=== PATIENT | male | born 1970 | race Caucasian/White ===

== ENCOUNTER 2017-07-26 11:57 | Emergency (ER) | payer SELFPAY ==
[2017-07-26 12:20] VITALS: BP 143/108; BMI 23.6
[2017-07-26] MEDS ORDERED: DUONEB 0.5 MG/3 MG NEB ONE (13:18)
[2017-07-26] MEDS ORDERED: DECADRON JET NEB (RESP USE) NEB ONE (13:19)
[2017-07-26] MEDS ORDERED: DUONEB 0.5 MG/3 MG ONE (13:19)
--- NOTE | 2017-07-26 13:20 | DR.SOBA ---
HPI - Time Seen Time seen: 13:15 - Primary Care Physician Primary Care Physician: GÓMEZ ARENAS - Complaints Chief Complaint Doctors Comments: Patient states that he has a history of asthma and yesterday he started to cough. He has continued to cough w/o fever. He uses an inhaler but does not have one. He had asthma as child. He denies cigarette use. Chief Complaint:: PT C/O SOB THAT STARTED ON 07/25/17 PT HAS A HX OF CHILDHOOD ASTHMA PT HAS BEEN COUGHING UP YELLOW THICK SPUTUM .. PT HAS BEEN OUT OF HIS INHAILER..... Self Treatment fo Chief Complaint: PTS RESP ARE LABORDED NO DISTRESS, AND LUNGS ARE CLEAR BILATERALLY .. - Source History Provided: Patient - Mode of Arrival Mode of Arrival: Ambulatory - Timing Onset of Chief Complaint: 07/25/17 PMH - PMH Past Medical History: Yes Past Medical History: Asthma, Hypertension Past Medical History Comment: PT IS NON-COMPLIANT WITH HIS MEDS ,, Past Surgical History: No - Family History History of Family Medical Conditions: Yes Family Medical History: Hypertension - Social History Does patient currently use any type of tobacco product: No Have you used tobacco products in the last 12 months: No Type of Tobacco Use: None Does any household member use tobacco: No Alcohol Use: Rarely Do you use any recreational Drugs:: No Lives With: Friend Lives Where: Home - infectious screening In the last 2 months have you had wt loss of >10#?: NO Have you had fever, night sweats or hemotysis?: No Have you traveled outside the country in the last 6 months?: No Isolation: Standard ROS - Review of Systems Constitutional: No Symptoms Reported Eyes: No Symptoms Reported ENTM: No Symptoms Reported Respiratoy: Dry Cough, Wheezing Cardiovascular: No Symptoms Reported Gastrointestinal/Abdominal: No Symptoms Reported Genitourinary: No Symptoms Reported Neurological: No Symptoms Reported Musculoskeletal: No Symptoms Reported Integumentary: No Symptoms Reported Hematologic/Lymphatic: No Symptoms Reported Endocrine: No Symptoms Reported Psychiatric: No Symptoms Reported PE - Vital Signs Vitals: Temperature 97.8 F Pulse Rate 110 Respiratory Rate 25 Blood Pressure 143/108 O2 Sat by Pulse Oximetry 97 - General Limitations: No Limitations General Appearance: Alert, In No Apparent Distress - Head Head Exam: Normal Inspection, Atraumatic - Eyes Eye exam: Normal Appearance, PERRL, EOMI - ENT ENT Exam: Normal Exam - Neck Neck Exam: Normal Inspection - Chest Chest Inspection: Normal Inspection - Respiratory Respiratory Exam: Normal Lung Sounds Bilat Respiratory Exam: Bilateral Clear to Auscultation - Cardiovascular Cardiovascular Exam: Regular Rate, Normal Rhythm - Abdominal Exam Abdominal Exam: Normal Inspection, Normal Bowel Sounds Abdominal Tenderness: negative: RUQ, RLQ, LUQ, LLQ, Epigastrium, Suprapubic, Diffuse, Mild, Moderate, Severe, Other - Extremities Extremities Exam: Normal Inspection, Full ROM - Back Back Exam: Normal Inspection, Full ROM - Neurologic Neurological Exam: Alert, Oriented X3, CN II-XII Intact - Psychiatric Psychiatric Exam: Normal Affect, Normal Mood - Skin Skin Exam: Warm, Dry Course - Treatment Treatment: Duo Nebs x2, chest x ray,solu medrol - Reevaluation 1st: Improved - Diagnosis Discharge Problem: Asthmatic bronchitis Qualifiers: Asthma severity: mild Asthma persistence: intermittent Asthma complication type : uncomplicated Qualified Code(s): J45.20 - Mild intermittent asthma, uncomplicated - Discharge Plan Condition: Stable - Follow ups/Referrals Follow ups/Referrals: Crispin Woody [Primary Care Provider] - 3 days - Instructions
[2017-07-26] MEDS ORDERED: DECADRON INJ ONE (13:21)
[2017-07-26] MEDS ORDERED: SOLU-Medrol 125 MG VIAL ONE (13:43)
[2017-07-26] MEDS ORDERED: SOLU-Medrol 125 MG VIAL IVP ONE (13:52)
== END 2017-07-26 15:03 | disposition home or self-care (01) ==
LOC: ER 12:46
DX: J45.20 Mild intermittent asthma, uncomplicated (principal)
CPT/HCPCS: 71010; 96365; 96374; 99282; 99283; A4222; J1100; J2930; J7620

== ENCOUNTER 2017-08-30 09:11 | Observation (INO) | payer SELFPAY ==
[2017-08-30] MEDS ORDERED: DUONEB 0.5 MG/3 MG ONE (09:13)
[2017-08-30] MEDS ORDERED: DUONEB 0.5 MG/3 MG NEB ONE ×2 (09:18→11:07)
[2017-08-30 09:24] VITALS: BMI 23.6
--- NOTE | 2017-08-30 10:51 | DR.GENAD ---
HPI - PCP Primary Care Physician: GÓMEZ - Complaint/Symptoms Chief Complaint:: PT C/O TROUBLE BREATHING. PT STATES HE GOT TO WORK THIS AM AND STARTED A COUGHING SPELL. PT STATES AFTER THAT HE HAS NOT BE ABLE TO CATCH HIS BREATH. PT STATES HE TOOK A DOSE OF HIS RESCUE INHAILER. NOTED BILAT WHEEZING THROUGHOUT - Source History Provided: Patient - Mode of Arrival Mode of Arrival: Ambulatory - Timing Onset of Chief Complaint: 08/30/17 PMH - PMH Past Medical History: Yes Past Medical History: Asthma, Hypertension Past Surgical History: No - Family History History of Family Medical Conditions: Yes Family Medical History: Hypertension - Social History Does any household member use tobacco: No Alcohol Use: None Do you use any recreational Drugs:: No Lives With: Family Lives Where: Home - infectious screening In the last 2 months have you had wt loss of >10#?: NO Have you had fever, night sweats or hemotysis?: No Have you traveled outside the country in the last 6 months?: No Isolation: Standard PE - Vital Signs Vitals: Temperature 97.7 F Pulse Rate [Right Radial] 111 Pulse Rate 120 Respiratory Rate 20 Blood Pressure [Left Arm] 134/85 Blood Pressure 141/88 O2 Sat by Pulse Oximetry 97 - Diagnosis Discharge Problem: Acute bronchospasm - Discharge Plan Disposition: 01 HOME, SELF-CARE Condition: Stable - Follow ups/Referrals Follow ups/Referrals: Crispin Woody [Primary Care Provider] - 3 days - Instructions
--- NOTE | 2017-08-30 11:03 | RAD ---
Examination: Chest, PA and lateral views History: Wheezing, asthma and hypertension Comparison reference: 07/26/2017. Findings: Continued normal heart size with clear lungs and pleural spaces. Impression: No change; no acute disease. Reported By:
[2017-08-30] MEDS ORDERED: SOLU-Medrol 40 MG VIAL IVP ONE (11:07)
[2017-08-30] MEDS ORDERED: AUGMENTIN 500 MG/125 MG TAB PO ONE ×2 (11:08→11:18)
[2017-08-30] MEDS ORDERED: SOLU-Medrol 125 MG VIAL IM ONE (11:14)
[2017-08-30] MEDS ORDERED: SOLU-Medrol 125 MG VIAL ONE (11:18)
[2017-08-30] MEDS ORDERED: S2 RACEMIC EPINEPHRINE ONE (12:06)
[2017-08-30] MEDS ORDERED: BRETHINE INJ 1 MG VIAL SC ONE ×2 (12:16→12:31)
[2017-08-30] MEDS ORDERED: S2 RACEMIC EPINEPHRINE NEB ONE (12:30)
[2017-08-30] MEDS: MAGNESIUM SULFATE 1 GM/100 mL PREMIX 2 GM/200 ML BAG IV SCH ×2 (12:35→13:45)
[2017-08-30 13:00] LABS: BASOPHILS # (AUTO) 0.1 X10^3/uL (0.0-0.1); BASOPHILS % (AUTO) 0.5 % (0.2-1.0); EOSINOPHILS # (AUTO) 0.1 x10^3/uL (0.0-0.2); EOSINOPHILS % (AUTO) 0.4 % (0.9-2.9); HEMATOCRIT 42.7 % (42.0-54.0); HEMOGLOBIN 14.7 g/dL (13.5-18.0); LYMPHOCYTES # (AUTO) 1.4 X10^3/uL (1.3-2.9); LYMPHOCYTES % (AUTO) 9.4 % (21.0-51.0); MEAN CORPUSCULAR HEMOGLOBIN 29.6 pg (27.0-34.0); MEAN CORPUSCULAR HGB CONC 34.5 g/dL (33.0-35.0); MEAN CORPUSCULAR VOLUME 85.7 fL (80.0-100.0); MEAN PLATELET VOLUME 7.8 fL (7.4-11.0); MONOCYTES # (AUTO) 0.7 x10^3/uL (0.3-0.8); MONOCYTES % (AUTO) 4.4 % (0.0-13.0); NEUTROPHILS # (AUTO) 12.6 x10^3/uL (2.2-4.8); NEUTROPHILS % (AUTO) 85.3 % (42.0-75.0); PLATELET COUNT 303 X10^3/uL (150.0-450.0); RED BLOOD COUNT 4.98 X10^6/uL (4.7-6.0); RED CELL DISTRIBUTION WIDTH 13.3 % (11.6-16.5); WHITE BLOOD COUNT 14.8 X10^3/uL (3.6-10.0)
[2017-08-30] MEDS ORDERED: ROBITUSSIN AC PO ONE (13:03)
[2017-08-30] MEDS ORDERED: ROBITUSSIN AC ONE (13:04)
[2017-08-30 13:12] LABS: ALANINE AMINOTRANSFERASE 28 Units/L (12-78); ALBUMIN 3.6 g/dL (3.4-5.0); ALKALINE PHOSPHATASE 73 Units/L (46-116); ASPARTATE AMINO TRANSFERASE 20 Units/L (15-37); BLOOD UREA NITROGEN 16 mg/dL (7-18); CALCIUM 8.7 mg/dL (8.5-10.1); CARBON DIOXIDE 23.2 mmol/L (21-32); CHLORIDE 106 mmol/L (98-107); COR NA(FOR HYPERGLY) 143 mmol/L (136-145); CREATININE 1.36 mg/dL (0.70-1.30); SODIUM 140 mmol/L (136-145); TOTAL PROTEIN 6.7 g/dL (6.4-8.2); eGFR BLACK RACES > 60 (>60); eGFR NON BLACK RACES > 60 (>60)
[2017-08-30] MEDS ORDERED: ROBITUSSIN DM PO PRN (15:22)
[2017-08-30] MEDS: PROVENTIL NEB TX 0.083% 2.5MG/ 3ML NEB SCH ×3 (16:10→20:21)
[2017-08-30] MEDS: SOLU-Medrol 40 MG VIAL IVP SCH (22:01)
[2017-08-31] MEDS: PROVENTIL NEB TX 0.083% 2.5MG/ 3ML NEB SCH ×3 (01:13→09:42)
[2017-08-31] MEDS: SOLU-Medrol 40 MG VIAL IVP SCH (05:40)
[2017-08-31 06:13] LABS: ALANINE AMINOTRANSFERASE 28 Units/L (12-78); ALBUMIN 3.3 g/dL (3.4-5.0); ALKALINE PHOSPHATASE 62 Units/L (46-116); ASPARTATE AMINO TRANSFERASE 19 Units/L (15-37); BLOOD UREA NITROGEN 15 mg/dL (7-18); CALCIUM 8.8 mg/dL (8.5-10.1); CARBON DIOXIDE 23.3 mmol/L (21-32); CHLORIDE 108 mmol/L (98-107); COR CA(FOR HYPOALB) 9.4 mg/dL (8.5-10.1); COR NA(FOR HYPERGLY) 144 mmol/L (136-145); CREATININE 1.16 mg/dL (0.70-1.30); SODIUM 142 mmol/L (136-145); TOTAL PROTEIN 6.2 g/dL (6.4-8.2); eGFR BLACK RACES > 60 (>60); eGFR NON BLACK RACES > 60 (>60)
[2017-08-31 07:06] LABS: BASOPHILS % (AUTO) 0.2 % (0.2-1.0); HEMATOCRIT 40.3 % (42.0-54.0); HEMOGLOBIN 13.8 g/dL (13.5-18.0); LYMPHOCYTES # (AUTO) 0.9 X10^3/uL (1.3-2.9); LYMPHOCYTES % (AUTO) 5.1 % (21.0-51.0); MEAN CORPUSCULAR HEMOGLOBIN 29.3 pg (27.0-34.0); MEAN CORPUSCULAR HGB CONC 34.2 g/dL (33.0-35.0); MEAN CORPUSCULAR VOLUME 85.7 fL (80.0-100.0); MEAN PLATELET VOLUME 8.4 fL (7.4-11.0); MONOCYTES # (AUTO) 0.6 x10^3/uL (0.3-0.8); MONOCYTES % (AUTO) 3.1 % (0.0-13.0); NEUTROPHILS % (AUTO) 91.6 % (42.0-75.0); PLATELET COUNT 263 X10^3/uL (150.0-450.0); RED CELL DISTRIBUTION WIDTH 13.4 % (11.6-16.5); WHITE BLOOD COUNT 18.5 X10^3/uL (3.6-10.0)
[2017-08-31 07:21] LABS: BAND NEUTROPHILS % 5 % (0-10)
[2017-08-31 07:22] LABS: PLATELET MORPHOLOGY COMMENT NORMAL (NORMAL)
[2017-08-31 08:01] VITALS: BP 110/69
[2017-08-31] MEDS ORDERED: LEVAQUIN PREMIX IV 500 MG 500 MG/100 ML BAG IV SCH (09:00)
--- NOTE | 2017-08-31 22:06 | DR.CARTERS ---
Short Stay Summary - Short Stay Summary for: Short Stay Summary for Date of:: 08/31/17 - Admission Date Date of Admission: 08/30/17 - Discharge Date Discharge Date: 08/31/17 - Admission Diagnoses (1) Asthmatic bronchitis Status: Acute - Hospital Course Hospital Course: DAY 1 OF STAY: IS A 47 YEAR OLD WHITE MALE WHO PRESENTED TO THE EMERGENCY ROOM WITH COMPLAINTS OF SHORTNESS OF BREATH AND DIFFICULTY BREATHING. PATIENT REPORTED THAT HE BEGAN WITH A PERSISTENT COUGH THAT CAME ON SUDDENLY YESTERDAY MORNING. PATIENT REPORTED DIFFICULTY BREATHING THAT DID NOT SUBSIDE AFTER THE COUGHING SPELL. HE REPORTED USING HIS RESCUE INHALER WITH NO IMPROVEMENT NOTED. PATIENT REPORTS A MEDICAL HISTORY OF ASTHMA AND HTN. ON EXAMINATION, LUNGS WERE NOTED WITH EXPIRATORY AND INSPIRATORY WHEEZING BILATERALLY TO AUSCULTATION. ON ARRIVAL TO THE ER, VITALS WERE 97.7-126-24-94% RA, 141/88. ABNORMAL LAB VALUES INCLUDE THE FOLLOWING: WBC 14.8, CREATININE 1.36 , GLUCOSE 245. CHEST XRAY REPORTED NO ACUTE DISEASE. HE WAS GIVEN A DUONEB X 2, SOLU-MEDROL 80MG IM, AUGMENTIN, BRETHENE, AND EPINEPHRINE IN THE ER WITH ONLY MILD IMPROVEMENT IN SYMPTOMS NOTED. PATIENT WAS ADMITTED FOR FURTHER EVALUATION AND TREATMENT OF AN ACUTE ASTHMATIC BRONCHITIS. HE WAS STARTED ON PROVENTIL NEB [place] Q4H, ROBITUSSIN 10ML QID PRN FOR PERSISTENT COUGH, LEVAQUIN 500MG IV DAILY, AND SOLU-MEDROL 80MG IV Q8H. WE PLANNED TO FOLLOW UP WITH AM LABS AND CONTINUE TO MONITOR PATIENT. DAY 2 OF STAY: PATIENT IS ALERT AND ORIENTED, LYING IN BED ON MORNING ROUNDS. HE REPORTS FEELING WELL TODAY. HE DENIES SHORTNESS OF BREATH OR ANY COMPLAINTS THIS MORNING. PATIENTS SIGNIFICANT OTHER IS AT BEDSIDE. ON EXAMINATION, LUNGS ARE CLEAR TO AUSCULTATION. ABDOMEN IS FLAT, SOFT, AND NON TENDER WITH NORMAL BOWEL SOUNDS NOTED IN ALL QUADRANTS. HIS VITAL SIGNS THIS MORNING ARE 97.6-112- 20-94%-110/69. ABNORMAL LAB VALUES INCLUDE THE FOLLOWING WBC 18.5, HCT 40.3, CHLORIDE 108, GLUCOSE 191, TOTAL PROTEIN 6.2, ALBUMIN 3.3. WE PLANNED FOR DISCHARGE. INSTRUCTIONS FOR MEDICATIONS AND FOLLOW UP WERE DISCUSSED WITH PATIENT AND SIGNIFICANT OTHER. BOTH VERBALIZED UNDERSTANDING. PATIENT WAS DISCHARGED HOME IN STABLE CONDITION WITH NEW PRESCRIPTIONS FOR CIPRO 500MG PO BID, MEDROL DOSEPACK, JET NEBS TID, AND SYMBICORT 1PUFF BID. HE HAS INSTRUCTIONS TO FOLLOW UP IN OUR OFFICE ON 09/07/2017. - Discharge Medications Discharge Medications: Albuterol Neb 2.5MG/ 3Ml [ALBUTEROL NEB 2.5MG/ 3ML *] 1 ea NEB TID #120 neb 07/09 [Rx] Budesonide-Formoterol [SYMBICORT INH 160/4.5 mcg] 1 puff IN Q12H #1 inh [Rx] Ciprofloxacin HCl [CIPRO 500 MG TAB *] 500 mg PO Q12H #20 tab 08/31/17 [Rx] Methylprednisolone Dosepak 4Mg [MEDROL DOSEPAK (4 mg tab x 21)] 1 reena PO ONCE # 1 reena 08/31/17 [Rx] - Discharge Plan Disposition: HOME, SELF-CARE Condition: Stable Prescriptions: Albuterol Neb 2.5MG/ 3Ml [ALBUTEROL NEB 2.5MG/ 3ML *] 1 ea NEB TID #120 neb Budesonide-Formoterol [SYMBICORT INH 160/4.5 mcg] 1 puff IN Q12H #1 inh Ciprofloxacin HCl [CIPRO 500 MG TAB *] 500 mg PO Q12H #20 tab Methylprednisolone Dosepak 4Mg [MEDROL DOSEPAK (4 mg tab x 21)] 1 reena PO ONCE # 1 reena - Follow up/Referrals Follow up/Referrals: Crispin Woody [Primary Care Provider] - 09/07/17 10:30 am - Instructions Instructions: Dehydration, Adult, [id number], Bronchospasm, Adult, Easy-to- Read, Asthma, Adult, [id number], Asthma Attack Prevention Additional Instructions: ACTIVITY TOLERATED. DIET TOLERATED. Forms: Patient Portal
== END 2017-08-31 10:50 | disposition home or self-care (01) | DRG 203 ==
LOC: ER 09:19 → MED/SURG 14:51
PROVIDERS: ADMIT Internal Medicine; ATTEND Internal Medicine
DX: J45.901 Unspecified asthma with (acute) exacerbation (principal); J20.8 Acute bronchitis due to other specified organisms; R06.02 Shortness of breath; D72.828 Other elevated white blood cell count; R73.09 Other abnormal glucose
CPT/HCPCS: 36415; 71020; 80053; 85025; 94640; 94760; 96365; 96372; 96374; 96375; 99284; A4216; A4222; G0378; J1956; J2920; J2930; J3105; J7613; J7620

== ENCOUNTER 2018-02-27 16:41 | Inpatient (IN) | payer SELFPAY ==
[~2018-02-27 16:41] MED LIST: DUONEB 0.5 MG/3 MG ONE
[2018-02-27 16:52] VITALS: BMI 25.1
[2018-02-27] MEDS ORDERED: DECADRON JET NEB (RESP USE) NEB ONE ×2 (16:52→16:53)
[2018-02-27] MEDS ORDERED: DUONEB 0.5 MG/3 MG ONE ×2 (16:53→16:54)
[2018-02-27] MEDS ORDERED: DUONEB 0.5 MG/3 MG NEB ONE ×4 (16:53→19:43)
--- NOTE | 2018-02-27 17:03 | DR.URIAD ---
HPI - Time Seen Time seen: 16:55 - PCP Primary Care Physician: wale - HPI Comment HPI Comment: GETTING WORSE. HOME MEDS WERE NOT HELPING. - Complaint Chief Complaint Doctors Comments: INCRESING SOB, WHEEZING AND CHEST PAIN TIMES 3 DAYS. 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 today his short of breath - Reviewed Nurses Notes Reviewed: Yes - Source History Provided: Patient - Mode of Arrival Mode of Arrival: Ambulatory - Timing Onset of Chief Complaint: 02/27/18 - Context History of Respiratory: Asthma - Quality Quality of Cough: Productive, Yellow Rhinorrhea: Green Shortness of Breath: Moderate - Associated Signs and Symptoms Other Signs and Symptoms: Accessory Muscle Use, Cough, Shortness of Breath, Wheeze PMH - PMH Past Medical History: Yes Past Medical History: Asthma, Hypertension Past Surgical History: No - Family History History of Family Medical Conditions: Yes Family Medical History: Hypertension - Social History Does patient currently use any type of tobacco product: No Have you used tobacco products in the last 12 months: No Type of Tobacco Use: None Does any household member use tobacco: No Alcohol Use: None Do you use any recreational Drugs:: No Lives With: Family Lives Where: Home - infectious screening In the last 2 months have you had wt loss of >10#?: NO Have you had fever, night sweats or hemotysis?: No Have you traveled outside the country in the last 6 months?: No Isolation: Standard ROS - Review of Systems Constitutional: Weakness, Fatigue. negative: Chills, Fever Eyes: No Symptoms Reported. negative: Eye Pain, Discharge ENTM: Nose Discharge, Nose Congestion, Throat Pain. negative: Ear Pain Respiratoy: Productive Cough, Short of Breath, Wheezing. negative: Hemoptysis Gastrointestinal/Abdominal: No Symptoms Reported Genitourinary: No Symptoms Reported Neurological: Headache, Weakness, Dizziness Musculoskeletal: No Symptoms Reported Integumentary: No Symptoms Reported Hematologic/Lymphatic: No Symptoms Reported Endocrine: No Symptoms Reported All Other Systems: Reviewed and Negative PE - Vital Signs Vitals: Temperature 98.8 F Pulse Rate [Right Brachial] 121 Pulse Rate 116 Respiratory Rate 18 Blood Pressure [Left Arm] 110/69 Blood Pressure 120/85 O2 Sat by Pulse Oximetry 95 - General Limitations: No Limitations General Appearance: In Distress - Head Head Exam: Normal Inspection - Eyes Eye exam: Normal Appearance - ENT ENT Exam: Normal External Ear Exam External Ear Exam: Normal External Inspection TM/Canal Exam: Bilateral Normal Nose Exam: Normal Nose Exam Mouth Exam: Normal Inspection Throat Exam: Normal Inspection - Neck Neck Exam: Trachea Midline - Chest Chest Inspection: Symmetric Chest Wall Rise - Respiratory Respiratory Exam: Respiratory Distress Respiratory Exam: Bilateral Wheezing, Bilateral Rhonchi, Upper Wheezing, Upper Rhonchi, Lower Wheezing, Lower Rhonchi - Cardiovascular Cardiovascular Exam: Regular Rate, Normal Rhythm, Normal Heart Sounds - Abdominal Exam Abdominal Exam: Normal Bowel Sounds, Soft. negative: Tenderness - Extremeties Extremities Exam: Normal Inspection - Back Back Exam: Normal Inspection - Neurologic Neurological Exam: Alert, Oriented X3. negative: Motor Sensory Deficit - Psychiatric Psychiatric Exam: Anxious - Skin Skin Exam: Normal Color MDM - Differential Diagnosis Differential Diagnosis: Otitis media, Streptococcal pharyngitis, Viral pharyngitis, Pneumonia, Sinsusitis, URI Course - Treatment Treatment: SEE ORDERS. IV STERIDS AND IV SOLUMEDROL IN ED. - Reevaluation 1st: Improved - Consultation Consultation Comments: DISCUSS PATIENT WITH DR. MAGAÑA. HE WILL ADMIT PATIENT. - Education/Counseling Education/Counseling: Patient, Education Educated On: Diagnosis, Needs for Follow Up ROR - Labs Reviewed Laboratory Results Reviewed?: Yes Result Diagrams: 02/27/18 17:18 02/27/18 17:18 Laboratory: WBC 17.5 X10^3/uL (3.6-10.0) H 02/27/18 17:18 RBC 6.00 X10^6/uL (4.7-6.0) 02/27/18 17:18 Hgb 17.1 g/dL (13.5-18.0) 02/27/18 17:18 Hct 49.8 % (42.0-54.0) 02/27/18 17:18 MCV 83.0 fL (80.0-100.0) 02/27/18 17:18 MCH 28.5 pg (27.0-34.0) 02/27/18 17:18 MCHC 34.3 g/dL (33.0-35.0) 02/27/18 17:18 RDW 15.0 % (11.6-16.5) 02/27/18 17:18 Plt Count 336 X10^3/uL (150.0-450.0) 02/27/18 17:18 MPV 7.9 fL (7.4-11.0) 02/27/18 17:18 Neut % (Auto) 62.4 % (42.0-75.0) 02/27/18 17:18 Lymph % (Auto) 17.7 % (21.0-51.0) L 02/27/18 17:18 [place] % (Auto) 6.5 % (0.0-13.0) 02/27/18 17:18 Eos % (Auto) 12.8 % (0.9-2.9) H 02/27/18 17:18 Baso % (Auto) 0.6 % (0.2-1.0) 02/27/18 17:18 Neut # (Auto) 10.9 x10^3/uL (2.2-4.8) H 02/27/18 17:18 Lymph # (Auto) 3.1 X10^3/uL (1.3-2.9) H 02/27/18 17:18 [place] # (Auto) 1.1 x10^3/uL (0.3-0.8) H 02/27/18 17:18 Eos # (Auto) 2.2 x10^3/uL (0.0-0.2) H 02/27/18 17:18 Baso # (Auto) 0.1 X10^3/uL (0.0-0.1) 02/27/18 17:18 Absolute Nucleated RBC 0.1 /100WBC 02/27/18 17:18 Sample Site Rb 02/27/18 20:10 ABG pH 7.430 (7.35-7.45) 02/27/18 20:10 ABG pCO2 37.0 mmHg (35.0-45.0) 02/27/18 20:10 ABG pO2 60.0 mmHg (80.0-100.0) L 02/27/18 20:10 ABG HCO3 24.6 mmol/L (22-26) 02/27/18 20:10 ABG O2 Saturation 91.0 % (90-100) 02/27/18 20:10 ABG Base Excess 0.5 mmol/L (-2.0-2.0) 02/27/18 20:10 Mian Test N/a 02/27/18 20:10 A-a Gradient 43.0 mmHg 02/27/18 20:10 FiO2 21.000 02/27/18 20:10 Blood Gas Comments Kim well ae 02/27/18 20:10 Sodium 140 mmol/L (136-145) 02/27/18 17:18 Corrected Sodium 142 mmol/L (136-145) 02/27/18 17:18 Potassium 4.2 mmol/L (3.5-5.1) 02/27/18 17:18 Chloride 103 mmol/L (98-107) 02/27/18 17:18 Carbon Dioxide 28.8 mmol/L (21-32) 02/27/18 17:18 BUN 20 mg/dL (7-18) H 02/27/18 17:18 Creatinine 1.49 mg/dL (0.70-1.30) H 02/27/18 17:18 Est GFR (MDRD) Af Amer > 60 (>60) 02/27/18 17:18 Est GFR (MDRD) Non-Af 54 (>60) L 02/27/18 17:18 Glucose 203 mg/dL (65-99) H 02/27/18 17:18 Calcium 9.1 mg/dL (8.5-10.1) 02/27/18 17:18 Corrected Calcium TNP 02/27/18 17:18 Total Bilirubin 0.50 mg/dL (0.2-1.0) 02/27/18 17:18 AST 13 Units/L (15-37) L 02/27/18 17:18 ALT 31 Units/L (12-78) 02/27/18 17:18 Alkaline Phosphatase 100 Units/L (46-116) 02/27/18 17:18 Total Protein 7.8 g/dL (6.4-8.2) 02/27/18 17:18 Albumin 3.9 g/dL (3.4-5.0) 02/27/18 17:18 Globulin 3.9 g/dL (2.5-4.5) 02/27/18 17:18 Albumin/Globulin Ratio 1.0 Ratio (1.1-2.1) L 02/27/18 17:18 - XRAY XRAY Interpreted by: Radiologist XRAY Findings: REPORT DISCUSS WITH PATIENT. - Diagnosis Discharge Problem: Bronchitis Asthma exacerbation Qualifiers: Asthma severity: moderate Asthma persistence: persistent Qualified Code(s): J45.41 - Moderate persistent asthma with (acute) exacerbation - Discharge Plan Disposition: ADMITTED INPATIENT Condition: Stable - Follow ups/Referrals - Instructions
[2018-02-27] MEDS ORDERED: SOLU-Medrol 125 MG VIAL ONE (17:10)
[2018-02-27] MEDS ORDERED: SOLU-Medrol 125 MG VIAL IVP ONE (17:11)
[2018-02-27 17:29] LABS: BASOPHILS # (AUTO) 0.1 X10^3/uL (0.0-0.1); BASOPHILS % (AUTO) 0.6 % (0.2-1.0); EOSINOPHILS # (AUTO) 2.2 x10^3/uL (0.0-0.2); EOSINOPHILS % (AUTO) 12.8 % (0.9-2.9); HEMATOCRIT 49.8 % (42.0-54.0); HEMOGLOBIN 17.1 g/dL (13.5-18.0); LYMPHOCYTES # (AUTO) 3.1 X10^3/uL (1.3-2.9); LYMPHOCYTES % (AUTO) 17.7 % (21.0-51.0); MEAN CORPUSCULAR HEMOGLOBIN 28.5 pg (27.0-34.0); MEAN CORPUSCULAR HGB CONC 34.3 g/dL (33.0-35.0); MEAN PLATELET VOLUME 7.9 fL (7.4-11.0); MONOCYTES # (AUTO) 1.1 x10^3/uL (0.3-0.8); MONOCYTES % (AUTO) 6.5 % (0.0-13.0); NEUTROPHILS # (AUTO) 10.9 x10^3/uL (2.2-4.8); NEUTROPHILS % (AUTO) 62.4 % (42.0-75.0); PLATELET COUNT 336 X10^3/uL (150.0-450.0); WHITE BLOOD COUNT 17.5 X10^3/uL (3.6-10.0)
[2018-02-27 17:39] LABS: ALANINE AMINOTRANSFERASE 31 Units/L (12-78); ALBUMIN 3.9 g/dL (3.4-5.0); ALKALINE PHOSPHATASE 100 Units/L (46-116); ASPARTATE AMINO TRANSFERASE 13 Units/L (15-37); BLOOD UREA NITROGEN 20 mg/dL (7-18); CALCIUM 9.1 mg/dL (8.5-10.1); CARBON DIOXIDE 28.8 mmol/L (21-32); CHLORIDE 103 mmol/L (98-107); COR NA(FOR HYPERGLY) 142 mmol/L (136-145); CREATININE 1.49 mg/dL (0.70-1.30); SODIUM 140 mmol/L (136-145); TOTAL PROTEIN 7.8 g/dL (6.4-8.2); eGFR BLACK RACES > 60 (>60); eGFR NON BLACK RACES 54 (>60)
--- NOTE | 2018-02-27 17:55 | RAD ---
STUDY: CHEST, ONE VIEW History: Wheezing. Shortness of breath for 3 days. Comparison: August 30, 2017. Findings: The trachea is midline. There are changes of COPD in both lungs. The lungs are clear of consolidation , significant infiltrate, effusion, or pneumothorax. The cardiac silhouette, mediastinum and osseous structures are unremarkable. IMPRESSION: 1. No acute cardiopulmonary abnormality. 2. COPD. Reported By:
[2018-02-27] MEDS ORDERED: ROCEPHIN 1 GM IV PREMIX 1 GM/50 ML IV.SOLN. IV ONE ×2 (18:43→18:59)
[2018-02-27 20:15] LABS: ABG BASE EXCESS 0.5 mmol/L (-2.0-2.0); ABG HCO3 24.6 mmol/L (22-26)
[2018-02-27] MEDS: DUONEB 0.5 MG/3 MG NEB SCH (21:06)
[2018-02-27] MEDS: FORTAZ or TAZICEF INJ 1 GM in NS 50 ML IV + SPIKE MINIBAG* 50 ML IV SCH (22:03)
[2018-02-27] MEDS ORDERED: FORTAZ or TAZICEF INJ ONE (22:25)
[2018-02-27] MEDS ORDERED: NS 100 ML IV + SPIKE MINIBAG* 100 ML IV ONE (22:25)
[2018-02-27] MEDS: NS 1000 ML 1,000 ML IV SCH (22:25)
[2018-02-28] MEDS: DUONEB 0.5 MG/3 MG NEB SCH ×6 (01:25→20:27)
[2018-02-28] MEDS ORDERED: FORTAZ or TAZICEF INJ ONE (05:13)
[2018-02-28] MEDS ORDERED: NS 100 ML IV + SPIKE MINIBAG* 100 ML IV ONE (05:13)
[2018-02-28] MEDS: NS 1000 ML 1,000 ML IV SCH ×2 (05:45→13:27)
[2018-02-28] MEDS: FORTAZ or TAZICEF INJ 1 GM in NS 50 ML IV + SPIKE MINIBAG* 50 ML IV SCH (05:45)
[2018-02-28 06:18] LABS: BILIRUBIN,URINE NEGATIVE (NEGATIVE); BLOOD/HEMOGLOBIN,URINE NEGATIVE (NEGATIVE); GLUCOSE, URINE 4+ (NEGATIVE); KETONES,URINE NEGATIVE (NEGATIVE); LEUKOCYTE ESTERASE ,URINE NEGATIVE (NEGATIVE); NITRITES,URINE NEGATIVE (NEGATIVE); PROTEIN,URINE NEGATIVE (NEGATIVE); UROBILINOGEN,URINE NORMAL (NORMAL)
[2018-02-28 06:37] LABS: BASOPHILS % (AUTO) 0.3 % (0.2-1.0); EOSINOPHILS % (AUTO) 0.1 % (0.9-2.9); HEMATOCRIT 43.8 % (42.0-54.0); HEMOGLOBIN 15.2 g/dL (13.5-18.0); LYMPHOCYTES # (AUTO) 1.2 X10^3/uL (1.3-2.9); LYMPHOCYTES % (AUTO) 9.6 % (21.0-51.0); MEAN CORPUSCULAR HEMOGLOBIN 28.7 pg (27.0-34.0); MEAN CORPUSCULAR HGB CONC 34.8 g/dL (33.0-35.0); MEAN CORPUSCULAR VOLUME 82.5 fL (80.0-100.0); MEAN PLATELET VOLUME 8.2 fL (7.4-11.0); MONOCYTES # (AUTO) 0.3 x10^3/uL (0.3-0.8); MONOCYTES % (AUTO) 2.6 % (0.0-13.0); NEUTROPHILS % (AUTO) 87.4 % (42.0-75.0); PLATELET COUNT 302 X10^3/uL (150.0-450.0); RED BLOOD COUNT 5.31 X10^6/uL (4.7-6.0); RED CELL DISTRIBUTION WIDTH 14.7 % (11.6-16.5); WHITE BLOOD COUNT 12.6 X10^3/uL (3.6-10.0)
[2018-02-28 06:39] LABS: BLOOD UREA NITROGEN 14 mg/dL (7-18); CALCIUM 8.2 mg/dL (8.5-10.1); CARBON DIOXIDE 23.9 mmol/L (21-32); CHLORIDE 105 mmol/L (98-107); COR NA(FOR HYPERGLY) 142 mmol/L (136-145); CREATININE 1.23 mg/dL (0.70-1.30); SODIUM 139 mmol/L (136-145); eGFR BLACK RACES > 60 (>60); eGFR NON BLACK RACES > 60 (>60)
[2018-02-28 06:39] LABS: APPEARANCE,URINE CLEAR (CLEAR); COLOR,URINE YELLOW (YELLOW)
--- NOTE | 2018-02-28 08:33 | DR.H&P ---
H&P - History & Physical for Day of: H&P Date: 02/27/18 - Chief Complaint Chief Complaint: SHORT OF BREATH - Allergies Allergies/Adverse Reactions: Allergies Allergy/AdvReac Type Severity Reaction Status Date / Time No Known Drug Allergies Allergy Verified 02/27/18 16:42 - History of Present Illness History of Present Illness: IS A 47 YEAR OLD PATIENT OF OURS WHO PRESENTED TO THE EMERGENCY ROOM WITH COMPLAINTS OF SHORTNESS OF BREATH THAT HAS PROGRESSIVLEY GOTTEN WORSE OVER THE PAST THREE DAYS. ASSOCIATED SYMPTOMS INCLUDE WHEEZING, WEAKNESS, NASAL CONGESTION, HEADACHE, AND CHEST PAIN. HE REPORTS COMPLIANCE WITH HOME MEDICATIONS FOR ASTHMA, HOWEVER, SYMPTOMS CONTINUE TO WORSEN. ON EXAMINATION, PATIENT WAS NOTED TO BE USING ASCCESSORY MUSCLES AND IS NOTED WITH A NON-PRODUCTIVE COUGH. INSPIRATORY AND EXPIRATORY WHEEZING NOTED TO AUSCULTATION. ON ARRIVAL TO THE ER, VITALS WERE 98.8-118-18-89% RA-120/85. LABS WERE OBTAINED. ABNORMAL LAB VALUES INCLUDE THE FOLLOWING: WBC 17.5, BUN 20 , CREATININE 1.49, GLUCOSE 203, AST 13. A CHEST XRAY WAS OBTAINED AND REVEALED NO ACUTE CARDIOPULMONARY ABNORMALITY. COPD. PATIENT WAS GIVEN DUONEBS X 3, DECADRON JET NEBS 4MG X 1, SOLU-MEDROL 125MG IV X 1, ROCEPHIN 1GM IV X 1, AND FORTAX 1GM IV X 1 IN THER ER. HE WAS ADMITTED TO THE HOSPITAL FOR FURTHER EVALUATION AND TREATMENT OF AN EXACERBATION OF ASTHMA. HE WAS STARTED ON NORMAL SALINE @125ML/HR, DONEBS Q4H, FORTAZ 1GM IV Q8H, AND SOLU-MEDROL 80MG IV Q8H. OTHERWISE, WE PLAN TO FOLLOW UP WITH AM LABS AND CONTINUE TO MONITOR PATIENT. - Past Medical History Past Medical History: Asthma, Hypertension - Family History Family Medical History: Hypertension - Social History Does patient currently use any type of tobacco product: No Have you used tobacco products in the last 12 months: No Type of Tobacco Use: None Does any household member use tobacco: No Alcohol Use: None Drug Use: None - Medications Home Medications: Albuterol Sulfate [Ventolin Hfa] 1 puff INH QID PRN 02/27/18 [History Confirmed 02/27/18] Cetirizine HCl [Zyrtec] 10 mg PO DAILY 02/27/18 [History Confirmed 02/27/18] - Review of Systems Constitutional: Weakness, Malaise Eyes: No Symptoms Reported ENT: Nose Discharge, Nose Congestion Respiratory: Cough, Shortness of Breath, Wheezing Cardiovascular: Chest Pain Gastrointestinal: No Symptoms Reported Genitourinary: No Symptoms Reported Musculoskeletal: No Symptoms Reported Skin: No Symptoms Reported Neurological: Weakness, Other (HEADACHE) - Physical Exam Vital Signs: Temperature 97.9 F Pulse Rate [Right Brachial] 105 Pulse Rate 101 Respiratory Rate 16 Blood Pressure [Left Arm] 133/83 Blood Pressure 120/85 O2 Sat by Pulse Oximetry 94 Oriented: Normal Eyes: Normal Ear: Normal Nose: Discharge Throat: Normal Respiratory: Rhonchi Throughout, Wheezes Throughout Cardiovascular: Tachycardia. negative: S3, S4, Murmur : Normal Auscultation: Bowel Sounds: Normal Palpation: Normal Tenderness: Normal Skin: Normal Musculoskeletal: Normal Psychiatric: Normal Mood Description: Calm Affect: Normal Speech Pattern: Clear - Assessment/Plan (1) Asthma exacerbation Qualifiers: Asthma severity: moderate Asthma persistence: persistent Qualified Code(s ): J45.41 - Moderate persistent asthma with (acute) exacerbation Status: Acute Plan: ADMIT, NORMAL SALINE AT 125ML/HR, FORTAZ 1GM IV Q8H, DUONEBS Q4H, SOLU- MEDROL 80MG IV Q8H, CONTINUE TO MONITOR
[2018-02-28] MEDS: SOLU-Medrol 40 MG VIAL IVP SCH ×2 (09:48→16:50)
[2018-02-28] MEDS: FORTAZ or TAZICEF INJ 1 GM in NS 100 ML IV + SPIKE MINIBAG* 100 ML IV SCH ×2 (13:29→21:17)
[2018-02-28] MEDS: ROBITUSSIN DM PO PRN (21:16)
--- NOTE | 2018-02-28 22:17 | PCM.PROG ---
Progress Note - Progress Note for Day of Date: 02/28/18 - Subjective Subjective: WAS ADMITTED FOR AN EXACERBATION FO ASTHMA. TODAY, HE IS ALERT AND ORIENTED, LYING IN BED ON MORNING ROUNDS. TODAY, HE CONTINUES WITH SHORTNESS OF BREATH. ON AUSCULTATION OF LUNG MARTINEZ, HE CONTINUES WITH INSPIRATORY AND EXPIRATORY WHEEZING. HIS VITALS THIS MORNING ARE 97.9-105-16-94% -133/83. ABNORMAL LAB VALUES INCLUDE THE FOLLOWING: WBC 12.6, GLUCOSE 209, CALCIUM 8.2. HE IS CURRENTLY RECEIVING FORTAZ 1GM IV TID, SOLU-MEDROL, DUONEBS, AND SUPPLEMENTAL OXYGEN. WE WILL CONTINUE WITH CURRENT PLAN OF CARE TODAY. WE PLAN TO FOLLOW UP WITH AM LABS AND CONTINUE TO MONITOR PATIENT. - Past Medical Family Social History Past Med/Fam/Surg Hx: No changes since H&P Allergies: Allergies No Known Drug Allergies Allergy (Verified 02/27/18 16:42) - Review of Systems ROS: No change since H&P - Vital Signs and I&O's Vital Signs: Temperature 97.4 F Pulse Rate [Left Brachial] 124 Pulse Rate [Right Brachial] 105 Pulse Rate 126 Respiratory Rate 22 Blood Pressure [Left Arm] 124/77 Blood Pressure 120/85 O2 Sat by Pulse Oximetry 90 Intake and Output: Intake & Output 02/26/18 02/27/18 02/28/18 03/01/18 11:59 11:59 11:59 11:59 Intake Total 1590 1575 Balance 1590 1575 - Physical Exam Oriented: Normal Eyes: Normal Ear: Normal Nose: Discharge Throat: Normal Respiratory: Generalized, Wheezes Cardiovascular: Tachycardia. negative: S3, S4, Murmur : Normal Auscultation: Bowel Sounds: Normal Palpation: Normal Tenderness: Normal Skin: Normal Musculoskeletal: Normal Psychiatric: Normal Mood Description: Calm Affect: Normal Speech Pattern: Clear, Appropriate - Laboratory and Diagnostics Result Diagrams: 02/28/18 05:56 02/28/18 05:56 Labs: Laboratory WBC 12.6 X10^3/uL (3.6-10.0) H 02/28/18 05:56 RBC 5.31 X10^6/uL (4.7-6.0) 02/28/18 05:56 Hgb 15.2 g/dL (13.5-18.0) 02/28/18 05:56 Hct 43.8 % (42.0-54.0) 02/28/18 05:56 MCV 82.5 fL (80.0-100.0) 02/28/18 05:56 MCH 28.7 pg (27.0-34.0) 02/28/18 05:56 MCHC 34.8 g/dL (33.0-35.0) 02/28/18 05:56 RDW 14.7 % (11.6-16.5) 02/28/18 05:56 Plt Count 302 X10^3/uL (150.0-450.0) 02/28/18 05:56 MPV 8.2 fL (7.4-11.0) 02/28/18 05:56 Neut % (Auto) 87.4 % (42.0-75.0) H 02/28/18 05:56 Lymph % (Auto) 9.6 % (21.0-51.0) L 02/28/18 05:56 [place] % (Auto) 2.6 % (0.0-13.0) 02/28/18 05:56 Eos % (Auto) 0.1 % (0.9-2.9) L 02/28/18 05:56 Baso % (Auto) 0.3 % (0.2-1.0) 02/28/18 05:56 Neut # (Auto) 11.0 x10^3/uL (2.2-4.8) H 02/28/18 05:56 Lymph # (Auto) 1.2 X10^3/uL (1.3-2.9) L 02/28/18 05:56 [place] # (Auto) 0.3 x10^3/uL (0.3-0.8) 02/28/18 05:56 Eos # (Auto) 0.0 x10^3/uL (0.0-0.2) 02/28/18 05:56 Baso # (Auto) 0.0 X10^3/uL (0.0-0.1) 02/28/18 05:56 Absolute Nucleated RBC 0.0 /100WBC 02/28/18 05:56 Sample Site Rb 02/27/18 20:10 ABG pH 7.430 (7.35-7.45) 02/27/18 20:10 ABG pCO2 37.0 mmHg (35.0-45.0) 02/27/18 20:10 ABG pO2 60.0 mmHg (80.0-100.0) L 02/27/18 20:10 ABG HCO3 24.6 mmol/L (22-26) 02/27/18 20:10 ABG O2 Saturation 91.0 % (90-100) 02/27/18 20:10 ABG Base Excess 0.5 mmol/L (-2.0-2.0) 02/27/18 20:10 Mian Test N/a 02/27/18 20:10 A-a Gradient 43.0 mmHg 02/27/18 20:10 FiO2 21.000 02/27/18 20:10 Blood Gas Comments Kim well ae 02/27/18 20:10 Sodium 139 mmol/L (136-145) 02/28/18 05:56 Corrected Sodium 142 mmol/L (136-145) 02/28/18 05:56 Potassium 4.1 mmol/L (3.5-5.1) 02/28/18 05:56 Chloride 105 mmol/L (98-107) 02/28/18 05:56 Carbon Dioxide 23.9 mmol/L (21-32) 02/28/18 05:56 BUN 14 mg/dL (7-18) 02/28/18 05:56 Creatinine 1.23 mg/dL (0.70-1.30) 02/28/18 05:56 Est GFR (MDRD) Af Amer > 60 (>60) 02/28/18 05:56 Est GFR (MDRD) Non-Af > 60 (>60) 02/28/18 05:56 Glucose 209 mg/dL (65-99) H 02/28/18 05:56 Calcium 8.2 mg/dL (8.5-10.1) L 02/28/18 05:56 Corrected Calcium TNP 02/27/18 17:18 Total Bilirubin 0.50 mg/dL (0.2-1.0) 02/27/18 17:18 AST 13 Units/L (15-37) L 02/27/18 17:18 ALT 31 Units/L (12-78) 02/27/18 17:18 Alkaline Phosphatase 100 Units/L (46-116) 02/27/18 17:18 Total Protein 7.8 g/dL (6.4-8.2) 02/27/18 17:18 Albumin 3.9 g/dL (3.4-5.0) 02/27/18 17:18 Globulin 3.9 g/dL (2.5-4.5) 02/27/18 17:18 Albumin/Globulin Ratio 1.0 Ratio (1.1-2.1) L 02/27/18 17:18 Specimen Type Clean catch urine 02/28/18 05:43 Urine Color Yellow (YELLOW) 02/28/18 05:43 Urine Appearance Clear (CLEAR) 02/28/18 05:43 Urine pH 5.0 (5.0 - 8.0) 02/28/18 05:43 Ur Specific [place] 1.015 (1.000-1.030) 02/28/18 05:43 Urine Protein Negative (NEGATIVE) 02/28/18 05:43 Urine Glucose (UA) 4+ (NEGATIVE) 02/28/18 05:43 Urine Ketones Negative (NEGATIVE) 02/28/18 05:43 Urine Occult Blood Negative (NEGATIVE) 02/28/18 05:43 Urine Nitrite Negative (NEGATIVE) 02/28/18 05:43 Urine Bilirubin Negative (NEGATIVE) 02/28/18 05:43 Urine Urobilinogen Normal (NORMAL) 02/28/18 05:43 Ur Leukocyte Esterase Negative (NEGATIVE) 02/28/18 05:43 Urine Opiates Screen Negative (NEG=<300) 02/28/18 16:50 Urine Methadone Screen Negative (NEG=<300) 02/28/18 16:50 Ur Barbiturates Screen Negative (NEG=<200) 02/28/18 16:50 Ur Phencyclidine Scrn Negative (NEG=<25) 02/28/18 16:50 Ur Amphetamines Screen Positive (NEG=<1000) 02/28/18 16:50 U Benzodiazepines Scrn Negative (NEG=<200) 02/28/18 16:50 Urine Cocaine Screen Negative (NEG=<300) 02/28/18 16:50 U Marijuana (THC) Screen Negative (NEG=<50) 02/28/18 16:50 - Plan (1) Asthma exacerbation Status: Acute Qualifiers: Asthma severity: moderate Asthma persistence: persistent Qualified Code(s ): J45.41 - Moderate persistent asthma with (acute) exacerbation Plan: ADMIT, NORMAL SALINE AT 125ML/HR, FORTAZ 1GM IV Q8H, DUONEBS Q4H, SOLU- MEDROL 80MG IV Q8H, CONTINUE TO MONITOR
[2018-03-01] MEDS: DUONEB 0.5 MG/3 MG NEB SCH ×3 (01:01→04:08)
[2018-03-01] MEDS: NS 1000 ML 1,000 ML IV SCH ×3 (02:52→14:02)
[2018-03-01] MEDS: SOLU-Medrol 40 MG VIAL IVP SCH ×3 (02:55→17:03)
[2018-03-01] MEDS: ROBITUSSIN DM PO PRN ×3 (03:45→21:48)
[2018-03-01] MEDS: FORTAZ or TAZICEF INJ 1 GM in NS 100 ML IV + SPIKE MINIBAG* 100 ML IV SCH ×3 (05:08→21:48)
[2018-03-01 05:58] LABS: BASOPHILS % (AUTO) 0.1 % (0.2-1.0); HEMATOCRIT 41.5 % (42.0-54.0); HEMOGLOBIN 14.3 g/dL (13.5-18.0); LYMPHOCYTES # (AUTO) 0.9 X10^3/uL (1.3-2.9); LYMPHOCYTES % (AUTO) 4.5 % (21.0-51.0); MEAN CORPUSCULAR HEMOGLOBIN 28.4 pg (27.0-34.0); MEAN CORPUSCULAR HGB CONC 34.4 g/dL (33.0-35.0); MEAN CORPUSCULAR VOLUME 82.6 fL (80.0-100.0); MONOCYTES # (AUTO) 0.6 x10^3/uL (0.3-0.8); MONOCYTES % (AUTO) 2.9 % (0.0-13.0); NEUTROPHILS # (AUTO) 17.9 x10^3/uL (2.2-4.8); NEUTROPHILS % (AUTO) 92.5 % (42.0-75.0); PLATELET COUNT 264 X10^3/uL (150.0-450.0); RED BLOOD COUNT 5.03 X10^6/uL (4.7-6.0); RED CELL DISTRIBUTION WIDTH 15.1 % (11.6-16.5); WHITE BLOOD COUNT 19.4 X10^3/uL (3.6-10.0)
[2018-03-01 06:11] LABS: ALANINE AMINOTRANSFERASE 30 Units/L (12-78); ALBUMIN 3.3 g/dL (3.4-5.0); ALKALINE PHOSPHATASE 74 Units/L (46-116); ASPARTATE AMINO TRANSFERASE 12 Units/L (15-37); BLOOD UREA NITROGEN 14 mg/dL (7-18); CALCIUM 7.8 mg/dL (8.5-10.1); CARBON DIOXIDE 26.3 mmol/L (21-32); CHLORIDE 106 mmol/L (98-107); COR CA(FOR HYPOALB) 8.4 mg/dL (8.5-10.1); COR NA(FOR HYPERGLY) 143 mmol/L (136-145); SODIUM 141 mmol/L (136-145); TOTAL PROTEIN 6.5 g/dL (6.4-8.2); eGFR BLACK RACES > 60 (>60); eGFR NON BLACK RACES > 60 (>60)
[2018-03-01 06:50] LABS: BAND NEUTROPHILS % 4 % (0-10); PLATELET MORPHOLOGY COMMENT NORMAL (NORMAL)
--- NOTE | 2018-03-01 07:12 | RAD ---
HISTORY: Wheezing, shortness of breath Study: Chest AP portable Comparison: 02/27/2018 Findings: The heart is within normal limits in size. The chuy are normal. The lungs are hyperinflated but free of acute alveolar infiltrates. No pleural effusions are identified. The bony thorax is unremarkable. IMPRESSION: Lungs hyperinflated but clear, consistent with COPD in the appropriate clinical setting Reported By:
[2018-03-01] MEDS ORDERED: XOPENEX 1.25 MG/3 ML NEBULE NEB ONE (09:32)
[2018-03-01] MEDS ORDERED: VALIUM PO PRN (09:35)
[2018-03-01] MEDS ORDERED: ALBUTEROL SULFATE INH PRN (09:37)
[2018-03-01] MEDS: XOPENEX 1.25 MG/3 ML NEBULE NEB SCH ×4 (09:40→21:30)
[2018-03-01] MEDS ORDERED: PATIENT'S HOME MEDICATION (Budesonide-Formoterol 1 PUFF) IN SCH (09:45)
[2018-03-01] MEDS: TOPROL XL PO SCH (11:05)
[2018-03-01] MEDS: ZyrTEC TAB 10 MG PO SCH (11:05)
[2018-03-01] MEDS: Atrovent NEB TX 0.02% NEB SCH ×3 (13:40→21:30)
[2018-03-01] MEDS: PULMICORT NEB TX 0.5 MG NEB SCH (21:30)
[2018-03-01] MEDS ORDERED: MAALOX or MYLANTA PO PRN (21:53)
[2018-03-02] MEDS: NS 1000 ML 1,000 ML IV SCH ×5 (01:47→21:31)
[2018-03-02] MEDS: SOLU-Medrol 40 MG VIAL IVP SCH ×2 (01:48→08:16)
[2018-03-02] MEDS: ROBITUSSIN DM PO PRN ×2 (04:00→11:20)
[2018-03-02] MEDS: FORTAZ or TAZICEF INJ 1 GM in NS 100 ML IV + SPIKE MINIBAG* 100 ML IV SCH ×3 (05:27→21:29)
--- NOTE | 2018-03-02 05:54 | RAD ---
Chest AP portable Indication: Wheezing and dyspnea for 3 days Findings: There is no pneumothorax or effusion. There is no consolidation. Heart size is normal. Impression: COPD change with hyperinflation. No acute chest process otherwise Reported By:
[2018-03-02 06:33] LABS: BASOPHILS % (AUTO) 0 % (0.2-1.0); HEMATOCRIT 39.9 % (42.0-54.0); HEMOGLOBIN 13.6 g/dL (13.5-18.0); LYMPHOCYTES # (AUTO) 0.9 X10^3/uL (1.3-2.9); LYMPHOCYTES % (AUTO) 4.8 % (21.0-51.0); MEAN CORPUSCULAR HEMOGLOBIN 28.1 pg (27.0-34.0); MEAN CORPUSCULAR VOLUME 82.8 fL (80.0-100.0); MEAN PLATELET VOLUME 8.2 fL (7.4-11.0); MONOCYTES # (AUTO) 0.5 x10^3/uL (0.3-0.8); MONOCYTES % (AUTO) 2.7 % (0.0-13.0); NEUTROPHILS # (AUTO) 18.1 x10^3/uL (2.2-4.8); NEUTROPHILS % (AUTO) 92.5 % (42.0-75.0); PLATELET COUNT 240 X10^3/uL (150.0-450.0); RED BLOOD COUNT 4.82 X10^6/uL (4.7-6.0); RED CELL DISTRIBUTION WIDTH 14.9 % (11.6-16.5); WHITE BLOOD COUNT 19.5 X10^3/uL (3.6-10.0)
[2018-03-02 06:52] LABS: ALANINE AMINOTRANSFERASE 37 Units/L (12-78); ALBUMIN 3.1 g/dL (3.4-5.0); ALKALINE PHOSPHATASE 71 Units/L (46-116); ASPARTATE AMINO TRANSFERASE 17 Units/L (15-37); BLOOD UREA NITROGEN 14 mg/dL (7-18); CALCIUM 8.2 mg/dL (8.5-10.1); CHLORIDE 105 mmol/L (98-107); COR CA(FOR HYPOALB) 8.9 mg/dL (8.5-10.1); COR NA(FOR HYPERGLY) 143 mmol/L (136-145); CREATININE 1.12 mg/dL (0.70-1.30); SODIUM 140 mmol/L (136-145); TOTAL PROTEIN 6.2 g/dL (6.4-8.2); eGFR BLACK RACES > 60 (>60); eGFR NON BLACK RACES > 60 (>60)
[2018-03-02 07:11] LABS: BAND NEUTROPHILS % 1 % (0-10); PLATELET MORPHOLOGY COMMENT NORMAL (NORMAL)
[2018-03-02] MEDS: TOPROL XL PO SCH (08:16)
[2018-03-02] MEDS: ZyrTEC TAB 10 MG PO SCH (08:16)
[2018-03-02] MEDS: XOPENEX 1.25 MG/3 ML NEBULE NEB SCH ×4 (08:28→21:20)
[2018-03-02] MEDS: Atrovent NEB TX 0.02% NEB SCH ×4 (08:28→21:20)
[2018-03-02] MEDS: PULMICORT NEB TX 0.5 MG NEB SCH ×2 (08:28→21:20)
--- NOTE | 2018-03-02 19:43 | PCM.PROG ---
Progress Note - Progress Note for Day of Date: 03/02/18 - Subjective Subjective: WAS ADMITTED FOR AN EXACERBATION OF ASTHMA AND COPD. TODAY, HE IS ALERT AND ORIENTED, LYING IN BED ON MORNING ROUNDS. TODAY, HE CONTINUES WITH SHORTNESS OF BREATH. HE REPORTS THAT HIS SHORTNESS OF BREATH HAS INCREASED SINCE YESTERDAY. ON AUSCULTATION OF LUNG MARTINEZ, HE CONTINUES WITH INSPIRATORY AND EXPIRATORY WHEEZING. HIS VITALS THIS MORNING ARE 97.6-130-25-96% -134/84. ABNORMAL LAB VALUES INCLUDE THE FOLLOWING: WBC 19.5, GLUCOSE 209, CALCIUM 8.2, TOTAL PROTEIN 6.2, ALBUMIN 3.1. HE IS CURRENTLY RECEIVING FORTAZ 1GM IV TID, SOLU-MEDROL, DUONEBS, AND SUPPLEMENTAL OXYGEN. PATIENT HAS BEEN NOTED WITH INCREASED HEART RATE AND AGITATION SINCE YESTERDAY. I SUSPECT THAT HE MAY BE GOING THROUGH WITHDRAWS, PATIENT HAS A HISTORY SIGNIFICANT FOR SUBSTANCE ABUSE. TODAY, WE WILL START METOPROLOL 25MG PO DAILY, VALIUM 5MG TID PRN, AND CHANGE RESPIRATORY TREATMENTS TO XOPENEX. OTHERWISE, WE WILL CONTINUE WITH CURRENT PLAN OF CARE TODAY. WE PLAN TO FOLLOW UP WITH AM LABS AND CONTINUE TO MONITOR PATIENT. - Past Medical Family Social History Past Med/Fam/Surg Hx: No changes since H&P Allergies: Allergies No Known Drug Allergies Allergy (Verified 02/27/18 16:42) - Review of Systems ROS: No change since H&P - Vital Signs and I&O's Vital Signs: Temperature 97.5 F Pulse Rate [Left Brachial] 108 Pulse Rate [Right Brachial] 105 Pulse Rate 114 Respiratory Rate 20 Blood Pressure [Left Arm] 139/92 Blood Pressure 120/85 O2 Sat by Pulse Oximetry 92 Intake and Output: Intake & Output 02/28/18 03/01/18 03/02/18 03/03/18 11:59 11:59 11:59 11:59 Intake Total 1590 4405 4360 1170 Balance 1590 4405 4360 1170 - Physical Exam Oriented: Normal Eyes: Normal Ear: Normal Nose: Discharge Throat: Normal Respiratory: Generalized, Wheezes Cardiovascular: Tachycardia. negative: S3, S4, Murmur : Normal Auscultation: Bowel Sounds: Normal Palpation: Normal Tenderness: Normal Skin: Normal Musculoskeletal: Normal Psychiatric: Normal Mood Description: Calm Affect: Normal Speech Pattern: Clear - Laboratory and Diagnostics Result Diagrams: 03/02/18 05:40 03/02/18 05:40 Labs: Laboratory WBC 19.5 X10^3/uL (3.6-10.0) H 03/02/18 05:40 RBC 4.82 X10^6/uL (4.7-6.0) 03/02/18 05:40 Hgb 13.6 g/dL (13.5-18.0) 03/02/18 05:40 Hct 39.9 % (42.0-54.0) L 03/02/18 05:40 MCV 82.8 fL (80.0-100.0) 03/02/18 05:40 MCH 28.1 pg (27.0-34.0) 03/02/18 05:40 MCHC 34.0 g/dL (33.0-35.0) 03/02/18 05:40 RDW 14.9 % (11.6-16.5) 03/02/18 05:40 Plt Count 240 X10^3/uL (150.0-450.0) 03/02/18 05:40 Plt Count Comment Adequate (ADEQUATE) 03/02/18 05:40 MPV 8.2 fL (7.4-11.0) 03/02/18 05:40 Neut % (Auto) 92.5 % (42.0-75.0) H 03/02/18 05:40 Lymph % (Auto) 4.8 % (21.0-51.0) L 03/02/18 05:40 [place] % (Auto) 2.7 % (0.0-13.0) 03/02/18 05:40 Eos % (Auto) 0.0 % (0.9-2.9) L 03/02/18 05:40 Baso % (Auto) 0 % (0.2-1.0) L 03/02/18 05:40 Neut # (Auto) 18.1 x10^3/uL (2.2-4.8) H 03/02/18 05:40 Lymph # (Auto) 0.9 X10^3/uL (1.3-2.9) L 03/02/18 05:40 [place] # (Auto) 0.5 x10^3/uL (0.3-0.8) 05/11/18 05:40 Eos # (Auto) 0.0 x10^3/uL (0.0-0.2) 03/02/18 05:40 Baso # (Auto) 0.0 X10^3/uL (0.0-0.1) 03/02/18 05:40 Absolute Nucleated RBC 0.0 /100WBC 03/02/18 05:40 Total Counted 100 03/02/18 05:40 Neutrophils % (Manual) 90 % (39-76) H 03/02/18 05:40 Band Neutrophils % 1 % (0-10) 03/02/18 05:40 Lymphocytes % (Manual) 7 % (13-43) L 03/02/18 05:40 Monocytes % (Manual) 2 % (4-9) L 03/02/18 05:40 Plt Morphology Comment Normal (NORMAL) 03/02/18 05:40 RBC Morphology Normal (NORMAL) 03/02/18 05:40 Sample Site Rb 02/27/18 20:10 ABG pH 7.430 (7.35-7.45) 02/27/18 20:10 ABG pCO2 37.0 mmHg (35.0-45.0) 02/27/18 20:10 ABG pO2 60.0 mmHg (80.0-100.0) L 02/27/18 20:10 ABG HCO3 24.6 mmol/L (22-26) 02/27/18 20:10 ABG O2 Saturation 91.0 % (90-100) 02/27/18 20:10 ABG Base Excess 0.5 mmol/L (-2.0-2.0) 02/27/18 20:10 Mian Test N/a 02/27/18 20:10 A-a Gradient 43.0 mmHg 02/27/18 20:10 FiO2 21.000 02/27/18 20:10 Blood Gas Comments Kim well ae 02/27/18 20:10 Sodium 140 mmol/L (136-145) 03/02/18 05:40 Corrected Sodium 143 mmol/L (136-145) 03/02/18 05:40 Potassium 3.8 mmol/L (3.5-5.1) 03/02/18 05:40 Chloride 105 mmol/L (98-107) 03/02/18 05:40 Carbon Dioxide 27.0 mmol/L (21-32) 03/02/18 05:40 BUN 14 mg/dL (7-18) 03/02/18 05:40 Creatinine 1.12 mg/dL (0.70-1.30) 03/02/18 05:40 Est GFR (MDRD) Af Amer > 60 (>60) 03/02/18 05:40 Est GFR (MDRD) Non-Af > 60 (>60) 03/02/18 05:40 Glucose 209 mg/dL (65-99) H 03/02/18 05:40 Calcium 8.2 mg/dL (8.5-10.1) L 03/02/18 05:40 Corrected Calcium 8.9 mg/dL (8.5-10.1) 03/02/18 05:40 Total Bilirubin 0.30 mg/dL (0.2-1.0) 03/02/18 05:40 AST 17 Units/L (15-37) 03/02/18 05:40 ALT 37 Units/L (12-78) 03/02/18 05:40 Alkaline Phosphatase 71 Units/L (46-116) 03/02/18 05:40 Total Protein 6.2 g/dL (6.4-8.2) L 03/02/18 05:40 Albumin 3.1 g/dL (3.4-5.0) L 03/02/18 05:40 Globulin 3.1 g/dL (2.5-4.5) 03/02/18 05:40 Albumin/Globulin Ratio 1.0 Ratio (1.1-2.1) L 03/02/18 05:40 Specimen Type Clean catch urine 02/28/18 05:43 Urine Color Yellow (YELLOW) 02/28/18 05:43 Urine Appearance Clear (CLEAR) 02/28/18 05:43 Urine pH 5.0 (5.0 - 8.0) 02/28/18 05:43 Ur Specific [place] 1.015 (1.000-1.030) 02/28/18 05:43 Urine Protein Negative (NEGATIVE) 02/28/18 05:43 Urine Glucose (UA) 4+ (NEGATIVE) 02/28/18 05:43 Urine Ketones Negative (NEGATIVE) 02/28/18 05:43 Urine Occult Blood Negative (NEGATIVE) 02/28/18 05:43 Urine Nitrite Negative (NEGATIVE) 02/28/18 05:43 Urine Bilirubin Negative (NEGATIVE) 02/28/18 05:43 Urine Urobilinogen Normal (NORMAL) 02/28/18 05:43 Ur Leukocyte Esterase Negative (NEGATIVE) 02/28/18 05:43 Urine Opiates Screen Negative (NEG=<300) 02/28/18 16:50 Urine Methadone Screen Negative (NEG=<300) 02/28/18 16:50 Ur Barbiturates Screen Negative (NEG=<200) 02/28/18 16:50 Ur Phencyclidine Scrn Negative (NEG=<25) 02/28/18 16:50 Ur Amphetamines Screen Positive (NEG=<1000) 02/28/18 16:50 U Benzodiazepines Scrn Negative (NEG=<200) 02/28/18 16:50 Urine Cocaine Screen Negative (NEG=<300) 02/28/18 16:50 U Marijuana (THC) Screen Negative (NEG=<50) 02/28/18 16:50 - Plan (1) Asthma exacerbation Status: Acute Qualifiers: Asthma severity: moderate Asthma persistence: persistent Qualified Code(s ): J45.41 - Moderate persistent asthma with (acute) exacerbation Plan: NORMAL SALINE AT 125ML/HR, FORTAZ 1GM IV Q8H, XOPENEX NEB [place], SOLU-MEDROL 80MG IV Q8H, CONTINUE TO MONITOR (2) Agitation Status: Acute Plan: VALIUM 5MG PO TID, CONTINUE TO MONITOR (3) Tachycardia Status: Acute Plan: METOPROLOL 25MG PO DAILY, CONTINUE TO MONITOR
--- NOTE | 2018-03-02 21:36 | PCM.PROG ---
Progress Note - Progress Note for Day of Date: 03/02/18 - Subjective Subjective: WAS ADMITTED FOR AN EXACERBATION OF ASTHMA AND COPD. TODAY, HE IS ALERT AND ORIENTED, LYING IN BED ON MORNING ROUNDS. TODAY, HE CONTINUES WITH SHORTNESS OF BREATH. HE REPORTS THAT IT IS SLIGHTLY BETTER SINCE YESTERDAY. ON AUSCULTATION OF LUNG MARTINEZ, HE CONTINUES WITH INSPIRATORY AND EXPIRATORY WHEEZING. HIS VITALS THIS MORNING ARE 97.9-106-22-97%-132/84. ABNORMAL LAB VALUES INCLUDE THE FOLLOWING: WBC 19.5, GLUCOSE 209, CALCIUM 8.2, TOTAL PROTEIN 6.2, ALBUMIN 3.1. HE IS CURRENTLY RECEIVING FORTAZ 1GM IV TID, SOLU-MEDROL, DUONEBS, AND SUPPLEMENTAL OXYGEN. HE IS CURRENTLY RECEIVING IV ANTIBIOTICS AND RESPIRATORY TREATMENTS. WE WILL CONTINUE WITH CURRENT PLAN OF CARE TODAY. WE PLAN TO FOLLOW UP WITH AM LABS AND CONTINUE TO MONITOR PATIENT. - Past Medical Family Social History Past Med/Fam/Surg Hx: No changes since H&P Allergies: Allergies No Known Drug Allergies Allergy (Verified 02/27/18 16:42) - Review of Systems ROS: No change since H&P - Vital Signs and I&O's Vital Signs: Temperature 97.6 F Pulse Rate [Left Brachial] 107 Pulse Rate [Right Brachial] 105 Pulse Rate 114 Respiratory Rate 20 Blood Pressure [Left Arm] 142/83 Blood Pressure 120/85 O2 Sat by Pulse Oximetry 98 Intake and Output: Intake & Output 02/28/18 03/01/18 03/02/18 03/03/18 11:59 11:59 11:59 11:59 Intake Total 1590 4405 4360 1170 Balance 1590 4405 4360 1170 - Physical Exam Oriented: Normal Eyes: Normal Ear: Normal Nose: Discharge Throat: Normal Respiratory: Generalized, Wheezes Cardiovascular: Tachycardia. negative: S3, S4, Murmur : Normal Auscultation: Bowel Sounds: Normal Palpation: Normal Tenderness: Normal Skin: Normal Musculoskeletal: Normal Psychiatric: Normal Mood Description: Calm Affect: Normal Speech Pattern: Clear - Laboratory and Diagnostics Result Diagrams: 03/02/18 05:40 03/02/18 05:40 Labs: Laboratory WBC 19.5 X10^3/uL (3.6-10.0) H 03/02/18 05:40 RBC 4.82 X10^6/uL (4.7-6.0) 03/02/18 05:40 Hgb 13.6 g/dL (13.5-18.0) 03/02/18 05:40 Hct 39.9 % (42.0-54.0) L 03/02/18 05:40 MCV 82.8 fL (80.0-100.0) 03/02/18 05:40 MCH 28.1 pg (27.0-34.0) 03/02/18 05:40 MCHC 34.0 g/dL (33.0-35.0) 03/02/18 05:40 RDW 14.9 % (11.6-16.5) 03/02/18 05:40 Plt Count 240 X10^3/uL (150.0-450.0) 03/02/18 05:40 Plt Count Comment Adequate (ADEQUATE) 03/02/18 05:40 MPV 8.2 fL (7.4-11.0) 03/02/18 05:40 Neut % (Auto) 92.5 % (42.0-75.0) H 03/02/18 05:40 Lymph % (Auto) 4.8 % (21.0-51.0) L 03/02/18 05:40 [place] % (Auto) 2.7 % (0.0-13.0) 03/02/18 05:40 Eos % (Auto) 0.0 % (0.9-2.9) L 03/02/18 05:40 Baso % (Auto) 0 % (0.2-1.0) L 03/02/18 05:40 Neut # (Auto) 18.1 x10^3/uL (2.2-4.8) H 03/02/18 05:40 Lymph # (Auto) 0.9 X10^3/uL (1.3-2.9) L 03/02/18 05:40 [place] # (Auto) 0.5 x10^3/uL (0.3-0.8) 03/02/18 05:40 Eos # (Auto) 0.0 x10^3/uL (0.0-0.2) 03/02/18 05:40 Baso # (Auto) 0.0 X10^3/uL (0.0-0.1) 03/02/18 05:40 Absolute Nucleated RBC 0.0 /100WBC 03/02/18 05:40 Total Counted 100 03/02/18 05:40 Neutrophils % (Manual) 90 % (39-76) H 03/02/18 05:40 Band Neutrophils % 1 % (0-10) 03/02/18 05:40 Lymphocytes % (Manual) 7 % (13-43) L 03/02/18 05:40 Monocytes % (Manual) 2 % (4-9) L 03/02/18 05:40 Plt Morphology Comment Normal (NORMAL) 03/02/18 05:40 RBC Morphology Normal (NORMAL) 03/02/18 05:40 Sample Site Rb 02/27/18 20:10 ABG pH 7.430 (7.35-7.45) 02/27/18 20:10 ABG pCO2 37.0 mmHg (35.0-45.0) 02/27/18 20:10 ABG pO2 60.0 mmHg (80.0-100.0) L 02/27/18 20:10 ABG HCO3 24.6 mmol/L (22-26) 02/27/18 20:10 ABG O2 Saturation 91.0 % (90-100) 02/27/18 20:10 ABG Base Excess 0.5 mmol/L (-2.0-2.0) 02/27/18 20:10 Mian Test N/a 02/27/18 20:10 A-a Gradient 43.0 mmHg 02/27/18 20:10 FiO2 21.000 02/27/18 20:10 Blood Gas Comments Kim well ae 02/27/18 20:10 Sodium 140 mmol/L (136-145) 03/02/18 05:40 Corrected Sodium 143 mmol/L (136-145) 03/02/18 05:40 Potassium 3.8 mmol/L (3.5-5.1) 03/02/18 05:40 Chloride 105 mmol/L (98-107) 03/02/18 05:40 Carbon Dioxide 27.0 mmol/L (21-32) 03/02/18 05:40 BUN 14 mg/dL (7-18) 03/02/18 05:40 Creatinine 1.12 mg/dL (0.70-1.30) 03/02/18 05:40 Est GFR (MDRD) Af Amer > 60 (>60) 03/02/18 05:40 Est GFR (MDRD) Non-Af > 60 (>60) 03/02/18 05:40 Glucose 209 mg/dL (65-99) H 03/02/18 05:40 Calcium 8.2 mg/dL (8.5-10.1) L 03/02/18 05:40 Corrected Calcium 8.9 mg/dL (8.5-10.1) 03/02/18 05:40 Total Bilirubin 0.30 mg/dL (0.2-1.0) 03/02/18 05:40 AST 17 Units/L (15-37) 03/02/18 05:40 ALT 37 Units/L (12-78) 03/02/18 05:40 Alkaline Phosphatase 71 Units/L (46-116) 03/02/18 05:40 Total Protein 6.2 g/dL (6.4-8.2) L 03/02/18 05:40 Albumin 3.1 g/dL (3.4-5.0) L 03/02/18 05:40 Globulin 3.1 g/dL (2.5-4.5) 03/02/18 05:40 Albumin/Globulin Ratio 1.0 Ratio (1.1-2.1) L 03/02/18 05:40 Specimen Type Clean catch urine 02/28/18 05:43 Urine Color Yellow (YELLOW) 02/28/18 05:43 Urine Appearance Clear (CLEAR) 02/28/18 05:43 Urine pH 5.0 (5.0 - 8.0) 02/28/18 05:43 Ur Specific [place] 1.015 (1.000-1.030) 02/28/18 05:43 Urine Protein Negative (NEGATIVE) 02/28/18 05:43 Urine Glucose (UA) 4+ (NEGATIVE) 02/28/18 05:43 Urine Ketones Negative (NEGATIVE) 02/28/18 05:43 Urine Occult Blood Negative (NEGATIVE) 02/28/18 05:43 Urine Nitrite Negative (NEGATIVE) 02/28/18 05:43 Urine Bilirubin Negative (NEGATIVE) 02/28/18 05:43 Urine Urobilinogen Normal (NORMAL) 02/28/18 05:43 Ur Leukocyte Esterase Negative (NEGATIVE) 02/28/18 05:43 Urine Opiates Screen Negative (NEG=<300) 02/28/18 16:50 Urine Methadone Screen Negative (NEG=<300) 02/28/18 16:50 Ur Barbiturates Screen Negative (NEG=<200) 02/28/18 16:50 Ur Phencyclidine Scrn Negative (NEG=<25) 02/28/18 16:50 Ur Amphetamines Screen Positive (NEG=<1000) 02/28/18 16:50 U Benzodiazepines Scrn Negative (NEG=<200) 02/28/18 16:50 Urine Cocaine Screen Negative (NEG=<300) 02/28/18 16:50 U Marijuana (THC) Screen Negative (NEG=<50) 02/28/18 16:50 - Plan (1) Asthma exacerbation Status: Acute Qualifiers: Asthma severity: moderate Asthma persistence: persistent Qualified Code(s ): J45.41 - Moderate persistent asthma with (acute) exacerbation Plan: NORMAL SALINE AT 125ML/HR, FORTAZ 1GM IV Q8H, XOPENEX NEB [place], SOLU-MEDROL 80MG IV Q8H, CONTINUE TO MONITOR (2) Agitation Status: Acute Plan: VALIUM 5MG PO TID, CONTINUE TO MONITOR (3) Tachycardia Status: Acute Plan: METOPROLOL 25MG PO DAILY, CONTINUE TO MONITOR
[2018-03-03] MEDS: SOLU-Medrol 40 MG VIAL IVP SCH (00:41)
[2018-03-03] MEDS: FORTAZ or TAZICEF INJ 1 GM in NS 100 ML IV + SPIKE MINIBAG* 100 ML IV SCH (05:36)
[2018-03-03] MEDS: NS 1000 ML 1,000 ML IV SCH (05:36)
--- NOTE | 2018-03-03 06:01 | RAD ---
Examination: Portable AP chest History: SOB Comparison 03/02/2018 Findings: Continued normal heart size with clear lungs and pleural spaces. Impression: No change; no acute findings. Reported By:
[2018-03-03 06:23] LABS: BASOPHILS % (AUTO) 0.1 % (0.2-1.0); EOSINOPHILS % (AUTO) 0.1 % (0.9-2.9); HEMATOCRIT 39.5 % (42.0-54.0); HEMOGLOBIN 13.5 g/dL (13.5-18.0); LYMPHOCYTES # (AUTO) 0.9 X10^3/uL (1.3-2.9); LYMPHOCYTES % (AUTO) 6.9 % (21.0-51.0); MEAN CORPUSCULAR HEMOGLOBIN 28.3 pg (27.0-34.0); MEAN CORPUSCULAR HGB CONC 34.1 g/dL (33.0-35.0); MEAN PLATELET VOLUME 8.1 fL (7.4-11.0); MONOCYTES # (AUTO) 0.4 x10^3/uL (0.3-0.8); MONOCYTES % (AUTO) 2.8 % (0.0-13.0); NEUTROPHILS % (AUTO) 90.1 % (42.0-75.0); PLATELET COUNT 214 X10^3/uL (150.0-450.0); RED BLOOD COUNT 4.76 X10^6/uL (4.7-6.0); RED CELL DISTRIBUTION WIDTH 15.2 % (11.6-16.5); WHITE BLOOD COUNT 13.3 X10^3/uL (3.6-10.0)
[2018-03-03 06:28] LABS: ALANINE AMINOTRANSFERASE 34 Units/L (12-78); ALKALINE PHOSPHATASE 65 Units/L (46-116); ASPARTATE AMINO TRANSFERASE 12 Units/L (15-37); BLOOD UREA NITROGEN 12 mg/dL (7-18); CALCIUM 8.1 mg/dL (8.5-10.1); CARBON DIOXIDE 27.9 mmol/L (21-32); CHLORIDE 106 mmol/L (98-107); COR CA(FOR HYPOALB) 8.9 mg/dL (8.5-10.1); COR NA(FOR HYPERGLY) 143 mmol/L (136-145); CREATININE 0.99 mg/dL (0.70-1.30); SODIUM 141 mmol/L (136-145); TOTAL PROTEIN 5.9 g/dL (6.4-8.2); eGFR BLACK RACES > 60 (>60); eGFR NON BLACK RACES > 60 (>60)
[2018-03-03 06:47] LABS: PLATELET MORPHOLOGY COMMENT NORMAL (NORMAL)
[2018-03-03] MEDS: XOPENEX 1.25 MG/3 ML NEBULE NEB SCH (08:30)
[2018-03-03] MEDS: Atrovent NEB TX 0.02% NEB SCH (08:30)
[2018-03-03] MEDS: PULMICORT NEB TX 0.5 MG NEB SCH (08:30)
[2018-03-03] MEDS: TOPROL XL PO SCH (08:44)
[2018-03-03] MEDS: ZyrTEC TAB 10 MG PO SCH (08:44)
[2018-03-03 10:52] VITALS: BP 133/91
== END 2018-03-03 12:10 | disposition home or self-care (01) | DRG 191 ==
LOC: ER 17:00 → MED/SURG 20:49
PROVIDERS: ADMIT Internal Medicine; ATTEND Internal Medicine
DX: J44.1 Chronic obstructive pulmonary disease with (acute) exacerbation (principal); J20.8 Acute bronchitis due to other specified organisms; J45.41 Moderate persistent asthma with (acute) exacerbation; R07.89 Other chest pain; R51 Headache; R00.0 Tachycardia, unspecified; R06.02 Shortness of breath
CPT/HCPCS: 36415; 36600; 71045; 80048; 80053; 80307; 81003; 82803; 85025; 94640; 94760; 96365; 96374; 96375; 99238; 99283; 99284; A4222; G0434; J0696; J0713; J2920; J2930; J7620; J7626; J7644

== ENCOUNTER 2018-09-05 02:13 | Observation (INO) ==
[2018-09-05] MEDS ORDERED: DUONEB 0.5 MG/3 MG ONE (02:20)
[2018-09-05] MEDS ORDERED: DUONEB 0.5 MG/3 MG NEB ONE (02:29)
[2018-09-05] MEDS ORDERED: SOLU-Medrol 125 MG VIAL IVP ONE (02:32)
[2018-09-05] MEDS ORDERED: SOLU-Medrol 125 MG VIAL ONE ×2 (02:40→03:28)
[2018-09-05] MEDS ORDERED: MAGNESIUM SULFATE 50% INJ ONE ×2 (02:41→02:52)
[2018-09-05] MEDS ORDERED: NS 100 ML IV 100 ML IV ONE ×2 (02:41→02:52)
[2018-09-05] MEDS ORDERED: NS 500 ML IV 500 ML IV ONE (02:45)
--- NOTE | 2018-09-05 02:47 | DR.GENAD ---
HPI Time Seen Time Seen by Provider: 09/05/18 02:26 PCP Primary Care Physician: GÓMEZ Complaint/Symptoms Chief Complaint Doctors Comments: He has been SOB for days subsequent to being out of asthma medication for a day or two prior. Chief Complaint:: EMS TO PATIENT SITTING ON BEDSIDE. ASTHMA COMPLAINT. BEEN OUT OF SYMBICORT FOR ABOUT 3 DAYS AND HAS INCREASED RESPIRATORY DISTRESS FOR ABOUT THAT LONG. PATIENT HAS BEEN TAKING HIS RESCUE INHAILER AND NEB TX Q 3 HOURS WITH LITTLE RECOVERY. 85% O2 ON EMS ARRIVAL. RECOVERED WITH NONREBREATHER AND THEN TO [place]. Self Treatment fo Chief Complaint: NEB TXS/INHAILER Nurses notes reviewed Nurses Notes Review: Yes Source History Provided: Patient and EMS Mode of Arrival Mode of Arrival: EMS Timing Onset of Chief Complaint: 09/01/18 Came on: Gradually PMH PMH Past Medical History: Yes Past Medical History: Asthma and Hypertension Past Surgical History: No Family History History of Family Medical Conditions: Yes Family Medical History: Coronary Artery Disease and Hypertension Social History Does patient currently use any type of tobacco product: No Have you used tobacco products in the last 12 months: No Type of Tobacco Use: None Does any household member use tobacco: No Alcohol Use: Occasionally Do you use any recreational Drugs:: No Lives With: Alone Lives Where: Home infectious screening In the last 2 months have you had wt loss of >10#?: NO Have you had fever, night sweats or hemotysis?: No Have you traveled outside the country in the last 6 months?: No Isolation: Standard ROS Review of Systems Constitutional: No Symptoms Reported Eyes: No Symptoms Reported ENTM: No Symptoms Reported Respiratoy: Short of Breath and Wheezing Cardiovascular: No Symptoms Reported Gastrointestinal/Abdominal: No Symptoms Reported Genitourinary: No Symptoms Reported Neurological: No Symptoms Reported Musculoskeletal: No Symptoms Reported Integumentary: No Symptoms Reported Hematologic/Lymphatic: No Symptoms Reported Endocrine: No Symptoms Reported Psychiatric: No Symptoms Reported All Other Systems: Reviewed and Negative PE Vital Signs Vitals: Temperature 97.9 F Pulse Rate [Apical] 100 Pulse Rate 121 Respiratory Rate 23 Blood Pressure [Right Arm] 133/93 Blood Pressure [Left Arm] 136/96 Blood Pressure 139/109 O2 Sat by Pulse Oximetry 94 General Limitations: No Limitations General Appearance: Alert and In Distress (respiratory) Head Head Exam: Normal Inspection and Atraumatic Eyes Eye exam: Normal Appearance, PERRL and EOMI ENT ENT Exam: Normal Exam and Mucous Membranes Moist External Ear Exam: Normal External Inspection Mouth Exam: Normal Inspection Throat Exam: Normal Inspection Neck Neck Exam: Normal Inspection, Full ROM and Trachea Midline Chest Chest Inspection: Normal Inspection and Symmetric Chest Wall Rise Respiratory Respiratory Exam: Accessory Muscle Use, Prolonged Expiratory Phase and Respiratory Distress Respiratory Exam: Bilateral: Wheezing and Bilateral: Decreased Breath Sounds Cardiovascular Cardiovascular Exam: Tachycardia, Normal Heart Sounds, +S1 and +S2 Abdominal Exam Abdominal Exam: Normal Inspection, Normal Bowel Sounds and Soft Extremities Extremities Exam: Normal Inspection and Full ROM Back Back Exam: Normal Inspection Neurologic Neurological Exam: Alert and Oriented X3 Psychiatric Psychiatric Exam: Normal Affect and Normal Mood Skin Skin Exam: Warm, Intact and Diaphoresis COURSE Reevaluation 1st: Improved 2nd: Improved Education/Counseling Education/Counseling: Patient, Family and Counseling Educated On: Treatment, Diagnosis, Prognosis and Needs for Follow Up ROR Labs Reviewed Laboratory Results Reviewed?: Yes Result Diagrams: 09/05/18 02:43 09/05/18 02:43 Laboratory: WBC 11.7 X10^3/uL (3.6-10.0) H 09/05/18 02:43 RBC 5.65 X10^6/uL (4.7-6.0) 09/05/18 02:43 Hgb 16.5 g/dL (13.5-18.0) 09/05/18 02:43 Hct 48.3 % (42.0-54.0) 09/05/18 02:43 MCV 85.5 fL (80.0-100.0) 09/05/18 02:43 MCH 29.2 pg (27.0-34.0) 09/05/18 02:43 MCHC 34.1 g/dL (33.0-35.0) 09/05/18 02:43 RDW 13.2 % (11.6-16.5) 09/05/18 02:43 Plt Count 290 X10^3/uL (150.0-450.0) 09/05/18 02:43 MPV 8.1 fL (7.4-11.0) 09/05/18 02:43 Neut % (Auto) 51.3 % (42.0-75.0) 09/05/18 02:43 Lymph % (Auto) 22.2 % (21.0-51.0) 09/05/18 02:43 [place] % (Auto) 7.8 % (0.0-13.0) 09/05/18 02:43 Eos % (Auto) 17.8 % (0.9-2.9) H 09/05/18 02:43 Baso % (Auto) 0.9 % (0.2-1.0) 09/05/18 02:43 Neut # (Auto) 6.0 x10^3/uL (2.2-4.8) H 09/05/18 02:43 Lymph # (Auto) 2.6 X10^3/uL (1.3-2.9) 09/05/18 02:43 [place] # (Auto) 0.9 x10^3/uL (0.3-0.8) H 09/05/18 02:43 Eos # (Auto) 2.1 x10^3/uL (0.0-0.2) H 09/05/18 02:43 Baso # (Auto) 0.1 X10^3/uL (0.0-0.1) 09/05/18 02:43 Absolute Nucleated RBC 0.0 /100WBC 09/05/18 02:43 Sodium 142 mmol/L (136-145) 09/05/18 02:43 Corrected Sodium 143 mmol/L (136-145) 09/05/18 02:43 Potassium 3.8 mmol/L (3.5-5.1) 09/05/18 02:43 Chloride 105 mmol/L (98-107) 09/05/18 02:43 Carbon Dioxide 28.4 mmol/L (21-32) 09/05/18 02:43 BUN 13 mg/dL (7-18) 09/05/18 02:43 Creatinine 1.20 mg/dL (0.70-1.30) 09/05/18 02:43 Est GFR (MDRD) Af Amer > 60 (>60) 09/05/18 02:43 Est GFR (MDRD) Non-Af > 60 (>60) 09/05/18 02:43 Glucose 138 mg/dL (65-99) H 09/05/18 02:43 Calcium 8.3 mg/dL (8.5-10.1) L 09/05/18 02:43 Corrected Calcium 8.9 mg/dL (8.5-10.1) 09/05/18 02:43 Total Bilirubin 0.30 mg/dL (0.2-1.0) 09/05/18 02:43 AST 14 Units/L (15-37) L 09/05/18 02:43 ALT 31 Units/L (12-78) 09/05/18 02:43 Alkaline Phosphatase 87 Units/L (46-116) 09/05/18 02:43 Total Protein 6.9 g/dL (6.4-8.2) 09/05/18 02:43 Albumin 3.3 g/dL (3.4-5.0) L 09/05/18 02:43 Globulin 3.6 g/dL (2.5-4.5) 09/05/18 02:43 Albumin/Globulin Ratio 0.9 Ratio (1.1-2.1) L 09/05/18 02:43 XRAY XRAY Interpreted by: Self XRAY Findings: Hyperinflated lung ortiz, no pneumothorax. Increased bronchial markings b/ Diagnosis Discharge Problem: Benign essential HTN Asthma with status asthmaticus Qualifiers: Asthma severity: severe Asthma persistence: persistent Qualified Code(s): J45.52 - Severe persistent asthma with status asthmaticus Respiratory failure, acute Qualifiers: Respiratory failure complication: hypoxia Qualified Code(s): J96.01 - Acute respiratory failure with hypoxia
[2018-09-05] MEDS ORDERED: BRETHINE INJ 1 MG VIAL SC ONE ×2 (02:49→02:51)
[2018-09-05] MEDS: MAGNESIUM SULFATE 1 GRAM/100 mL PREMIX 2 G/200 ML BAG IV SCH ×2 (02:51→04:20)
[2018-09-05 03:01] LABS: BASOPHILS # (AUTO) 0.1 X10^3/uL (0.0-0.1); BASOPHILS % (AUTO) 0.9 % (0.2-1.0); EOSINOPHILS # (AUTO) 2.1 x10^3/uL (0.0-0.2); EOSINOPHILS % (AUTO) 17.8 % (0.9-2.9); HEMATOCRIT 48.3 % (42.0-54.0); HEMOGLOBIN 16.5 g/dL (13.5-18.0); LYMPHOCYTES # (AUTO) 2.6 X10^3/uL (1.3-2.9); LYMPHOCYTES % (AUTO) 22.2 % (21.0-51.0); MEAN CORPUSCULAR HEMOGLOBIN 29.2 pg (27.0-34.0); MEAN CORPUSCULAR HGB CONC 34.1 g/dL (33.0-35.0); MEAN CORPUSCULAR VOLUME 85.5 fL (80.0-100.0); MEAN PLATELET VOLUME 8.1 fL (7.4-11.0); MONOCYTES # (AUTO) 0.9 x10^3/uL (0.3-0.8); MONOCYTES % (AUTO) 7.8 % (0.0-13.0); NEUTROPHILS % (AUTO) 51.3 % (42.0-75.0); PLATELET COUNT 290 X10^3/uL (150.0-450.0); RED BLOOD COUNT 5.65 X10^6/uL (4.7-6.0); RED CELL DISTRIBUTION WIDTH 13.2 % (11.6-16.5); WHITE BLOOD COUNT 11.7 X10^3/uL (3.6-10.0)
[2018-09-05 03:09] LABS: ALANINE AMINOTRANSFERASE 31 Units/L (12-78); ALBUMIN 3.3 g/dL (3.4-5.0); ALKALINE PHOSPHATASE 87 Units/L (46-116); ASPARTATE AMINO TRANSFERASE 14 Units/L (15-37); BLOOD UREA NITROGEN 13 mg/dL (7-18); CALCIUM 8.3 mg/dL (8.5-10.1); CARBON DIOXIDE 28.4 mmol/L (21-32); CHLORIDE 105 mmol/L (98-107); COR CA(FOR HYPOALB) 8.9 mg/dL (8.5-10.1); COR NA(FOR HYPERGLY) 143 mmol/L (136-145); SODIUM 142 mmol/L (136-145); TOTAL PROTEIN 6.9 g/dL (6.4-8.2); eGFR NON BLACK RACES > 60 (>60)
[2018-09-05] MEDS ORDERED: NUBAIN INJ 10 ONE (03:28)
[2018-09-05] MEDS ORDERED: FLAGYL IV PREMIX 500 MG BAG 500 MG/100 ML BAG IV ONE (03:28)
--- NOTE | 2018-09-05 04:06 | RAD ---
Chest, one view Indication: Dyspnea Comparison: 05/25/2018 Findings: The heart is normal in size. Lungs are hyperinflated with flattening of the hemidiaphragms, suggestive for COPD. No focal infiltrate, significant effusion or pneumothorax is identified. There is no acute osseous abnormality. Impression: COPD without acute chest process. Reported By:
--- NOTE | 2018-09-05 04:13 | DR.GENAD ---
HPI Time Seen Time Seen by Provider: 09/05/18 02:26 PCP Primary Care Physician: GÓMEZ Complaint/Symptoms Chief Complaint:: EMS TO PATIENT SITTING ON BEDSIDE. ASTHMA COMPLAINT. BEEN OUT OF SYMBICORT FOR ABOUT 3 DAYS AND HAS INCREASED RESPIRATORY DISTRESS FOR ABOUT THAT LONG. PATIENT HAS BEEN TAKING HIS RESCUE INHAILER AND NEB TX Q 3 HOURS WITH LITTLE RECOVERY. 85% O2 ON EMS ARRIVAL. RECOVERED WITH NONREBREATHER AND THEN TO [place]. Self Treatment fo Chief Complaint: NEB TXS/INHAILER Nurses notes reviewed Nurses Notes Review: Yes Source History Provided: Patient and EMS Mode of Arrival Mode of Arrival: EMS Timing Onset of Chief Complaint: 09/01/18 Came on: Gradually PMH PMH Past Medical History: Yes Past Medical History: Asthma and Hypertension Past Surgical History: No Family History History of Family Medical Conditions: Yes Family Medical History: Coronary Artery Disease and Hypertension Social History Does patient currently use any type of tobacco product: No Have you used tobacco products in the last 12 months: No Type of Tobacco Use: None Does any household member use tobacco: No Alcohol Use: Occasionally Do you use any recreational Drugs:: No Lives With: Alone Lives Where: Home infectious screening In the last 2 months have you had wt loss of >10#?: NO Have you had fever, night sweats or hemotysis?: No Have you traveled outside the country in the last 6 months?: No Isolation: Standard PE Vital Signs Vitals: Temperature 97.9 F Pulse Rate [Apical] 91 Pulse Rate 121 Respiratory Rate 21 Blood Pressure [Right Arm] 137/89 Blood Pressure [Left Arm] 136/96 Blood Pressure 139/109 O2 Sat by Pulse Oximetry 96 ROR Labs Reviewed Result Diagrams: 09/05/18 02:43 09/05/18 02:43 Laboratory: WBC 11.7 X10^3/uL (3.6-10.0) H 09/05/18 02:43 RBC 5.65 X10^6/uL (4.7-6.0) 09/05/18 02:43 Hgb 16.5 g/dL (13.5-18.0) 09/05/18 02:43 Hct 48.3 % (42.0-54.0) 09/05/18 02:43 MCV 85.5 fL (80.0-100.0) 09/05/18 02:43 MCH 29.2 pg (27.0-34.0) 09/05/18 02:43 MCHC 34.1 g/dL (33.0-35.0) 09/05/18 02:43 RDW 13.2 % (11.6-16.5) 09/05/18 02:43 Plt Count 290 X10^3/uL (150.0-450.0) 09/05/18 02:43 MPV 8.1 fL (7.4-11.0) 09/05/18 02:43 Neut % (Auto) 51.3 % (42.0-75.0) 09/05/18 02:43 Lymph % (Auto) 22.2 % (21.0-51.0) 09/05/18 02:43 [place] % (Auto) 7.8 % (0.0-13.0) 09/05/18 02:43 Eos % (Auto) 17.8 % (0.9-2.9) H 09/05/18 02:43 Baso % (Auto) 0.9 % (0.2-1.0) 09/05/18 02:43 Neut # (Auto) 6.0 x10^3/uL (2.2-4.8) H 09/05/18 02:43 Lymph # (Auto) 2.6 X10^3/uL (1.3-2.9) 09/05/18 02:43 [place] # (Auto) 0.9 x10^3/uL (0.3-0.8) H 09/05/18 02:43 Eos # (Auto) 2.1 x10^3/uL (0.0-0.2) H 09/05/18 02:43 Baso # (Auto) 0.1 X10^3/uL (0.0-0.1) 09/05/18 02:43 Absolute Nucleated RBC 0.0 /100WBC 09/05/18 02:43 Sodium 142 mmol/L (136-145) 09/05/18 02:43 Corrected Sodium 143 mmol/L (136-145) 09/05/18 02:43 Potassium 3.8 mmol/L (3.5-5.1) 09/05/18 02:43 Chloride 105 mmol/L (98-107) 09/05/18 02:43 Carbon Dioxide 28.4 mmol/L (21-32) 09/05/18 02:43 BUN 13 mg/dL (7-18) 09/05/18 02:43 Creatinine 1.20 mg/dL (0.70-1.30) 09/05/18 02:43 Est GFR (MDRD) Af Amer > 60 (>60) 09/05/18 02:43 Est GFR (MDRD) Non-Af > 60 (>60) 09/05/18 02:43 Glucose 138 mg/dL (65-99) H 09/05/18 02:43 Calcium 8.3 mg/dL (8.5-10.1) L 09/05/18 02:43 Corrected Calcium 8.9 mg/dL (8.5-10.1) 09/05/18 02:43 Total Bilirubin 0.30 mg/dL (0.2-1.0) 09/05/18 02:43 AST 14 Units/L (15-37) L 09/05/18 02:43 ALT 31 Units/L (12-78) 09/05/18 02:43 Alkaline Phosphatase 87 Units/L (46-116) 09/05/18 02:43 Total Protein 6.9 g/dL (6.4-8.2) 09/05/18 02:43 Albumin 3.3 g/dL (3.4-5.0) L 09/05/18 02:43 Globulin 3.6 g/dL (2.5-4.5) 09/05/18 02:43 Albumin/Globulin Ratio 0.9 Ratio (1.1-2.1) L 09/05/18 02:43 Diagnosis Discharge Problem: Benign essential HTN Asthma with status asthmaticus Qualifiers: Asthma severity: severe Asthma persistence: persistent Qualified Code(s): J45.52 - Severe persistent asthma with status asthmaticus Respiratory failure, acute Qualifiers: Respiratory failure complication: hypoxia Qualified Code(s): J96.01 - Acute respiratory failure with hypoxia
[2018-09-05] MEDS ORDERED: PROVENTIL NEB TX 0.083% 2.5MG/ 3ML NEB SCH (05:41)
[2018-09-05] MEDS ORDERED: PATIENT'S HOME MEDICATION (Budesonide-Formoterol 2 PUFF) IN SCH (05:41)
[2018-09-05] MEDS: SOLU-Medrol 40 MG VIAL IVP SCH ×3 (05:50→21:44)
[2018-09-05] MEDS: D5 1/2 NS 1000 ML 1,000 ML IV SCH ×2 (05:53→16:59)
[2018-09-05 06:01] VITALS: BMI 21.3
[2018-09-05 06:15] LABS: BASOPHILS % (AUTO) 0.3 % (0.2-1.0); EOSINOPHILS # (AUTO) 0.2 x10^3/uL (0.0-0.2); EOSINOPHILS % (AUTO) 1.6 % (0.9-2.9); HEMATOCRIT 46.1 % (42.0-54.0); HEMOGLOBIN 16.1 g/dL (13.5-18.0); LYMPHOCYTES # (AUTO) 0.5 X10^3/uL (1.3-2.9); MEAN CORPUSCULAR HEMOGLOBIN 29.7 pg (27.0-34.0); MEAN CORPUSCULAR HGB CONC 34.9 g/dL (33.0-35.0); MEAN CORPUSCULAR VOLUME 85.1 fL (80.0-100.0); MEAN PLATELET VOLUME 7.9 fL (7.4-11.0); MONOCYTES # (AUTO) 0.2 x10^3/uL (0.3-0.8); MONOCYTES % (AUTO) 1.2 % (0.0-13.0); NEUTROPHILS # (AUTO) 12.1 x10^3/uL (2.2-4.8); NEUTROPHILS % (AUTO) 92.9 % (42.0-75.0); PLATELET COUNT 256 X10^3/uL (150.0-450.0); RED BLOOD COUNT 5.41 X10^6/uL (4.7-6.0); RED CELL DISTRIBUTION WIDTH 13.2 % (11.6-16.5)
[2018-09-05 06:42] LABS: ALANINE AMINOTRANSFERASE 30 Units/L (12-78); ALBUMIN 3.4 g/dL (3.4-5.0); ALKALINE PHOSPHATASE 88 Units/L (46-116); ASPARTATE AMINO TRANSFERASE 14 Units/L (15-37); BLOOD UREA NITROGEN 12 mg/dL (7-18); CALCIUM 8.1 mg/dL (8.5-10.1); CHLORIDE 104 mmol/L (98-107); COR NA(FOR HYPERGLY) 143 mmol/L (136-145); CREATININE 1.16 mg/dL (0.70-1.30); SODIUM 142 mmol/L (136-145); eGFR NON BLACK RACES > 60 (>60)
[2018-09-05 07:26] LABS: PLATELET MORPHOLOGY COMMENT NORMAL (NORMAL)
[2018-09-05] MEDS: PROVENTIL NEB TX 0.083% 2.5MG/ 3ML NEB SCH ×4 (08:52→20:33)
[2018-09-05] MEDS ORDERED: FLUVIRIN IM ONE (09:00)
[2018-09-05] MEDS ORDERED: PREVNAR 13 IM ONE (09:00)
[2018-09-05] MEDS ORDERED: PULMICORT NEB TX 0.5 MG NEB SCH (09:00)
[2018-09-05] MEDS: MUCINEX DM PO SCH ×2 (09:25→20:03)
[2018-09-05] MEDS: LEVAQUIN PREMIX IV 500 MG 500 MG/100 ML BAG IV SCH (09:25)
--- NOTE | 2018-09-05 09:37 | DR.H&P ---
H&P - History & Physical for Day of: H&P Date: 09/05/18 - Chief Complaint Chief Complaint: SHORTNESS OF BREATH - History of Present Illness History of Present Illness: IS A 48 YEAR OLD PATIENT OF OURS WHO PRESENTED TO THE EMERGENCY ROOM WITH COMPLAINTS OF SHORTNESS OF BREATH THAT HAS PROGRESSIVLEY GOTTEN WORSE OVER THE PAST THREE DAYS. HE REPORTS RUNNING OUT OF HIS SYMBICORT THREE DAYS AGO. HE REPORTS COMPLIANCE WITH HOME MEDICATIONS FOR ASTHMA WHICH INCLUDE HIS RESCUE INHALER AND NEB TREATMENTS EVERY THREE HOURS, HOWEVER, SYMPTOMS CONTINUE TO WORSEN. ON EMS ARRIVAL TO THE RESIDENCE, O2 SATURATION WAS NOTED TO BE 85%. ON EXAMINATION, PATIENT WAS NOTED TO BE USING ASCCESSORY MUSCLES AND IS NOTED WITH A NON-PRODUCTIVE COUGH. INSPIRATORY AND EXPIRATORY WHEEZING NOTED TO AUSCULTATION. ON ARRIVAL TO THE ER, VITALS WERE 97.9-121-34-95%-139/109. LABS WERE OBTAINED. ABNORMAL LAB VALUES INCLUDE THE FOLLOWING: WBC 11.7, GLUCOSE 138, CALCIUM 8.3, AST 14, ALBUMIN 3.3. A CHEST XRAY WAS OBTAINED AND REVEALED COPD without acute chest process. PATIENT WAS GIVEN DUONEBS X 2, SOLU-MEDROL 125MG IV X 1, BRETHINE IN THE ER WITH ONLY SLIGHT IMPROVMEMENT. HE WAS ADMITTED TO THE HOSPITAL FOR FURTHER EVALUATION AND TREATMENT OF AN EXACERBATION OF ASTHMA, ACUTE RESPIRATORY FAILURE, AND HYPERTENSION. HE WAS STARTED ON D51/2 NORMAL SALINE @100ML/HR, RESPIRATORY TREATMENTS, LEVAQUIN 500MG IV DAILY, AND SOLU-MEDROL 80MG IV Q8H. OTHERWISE, WE PLAN TO FOLLOW UP WITH AM LABS AND CHEST XRAY AND CONTINUE TO MONITOR PATIENT. - Past Medical History Past Medical History: Hypertension, Asthma - Family History Family Medical History: MD, Coronary Artery Disease, Hypertension - Social History Does patient currently use any type of tobacco product: Yes Have you used tobacco products in the last 12 months: Yes Type of Tobacco Use: Smokeless Does any household member use tobacco: No Alcohol Use: Occasionally - Medications Home Medications: No Known Drug Allergies Allergy (Verified 09/05/18 04:36) CONTINUE taking the following medications albuterol sulfate 1 ea NEB TID PRN 09/05/18 [History] - Review of Systems Constitutional: No Symptoms Reported Eyes: No Symptoms Reported ENT: No Symptoms Reported Respiratory: Cough, Shortness of Breath, Wheezing. denies: Sputum Cardiovascular: No Symptoms Reported Gastrointestinal: No Symptoms Reported Genitourinary: No Symptoms Reported Musculoskeletal: No Symptoms Reported Skin: No Symptoms Reported Neurological: No Symptoms Reported - Physical Exam Vital Signs: Temperature 97.4 F Pulse Rate [Apical] 95 Pulse Rate 129 Respiratory Rate 20 Blood Pressure [Right Arm] 138/83 Blood Pressure [Left Arm] 136/96 Blood Pressure 139/109 O2 Sat by Pulse Oximetry 89 Oriented: Normal Eyes: Normal Ear: Normal Nose: Normal Throat: Normal Respiratory: Wheezes Throughout Cardiovascular: Normal. negative: S3, S4, Murmur : Normal Auscultation: Bowel Sounds: Normal Palpation: Normal Tenderness: Normal Skin: Normal Musculoskeletal: Normal Psychiatric: Normal Mood Description: Calm Affect: Normal - Assessment/Plan (1) Asthma with status asthmaticus Qualifiers: Asthma severity: severe Asthma persistence: persistent Qualified Code(s): J45.52 - Severe persistent asthma with status asthmaticus Status: Acute Plan: ADMIT, RESPIRATORY TREATMENTS, SUPPLEMENTAL OXYGEN, CONTINUE TO MONITOR (2) Bronchitis Status: Acute Plan: IV ANTIBIOTICS, RESPIRATORY TREATMENTS, SUPPLEMENTAL OXYGEN, CONTINUE TO MONITOR - Allergies Allergies/Adverse Reactions: Allergies Allergy/AdvReac Type Severity Reaction Status Date / Time No Known Drug Allergies Allergy Verified 09/05/18 04:36
[2018-09-05] MEDS: TUSSIONEX PENNKINETIC SUSP PO PRN (20:26)
[2018-09-05] MEDS: PULMICORT NEB TX 0.5 MG NEB SCH (20:33)
[2018-09-05] MEDS ORDERED: SINGULAIR TAB 10 MG PO SCH (21:00)
[2018-09-05] MEDS ORDERED: ROBITUSSIN DM PO PRN (21:42)
[2018-09-06] MEDS: PROVENTIL NEB TX 0.083% 2.5MG/ 3ML NEB SCH ×3 (01:02→08:20)
[2018-09-06] MEDS: D5 1/2 NS 1000 ML 1,000 ML IV SCH (02:41)
[2018-09-06 05:30] LABS: BASOPHILS % (AUTO) 0.1 % (0.2-1.0); HEMATOCRIT 44.7 % (42.0-54.0); HEMOGLOBIN 15.2 g/dL (13.5-18.0); LYMPHOCYTES % (AUTO) 5.5 % (21.0-51.0); MEAN CORPUSCULAR HEMOGLOBIN 29.1 pg (27.0-34.0); MEAN CORPUSCULAR HGB CONC 33.9 g/dL (33.0-35.0); MEAN CORPUSCULAR VOLUME 85.7 fL (80.0-100.0); MEAN PLATELET VOLUME 8.4 fL (7.4-11.0); MONOCYTES # (AUTO) 0.3 x10^3/uL (0.3-0.8); MONOCYTES % (AUTO) 1.9 % (0.0-13.0); NEUTROPHILS # (AUTO) 16.1 x10^3/uL (2.2-4.8); NEUTROPHILS % (AUTO) 92.5 % (42.0-75.0); PLATELET COUNT 292 X10^3/uL (150.0-450.0); RED BLOOD COUNT 5.22 X10^6/uL (4.7-6.0); RED CELL DISTRIBUTION WIDTH 13.5 % (11.6-16.5); WHITE BLOOD COUNT 17.4 X10^3/uL (3.6-10.0)
[2018-09-06] MEDS: SOLU-Medrol 40 MG VIAL IVP SCH (05:34)
[2018-09-06 05:37] LABS: ALANINE AMINOTRANSFERASE 27 Units/L (12-78); ALBUMIN 3.2 g/dL (3.4-5.0); ALKALINE PHOSPHATASE 78 Units/L (46-116); ASPARTATE AMINO TRANSFERASE 12 Units/L (15-37); BLOOD UREA NITROGEN 13 mg/dL (7-18); CALCIUM 8.4 mg/dL (8.5-10.1); CARBON DIOXIDE 23.8 mmol/L (21-32); CHLORIDE 106 mmol/L (98-107); COR NA(FOR HYPERGLY) 141 mmol/L (136-145); CREATININE 1.03 mg/dL (0.70-1.30); SODIUM 139 mmol/L (136-145); TOTAL PROTEIN 6.5 g/dL (6.4-8.2); eGFR NON BLACK RACES > 60 (>60)
[2018-09-06 06:03] LABS: BAND NEUTROPHILS % 2 % (0-10); PLATELET MORPHOLOGY COMMENT NORMAL (NORMAL)
--- NOTE | 2018-09-06 06:50 | RAD ---
Chest, one view Indication: Dyspnea Comparison: 09/05/2018 Findings: The heart is normal in size. Chronic emphysematous changes again noted. No focal infiltrate, significant effusion or pneumothorax is identified. There is no acute osseous abnormality. Impression: COPD without acute cardiopulmonary abnormality. Reported By:
[2018-09-06] MEDS: PULMICORT NEB TX 0.5 MG NEB SCH (08:20)
[2018-09-06 08:30] VITALS: BP 131/81
[2018-09-06] MEDS: TUSSIONEX PENNKINETIC SUSP PO PRN (08:56)
[2018-09-06] MEDS: MUCINEX DM PO SCH (08:56)
[2018-09-06] MEDS: LEVAQUIN PREMIX IV 500 MG 500 MG/100 ML BAG IV SCH (08:56)
--- NOTE | 2018-10-08 03:51 | DR.CARTERD ---
- Discharge Summary for: Discharge Summary for Date of:: 09/06/18 - Admission Date Date of Admission: 09/05/18 - Admission Diagnoses Admission Diagnosis: (1) Asthma with status asthmaticus (2) Bronchitis - Discharge Date Discharge Date: 09/06/18 - Discharge Diagnoses Discharge Diagnosis: (1) Asthma with status asthmaticus (2) Bronchitis - Hospital Course Hospital Course: DAY ONE, IS A 48 YEAR OLD PATIENT OF OURS WHO PRESENTED TO THE EMERGENCY ROOM WITH COMPLAINTS OF SHORTNESS OF BREATH THAT HAS PROGRESSIVLEY GOTTEN WORSE OVER THE PAST THREE DAYS. HE REPORTED RUNNING OUT OF HIS SYMBICORT THREE DAYS AGO. HE REPORTED COMPLIANCE WITH HOME MEDICATIONS FOR ASTHMA WHICH INCLUDED HIS RESCUE INHALER AND NEB TREATMENTS EVERY THREE HOURS, HOWEVER, SYMPTOMS CONTINUE TO WORSEN. ON EMS ARRIVAL TO THE RESIDENCE, O2 SATURATION WAS NOTED TO BE 85%. ON EXAMINATION, PATIENT WAS NOTED TO BE USING ASCCESSORY MUSCLES AND WAS NOTED WITH A NON-PRODUCTIVE COUGH. INSPIRATORY AND EXPIRATORY WHEEZING NOTED TO AUSCULTATION. ON ARRIVAL TO THE ER, VITALS WERE 97.9-121-34-95%-139/109. LABS WERE OBTAINED. ABNORMAL LAB VALUES INCLUDED THE FOLLOWING: WBC 11.7, GLUCOSE 138, CALCIUM 8.3, AST 14, ALBUMIN 3.3. A CHEST XRAY WAS OBTAINED AND REVEALED COPD without acute chest process. PATIENT WAS GIVEN DU ONEBS X 2, SOLU-MEDROL 125MG IV X 1, BRETHINE IN THE ER WITH ONLY SLIGHT IMPROVMEMENT. HE WAS ADMITTED TO THE HOSPITAL FOR FURTHER EVALUATION AND TREATMENT OF AN EXACERBATION OF ASTHMA, ACUTE RESPIRATORY FAILURE, AND HYPERTENSION. HE WAS STARTED ON D51/2 NORMAL SALINE @100ML/HR, RESPIRATORY TREATMENTS, LEVAQUIN 500MG IV DAILY, AND SOLU-MEDROL 80MG IV Q8H. WE FOLLOWED UP WITH AM LABS AND CHEST XRAY AND CONTINUED TO MONITOR PATIENT. DAY TWO, PATIENT REPORTS FEELING MUCH BETTER TODAY. WBC LAB VALUE IS INCREASED WHICH WE BELIEVE IS DUE TO THE PATIENT RECEIVING SOLUMEDROL. VITALS WERE STABLE. LAB VALUES WERE WITHIN NORMAL RANGE FOR PATIENT. PATIENT NO LONGER USING ACCESSORY MUSCLES TO BREATHE. NO ACUTE DISTRESS NOTED. WE PLANNED FOR DISCHARGE. INSTRUCTIONS FOR MEDICATIONS AND FOLLOW UP WERE DISCUSSED WITH PATIENT AND FAMILY, BOTH VOICED UNDERSTANDING. PATIENT DISCHARGED HOME IN STABLE CONDITION WITH FAMILY. - Discharge Medications Discharge Medications: Home Medication List albuterol sulfate 1 ea NEB TID PRN #50 units 09/06/18 [Rx] ciprofloxacin HCl 750 mg PO BID #20 tab 09/06/18 [Rx] methylprednisolone [Medrol ([place])] See Rx Instructions .ROUTE .COMPLEX #1 ea 09/06/18 [Rx] Prescriptions: albuterol sulfate Crispin Woody ciprofloxacin HCl Crispin Woody methylprednisolone [Medrol (Lonny)] Crispin Woody - Discharge Disposition Discharge Disposition: PATIENT TO FOLLOW UP IN OUR OFFICE IN ONE WEEK.
== END 2018-09-06 10:55 | disposition home or self-care (01) ==
LOC: MED/SURG 02:14 → ER 02:14 → MED/SURG 05:22
PROVIDERS: ADMIT Internal Medicine; ATTEND Internal Medicine
DX: J20.8 Acute bronchitis due to other specified organisms; J45.52 Severe persistent asthma with status asthmaticus; E11.65 Type 2 diabetes mellitus with hyperglycemia; D72.828 Other elevated white blood cell count; I10 Essential (primary) hypertension; J44.9 Chronic obstructive pulmonary disease, unspecified; J96.01 Acute respiratory failure with hypoxia; I25.10 Atherosclerotic heart disease of native coronary artery without angina pectoris
CPT/HCPCS: 36415; 71010; 71045; 80053; 85025; 93041; 94640; 94760; 96365; 96367; 96374; 96375; 99283; 99284; A4222; S0030; G0378; J1956; J2300; J2920; J2930; J3105; J3475; J7040; J7050; J7613; J7620; J7626; S5010

== ENCOUNTER 2019-02-10 12:50 | Inpatient (IN) ==
[2019-02-10] MEDS ORDERED: SOLU-Medrol 125 MG VIAL IVP ONE (13:06)
[2019-02-10] MEDS ORDERED: DUONEB 0.5 MG/3 MG NEB ONE (13:06)
[2019-02-10] MEDS ORDERED: SOLU-Medrol 125 MG VIAL ONE (13:07)
--- NOTE | 2019-02-10 14:25 | RAD ---
HISTORY: Difficulty breathing. Symptoms started last night. Prior history of asthma and hypertension. Study: Single-view chest, portably Comparison: 09/06/2018. Findings: Trachea is midline. Heart size is normal. There is hyperinflation of the lungs with increased interstitial markings compatible with COPD. No infiltrate, CHF, pleural fluid or pneumothorax is seen. Osseous structures are intact. IMPRESSION: COPD without acute abnormality. Reported By:
[2019-02-10 14:29] LABS: BASOPHILS % (AUTO) 0.4 % (0.2-1.0); EOSINOPHILS # (AUTO) 1.3 x10^3/uL (0.0-0.2); EOSINOPHILS % (AUTO) 11.1 % (0.9-2.9); HEMATOCRIT 45.9 % (42.0-54.0); HEMOGLOBIN 15.6 g/dL (13.5-18.0); LYMPHOCYTES # (AUTO) 1.1 X10^3/uL (1.3-2.9); LYMPHOCYTES % (AUTO) 9.4 % (21.0-51.0); MEAN CORPUSCULAR HEMOGLOBIN 29.2 pg (27.0-34.0); MEAN CORPUSCULAR VOLUME 85.7 fL (80.0-100.0); MEAN PLATELET VOLUME 7.4 fL (7.4-11.0); MONOCYTES # (AUTO) 0.5 x10^3/uL (0.3-0.8); MONOCYTES % (AUTO) 4.3 % (0.0-13.0); NEUTROPHILS # (AUTO) 8.7 x10^3/uL (2.2-4.8); NEUTROPHILS % (AUTO) 74.8 % (42.0-75.0); PLATELET COUNT 299 X10^3/uL (150.0-450.0); RED BLOOD COUNT 5.35 X10^6/uL (4.7-6.0); RED CELL DISTRIBUTION WIDTH 13.5 % (11.6-16.5); WHITE BLOOD COUNT 11.6 X10^3/uL (3.6-10.0)
--- NOTE | 2019-02-10 14:30 | DR.SOBA ---
HPI Time Seen Time Seen by Provider: 02/10/19 14:13 Primary Care Physician Primary Care Physician: GÓMEZ Complaints Chief Complaint Doctors Comments: Patient presents with complaint of shortness of breath since last night and not getting better. He states that he has a history of asthma on Duonebs. No home oxygen. Denies fever, vomiting. Chief Complaint:: PT C/O SEVERE DIFFICULTY BREATHING. PT STATES IT STARTED LAST NIGHT AND IS JUST GETTING WORSE. 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 PT STATES HE HAS CHANGED HIS WORK LOCATION AND IS AROUND INSULATION THIS PAST WEEK SINCE HE HAS CHANGED LOCATIONS HE HAS STARTED COUGHING REALLY BAD AND HAVING TROUBLE BREATHING Source History Provided: Patient Mode of Arrival Mode of Arrival: Wheelchair Timing Onset of Chief Complaint: 02/09/19 PMH PMH Past Medical History: Yes Past Medical History: Asthma and Hypertension Past Surgical History: No Family History History of Family Medical Conditions: Yes Family Medical History: [place], Coronary Artery Disease and Hypertension Social History Type of Tobacco Use: None Does any household member use tobacco: No Alcohol Use: None Do you use any recreational Drugs:: No Lives With: Alone Lives Where: Home infectious screening In the last 2 months have you had wt loss of >10#?: NO Have you had fever, night sweats or hemotysis?: No Have you traveled outside the country in the last 6 months?: No Isolation: Standard ROS Review of Systems Constitutional: negative Diaphoresis Eyes: No Symptoms Reported ENTM: No Symptoms Reported Respiratoy: Moist Cough and Short of Breath Cardiovascular: No Symptoms Reported Gastrointestinal/Abdominal: No Symptoms Reported Genitourinary: No Symptoms Reported Neurological: No Symptoms Reported Musculoskeletal: No Symptoms Reported Integumentary: No Symptoms Reported Hematologic/Lymphatic: No Symptoms Reported Endocrine: No Symptoms Reported Psychiatric: No Symptoms Reported All Other Systems: Reviewed and Negative PE Vital Signs Vitals: Temperature 97.7 F Pulse Rate [Apical] 108 Pulse Rate 97 Respiratory Rate 21 Blood Pressure [Right Arm] 152/104 Blood Pressure [Left Arm] 164/109 Blood Pressure 148/92 O2 Sat by Pulse Oximetry 97 General Limitations: No Limitations General Appearance: Alert and In No Apparent Distress Head Head Exam: Normal Inspection, Atraumatic and Normocephalic Eyes Eye exam: Normal Appearance, PERRL and EOMI ENT ENT Exam: Normal Exam, Normal Oropharynx, Normal External Ear Exam, Mucous Membranes Moist and TM's Normal Bilaterally Neck Neck Exam: Normal Inspection, Full ROM and Trachea Midline Chest Chest Inspection: Normal Inspection and Symmetric Chest Wall Rise Respiratory Respiratory Exam: Normal Lung Sounds Bilat Respiratory Exam: Bilateral: Decreased Breath Sounds (expiratory wheeze posterior) Cardiovascular Cardiovascular Exam: Regular Rate, Normal Rhythm and Tachycardia Abdominal Exam Abdominal Exam: Normal Inspection, Normal Bowel Sounds and Soft Extremities Extremities Exam: Normal Inspection, Full ROM and Normal Capillary Refill Back Back Exam: Normal Inspection and Full ROM Neurologic Neurological Exam: Alert, Oriented X3, CN II-XII Intact, Normal Gait and Reflexes Normal Psychiatric Psychiatric Exam: Normal Affect, Normal Mood and Flat Affect Skin Skin Exam: Warm, Dry and Intact MDM Differential Diagnosis Differential Diagnosis: Asthma, COPD, Pneumonia, Pneumothorax and Respiratory Failure COURSE Treatment Treatment: DuoNebs, Reevaluation 1st: Improved (still has exratory wheeze, pulse RA decreases to <90%) 2nd: Improved (Improves with nebs, can not tolerate [id number]) Consultation Called: 15:29 Call Returned: 16:00 Consultation Comments: Patient discussed with who agreed to admits for further evaluation s/p treatment with decreased saturations to low 80s. ROR Labs Reviewed Laboratory Results Reviewed?: Yes Result Diagrams: 02/11/19 03:59 02/11/19 03:59 Laboratory: WBC 10.6 X10^3/uL (3.6-10.0) H 02/11/19 03:59 RBC 5.12 X10^6/uL (4.7-6.0) 02/11/19 03:59 Hgb 15.2 g/dL (13.5-18.0) 02/11/19 03:59 Hct 44.8 % (42.0-54.0) 02/11/19 03:59 MCV 87.5 fL (80.0-100.0) 02/11/19 03:59 MCH 29.7 pg (27.0-34.0) 02/11/19 03:59 MCHC 34.0 g/dL (33.0-35.0) 02/11/19 03:59 RDW 13.4 % (11.6-16.5) 02/11/19 03:59 Plt Count 313 X10^3/uL (150.0-450.0) 02/11/19 03:59 MPV 8.3 fL (7.4-11.0) 02/11/19 03:59 Neut % (Auto) 81.3 % (42.0-75.0) H 02/11/19 03:59 Lymph % (Auto) 12.4 % (21.0-51.0) L 02/11/19 03:59 [place] % (Auto) 6.0 % (0.0-13.0) 02/11/19 03:59 Eos % (Auto) 0.2 % (0.9-2.9) L 02/11/19 03:59 Baso % (Auto) 0.1 % (0.2-1.0) L 02/11/19 03:59 Neut # (Auto) 8.6 x10^3/uL (2.2-4.8) H 02/11/19 03:59 Lymph # (Auto) 1.3 X10^3/uL (1.3-2.9) 02/11/19 03:59 [place] # (Auto) 0.6 x10^3/uL (0.3-0.8) 02/11/19 03:59 Eos # (Auto) 0.0 x10^3/uL (0.0-0.2) 02/11/19 03:59 Baso # (Auto) 0.0 X10^3/uL (0.0-0.1) 02/11/19 03:59 Absolute Nucleated RBC 0.0 /100WBC 02/11/19 03:59 D-Dimer < 100 ng/mL (0-400) 02/10/19 14:22 Sample Site Rrad 02/11/19 05:43 ABG pH 7.330 (7.35-7.45) L 02/11/19 05:43 ABG pCO2 49.0 mmHg (35.0-45.0) H 02/11/19 05:43 ABG pO2 62.0 mmHg (80.0-100.0) L 02/11/19 05:43 ABG HCO3 25.8 mmol/L (22-26) 02/11/19 05:43 ABG O2 Saturation 90.0 % (90-100) 02/11/19 05:43 ABG Base Excess -0.6 mmol/L (-2.0-2.0) 02/11/19 05:43 Mian Test Pos 02/11/19 05:43 A-a Gradient 76.0 mmHg 02/11/19 05:43 FiO2 28.0 02/11/19 05:43 Blood Gas Comments [facility] 02/11/19 05:43 Sodium 140 mmol/L (136-145) 02/11/19 03:59 Corrected Sodium 141 mmol/L (136-145) 02/11/19 03:59 Potassium 4.5 mmol/L (3.5-5.1) 02/11/19 03:59 Chloride 105 mmol/L (98-107) 02/11/19 03:59 Carbon Dioxide 28.1 mmol/L (21-32) 02/11/19 03:59 BUN 14 mg/dL (7-18) 02/11/19 03:59 Creatinine 1.14 mg/dL (0.70-1.30) 02/11/19 03:59 Est GFR (MDRD) Af Amer > 60 (>60) 02/11/19 03:59 Est GFR (MDRD) Non-Af > 60 (>60) 02/11/19 03:59 Glucose 129 mg/dL (65-99) H 02/11/19 03:59 Calcium 8.8 mg/dL (8.5-10.1) 02/11/19 03:59 Corrected Calcium 9.5 mg/dL (8.5-10.1) 02/11/19 03:59 Magnesium 1.9 mg/dL (1.7-2.9) 02/10/19 14:22 Total Bilirubin 0.30 mg/dL (0.2-1.0) 02/11/19 03:59 AST 14 Units/L (15-37) L 02/11/19 03:59 ALT 30 Units/L (12-78) 02/11/19 03:59 Alkaline Phosphatase 82 Units/L (46-116) 02/11/19 03:59 Creatine Kinase 134 Units/L (39-308) 02/10/19 14:22 CK-MB (CK-2) 3.9 ng/mL (0-4.0) 02/10/19 14:22 CK/CKMB % Calc 2.9 % (<4) 02/10/19 14:22 Troponin I < 0.02 ng/mL (0-1.5) 02/10/19 14:22 Total Protein 6.3 g/dL (6.4-8.2) L 02/11/19 03:59 Albumin 3.1 g/dL (3.4-5.0) L 02/11/19 03:59 Globulin 3.2 g/dL (2.5-4.5) 02/11/19 03:59 Albumin/Globulin Ratio 1.0 Ratio (1.1-2.1) L 02/11/19 03:59 Other Results Comments: Chest: COPD without acute abnormality XRAY XRAY Interpreted by: Radiologist Diagnosis Discharge Problem: Asthma exacerbation ADDITIONAL NOTES Additional Notes Additional Notes: Discussed with Dr. Woody who agreed to admit for further evaluation and treatment
[2019-02-10 14:46] LABS: ALANINE AMINOTRANSFERASE 31 Units/L (12-78); ALBUMIN 3.5 g/dL (3.4-5.0); ALKALINE PHOSPHATASE 93 Units/L (46-116); ASPARTATE AMINO TRANSFERASE 15 Units/L (15-37); BLOOD UREA NITROGEN 11 mg/dL (7-18); CALCIUM 9.1 mg/dL (8.5-10.1); CARBON DIOXIDE 25.6 mmol/L (21-32); CHLORIDE 103 mmol/L (98-107); COR NA(FOR HYPERGLY) 139 mmol/L (136-145); CREATININE 1.06 mg/dL (0.70-1.30); SODIUM 138 mmol/L (136-145); TOTAL PROTEIN 6.7 g/dL (6.4-8.2); eGFR NON BLACK RACES > 60 (>60)
[2019-02-10] MEDS: NS 1000 ML 1,000 ML IV SCH ×2 (14:49→23:19)
[2019-02-10 14:59] LABS: ABG BASE EXCESS 2.3 mmol/L (-2.0-2.0); ABG HCO3 27.3 mmol/L (22-26)
[2019-02-10 15:00] LABS: ABG ALLEN TEST POS
[2019-02-10] MEDS ORDERED: MAGNESIUM SULFATE 1 GRAM/100 mL PREMIX 1 G/100 ML BAG IV ONE (15:58)
[2019-02-10] MEDS: LEVAQUIN PREMIX IV 500 MG 500 MG/100 ML BAG IV SCH (16:57)
[2019-02-10] MEDS ORDERED: LEVAQUIN TAB 500 MG PO SCH (17:00)
[2019-02-10] MEDS ORDERED: DUONEB 0.5 MG/3 MG NEB SCH (17:00)
[2019-02-10] MEDS ORDERED: NS 1000 ML 1,000 ML IV SCH (17:00)
[2019-02-10] MEDS: DUONEB 0.5 MG/3 MG NEB SCH ×2 (17:03→21:23)
[2019-02-10 17:11] LABS: CKMB % 2.9 % (<4); CREATINE KINASE 134 Units/L (39-308); CREATINE KINASE MB 3.9 ng/mL (0-4.0); TROPONIN I < 0.02 ng/mL (0-1.5)
[2019-02-10 17:14] VITALS: BMI 22.1
[2019-02-10] MEDS: PULMICORT NEB TX 0.5 MG NEB SCH (21:23)
[2019-02-10] MEDS ORDERED: TYLENOL 325 MG TAB PO PRN (21:34)
[2019-02-10] MEDS ORDERED: TYLENOL 325 MG TAB PO ONE (21:41)
[2019-02-10] MEDS ORDERED: MORPHINE SULFATE INJ 2 MG INJ ONE (21:47)
[2019-02-10] MEDS: MORPHINE SULFATE INJ 2 MG INJ IVP PRN (21:50)
[2019-02-10] MEDS: FORTAZ or TAZICEF VIAL INJ IVP SCH (21:51)
[2019-02-11] MEDS: DUONEB 0.5 MG/3 MG NEB SCH ×6 (00:20→20:51)
[2019-02-11 05:25] LABS: BASOPHILS % (AUTO) 0.1 % (0.2-1.0); EOSINOPHILS % (AUTO) 0.2 % (0.9-2.9); HEMATOCRIT 44.8 % (42.0-54.0); HEMOGLOBIN 15.2 g/dL (13.5-18.0); LYMPHOCYTES # (AUTO) 1.3 X10^3/uL (1.3-2.9); LYMPHOCYTES % (AUTO) 12.4 % (21.0-51.0); MEAN CORPUSCULAR HEMOGLOBIN 29.7 pg (27.0-34.0); MEAN CORPUSCULAR VOLUME 87.5 fL (80.0-100.0); MEAN PLATELET VOLUME 8.3 fL (7.4-11.0); MONOCYTES # (AUTO) 0.6 x10^3/uL (0.3-0.8); NEUTROPHILS # (AUTO) 8.6 x10^3/uL (2.2-4.8); NEUTROPHILS % (AUTO) 81.3 % (42.0-75.0); PLATELET COUNT 313 X10^3/uL (150.0-450.0); RED BLOOD COUNT 5.12 X10^6/uL (4.7-6.0); RED CELL DISTRIBUTION WIDTH 13.4 % (11.6-16.5); WHITE BLOOD COUNT 10.6 X10^3/uL (3.6-10.0)
[2019-02-11] MEDS: MORPHINE SULFATE INJ 2 MG INJ IVP PRN ×3 (05:33→17:53)
--- NOTE | 2019-02-11 05:39 | RAD ---
Chest, two views Indication: Shortness of breath Comparison: 02/10/2019 Findings: Heart is normal in size. The lungs are hyperinflated with flattening of the hemidiaphragms, compatible with COPD. No acute infiltrate or effusion is identified. No pneumothorax. Impression: COPD without acute cardiopulmonary abnormality. Reported By:
[2019-02-11 05:40] LABS: ALANINE AMINOTRANSFERASE 30 Units/L (12-78); ALBUMIN 3.1 g/dL (3.4-5.0); ALKALINE PHOSPHATASE 82 Units/L (46-116); ASPARTATE AMINO TRANSFERASE 14 Units/L (15-37); BLOOD UREA NITROGEN 14 mg/dL (7-18); CALCIUM 8.8 mg/dL (8.5-10.1); CARBON DIOXIDE 28.1 mmol/L (21-32); CHLORIDE 105 mmol/L (98-107); COR CA(FOR HYPOALB) 9.5 mg/dL (8.5-10.1); COR NA(FOR HYPERGLY) 141 mmol/L (136-145); CREATININE 1.14 mg/dL (0.70-1.30); SODIUM 140 mmol/L (136-145); TOTAL PROTEIN 6.3 g/dL (6.4-8.2); eGFR NON BLACK RACES > 60 (>60)
[2019-02-11] MEDS: FORTAZ or TAZICEF VIAL INJ IVP SCH ×3 (05:40→21:48)
[2019-02-11 05:54] LABS: ABG ALLEN TEST POS; ABG BASE EXCESS -0.6 mmol/L (-2.0-2.0); ABG HCO3 25.8 mmol/L (22-26)
[2019-02-11] MEDS: NS 1000 ML 1,000 ML IV SCH ×2 (06:54→16:39)
[2019-02-11] MEDS: PULMICORT NEB TX 0.5 MG NEB SCH ×2 (08:55→20:51)
[2019-02-11] MEDS: SOLU-Medrol 40 MG VIAL IVP SCH ×2 (09:37→16:39)
[2019-02-11] MEDS: LEVAQUIN PREMIX IV 500 MG 500 MG/100 ML BAG IV SCH (09:37)
[2019-02-11] MEDS: NORVASC TAB 5 MG PO SCH (10:27)
[2019-02-11] MEDS: MUCINEX DM PO SCH ×2 (10:27→20:52)
[2019-02-11] MEDS: TUSSIONEX PENNKINETIC SUSP PO SCH ×2 (10:27→20:52)
[2019-02-11] MEDS: LOVENOX INJ 30 MG SYR SC SCH (11:50)
--- NOTE | 2019-02-11 16:01 | DR.H&P ---
H&P - History & Physical for Day of: H&P Date: 02/10/19 - Chief Complaint Chief Complaint: SOB, COUGH - History of Present Illness History of Present Illness: IS A 48 YEAR OLD PATIENT OF OURS WHO PRESENTED TO THE EMERGENCY ROOM WITH COMPLAINTS OF SHORTNESS OF BREATH AND COUGH. HE REPORTS A HISTORY OF ASTHMA AND COPD AT HOME. HE IS NOT COMPLIANT WITH MEDICATIONS ON A NORMAL BASIS, HOWEVER, HE DID REPORT TAKING A BREATHING TREAT MENT AT HOME PRIOR TO ARRIVAL WITHOUT IMPROVEMENT IN SYMTOMS. HE REPORTS TEARING OUT A LOT OF INSULATION WITHIN THE PAST WEEK. HE STATES THAT SYMPTOMS STARTED AROUND THE SAME TIME. ON ARRIVAL, VITALS WERE 98.3-111-26-95%RA-159/99. LABS WERE OBTAINED. ABNORMAL LAB VALUES INCLUDE THE FOLLOWING: WBC 11.6, GLUCOSE 138. ABG WAS OBTAINED AND REVEALED: PH 7.410, PC02 43.0, P02 74.0, HC03 27.3, 02 SATURATION 95.0, BASE EXCESS 2.3. A CHEST XRAY WAS OBTAINED AND REVEALED: COPD WITHOUT ACUTE ABNORMALITY. HE WAS GIVEN SOLU-MEDROL 125MG PO X 1 AND A DUONEB IN THE ER. HE WAS ADMITTED TO THE STEP DOWN UNIT FOR FURTHER EVALUATION AND TREATMENT OF COPD AND ASTHMA EXACERBATION. HE WAS STARTED ON DUONEBS Q4H, PULMICORT TX BID, LEVAQUIN 500MG IV DAILY, FORTAZ 1G IV Q8H, NORMAL SALINE AT 125ML/HR, AND SOLU-MEDROL 80MG IV Q8H. WE PLAN TO FOLLOW-UP WITH AM LABS AND CONTINUE TO MONITOR. - Past Medical History Past Medical History: Asthma, COPD, Hypertension - Family History Family Medical History: [place], Coronary Artery Disease, Hypertension - Social History Does patient currently use any type of tobacco product: Yes (SMOKELESS) Have you used tobacco products in the last 12 months: Yes (SMOKELESS) Type of Tobacco Use: None How many years tobacco product used: 20 Does any household member use tobacco: No Alcohol Use: None Drug Use: Marijuana - Medications Home Medications: No Known Drug Allergies Allergy (Verified 09/05/18 04:36) CONTINUE taking the following medications NK 02/10/19 [History] - Review of Systems Constitutional: No Symptoms Reported Eyes: No Symptoms Reported ENT: No Symptoms Reported Respiratory: See HPI, Cough, Shortness of Breath, SOB with Excertion Cardiovascular: No Symptoms Reported Gastrointestinal: No Symptoms Reported Genitourinary: No Symptoms Reported Musculoskeletal: No Symptoms Reported Skin: No Symptoms Reported Neurological: No Symptoms Reported - Physical Exam Vital Signs: Temperature 99.5 F Pulse Rate [Apical] 108 Pulse Rate 116 Respiratory Rate 16 Blood Pressure [Right Arm] 152/104 Blood Pressure [Left Arm] 164/109 Blood Pressure 148/95 O2 Sat by Pulse Oximetry 89 Oriented: Normal Eyes: Normal Ear: Normal Nose: Normal Throat: Normal Respiratory: Wheezes Throughout Cardiovascular: Tachycardia. negative: S3, S4, Murmur : Normal Auscultation: Bowel Sounds: Normal Palpation: Normal Tenderness: Normal Skin: Normal Musculoskeletal: Normal Psychiatric: Normal Mood Description: Calm Affect: Normal Speech Pattern: Clear - Assessment/Plan (1) COPD exacerbation Status: Acute Plan: ADMIT, IV ANTIBIOTICS, RESPIRATORY TX, SUPPLEMENTAL OXYGEN, IV STEROIDS, CONTINUE TO MONITOR (2) Asthma exacerbation Qualifiers: Asthma severity: moderate Asthma persistence: persistent Qualified Code(s): J45.41 - Moderate persistent asthma with (acute) exacerbation Status: Acute - Allergies Allergies/Adverse Reactions: Allergies Allergy/AdvReac Type Severity Reaction Status Date / Time No Known Drug Allergies Allergy Verified 09/05/18 04:36
[2019-02-11 16:02] LABS: BILIRUBIN,URINE NEGATIVE (NEGATIVE); BLOOD/HEMOGLOBIN,URINE NEGATIVE (NEGATIVE); GLUCOSE, URINE 3+ (NEGATIVE); KETONES,URINE NEGATIVE (NEGATIVE); LEUKOCYTE ESTERASE ,URINE NEGATIVE (NEGATIVE); NITRITES,URINE NEGATIVE (NEGATIVE); PROTEIN,URINE NEGATIVE (NEGATIVE); UROBILINOGEN,URINE NORMAL (NORMAL)
[2019-02-11 16:04] LABS: APPEARANCE,URINE CLEAR (CLEAR); COLOR,URINE YELLOW (YELLOW)
[2019-02-11] MEDS: NS 1000 ML 1,000 ML with THIAMINE HCL INJ 100 MG, MAGNESIUM SULFATE 50% INJ 1 G, MVI IN... IV SCH ×5 (16:39)
--- NOTE | 2019-02-11 20:19 | PCM.PROG ---
Progress Note - Progress Note for Day of Date of Exam: 02/11/19 - Subjective Subjective: WAS ADMITTED FOR COPD/ASTHMA EXACERBATION. TODAY, HE IS ALERT AND ORIENTED, LYING IN BED ON MORNING ROUNDS. HE CONTINUES WITH COMPLAINTS OF SHORTNESS OF BREATH AND A NON-PRODUCTIVE COUGH. ON EXAMINATION, HEART IS REGULAR IN RATE AND RHYTHM. BILATERAL LUNGS ARE NOTED WITH SCATTERED WHEEZING THROUGHOUT. ABDOMEN IS ROUND, SOFT, AND NON-TENDER WITH NORMAL BOWEL SOUNDS NOTED IN ALL QUADRANTS. HIS VITALS THIS MORNING ARE 98.4-95-15-99%-148/85. LABS WERE OBTAINED. ABNORMAL LAB VALUES INCLUDE THE FOLLOWING: WBC 10.6, GLUCOSE 129, AST 14, TOTAL PROTEIN 6.3, ALBUMIN 3.1. TODAYS ABG REVEALED: PH 7.330, PC02 49.0, P02 62.0, HC03 25.8, BASE EXCESS -0.6. SPUTUM CULTURE PENDING. A CHEST XRAY WAS OBTAINED TODAY AND REVEALED: COPD WITHOUT ACUTE CARDIOPULMONARY ABNORMALITY. HE IS CURRENTLY RECEIVING IV STEROIDS, RESPIRATORY TREATMENTS, AND SUPPLEMENTAL OXYGEN. TODAY, WE WILL ADD MUCINEX BID, AMLODIPINE 5MG PO DAILY FOR INCREASED BLOOD PRESSURE, AND TUSSIONEX 5ML PO BID. OTHERWISE, WE WILL FOLLOW-UP WITH AM LABS AND CHEST XRAY AND CONTINUE TO MONITOR. - Past Medical Family Social History Past Med/Fam/Surg Hx: No changes since H&P Allergies: Allergies No Known Drug Allergies Allergy (Verified 09/05/18 04:36) - Review of Systems ROS: No change since H&P - Vital Signs and I&O's Vital Signs: Temperature 98.4 F Pulse Rate [Apical] 108 Pulse Rate 125 Respiratory Rate 18 Blood Pressure [Right Arm] 152/104 Blood Pressure [Left Arm] 164/109 Blood Pressure 175/92 O2 Sat by Pulse Oximetry 90 Intake and Output: Intake & Output 02/09/19 02/10/19 02/11/19 02/12/19 11:59 11:59 11:59 11:59 Intake Total 2152 / 2152 1800 / 1800 Output Total 500 / 500 600 / 600 Balance 1652 / 1652 1200 / 1200 - Physical Exam Oriented: Normal Eyes: Normal Ear: Normal Nose: Normal Throat: Normal Respiratory: Generalized, Wheezes Cardiovascular: Tachycardia. negative: S3, S4, Murmur : Normal Auscultation: Bowel Sounds: Normal Palpation: Normal Tenderness: Normal Skin: Normal Musculoskeletal: Normal Psychiatric: Normal Mood Description: Calm Affect: Normal Speech Pattern: Clear, Appropriate - Laboratory and Diagnostics Result Diagrams: 02/11/19 03:59 02/11/19 03:59 Labs: 02/11/19 17:00 Sputum - Expectorated Sputum - Final Laboratory WBC 10.6 X10^3/uL (3.6-10.0) H 02/11/19 03:59 RBC 5.12 X10^6/uL (4.7-6.0) 02/11/19 03:59 Hgb 15.2 g/dL (13.5-18.0) 02/11/19 03:59 Hct 44.8 % (42.0-54.0) 02/11/19 03:59 MCV 87.5 fL (80.0-100.0) 02/11/19 03:59 MCH 29.7 pg (27.0-34.0) 02/11/19 03:59 MCHC 34.0 g/dL (33.0-35.0) 02/11/19 03:59 RDW 13.4 % (11.6-16.5) 02/11/19 03:59 Plt Count 313 X10^3/uL (150.0-450.0) 02/11/19 03:59 MPV 8.3 fL (7.4-11.0) 02/11/19 03:59 Neut % (Auto) 81.3 % (42.0-75.0) H 02/11/19 03:59 Lymph % (Auto) 12.4 % (21.0-51.0) L 02/11/19 03:59 [place] % (Auto) 6.0 % (0.0-13.0) 02/11/19 03:59 Eos % (Auto) 0.2 % (0.9-2.9) L 02/11/19 03:59 Baso % (Auto) 0.1 % (0.2-1.0) L 02/11/19 03:59 Neut # (Auto) 8.6 x10^3/uL (2.2-4.8) H 02/11/19 03:59 Lymph # (Auto) 1.3 X10^3/uL (1.3-2.9) 02/11/19 03:59 [place] # (Auto) 0.6 x10^3/uL (0.3-0.8) 02/11/19 03:59 Eos # (Auto) 0.0 x10^3/uL (0.0-0.2) 02/11/19 03:59 Baso # (Auto) 0.0 X10^3/uL (0.0-0.1) 02/11/19 03:59 Absolute Nucleated RBC 0.0 /100WBC 02/11/19 03:59 D-Dimer < 100 ng/mL (0-400) 02/10/19 14:22 Sample Site Rrad 02/11/19 05:43 ABG pH 7.330 (7.35-7.45) L 02/11/19 05:43 ABG pCO2 49.0 mmHg (35.0-45.0) H 02/11/19 05:43 ABG pO2 62.0 mmHg (80.0-100.0) L 02/11/19 05:43 ABG HCO3 25.8 mmol/L (22-26) 02/11/19 05:43 ABG O2 Saturation 90.0 % (90-100) 02/11/19 05:43 ABG Base Excess -0.6 mmol/L (-2.0-2.0) 02/11/19 05:43 Mian Test Pos 02/11/19 05:43 A-a Gradient 76.0 mmHg 02/11/19 05:43 FiO2 28.0 02/11/19 05:43 Blood Gas Comments [facility] 02/11/19 05:43 Sodium 140 mmol/L (136-145) 02/11/19 03:59 Corrected Sodium 141 mmol/L (136-145) 02/11/19 03:59 Potassium 4.5 mmol/L (3.5-5.1) 02/11/19 03:59 Chloride 105 mmol/L (98-107) 02/11/19 03:59 Carbon Dioxide 28.1 mmol/L (21-32) 02/11/19 03:59 BUN 14 mg/dL (7-18) 02/11/19 03:59 Creatinine 1.14 mg/dL (0.70-1.30) 02/11/19 03:59 Est GFR (MDRD) Af Amer > 60 (>60) 02/11/19 03:59 Est GFR (MDRD) Non-Af > 60 (>60) 02/11/19 03:59 Glucose 129 mg/dL (65-99) H 02/11/19 03:59 Calcium 8.8 mg/dL (8.5-10.1) 02/11/19 03:59 Corrected Calcium 9.5 mg/dL (8.5-10.1) 02/11/19 03:59 Magnesium 1.9 mg/dL (1.7-2.9) 02/10/19 14:22 Total Bilirubin 0.30 mg/dL (0.2-1.0) 02/11/19 03:59 AST 14 Units/L (15-37) L 02/11/19 03:59 ALT 30 Units/L (12-78) 02/11/19 03:59 Alkaline Phosphatase 82 Units/L (46-116) 02/11/19 03:59 Creatine Kinase 134 Units/L (39-308) 02/10/19 14:22 CK-MB (CK-2) 3.9 ng/mL (0-4.0) 02/10/19 14:22 CK/CKMB % Calc 2.9 % (<4) 02/10/19 14:22 Troponin I < 0.02 ng/mL (0-1.5) 02/10/19 14:22 Total Protein 6.3 g/dL (6.4-8.2) L 02/11/19 03:59 Albumin 3.1 g/dL (3.4-5.0) L 02/11/19 03:59 Globulin 3.2 g/dL (2.5-4.5) 02/11/19 03:59 Albumin/Globulin Ratio 1.0 Ratio (1.1-2.1) L 02/11/19 03:59 Specimen Type Random urine 02/11/19 15:56 Urine Color Yellow (YELLOW) 02/11/19 15:56 Urine Appearance Clear (CLEAR) 02/11/19 15:56 Urine pH 5.0 (5.0 - 8.0) 02/11/19 15:56 Ur Specific [place] 1.020 (1.000-1.030) 02/11/19 15:56 Urine Protein Negative (NEGATIVE) 02/11/19 15:56 Urine Glucose (UA) 3+ (NEGATIVE) 02/11/19 15:56 Urine Ketones Negative (NEGATIVE) 02/11/19 15:56 Urine Occult Blood Negative (NEGATIVE) 02/11/19 15:56 Urine Nitrite Negative (NEGATIVE) 02/11/19 15:56 Urine Bilirubin Negative (NEGATIVE) 02/11/19 15:56 Urine Urobilinogen Normal (NORMAL) 02/11/19 15:56 Ur Leukocyte Esterase Negative (NEGATIVE) 02/11/19 15:56 Urine Opiates Screen Positive (NEG=<300) 02/11/19 15:56 Urine Methadone Screen Negative (NEG=<300) 02/11/19 15:56 Ur Barbiturates Screen Negative (NEG=<200) 02/11/19 15:56 Ur Phencyclidine Scrn Negative (NEG=<25) 02/11/19 15:56 Ur Amphetamines Screen Positive (NEG=<1000) 02/11/19 15:56 U Benzodiazepines Scrn Negative (NEG=<200) 02/11/19 15:56 Urine Cocaine Screen Negative (NEG=<300) 02/11/19 15:56 U Marijuana (THC) Screen Negative (NEG=<50) 02/11/19 15:56 - Plan (1) COPD exacerbation Status: Acute Plan: IV ANTIBIOTICS, RESPIRATORY TX, SUPPLEMENTAL OXYGEN, IV STEROIDS, MUCINEX, TUSSIONEX, CONTINUE TO MONITOR (2) Asthma exacerbation Status: Acute Qualifiers: Asthma severity: moderate Asthma persistence: persistent Qualified Code(s): J45.41 - Moderate persistent asthma with (acute) exacerbation (3) Hypertension Status: Acute Qualifiers: Hypertension type: essential hypertension Qualified Code(s): I10 - Essential (primary) hypertension Plan: AMLODIPINE 5MG PO DAILY, CONTINUE TO MONITOR
[2019-02-12] MEDS: SOLU-Medrol 40 MG VIAL IVP SCH ×3 (00:40→16:38)
[2019-02-12] MEDS: DUONEB 0.5 MG/3 MG NEB SCH ×6 (00:42→20:10)
[2019-02-12] MEDS: VALIUM PO PRN (00:42)
[2019-02-12] MEDS: NS 1000 ML 1,000 ML IV SCH ×3 (04:11→16:39)
[2019-02-12 05:28] LABS: BASOPHILS % (AUTO) 0.1 % (0.2-1.0); HEMATOCRIT 43.1 % (42.0-54.0); HEMOGLOBIN 14.5 g/dL (13.5-18.0); LYMPHOCYTES # (AUTO) 0.7 X10^3/uL (1.3-2.9); LYMPHOCYTES % (AUTO) 4.7 % (21.0-51.0); MEAN CORPUSCULAR HEMOGLOBIN 29.5 pg (27.0-34.0); MEAN CORPUSCULAR HGB CONC 33.5 g/dL (33.0-35.0); MEAN CORPUSCULAR VOLUME 87.8 fL (80.0-100.0); MEAN PLATELET VOLUME 8.3 fL (7.4-11.0); MONOCYTES # (AUTO) 0.3 x10^3/uL (0.3-0.8); MONOCYTES % (AUTO) 1.9 % (0.0-13.0); NEUTROPHILS # (AUTO) 14.5 x10^3/uL (2.2-4.8); NEUTROPHILS % (AUTO) 93.3 % (42.0-75.0); PLATELET COUNT 314 X10^3/uL (150.0-450.0); RED BLOOD COUNT 4.91 X10^6/uL (4.7-6.0); RED CELL DISTRIBUTION WIDTH 13.9 % (11.6-16.5); WHITE BLOOD COUNT 15.6 X10^3/uL (3.6-10.0)
[2019-02-12 05:40] LABS: ALANINE AMINOTRANSFERASE 36 Units/L (12-78); ALBUMIN 3.2 g/dL (3.4-5.0); ALKALINE PHOSPHATASE 79 Units/L (46-116); ASPARTATE AMINO TRANSFERASE 14 Units/L (15-37); BLOOD UREA NITROGEN 14 mg/dL (7-18); CALCIUM 8.8 mg/dL (8.5-10.1); CARBON DIOXIDE 28.8 mmol/L (21-32); CHLORIDE 104 mmol/L (98-107); COR CA(FOR HYPOALB) 9.4 mg/dL (8.5-10.1); COR NA(FOR HYPERGLY) 143 mmol/L (136-145); CREATININE 1.07 mg/dL (0.70-1.30); SODIUM 142 mmol/L (136-145); TOTAL PROTEIN 6.2 g/dL (6.4-8.2); eGFR NON BLACK RACES > 60 (>60)
[2019-02-12] MEDS: FORTAZ or TAZICEF VIAL INJ IVP SCH ×3 (06:05→21:30)
[2019-02-12 06:33] LABS: BAND NEUTROPHILS % 1 % (0-10); PLATELET MORPHOLOGY COMMENT NORMAL (NORMAL)
[2019-02-12] MEDS: TUSSIONEX PENNKINETIC SUSP PO SCH ×2 (07:59→21:30)
[2019-02-12] MEDS: NORVASC TAB 5 MG PO SCH (08:00)
[2019-02-12] MEDS: LEVAQUIN PREMIX IV 500 MG 500 MG/100 ML BAG IV SCH (08:00)
[2019-02-12] MEDS: MUCINEX DM PO SCH (08:00)
[2019-02-12] MEDS: LOVENOX INJ 30 MG SYR SC SCH (08:00)
[2019-02-12] MEDS: PULMICORT NEB TX 0.5 MG NEB SCH ×2 (08:17→20:10)
[2019-02-12] MEDS ORDERED: TESSALON PERLES PO PRN (10:00)
[2019-02-12] MEDS: TESSALON PERLES PO SCH ×3 (10:10→21:29)
[2019-02-12] MEDS: ROBITUSSIN DM PO PRN (13:20)
[2019-02-12] MEDS: NS 1000 ML 1,000 ML with THIAMINE HCL INJ 100 MG, MAGNESIUM SULFATE 50% INJ 1 G, MVI IN... IV SCH ×5 (16:43)
[2019-02-12] MEDS: MUCINEX EXPECTORANT PO SCH (21:30)
[2019-02-13] MEDS: DUONEB 0.5 MG/3 MG NEB SCH ×6 (01:42→20:10)
[2019-02-13] MEDS: SOLU-Medrol 40 MG VIAL IVP SCH ×3 (02:32→17:19)
[2019-02-13] MEDS: NS 1000 ML 1,000 ML IV SCH ×3 (04:50→15:16)
[2019-02-13 05:24] LABS: BASOPHILS % (AUTO) 0.1 % (0.2-1.0); HEMATOCRIT 41.9 % (42.0-54.0); LYMPHOCYTES # (AUTO) 0.7 X10^3/uL (1.3-2.9); LYMPHOCYTES % (AUTO) 3.6 % (21.0-51.0); MEAN CORPUSCULAR HEMOGLOBIN 29.2 pg (27.0-34.0); MEAN CORPUSCULAR HGB CONC 33.4 g/dL (33.0-35.0); MEAN CORPUSCULAR VOLUME 87.5 fL (80.0-100.0); MEAN PLATELET VOLUME 8.2 fL (7.4-11.0); MONOCYTES # (AUTO) 0.7 x10^3/uL (0.3-0.8); MONOCYTES % (AUTO) 3.8 % (0.0-13.0); NEUTROPHILS # (AUTO) 16.7 x10^3/uL (2.2-4.8); NEUTROPHILS % (AUTO) 92.5 % (42.0-75.0); PLATELET COUNT 278 X10^3/uL (150.0-450.0); RED BLOOD COUNT 4.79 X10^6/uL (4.7-6.0); RED CELL DISTRIBUTION WIDTH 13.9 % (11.6-16.5); WHITE BLOOD COUNT 18.1 X10^3/uL (3.6-10.0)
[2019-02-13 05:32] LABS: ALANINE AMINOTRANSFERASE 31 Units/L (12-78); ALBUMIN 2.9 g/dL (3.4-5.0); ALKALINE PHOSPHATASE 73 Units/L (46-116); ASPARTATE AMINO TRANSFERASE 10 Units/L (15-37); BLOOD UREA NITROGEN 14 mg/dL (7-18); CALCIUM 8.4 mg/dL (8.5-10.1); CARBON DIOXIDE 29.5 mmol/L (21-32); CHLORIDE 104 mmol/L (98-107); COR CA(FOR HYPOALB) 9.3 mg/dL (8.5-10.1); COR NA(FOR HYPERGLY) 144 mmol/L (136-145); SODIUM 142 mmol/L (136-145); TOTAL PROTEIN 5.7 g/dL (6.4-8.2); eGFR NON BLACK RACES > 60 (>60)
[2019-02-13] MEDS: FORTAZ or TAZICEF VIAL INJ IVP SCH ×3 (05:52→21:34)
[2019-02-13] MEDS: TESSALON PERLES PO SCH ×3 (05:53→21:35)
[2019-02-13 06:28] LABS: PLATELET MORPHOLOGY COMMENT NORMAL (NORMAL)
--- NOTE | 2019-02-13 06:41 | RAD ---
HISTORY: Shortness of breath Study: Chest AP portable Comparison: 02/11/2019 Findings: The heart is within normal limits in size. The chuy are normal. The lungs are hyperinflated but free of acute alveolar infiltrates. No pleural effusions are identified. The bony thorax is unremarkable. IMPRESSION: Lungs hyperinflated but clear, consistent with COPD Reported By:
[2019-02-13] MEDS: PULMICORT NEB TX 0.5 MG NEB SCH ×2 (08:13→20:10)
--- NOTE | 2019-02-13 08:14 | PCM.PROG ---
Progress Note - Progress Note for Day of Date of Exam: 02/12/19 - Subjective Subjective: WAS ADMITTED FOR COPD/ASTHMA EXACERBATION AND HYPOXEMIA. HIS OXYGEN SATURATIONS WERE NOTED TO FALL INTO THE LOW 80s ON ARRIVAL TO THE ER. TODAY, HE IS ALERT AND ORIENTED, LYING IN BED ON MORNING ROUNDS. HE CONTINUES WITH COMPLAINTS OF SHORTNESS OF BREATH AND A NON-PRODUCTIVE COUGH. ON EXAMINATION, HEART IS REGULAR IN RATE AND RHYTHM. BILATERAL LUNGS ARE NOTED WITH SCATTERED WHEEZING THROUGHOUT. ABDOMEN IS ROUND, SOFT, AND NON-TENDER WITH NORMAL BOWEL SOUNDS NOTED IN ALL QUADRANTS. HIS VITALS THIS MORNING ARE 97.6-109-22-89%-136/80. LABS WERE OBTAINED. ABNORMAL LAB VALUES INCLUDE THE FOLLOWING: WBC 15.6, GLUCOSE 152, AST 14, TOTAL PROTEIN 6.2, ALBUMIN 3.2. SPUTUM CULTURE PENDING. HE IS CURRENTLY RECEIVINGIV ANTIBIOTICS, IV STEROIDS, RESPIRATORY TREATMENTS, AND SUPPLEMENTAL OXYGEN. TODAY, WE WILL ADD TESSALON PERLES TID FOR COUGH. OTHERWISE, WE WILL FOLLOW-UP WITH AM LABS AND CHEST XRAY AND CONTINUE TO MONITOR. - Past Medical Family Social History Past Med/Fam/Surg Hx: No changes since H&P Allergies: Allergies No Known Drug Allergies Allergy (Verified 09/05/18 04:36) - Review of Systems ROS: No change since H&P - Vital Signs and I&O's Vital Signs: Temperature 98.8 F Pulse Rate [Apical] 108 Pulse Rate 112 Respiratory Rate 31 Blood Pressure [Right Arm] 152/104 Blood Pressure [Left Arm] 164/109 Blood Pressure 173/107 O2 Sat by Pulse Oximetry 94 Intake and Output: Intake & Output 02/10/19 02/11/19 02/12/19 02/13/19 11:59 11:59 11:59 11:59 Intake Total 2152 / 2152 4217 / 4217 4139 / 4139 Output Total 500 / 500 3925 / 3925 3650 / 3650 Balance 1652 / 1652 292 / 292 489 / 489 - Physical Exam Oriented: Normal Eyes: Normal Ear: Normal Nose: Normal Throat: Normal Respiratory: Generalized, Wheezes Cardiovascular: Tachycardia. negative: S3, S4, Murmur : Normal Auscultation: Bowel Sounds: Normal Palpation: Normal Tenderness: Normal Skin: Normal Musculoskeletal: Normal Psychiatric: Normal Mood Description: Calm Affect: Normal Speech Pattern: Clear, Appropriate - Laboratory and Diagnostics Result Diagrams: 02/13/19 04:14 02/13/19 04:14 Labs: 02/11/19 17:00 Sputum - Expectorated Sputum Sputum Culture - Preliminary 02/11/19 17:00 Sputum - Expectorated Sputum - Final Laboratory WBC 18.1 X10^3/uL (3.6-10.0) H 02/13/19 04:14 RBC 4.79 X10^6/uL (4.7-6.0) 02/13/19 04:14 Hgb 14.0 g/dL (13.5-18.0) 02/13/19 04:14 Hct 41.9 % (42.0-54.0) L 02/13/19 04:14 MCV 87.5 fL (80.0-100.0) 02/13/19 04:14 MCH 29.2 pg (27.0-34.0) 02/13/19 04:14 MCHC 33.4 g/dL (33.0-35.0) 02/13/19 04:14 RDW 13.9 % (11.6-16.5) 02/13/19 04:14 Plt Count 278 X10^3/uL (150.0-450.0) 02/13/19 04:14 Plt Count Comment Adequate (ADEQUATE) 02/13/19 04:14 MPV 8.2 fL (7.4-11.0) 02/13/19 04:14 Neut % (Auto) 92.5 % (42.0-75.0) H 02/13/19 04:14 Lymph % (Auto) 3.6 % (21.0-51.0) L 02/13/19 04:14 [place] % (Auto) 3.8 % (0.0-13.0) 02/13/19 04:14 Eos % (Auto) 0.0 % (0.9-2.9) L 02/13/19 04:14 Baso % (Auto) 0.1 % (0.2-1.0) L 02/13/19 04:14 Neut # (Auto) 16.7 x10^3/uL (2.2-4.8) H 02/13/19 04:14 Lymph # (Auto) 0.7 X10^3/uL (1.3-2.9) L 02/13/19 04:14 [place] # (Auto) 0.7 x10^3/uL (0.3-0.8) 02/13/19 04:14 Eos # (Auto) 0.0 x10^3/uL (0.0-0.2) 02/13/19 04:14 Baso # (Auto) 0.0 X10^3/uL (0.0-0.1) 02/13/19 04:14 Absolute Nucleated RBC 0.0 /100WBC 02/13/19 04:14 Total Counted 100 02/13/19 04:14 Neutrophils % (Manual) 93 % (39-76) H 02/13/19 04:14 Band Neutrophils % 1 % (0-10) 02/12/19 04:01 Lymphocytes % (Manual) 1 % (13-43) L 02/13/19 04:14 Monocytes % (Manual) 6 % (4-9) 02/13/19 04:14 Plt Morphology Comment Normal (NORMAL) 02/13/19 04:14 RBC Morphology Normal (NORMAL) 02/13/19 04:14 D-Dimer < 100 ng/mL (0-400) 02/10/19 14:22 Sample Site Rrad 02/11/19 05:43 ABG pH 7.330 (7.35-7.45) L 02/11/19 05:43 ABG pCO2 49.0 mmHg (35.0-45.0) H 02/11/19 05:43 ABG pO2 62.0 mmHg (80.0-100.0) L 02/11/19 05:43 ABG HCO3 25.8 mmol/L (22-26) 02/11/19 05:43 ABG O2 Saturation 90.0 % (90-100) 02/11/19 05:43 ABG Base Excess -0.6 mmol/L (-2.0-2.0) 02/11/19 05:43 Mian Test Pos 02/11/19 05:43 A-a Gradient 76.0 mmHg 02/11/19 05:43 FiO2 28.0 02/11/19 05:43 Blood Gas Comments Kim well elj 02/11/19 05:43 Sodium 142 mmol/L (136-145) 02/13/19 04:14 Corrected Sodium 144 mmol/L (136-145) 02/13/19 04:14 Potassium 4.0 mmol/L (3.5-5.1) 02/13/19 04:14 Chloride 104 mmol/L (98-107) 02/13/19 04:14 Carbon Dioxide 29.5 mmol/L (21-32) 02/13/19 04:14 BUN 14 mg/dL (7-18) 02/13/19 04:14 Creatinine 0.90 mg/dL (0.70-1.30) 02/13/19 04:14 Est GFR (MDRD) Af Amer > 60 (>60) 02/13/19 04:14 Est GFR (MDRD) Non-Af > 60 (>60) 02/13/19 04:14 Glucose 175 mg/dL (65-99) H 02/13/19 04:14 Calcium 8.4 mg/dL (8.5-10.1) L 02/13/19 04:14 Corrected Calcium 9.3 mg/dL (8.5-10.1) 02/13/19 04:14 Magnesium 1.9 mg/dL (1.7-2.9) 02/10/19 14:22 Total Bilirubin 0.20 mg/dL (0.2-1.0) 02/13/19 04:14 AST 10 Units/L (15-37) L 02/13/19 04:14 ALT 31 Units/L (12-78) 02/13/19 04:14 Alkaline Phosphatase 73 Units/L (46-116) 02/13/19 04:14 Creatine Kinase 134 Units/L (39-308) 02/10/19 14:22 CK-MB (CK-2) 3.9 ng/mL (0-4.0) 02/10/19 14:22 CK/CKMB % Calc 2.9 % (<4) 02/10/19 14:22 Troponin I < 0.02 ng/mL (0-1.5) 02/10/19 14:22 Total Protein 5.7 g/dL (6.4-8.2) L 02/13/19 04:14 Albumin 2.9 g/dL (3.4-5.0) L 02/13/19 04:14 Globulin 2.8 g/dL (2.5-4.5) 02/13/19 04:14 Albumin/Globulin Ratio 1.0 Ratio (1.1-2.1) L 02/13/19 04:14 Specimen Type Random urine 02/11/19 15:56 Urine Color Yellow (YELLOW) 02/11/19 15:56 Urine Appearance Clear (CLEAR) 02/11/19 15:56 Urine pH 5.0 (5.0 - 8.0) 02/11/19 15:56 Ur Specific [place] 1.020 (1.000-1.030) 02/11/19 15:56 Urine Protein Negative (NEGATIVE) 02/11/19 15:56 Urine Glucose (UA) 3+ (NEGATIVE) 02/11/19 15:56 Urine Ketones Negative (NEGATIVE) 02/11/19 15:56 Urine Occult Blood Negative (NEGATIVE) 02/11/19 15:56 Urine Nitrite Negative (NEGATIVE) 02/11/19 15:56 Urine Bilirubin Negative (NEGATIVE) 02/11/19 15:56 Urine Urobilinogen Normal (NORMAL) 02/11/19 15:56 Ur Leukocyte Esterase Negative (NEGATIVE) 02/11/19 15:56 Urine Opiates Screen Positive (NEG=<300) 02/11/19 15:56 Urine Methadone Screen Negative (NEG=<300) 02/11/19 15:56 Ur Barbiturates Screen Negative (NEG=<200) 02/11/19 15:56 Ur Phencyclidine Scrn Negative (NEG=<25) 02/11/19 15:56 Ur Amphetamines Screen Positive (NEG=<1000) 02/11/19 15:56 U Benzodiazepines Scrn Negative (NEG=<200) 02/11/19 15:56 Urine Cocaine Screen Negative (NEG=<300) 02/11/19 15:56 U Marijuana (THC) Screen Negative (NEG=<50) 02/11/19 15:56 - Plan (1) COPD exacerbation Status: Acute Plan: IV ANTIBIOTICS, RESPIRATORY TX, SUPPLEMENTAL OXYGEN, IV STEROIDS, MUCINEX, TUSSIONEX, TESSALON PERLES TID, CONTINUE TO MONITOR (2) Asthma exacerbation Status: Acute Qualifiers: Asthma severity: moderate Asthma persistence: persistent Qualified Code(s): J45.41 - Moderate persistent asthma with (acute) exacerbation (3) Hypertension Status: Acute Qualifiers: Hypertension type: essential hypertension Qualified Code(s): I10 - Essential (primary) hypertension Plan: AMLODIPINE 5MG PO DAILY, CONTINUE TO MONITOR
[2019-02-13] MEDS: MUCINEX EXPECTORANT PO SCH ×2 (08:48→20:21)
[2019-02-13] MEDS: NORVASC TAB 5 MG PO SCH ×2 (08:48→20:21)
[2019-02-13] MEDS: LEVAQUIN PREMIX IV 500 MG 500 MG/100 ML BAG IV SCH (08:48)
[2019-02-13] MEDS: TUSSIONEX PENNKINETIC SUSP PO SCH ×2 (08:48→20:22)
[2019-02-13] MEDS: LOVENOX INJ 30 MG SYR SC SCH (08:56)
[2019-02-13] MEDS: MAXZIDE 37.5/25 MG PO SCH (10:47)
[2019-02-13] MEDS: THEO-DUR TAB 200 MG PO SCH ×2 (10:47→20:22)
[2019-02-13] MEDS: NS 1000 ML 1,000 ML with THIAMINE HCL INJ 100 MG, MAGNESIUM SULFATE 50% INJ 1 G, MVI IN... IV SCH ×5 (16:40)
--- NOTE | 2019-02-13 17:35 | PCM.PROG ---
Progress Note - Progress Note for Day of Date of Exam: 02/13/19 - Subjective Subjective: WAS ADMITTED FOR COPD/ASTHMA EXACERBATION AND HYPOXEMIA. HIS OXYGEN SATURATIONS WERE NOTED TO FALL INTO THE LOW 80s ON ARRIVAL TO THE ER. TODAY, HE IS ALERT AND ORIENTED, LYING IN BED ON MORNING ROUNDS. HE CONTINUES WITH COMPLAINTS OF SHORTNESS OF BREATH AND A NON-PRODUCTIVE COUGH, BUT REPORTS SLIGHT IMPROVEMENT SINCE YESTERDAY. ON EXAMINATION, HEART IS REGULAR IN RATE AND RHYTHM. BILATERAL LUNGS ARE NOTED WITH SCATTERED WHEEZING THROUGHOUT. ABDOMEN IS ROUND, SOFT, AND NON-TENDER WITH NORMAL BOWEL SOUNDS NOTED IN ALL QUADRANTS. HIS VITALS THIS MORNING ARE 98.6-283-49-100%-155/103. LABS WERE OBTAINED. ABNORMAL LAB VALUES INCLUDE THE FOLLOWING: WBC 18.1, HCT 41.9, GLUCOSE 175, CALCIUM 8.4, AST 10, TOTAL PROTEIN 5.7, ALBUMIN 2.9. SPUTUM CULTURE PENDING. A CHEST XRAY WAS OBTAINED TODAY AND REVEALED: Lungs hyperinflated but clear, consistent with COPD. HE IS CURRENTLY RECEIVING IV ANTIBIOTICS, IV STEROIDS, RESPIRATORY TREATMENTS, AND SUPPLEMENTAL OXYGEN. TODAY, WE WILL ADD KYLE-DUR 200 MG PO BID, DYAZIDE 1 CAPSULE DAILY, AND INCREASE AMLODIPINE TO 10MG PO HS. OTHERWISE, WE WILL FOLLOW-UP WITH AM LABS AND CHEST XRAY AND CONTINUE TO MONITOR. - Past Medical Family Social History Past Med/Fam/Surg Hx: No changes since H&P Allergies: Allergies No Known Drug Allergies Allergy (Verified 09/05/18 04:36) - Review of Systems ROS: No change since H&P - Vital Signs and I&O's Vital Signs: Temperature 98.4 F Pulse Rate [Apical] 108 Pulse Rate 117 Respiratory Rate 18 Blood Pressure [Right Arm] 152/104 Blood Pressure [Left Arm] 164/109 Blood Pressure 157/91 O2 Sat by Pulse Oximetry 97 Intake and Output: Intake & Output 02/11/19 02/12/19 02/13/19 02/14/19 11:59 11:59 11:59 11:59 Intake Total 2152 / 2152 4217 / 4217 4139 / 4139 2327 / 2327 Output Total 500 / 500 3925 / 3925 3650 / 3650 2650 / 2650 Balance 1652 / 1652 292 / 292 489 / 489 -323 / -323 - Physical Exam Oriented: Normal Eyes: Normal Ear: Normal Nose: Normal Throat: Normal Respiratory: Generalized, Wheezes Cardiovascular: Tachycardia. negative: S3, S4, Murmur : Normal Auscultation: Bowel Sounds: Normal Tenderness: Normal Skin: Normal Musculoskeletal: Normal Psychiatric: Normal Mood Description: Calm Affect: Normal Speech Pattern: Clear, Appropriate - Laboratory and Diagnostics Result Diagrams: 02/13/19 04:14 02/13/19 04:14 Labs: 02/11/19 17:00 Sputum - Expectorated Sputum Sputum Culture - Final 02/11/19 17:00 Sputum - Expectorated Sputum - Final Laboratory WBC 18.1 X10^3/uL (3.6-10.0) H 02/13/19 04:14 RBC 4.79 X10^6/uL (4.7-6.0) 02/13/19 04:14 Hgb 14.0 g/dL (13.5-18.0) 02/13/19 04:14 Hct 41.9 % (42.0-54.0) L 02/13/19 04:14 MCV 87.5 fL (80.0-100.0) 02/13/19 04:14 MCH 29.2 pg (27.0-34.0) 02/13/19 04:14 MCHC 33.4 g/dL (33.0-35.0) 02/13/19 04:14 RDW 13.9 % (11.6-16.5) 02/13/19 04:14 Plt Count 278 X10^3/uL (150.0-450.0) 02/13/19 04:14 Plt Count Comment Adequate (ADEQUATE) 02/13/19 04:14 MPV 8.2 fL (7.4-11.0) 02/13/19 04:14 Neut % (Auto) 92.5 % (42.0-75.0) H 02/13/19 04:14 Lymph % (Auto) 3.6 % (21.0-51.0) L 02/13/19 04:14 [place] % (Auto) 3.8 % (0.0-13.0) 02/13/19 04:14 Eos % (Auto) 0.0 % (0.9-2.9) L 02/13/19 04:14 Baso % (Auto) 0.1 % (0.2-1.0) L 02/13/19 04:14 Neut # (Auto) 16.7 x10^3/uL (2.2-4.8) H 02/13/19 04:14 Lymph # (Auto) 0.7 X10^3/uL (1.3-2.9) L 02/13/19 04:14 [place] # (Auto) 0.7 x10^3/uL (0.3-0.8) 02/13/19 04:14 Eos # (Auto) 0.0 x10^3/uL (0.0-0.2) 02/13/19 04:14 Baso # (Auto) 0.0 X10^3/uL (0.0-0.1) 02/13/19 04:14 Absolute Nucleated RBC 0.0 /100WBC 02/13/19 04:14 Total Counted 100 02/13/19 04:14 Neutrophils % (Manual) 93 % (39-76) H 02/13/19 04:14 Band Neutrophils % 1 % (0-10) 02/12/19 04:01 Lymphocytes % (Manual) 1 % (13-43) L 02/13/19 04:14 Monocytes % (Manual) 6 % (4-9) 02/13/19 04:14 Plt Morphology Comment Normal (NORMAL) 02/13/19 04:14 RBC Morphology Normal (NORMAL) 02/13/19 04:14 D-Dimer < 100 ng/mL (0-400) 02/10/19 14:22 Sample Site Rrad 02/11/19 05:43 ABG pH 7.330 (7.35-7.45) L 02/11/19 05:43 ABG pCO2 49.0 mmHg (35.0-45.0) H 02/11/19 05:43 ABG pO2 62.0 mmHg (80.0-100.0) L 02/11/19 05:43 ABG HCO3 25.8 mmol/L (22-26) 02/11/19 05:43 ABG O2 Saturation 90.0 % (90-100) 02/11/19 05:43 ABG Base Excess -0.6 mmol/L (-2.0-2.0) 02/11/19 05:43 Mian Test Pos 02/11/19 05:43 A-a Gradient 76.0 mmHg 02/11/19 05:43 FiO2 28.0 02/11/19 05:43 Blood Gas Comments Kim well elj 02/11/19 05:43 Sodium 142 mmol/L (136-145) 02/13/19 04:14 Corrected Sodium 144 mmol/L (136-145) 02/13/19 04:14 Potassium 4.0 mmol/L (3.5-5.1) 02/13/19 04:14 Chloride 104 mmol/L (98-107) 02/13/19 04:14 Carbon Dioxide 29.5 mmol/L (21-32) 02/13/19 04:14 BUN 14 mg/dL (7-18) 02/13/19 04:14 Creatinine 0.90 mg/dL (0.70-1.30) 02/13/19 04:14 Est GFR (MDRD) Af Amer > 60 (>60) 02/13/19 04:14 Est GFR (MDRD) Non-Af > 60 (>60) 02/13/19 04:14 Glucose 175 mg/dL (65-99) H 02/13/19 04:14 Calcium 8.4 mg/dL (8.5-10.1) L 02/13/19 04:14 Corrected Calcium 9.3 mg/dL (8.5-10.1) 02/13/19 04:14 Magnesium 1.9 mg/dL (1.7-2.9) 02/10/19 14:22 Total Bilirubin 0.20 mg/dL (0.2-1.0) 02/13/19 04:14 AST 10 Units/L (15-37) L 02/13/19 04:14 ALT 31 Units/L (12-78) 02/13/19 04:14 Alkaline Phosphatase 73 Units/L (46-116) 02/13/19 04:14 Creatine Kinase 134 Units/L (39-308) 02/10/19 14:22 CK-MB (CK-2) 3.9 ng/mL (0-4.0) 02/10/19 14:22 CK/CKMB % Calc 2.9 % (<4) 02/10/19 14:22 Troponin I < 0.02 ng/mL (0-1.5) 02/10/19 14:22 Total Protein 5.7 g/dL (6.4-8.2) L 02/13/19 04:14 Albumin 2.9 g/dL (3.4-5.0) L 02/13/19 04:14 Globulin 2.8 g/dL (2.5-4.5) 02/13/19 04:14 Albumin/Globulin Ratio 1.0 Ratio (1.1-2.1) L 02/13/19 04:14 Specimen Type Random urine 02/11/19 15:56 Urine Color Yellow (YELLOW) 02/11/19 15:56 Urine Appearance Clear (CLEAR) 02/11/19 15:56 Urine pH 5.0 (5.0 - 8.0) 02/11/19 15:56 Ur Specific [place] 1.020 (1.000-1.030) 02/11/19 15:56 Urine Protein Negative (NEGATIVE) 02/11/19 15:56 Urine Glucose (UA) 3+ (NEGATIVE) 02/11/19 15:56 Urine Ketones Negative (NEGATIVE) 02/11/19 15:56 Urine Occult Blood Negative (NEGATIVE) 02/11/19 15:56 Urine Nitrite Negative (NEGATIVE) 02/11/19 15:56 Urine Bilirubin Negative (NEGATIVE) 02/11/19 15:56 Urine Urobilinogen Normal (NORMAL) 02/11/19 15:56 Ur Leukocyte Esterase Negative (NEGATIVE) 02/11/19 15:56 Urine Opiates Screen Positive (NEG=<300) 02/11/19 15:56 Urine Methadone Screen Negative (NEG=<300) 02/11/19 15:56 Ur Barbiturates Screen Negative (NEG=<200) 02/11/19 15:56 Ur Phencyclidine Scrn Negative (NEG=<25) 02/11/19 15:56 Ur Amphetamines Screen Positive (NEG=<1000) 02/11/19 15:56 U Benzodiazepines Scrn Negative (NEG=<200) 02/11/19 15:56 Urine Cocaine Screen Negative (NEG=<300) 02/11/19 15:56 U Marijuana (THC) Screen Negative (NEG=<50) 02/11/19 15:56 - Plan (1) COPD exacerbation Status: Acute Plan: IV ANTIBIOTICS, KYLE-DUR 200MG PO BID, RESPIRATORY TX, SUPPLEMENTAL OXYGEN, IV STEROIDS, MUCINEX, TUSSIONEX, TESSALON PERLES TID, CONTINUE TO MONITOR (2) Asthma exacerbation Status: Acute Qualifiers: Asthma severity: moderate Asthma persistence: persistent Qualified Code(s): J45.41 - Moderate persistent asthma with (acute) exacerbation (3) Hypertension Status: Acute Qualifiers: Hypertension type: essential hypertension Qualified Code(s): I10 - Essential (primary) hypertension Plan: AMLODIPINE 10MG PO DAILY, CONTINUE TO MONITOR
[2019-02-13] MEDS: VALIUM PO PRN (20:22)
[2019-02-13] MEDS: MORPHINE SULFATE INJ 2 MG INJ IVP PRN (23:07)
[2019-02-13] MEDS: ROBITUSSIN DM PO PRN (23:08)
[2019-02-14] MEDS: SOLU-Medrol 40 MG VIAL IVP SCH ×3 (00:51→21:05)
[2019-02-14] MEDS: DUONEB 0.5 MG/3 MG NEB SCH ×6 (01:40→20:37)
[2019-02-14 05:19] LABS: BASOPHILS % (AUTO) 0.1 % (0.2-1.0); HEMATOCRIT 45.7 % (42.0-54.0); HEMOGLOBIN 15.2 g/dL (13.5-18.0); LYMPHOCYTES # (AUTO) 0.6 X10^3/uL (1.3-2.9); LYMPHOCYTES % (AUTO) 3.3 % (21.0-51.0); MEAN CORPUSCULAR HEMOGLOBIN 29.2 pg (27.0-34.0); MEAN CORPUSCULAR HGB CONC 33.2 g/dL (33.0-35.0); MEAN CORPUSCULAR VOLUME 87.9 fL (80.0-100.0); MEAN PLATELET VOLUME 8.4 fL (7.4-11.0); MONOCYTES # (AUTO) 0.7 x10^3/uL (0.3-0.8); NEUTROPHILS # (AUTO) 16.7 x10^3/uL (2.2-4.8); NEUTROPHILS % (AUTO) 92.6 % (42.0-75.0); PLATELET COUNT 296 X10^3/uL (150.0-450.0); RED CELL DISTRIBUTION WIDTH 13.8 % (11.6-16.5); WHITE BLOOD COUNT 18.1 X10^3/uL (3.6-10.0)
[2019-02-14 05:34] LABS: ALANINE AMINOTRANSFERASE 44 Units/L (12-78); ALBUMIN 3.2 g/dL (3.4-5.0); ALKALINE PHOSPHATASE 82 Units/L (46-116); ASPARTATE AMINO TRANSFERASE 19 Units/L (15-37); BLOOD UREA NITROGEN 13 mg/dL (7-18); CALCIUM 8.9 mg/dL (8.5-10.1); CARBON DIOXIDE 30.1 mmol/L (21-32); CHLORIDE 102 mmol/L (98-107); COR CA(FOR HYPOALB) 9.5 mg/dL (8.5-10.1); COR NA(FOR HYPERGLY) 142 mmol/L (136-145); CREATININE 1.03 mg/dL (0.70-1.30); SODIUM 140 mmol/L (136-145); TOTAL PROTEIN 6.2 g/dL (6.4-8.2); eGFR NON BLACK RACES > 60 (>60)
[2019-02-14 05:40] LABS: PLATELET MORPHOLOGY COMMENT NORMAL (NORMAL)
[2019-02-14] MEDS: NS 1000 ML 1,000 ML IV SCH ×3 (05:53→18:22)
[2019-02-14] MEDS: FORTAZ or TAZICEF VIAL INJ IVP SCH ×3 (05:54→21:05)
[2019-02-14] MEDS: TESSALON PERLES PO SCH ×3 (05:54→21:06)
--- NOTE | 2019-02-14 06:05 | RAD ---
HISTORY: Shortness of breath Study: Chest AP portable Comparison: 02/13/2019 Findings: The heart is within normal limits in size. The chuy are normal. The lungs remain hyperinflated but free of acute alveolar infiltrates. No pleural effusions are identified. The bony thorax is unremarkable. IMPRESSION: Lungs remain hyperinflated but clear, consistent with COPD in the appropriate clinical setting Reported By:
[2019-02-14] MEDS: ROBITUSSIN DM PO PRN ×2 (07:32→22:24)
[2019-02-14] MEDS: LOVENOX INJ 30 MG SYR SC SCH (08:23)
[2019-02-14] MEDS: MUCINEX EXPECTORANT PO SCH ×2 (08:23→21:06)
[2019-02-14] MEDS: TUSSIONEX PENNKINETIC SUSP PO SCH ×2 (08:23→21:07)
[2019-02-14] MEDS: MAXZIDE 37.5/25 MG PO SCH (08:23)
[2019-02-14] MEDS: THEO-DUR TAB 200 MG PO SCH ×2 (08:23→21:05)
[2019-02-14] MEDS: LEVAQUIN PREMIX IV 500 MG 500 MG/100 ML BAG IV SCH (08:23)
[2019-02-14] MEDS: PULMICORT NEB TX 0.5 MG NEB SCH ×2 (09:12→20:37)
--- NOTE | 2019-02-14 10:46 | PCM.PROG ---
Progress Note - Progress Note for Day of Date of Exam: 02/14/19 - Subjective Subjective: WAS ADMITTED FOR COPD/ASTHMA EXACERBATION AND HYPOXEMIA. TODAY, HE IS ALERT AND ORIENTED, LYING IN BED ON MORNING ROUNDS. HE CONTINUES WITH COMPLAINTS OF SHORTNESS OF BREATH AND A NON-PRODUCTIVE COUGH. ON EXAMINATION, HE IS NOTED TO BE TACHYCARDIC WITH HR IN THE 120s. BILATERAL LUNGS ARE NOTED WITH SCATTERED WHEEZING THROUGHOUT. ABDOMEN IS ROUND, SOFT, AND NON- TENDER WITH NORMAL BOWEL SOUNDS NOTED IN ALL QUADRANTS. HIS VITALS THIS MORNING ARE 98.0-768-78-100%-155/103. LABS WERE OBTAINED. ABNORMAL LAB VALUES INCLUDE THE FOLLOWING: WBC 18.1, GLUCOSE 173, TOTAL PROTEIN 6.2, ALBUMIN 3.2. A CHEST XRAY WAS OBTAINED TODAY AND REVEALED: LUNGS REMAIN HYPERINFLATED BUT CLEAR, CONSISTENT WITH COPD IN THE APPROPRIATE CLINICAL SETTING. WE WILL CONTINUE WITH HIS IV ANTIBIOTICS, STEROIDS, RESPIRATORY TREATMENTS, AND CURRENT PLAN OF CARE TODAY. OTHERWISE, WE WILL FOLLOW-UP WITH AM LABS AND CHEST XRAY AND CONTINUE TO MONITOR. - Past Medical Family Social History Past Med/Fam/Surg Hx: No changes since H&P Allergies: Allergies No Known Drug Allergies Allergy (Verified 09/05/18 04:36) - Review of Systems ROS: No change since H&P - Vital Signs and I&O's Vital Signs: Temperature 98.9 F Pulse Rate [Apical] 108 Pulse Rate 123 Respiratory Rate 15 Blood Pressure [Right Arm] 152/104 Blood Pressure [Left Arm] 164/109 Blood Pressure 131/77 O2 Sat by Pulse Oximetry 92 Intake and Output: Intake & Output 02/11/19 02/12/19 02/13/19 02/14/19 11:59 11:59 11:59 11:59 Intake Total 2152 / 2152 4217 / 4217 4139 / 4139 5288 / 5288 Output Total 500 / 500 3925 / 3925 3650 / 3650 6250 / 6250 Balance 1652 / 1652 292 / 292 489 / 489 -962 / -962 - Physical Exam Oriented: Normal Eyes: Normal Ear: Normal Nose: Normal Throat: Normal Respiratory: Generalized, Wheezes Cardiovascular: Tachycardia. negative: S3, S4, Murmur : Normal Auscultation: Bowel Sounds: Normal Tenderness: Normal Skin: Normal Musculoskeletal: Normal Psychiatric: Normal Mood Description: Calm Affect: Normal Speech Pattern: Clear, Appropriate - Laboratory and Diagnostics Result Diagrams: 02/14/19 04:01 02/14/19 04:01 Labs: 02/11/19 17:00 Sputum - Expectorated Sputum Sputum Culture - Final 02/11/19 17:00 Sputum - Expectorated Sputum - Final Laboratory WBC 18.1 X10^3/uL (3.6-10.0) H 02/14/19 04:01 RBC 5.20 X10^6/uL (4.7-6.0) 02/14/19 04:01 Hgb 15.2 g/dL (13.5-18.0) 02/14/19 04:01 Hct 45.7 % (42.0-54.0) 02/14/19 04:01 MCV 87.9 fL (80.0-100.0) 02/14/19 04:01 MCH 29.2 pg (27.0-34.0) 02/14/19 04:01 MCHC 33.2 g/dL (33.0-35.0) 02/14/19 04:01 RDW 13.8 % (11.6-16.5) 02/14/19 04:01 Plt Count 296 X10^3/uL (150.0-450.0) 02/14/19 04:01 Plt Count Comment Adequate (ADEQUATE) 02/14/19 04:01 MPV 8.4 fL (7.4-11.0) 02/14/19 04:01 Neut % (Auto) 92.6 % (42.0-75.0) H 02/14/19 04:01 Lymph % (Auto) 3.3 % (21.0-51.0) L 02/14/19 04:01 [place] % (Auto) 4.0 % (0.0-13.0) 02/14/19 04:01 Eos % (Auto) 0.0 % (0.9-2.9) L 02/14/19 04:01 Baso % (Auto) 0.1 % (0.2-1.0) L 02/14/19 04:01 Neut # (Auto) 16.7 x10^3/uL (2.2-4.8) H 02/14/19 04:01 Lymph # (Auto) 0.6 X10^3/uL (1.3-2.9) L 02/14/19 04:01 [place] # (Auto) 0.7 x10^3/uL (0.3-0.8) 02/14/19 04:01 Eos # (Auto) 0.0 x10^3/uL (0.0-0.2) 02/14/19 04:01 Baso # (Auto) 0.0 X10^3/uL (0.0-0.1) 02/14/19 04:01 Absolute Nucleated RBC 0.1 /100WBC 02/14/19 04:01 Total Counted 100 02/14/19 04:01 Neutrophils % (Manual) 92 % (39-76) H 02/14/19 04:01 Band Neutrophils % 1 % (0-10) 02/12/19 04:01 Lymphocytes % (Manual) 2 % (13-43) L 02/14/19 04:01 Monocytes % (Manual) 6 % (4-9) 02/14/19 04:01 Plt Morphology Comment Normal (NORMAL) 02/14/19 04:01 RBC Morphology Normal (NORMAL) 02/14/19 04:01 D-Dimer < 100 ng/mL (0-400) 02/10/19 14:22 Sample Site Rrad 02/11/19 05:43 ABG pH 7.330 (7.35-7.45) L 02/11/19 05:43 ABG pCO2 49.0 mmHg (35.0-45.0) H 02/11/19 05:43 ABG pO2 62.0 mmHg (80.0-100.0) L 02/11/19 05:43 ABG HCO3 25.8 mmol/L (22-26) 02/11/19 05:43 ABG O2 Saturation 90.0 % (90-100) 02/11/19 05:43 ABG Base Excess -0.6 mmol/L (-2.0-2.0) 02/11/19 05:43 Mian Test Pos 02/11/19 05:43 A-a Gradient 76.0 mmHg 02/11/19 05:43 FiO2 28.0 02/11/19 05:43 Blood Gas Comments Kim well el 02/11/19 05:43 Sodium 140 mmol/L (136-145) 04/25/19 04:01 Corrected Sodium 142 mmol/L (136-145) 02/14/19 04:01 Potassium 3.6 mmol/L (3.5-5.1) 02/14/19 04:01 Chloride 102 mmol/L (98-107) 02/14/19 04:01 Carbon Dioxide 30.1 mmol/L (21-32) 02/14/19 04:01 BUN 13 mg/dL (7-18) 02/14/19 04:01 Creatinine 1.03 mg/dL (0.70-1.30) 02/14/19 04:01 Est GFR (MDRD) Af Amer > 60 (>60) 02/14/19 04:01 Est GFR (MDRD) Non-Af > 60 (>60) 02/14/19 04:01 Glucose 173 mg/dL (65-99) H 02/14/19 04:01 Calcium 8.9 mg/dL (8.5-10.1) 02/14/19 04:01 Corrected Calcium 9.5 mg/dL (8.5-10.1) 02/14/19 04:01 Magnesium 2.1 mg/dL (1.7-2.9) 02/14/19 04:01 Total Bilirubin 0.20 mg/dL (0.2-1.0) 02/14/19 04:01 AST 19 Units/L (15-37) 02/14/19 04:01 ALT 44 Units/L (12-78) 02/14/19 04:01 Alkaline Phosphatase 82 Units/L (46-116) 02/14/19 04:01 Creatine Kinase 134 Units/L (39-308) 02/10/19 14:22 CK-MB (CK-2) 3.9 ng/mL (0-4.0) 02/10/19 14:22 CK/CKMB % Calc 2.9 % (<4) 02/10/19 14:22 Troponin I < 0.02 ng/mL (0-1.5) 02/10/19 14:22 Total Protein 6.2 g/dL (6.4-8.2) L 02/14/19 04:01 Albumin 3.2 g/dL (3.4-5.0) L 02/14/19 04:01 Globulin 3.0 g/dL (2.5-4.5) 02/14/19 04:01 Albumin/Globulin Ratio 1.1 Ratio (1.1-2.1) 02/14/19 04:01 Specimen Type Random urine 02/11/19 15:56 Urine Color Yellow (YELLOW) 02/11/19 15:56 Urine Appearance Clear (CLEAR) 02/11/19 15:56 Urine pH 5.0 (5.0 - 8.0) 02/11/19 15:56 Ur Specific [place] 1.020 (1.000-1.030) 02/11/19 15:56 Urine Protein Negative (NEGATIVE) 02/11/19 15:56 Urine Glucose (UA) 3+ (NEGATIVE) 02/11/19 15:56 Urine Ketones Negative (NEGATIVE) 02/11/19 15:56 Urine Occult Blood Negative (NEGATIVE) 02/11/19 15:56 Urine Nitrite Negative (NEGATIVE) 02/11/19 15:56 Urine Bilirubin Negative (NEGATIVE) 02/11/19 15:56 Urine Urobilinogen Normal (NORMAL) 02/11/19 15:56 Ur Leukocyte Esterase Negative (NEGATIVE) 02/11/19 15:56 Urine Opiates Screen Positive (NEG=<300) 02/11/19 15:56 Urine Methadone Screen Negative (NEG=<300) 02/11/19 15:56 Ur Barbiturates Screen Negative (NEG=<200) 02/11/19 15:56 Ur Phencyclidine Scrn Negative (NEG=<25) 02/11/19 15:56 Ur Amphetamines Screen Positive (NEG=<1000) 02/11/19 15:56 U Benzodiazepines Scrn Negative (NEG=<200) 02/11/19 15:56 Urine Cocaine Screen Negative (NEG=<300) 02/11/19 15:56 U Marijuana (THC) Screen Negative (NEG=<50) 02/11/19 15:56 - Plan (1) COPD exacerbation Status: Acute Plan: IV ANTIBIOTICS, KYLE-DUR 200MG PO BID, RESPIRATORY TX, SUPPLEMENTAL OXYGEN, IV STEROIDS, MUCINEX, TUSSIONEX, TESSALON PERLES TID, CONTINUE TO MONITOR (2) Asthma exacerbation Status: Acute Qualifiers: Asthma severity: moderate Asthma persistence: persistent Qualified Code(s): J45.41 - Moderate persistent asthma with (acute) exacerbation (3) Hypertension Status: Acute Qualifiers: Hypertension type: essential hypertension Qualified Code(s): I10 - E ssential (primary) hypertension Plan: AMLODIPINE 10MG PO DAILY, CONTINUE TO MONITOR
[2019-02-14] MEDS: NORVASC TAB 5 MG PO SCH (21:06)
[2019-02-15] MEDS: VALIUM PO PRN (00:25)
[2019-02-15] MEDS: DUONEB 0.5 MG/3 MG NEB SCH ×3 (00:57→08:24)
[2019-02-15] MEDS: NS 1000 ML 1,000 ML IV SCH ×3 (01:12→08:28)
[2019-02-15 05:19] LABS: BASOPHILS % (AUTO) 0 % (0.2-1.0); HEMATOCRIT 44.3 % (42.0-54.0); HEMOGLOBIN 14.8 g/dL (13.5-18.0); LYMPHOCYTES # (AUTO) 1.3 X10^3/uL (1.3-2.9); LYMPHOCYTES % (AUTO) 7.4 % (21.0-51.0); MEAN CORPUSCULAR HEMOGLOBIN 28.9 pg (27.0-34.0); MEAN CORPUSCULAR HGB CONC 33.4 g/dL (33.0-35.0); MEAN CORPUSCULAR VOLUME 86.6 fL (80.0-100.0); MEAN PLATELET VOLUME 7.9 fL (7.4-11.0); MONOCYTES # (AUTO) 1.2 x10^3/uL (0.3-0.8); MONOCYTES % (AUTO) 6.7 % (0.0-13.0); NEUTROPHILS % (AUTO) 85.9 % (42.0-75.0); PLATELET COUNT 320 X10^3/uL (150.0-450.0); RED BLOOD COUNT 5.11 X10^6/uL (4.7-6.0); RED CELL DISTRIBUTION WIDTH 13.8 % (11.6-16.5); WHITE BLOOD COUNT 17.4 X10^3/uL (3.6-10.0)
[2019-02-15] MEDS: SOLU-Medrol 40 MG VIAL IVP SCH (05:19)
[2019-02-15] MEDS: FORTAZ or TAZICEF VIAL INJ IVP SCH (05:19)
[2019-02-15] MEDS: TESSALON PERLES PO SCH (05:19)
[2019-02-15 05:31] LABS: ALANINE AMINOTRANSFERASE 54 Units/L (12-78); ALBUMIN 3.1 g/dL (3.4-5.0); ALKALINE PHOSPHATASE 73 Units/L (46-116); ASPARTATE AMINO TRANSFERASE 22 Units/L (15-37); BLOOD UREA NITROGEN 17 mg/dL (7-18); CALCIUM 8.8 mg/dL (8.5-10.1); CARBON DIOXIDE 29.2 mmol/L (21-32); CHLORIDE 101 mmol/L (98-107); COR CA(FOR HYPOALB) 9.5 mg/dL (8.5-10.1); COR NA(FOR HYPERGLY) 140 mmol/L (136-145); CREATININE 1.04 mg/dL (0.70-1.30); SODIUM 138 mmol/L (136-145); TOTAL PROTEIN 5.9 g/dL (6.4-8.2); eGFR NON BLACK RACES > 60 (>60)
--- NOTE | 2019-02-15 06:00 | RAD ---
HISTORY: Shortness of breath Study: Chest AP portable Comparison: 02/14/2019 Findings: The heart is within normal limits in size. The chuy are normal. The lungs are hyperinflated but free of acute infiltrates. No pleural effusions are identified. The bony thorax is unremarkable. IMPRESSION: Lungs hyperinflated but clear, consistent with COPD Reported By:
[2019-02-15] MEDS: PULMICORT NEB TX 0.5 MG NEB SCH (08:24)
[2019-02-15] MEDS: LEVAQUIN PREMIX IV 500 MG 500 MG/100 ML BAG IV SCH (08:26)
[2019-02-15] MEDS: THEO-DUR TAB 200 MG PO SCH (08:27)
[2019-02-15] MEDS: LOVENOX INJ 30 MG SYR SC SCH (08:27)
[2019-02-15] MEDS: MUCINEX EXPECTORANT PO SCH (08:27)
[2019-02-15] MEDS: MAXZIDE 37.5/25 MG PO SCH (08:27)
[2019-02-15] MEDS: TUSSIONEX PENNKINETIC SUSP PO SCH (08:28)
[2019-02-15 10:02] VITALS: BP 133/79
== END 2019-02-15 11:20 | disposition home or self-care (01) | DRG 202 ==
LOC: ER 12:50 → INTOOBSV 16:18 → OBSVTOIN 16:18 → ICU 16:18
PROVIDERS: ADMIT Internal Medicine; ATTEND Internal Medicine
DX: J45.41 Moderate persistent asthma with (acute) exacerbation; Z79.899 Other long term (current) drug therapy; J44.1 Chronic obstructive pulmonary disease with (acute) exacerbation; R06.02 Shortness of breath; I10 Essential (primary) hypertension
CPT/HCPCS: 36415; 36600; 71010; 71020; 71045; 71046; 80053; 80307; 81003; 82550; 82553; 82803; 83735; 84484; 85025; 85378; 87070; 87205; 93005; 94640; 96365; 96374; 99284; A4216; A4222; G0434; J0713; J1650; J1956; J2270; J2560; J2920; J2930; J3411; J3475; J3490; J7030; J7620; J7626

== ENCOUNTER 2019-06-21 03:58 | Inpatient (IN) ==
[2019-06-21] MEDS ORDERED: DUONEB 0.5 MG/3 MG ONE ×3 (04:05→06:05)
[2019-06-21] MEDS ORDERED: DUONEB 0.5 MG/3 MG NEB ONE ×3 (04:08→06:00)
[2019-06-21] MEDS ORDERED: SOLU-Medrol 125 MG VIAL IVP ONE (04:08)
[2019-06-21] MEDS ORDERED: ROCEPHIN VIAL 1 GRAM IVP ONE (04:08)
--- NOTE | 2019-06-21 04:11 | DR.GENAD ---
HPI - PCP Primary Care Physician: Bong - HPI Comment HPI Comment: He's had worsening cough,congestion,wheezing and sob x one day and got to the point that he simply could not breath tonight so he came on in; he has a hx of asthma and copd but his tx at home were not working. He does not smoke and denies fever/chills/n/v/d/headache/dizziness/st/ear pain/rash. PMH - PMH Past Medical History: Asthma, COPD, Hypertension Past Surgical History: No - Family History Family Medical History: [place], Coronary Artery Disease, Hypertension - Social History Do you use any recreational Drugs:: No ROS - Review of Systems Constitutional: No Symptoms Reported Eyes: No Symptoms Reported ENTM: No Symptoms Reported Respiratoy: See HPI, Dry Cough Cardiovascular: No Symptoms Reported Gastrointestinal/Abdominal: No Symptoms Reported Genitourinary: No Symptoms Reported Neurological: No Symptoms Reported Musculoskeletal: No Symptoms Reported Integumentary: No Symptoms Reported Hematologic/Lymphatic: No Symptoms Reported Endocrine: No Symptoms Reported Psychiatric: No Symptoms Reported PE - General Limitations: No Limitations General Appearance: Alert, In No Apparent Distress - Head Head Exam: Normal Inspection, Atraumatic - Eyes Eye exam: Normal Appearance, PERRL - ENT ENT Exam: Normal Exam, Normal Oropharynx - Neck Neck Exam: Normal Inspection, Full ROM - Chest Chest Inspection: Normal Inspection - Respiratory Respiratory Exam: Accessory Muscle Use, Prolonged Expiratory Phase Respiratory Exam: Bilateral Wheezing, Bilateral Decreased Breath Sounds, Upper Wheezing, Lower Wheezing - Cardiovascular Cardiovascular Exam: Regular Rate, Normal Rhythm - Abdominal Exam Abdominal Exam: Normal Inspection, Normal Bowel Sounds - Extremities Extremities Exam: Normal Inspection - Back Back Exam: Normal Inspection, Full ROM - Neurologic Neurological Exam: Alert, Oriented X3, CN II-XII Intact - Psychiatric Psychiatric Exam: Normal Affect, Normal Mood - Skin Skin Exam: Warm, Dry - Vital Signs Vitals: Pulse Rate [Left Brachial] 106 Pulse Rate 100 Blood Pressure [Right Arm] 152/104 Blood Pressure [Left Arm] 145/107 Blood Pressure 133/79 O2 Sat by Pulse Oximetry 100 Course - Reevaluation 1st: Improved (still tight w/wheezing) 2nd: Unchanged (still tight and wheezing) - Consultation Called: 06:35 Call Returned: 06:50 (Dr Bell accepts pt) ROR - Labs Reviewed Result Diagrams: 06/21/19 04:30 06/21/19 04:30 - XRAY XRAY Interpreted by: Radiologist (no infiltrate) - Labs Reviewed Laboratory: WBC 9.9 X10^3/uL (3.6-10.0) 06/21/19 04:30 RBC 5.79 X10^6/uL (4.7-6.0) 06/21/19 04:30 Hgb 17.0 g/dL (13.5-18.0) 06/21/19 04:30 Hct 49.1 % (42.0-54.0) 06/21/19 04:30 MCV 84.9 fL (80.0-100.0) 06/21/19 04:30 MCH 29.4 pg (27.0-34.0) 06/21/19 04:30 MCHC 34.7 g/dL (33.0-35.0) 06/21/19 04:30 RDW 14.0 % (11.6-16.5) 06/21/19 04:30 Plt Count 284 X10^3/uL (150.0-450.0) 06/21/19 04:30 MPV 7.7 fL (7.4-11.0) 06/21/19 04:30 Neut % (Auto) 49.1 % (42.0-75.0) 06/21/19 04:30 Lymph % (Auto) 31.8 % (21.0-51.0) 06/21/19 04:30 [place] % (Auto) 6.8 % (0.0-13.0) 06/21/19 04:30 Eos % (Auto) 11.7 % (0.9-2.9) H 06/21/19 04:30 Baso % (Auto) 0.6 % (0.2-1.0) 06/21/19 04:30 Neut # (Auto) 4.9 x10^3/uL (2.2-4.8) H 06/21/19 04:30 Lymph # (Auto) 3.2 X10^3/uL (1.3-2.9) H 06/21/19 04:30 [place]ie # (Auto) 0.7 x10^3/uL (0.3-0.8) 06/21/19 04:30 Eos # (Auto) 1.2 x10^3/uL (0.0-0.2) H 06/21/19 04:30 Baso # (Auto) 0.1 X10^3/uL (0.0-0.1) 06/21/19 04:30 Absolute Nucleated RBC 0.0 /100WBC 06/21/19 04:30 Sodium 141 mmol/L (136-145) 06/21/19 04:30 Corrected Sodium 142 mmol/L (136-145) 06/21/19 04:30 Potassium 3.8 mmol/L (3.5-5.1) 06/21/19 04:30 Chloride 105 mmol/L (98-107) 06/21/19 04:30 Carbon Dioxide 27.1 mmol/L (21-32) 06/21/19 04:30 BUN 11 mg/dL (7-18) 06/21/19 04:30 Creatinine 1.24 mg/dL (0.70-1.30) 06/21/19 04:30 Est GFR (MDRD) Af Amer > 60 (>60) 06/21/19 04:30 Est GFR (MDRD) Non-Af > 60 (>60) 06/21/19 04:30 Glucose 152 mg/dL (65-99) H 06/21/19 04:30 Calcium 8.7 mg/dL (8.5-10.1) 06/21/19 04:30 Corrected Calcium TNP 06/21/19 04:30 Total Bilirubin 0.50 mg/dL (0.2-1.0) 06/21/19 04:30 AST 16 Units/L (15-37) 06/21/19 04:30 ALT 17 Units/L (12-78) 06/21/19 04:30 Alkaline Phosphatase 82 Units/L (46-116) 06/21/19 04:30 Total Protein 7.4 g/dL (6.4-8.2) 06/21/19 04:30 Albumin 4.0 g/dL (3.4-5.0) 06/21/19 04:30 Globulin 3.4 g/dL (2.5-4.5) 06/21/19 04:30 Albumin/Globulin Ratio 1.2 Ratio (1.1-2.1) 06/21/19 04:30 Opioid - Opioid Risk Tool Total: 0 Total Score Risk Category: Low Risk - Diagnosis Discharge Problem: COPD exacerbation Hypertension Qualifiers: Hypertension type: essential hypertension Qualified Code(s): I10 - Essential (primary) hypertension - Discharge Plan Disposition: ADMITTED INPATIENT Condition: Stable - Follow ups/Referrals Follow ups/Referrals: Crispin Woody [Primary Care Provider] - 3 days - Instructions
[2019-06-21 04:23] VITALS: BMI 22.1
[2019-06-21] MEDS ORDERED: SOLU-Medrol 125 MG VIAL ONE (04:27)
[2019-06-21] MEDS ORDERED: ATIVAN INJ 2 MG VIAL IVP ONE (04:35)
[2019-06-21] MEDS ORDERED: ATIVAN INJ 2 MG VIAL ONE ×2 (04:35→16:47)
[2019-06-21] MEDS ORDERED: ROCEPHIN VIAL 1 GRAM ONE (04:36)
[2019-06-21 04:39] LABS: BASOPHILS # (AUTO) 0.1 X10^3/uL (0.0-0.1); BASOPHILS % (AUTO) 0.6 % (0.2-1.0); EOSINOPHILS # (AUTO) 1.2 x10^3/uL (0.0-0.2); EOSINOPHILS % (AUTO) 11.7 % (0.9-2.9); HEMATOCRIT 49.1 % (42.0-54.0); LYMPHOCYTES # (AUTO) 3.2 X10^3/uL (1.3-2.9); LYMPHOCYTES % (AUTO) 31.8 % (21.0-51.0); MEAN CORPUSCULAR HEMOGLOBIN 29.4 pg (27.0-34.0); MEAN CORPUSCULAR HGB CONC 34.7 g/dL (33.0-35.0); MEAN CORPUSCULAR VOLUME 84.9 fL (80.0-100.0); MEAN PLATELET VOLUME 7.7 fL (7.4-11.0); MONOCYTES # (AUTO) 0.7 x10^3/uL (0.3-0.8); MONOCYTES % (AUTO) 6.8 % (0.0-13.0); NEUTROPHILS # (AUTO) 4.9 x10^3/uL (2.2-4.8); NEUTROPHILS % (AUTO) 49.1 % (42.0-75.0); PLATELET COUNT 284 X10^3/uL (150.0-450.0); RED BLOOD COUNT 5.79 X10^6/uL (4.7-6.0); WHITE BLOOD COUNT 9.9 X10^3/uL (3.6-10.0)
[2019-06-21 04:51] LABS: ALANINE AMINOTRANSFERASE 17 Units/L (12-78); ALKALINE PHOSPHATASE 82 Units/L (46-116); ASPARTATE AMINO TRANSFERASE 16 Units/L (15-37); BLOOD UREA NITROGEN 11 mg/dL (7-18); CALCIUM 8.7 mg/dL (8.5-10.1); CARBON DIOXIDE 27.1 mmol/L (21-32); CHLORIDE 105 mmol/L (98-107); COR NA(FOR HYPERGLY) 142 mmol/L (136-145); CREATININE 1.24 mg/dL (0.70-1.30); SODIUM 141 mmol/L (136-145); TOTAL PROTEIN 7.4 g/dL (6.4-8.2); eGFR NON BLACK RACES > 60 (>60)
--- NOTE | 2019-06-21 04:59 | RAD ---
Chest radiograph, two views History: Chest pain, shortness of breath Comparison: 02/15/2019 Findings: The lungs are hyperexpanded with chronic interstitial lung changes, compatible with COPD. No focal consolidation, effusion, or pneumothorax. Conclusion: No acute cardiopulmonary abnormality. Reported By:
[2019-06-21] MEDS ORDERED: NS 1000 ML 1,000 ML ONE ×2 (06:12→16:22)
[2019-06-21] MEDS ORDERED: ZOFRAN INJ 4 MG VIAL IVP PRN (06:40)
[2019-06-21] MEDS ORDERED: ATIVAN TAB 0.5 MG PO PRN (06:40)
[2019-06-21 09:05] LABS: ABG BASE EXCESS 3.1 mmol/L (-2.0-2.0); ABG HCO3 28.5 mmol/L (22-26)
[2019-06-21] MEDS ORDERED: PULMICORT NEB TX 0.5 MG ONE (09:09)
[2019-06-21] MEDS: DUONEB 0.5 MG/3 MG NEB SCH ×4 (09:22→21:15)
[2019-06-21] MEDS: PULMICORT NEB TX 0.5 MG NEB SCH ×2 (09:23→21:14)
[2019-06-21] MEDS: ZITHROMAX INJ 500 MG VIAL 500 MG in NS 250 ML IV 250 ML IV SCH ×2 (09:27→10:02)
[2019-06-21] MEDS: NORVASC TAB 5 MG PO SCH (10:03)
[2019-06-21] MEDS: PROVENTIL NEB TX 0.083% 2.5MG/ 3ML NEB PRN (15:01)
--- NOTE | 2019-06-21 15:26 | DR.H&P ---
H&P - History & Physical for Day of: H&P Date: 06/21/19 - Chief Complaint Chief Complaint: SOB, CCC, WHEEZING - History of Present Illness History of Present Illness: 48 WM ER ADMISSION AFTER PRESENTING [facility] He's had worsening cough,congestion,wheezing and sob x one day and got to the point that he simply could not breath tonight so he came on in; he has a hx of asthma and copd but his tx at home were not working. He does not smoke and denies fever/chills/n/v/d/headache/dizziness/st/ear pain/rash. PT ADMITTED FOR TREATMENT OF STATUS ASTHMATICUS - Past Medical History Past Medical History: Asthma, COPD, Hypertension - Family History Family Medical History: [place], Coronary Artery Disease, Hypertension - Social History Does patient currently use any type of tobacco product: No Have you used tobacco products in the last 12 months: No Type of Tobacco Use: None Alcohol Use: None Drug Use: None - Medications Home Medications: No Known Drug Allergies Allergy (Verified 09/05/18 04:36) - Review of Systems Constitutional: Fever, Chills, Sweats, Weakness Eyes: No Symptoms Reported ENT: No Symptoms Reported Respiratory: Cough, Shortness of Breath, SOB with Excertion, Pleuritic Pain, Wheezing Cardiovascular: Palpitations Gastrointestinal: No Symptoms Reported Genitourinary: No Symptoms Reported Musculoskeletal: No Symptoms Reported Skin: No Symptoms Reported Neurological: No Symptoms Reported - Physical Exam Vital Signs: Temperature 97.5 F Pulse Rate [Left Brachial] 116 Pulse Rate 122 Respiratory Rate 20 Blood Pressure [Right Arm] 122/83 Blood Pressure [Left Arm] 145/107 Blood Pressure 133/79 O2 Sat by Pulse Oximetry 93 Oriented: Normal Eyes: Normal Ear: Normal Nose: Normal Throat: Dry Respiratory: Wheezes Throughout, RLL Diminished, LLL Diminished Cardiovascular: Tachycardia : Normal Auscultation: Bowel Sounds: Normal Palpation: Normal Tenderness: Normal Skin: Normal Musculoskeletal: Normal Psychiatric: Normal Mood Description: Calm Speech Pattern: Clear, Appropriate - Assessment/Plan (1) Asthmatic bronchitis Status: Acute Plan: ADMIT, SUPPLEMENTAL O2. RESP THERAPY, DUO NEBS, BUDESONIDE. IV ATBD THERAPY, IV SOLU MEDROL. CXR ON ADMISSION, ADMISSION LABS, SPUTUM CULTURE (2) Asthma exacerbation Status: Acute (3) Hypertension Qualifiers: Hypertension type: essential hypertension Qualified Code(s): I10 - Essential (primary) hypertension Status: Acute - Allergies Allergies/Adverse Reactions: Allergies Allergy/AdvReac Type Severity Reaction Status Date / Time No Known Drug Allergies Allergy Verified 09/05/18 04:36
[2019-06-21] MEDS: NS 1000 ML 1,000 ML IV SCH ×2 (16:32→18:16)
[2019-06-21 16:41] LABS: BILIRUBIN,URINE NEGATIVE (NEGATIVE); BLOOD/HEMOGLOBIN,URINE NEGATIVE (NEGATIVE); GLUCOSE, URINE 3+ (NEGATIVE); KETONES,URINE NEGATIVE (NEGATIVE); LEUKOCYTE ESTERASE ,URINE NEGATIVE (NEGATIVE); NITRITES,URINE NEGATIVE (NEGATIVE); PROTEIN,URINE NEGATIVE (NEGATIVE); UROBILINOGEN,URINE NORMAL (NORMAL)
[2019-06-21] MEDS ORDERED: ATIVAN INJ 2 MG VIAL IVP STA (16:41)
[2019-06-21 16:44] LABS: APPEARANCE,URINE CLEAR (CLEAR); COLOR,URINE YELLOW (YELLOW)
[2019-06-21] MEDS: SOLU-Medrol 125 MG VIAL IVP SCH (21:00)
[2019-06-21] MEDS: BROVANA IN SCH (21:13)
[2019-06-21] MEDS: TYLENOL 500 MG TAB EXTRA STRENGTH PO PRN (21:54)
[2019-06-22] MEDS: DUONEB 0.5 MG/3 MG NEB SCH ×6 (01:27→21:50)
[2019-06-22] MEDS: NS 1000 ML 1,000 ML IV SCH ×5 (03:12→18:45)
[2019-06-22 05:19] LABS: BASOPHILS % (AUTO) 0.1 % (0.2-1.0); HEMATOCRIT 44.5 % (42.0-54.0); HEMOGLOBIN 15.4 g/dL (13.5-18.0); LYMPHOCYTES # (AUTO) 0.8 X10^3/uL (1.3-2.9); LYMPHOCYTES % (AUTO) 5.4 % (21.0-51.0); MEAN CORPUSCULAR HEMOGLOBIN 29.3 pg (27.0-34.0); MEAN CORPUSCULAR HGB CONC 34.6 g/dL (33.0-35.0); MEAN CORPUSCULAR VOLUME 84.8 fL (80.0-100.0); MEAN PLATELET VOLUME 8.2 fL (7.4-11.0); MONOCYTES # (AUTO) 0.2 x10^3/uL (0.3-0.8); MONOCYTES % (AUTO) 1.3 % (0.0-13.0); NEUTROPHILS # (AUTO) 13.6 x10^3/uL (2.2-4.8); NEUTROPHILS % (AUTO) 93.2 % (42.0-75.0); PLATELET COUNT 288 X10^3/uL (150.0-450.0); RED BLOOD COUNT 5.24 X10^6/uL (4.7-6.0); RED CELL DISTRIBUTION WIDTH 14.2 % (11.6-16.5); WHITE BLOOD COUNT 14.5 X10^3/uL (3.6-10.0)
[2019-06-22 05:24] LABS: ALANINE AMINOTRANSFERASE 16 Units/L (12-78); ALBUMIN 3.5 g/dL (3.4-5.0); ALKALINE PHOSPHATASE 69 Units/L (46-116); ASPARTATE AMINO TRANSFERASE 11 Units/L (15-37); BLOOD UREA NITROGEN 16 mg/dL (7-18); CALCIUM 8.7 mg/dL (8.5-10.1); CHLORIDE 105 mmol/L (98-107); COR NA(FOR HYPERGLY) 142 mmol/L (136-145); CREATININE 1.05 mg/dL (0.70-1.30); SODIUM 140 mmol/L (136-145); TOTAL PROTEIN 6.6 g/dL (6.4-8.2); eGFR NON BLACK RACES > 60 (>60)
[2019-06-22 05:41] LABS: PLATELET MORPHOLOGY COMMENT NORMAL (NORMAL)
[2019-06-22] MEDS: SOLU-Medrol 125 MG VIAL IVP SCH ×3 (06:18→22:02)
[2019-06-22] MEDS: PULMICORT NEB TX 0.5 MG NEB SCH ×2 (08:01→21:50)
[2019-06-22] MEDS: BROVANA IN SCH ×2 (08:12→21:59)
[2019-06-22] MEDS: ROCEPHIN VIAL 1 GRAM IVP SCH (08:24)
[2019-06-22] MEDS: NORVASC TAB 5 MG PO SCH (08:24)
[2019-06-22] MEDS: ZITHROMAX INJ 500 MG VIAL 500 MG in NS 250 ML IV 250 ML IV SCH (08:24)
[2019-06-22] MEDS ORDERED: SOLU-Medrol 125 MG VIAL IVP SCH (09:00)
--- NOTE | 2019-06-22 10:40 | RAD ---
Examination: Chest, PA and lateral views History: SOB asthma Comparison 06/21/2019 Findings: Continued normal heart size with symmetric pulmonary hyper expansion and mild diffuse coarsening of the interstitial pulmonary pattern. No acute infiltrate, pneumothorax or pleural fluid is demonstrated. Impression: No change; no acute disease. Findings described consistent with COPD. Reported By:
[2019-06-22] MEDS: PROVENTIL NEB TX 0.083% 2.5MG/ 3ML NEB PRN (13:09)
--- NOTE | 2019-06-22 13:14 | PCM.PROG ---
Progress Note - Progress Note for Day of Date of Exam: 06/22/19 - Subjective Subjective: 48 WM ER ADMISSION ON 06/21 WITH ASTHMATIC BRONCHITIS. PTIS CURRENTLY ON IV ROCEPHIN AND ZITHROMAX AND IV SOLU MEDROL. PT CONTINUES WITH DIFFUSE EXPIRATORY WHEEZING AND CENTRAL RHONCHI. SPUTUM UNCOLLECTED AT THIS TIME. PT ENCOURAGED TO OBTAIN SPECIMEN. PT ENCOURAGED PULMONARY TOILETIND ORAL HYDRATION. - Past Medical Family Social History Past Med/Fam/Surg Hx: No changes since H&P Allergies: Allergies No Known Drug Allergies Allergy (Verified 09/05/18 04:36) - Review of Systems ROS: No change since H&P - Vital Signs and I&O's Vital Signs: Temperature 97.9 F Pulse Rate [Left Brachial] 113 Pulse Rate 116 Respiratory Rate 18 Blood Pressure [Right Arm] 136/80 Blood Pressure [Left Arm] 118/86 Blood Pressure 133/79 O2 Sat by Pulse Oximetry 96 Intake and Output: Intake & Output 06/20/19 06/21/19 06/22/19 06/23/19 11:59 11:59 11:59 11:59 Intake Total 760 / 760 Balance 760 / 760 - Physical Exam Oriented: Normal Eyes: Normal Ear: Normal Nose: Normal Throat: Dry Respiratory: Diminished, Wheezes, Rhonchi Cardiovascular: Tachycardia : Normal Auscultation: Bowel Sounds: Normal Tenderness: Normal Skin: Normal Musculoskeletal: Normal Psychiatric: Normal Mood Description: Calm Speech Pattern: Clear, Appropriate - Laboratory and Diagnostics Result Diagrams: 06/22/19 04:00 06/22/19 04:00 Labs: Laboratory WBC 14.5 X10^3/uL (3.6-10.0) H 06/22/19 04:00 RBC 5.24 X10^6/uL (4.7-6.0) 06/22/19 04:00 Hgb 15.4 g/dL (13.5-18.0) 06/22/19 04:00 Hct 44.5 % (42.0-54.0) 06/22/19 04:00 MCV 84.8 fL (80.0-100.0) 06/22/19 04:00 MCH 29.3 pg (27.0-34.0) 06/22/19 04:00 MCHC 34.6 g/dL (33.0-35.0) 06/22/19 04:00 RDW 14.2 % (11.6-16.5) 06/22/19 04:00 Plt Count 288 X10^3/uL (150.0-450.0) 06/22/19 04:00 Plt Count Comment Adequate (ADEQUATE) 06/22/19 04:00 MPV 8.2 fL (7.4-11.0) 06/22/19 04:00 Neut % (Auto) 93.2 % (42.0-75.0) H 06/22/19 04:00 Lymph % (Auto) 5.4 % (21.0-51.0) L 06/22/19 04:00 [place] % (Auto) 1.3 % (0.0-13.0) 06/22/19 04:00 Eos % (Auto) 0.0 % (0.9-2.9) L 06/22/19 04:00 Baso % (Auto) 0.1 % (0.2-1.0) L 06/22/19 04:00 Neut # (Auto) 13.6 x10^3/uL (2.2-4.8) H 06/22/19 04:00 Lymph # (Auto) 0.8 X10^3/uL (1.3-2.9) L 06/22/19 04:00 [place] # (Auto) 0.2 x10^3/uL (0.3-0.8) L 06/22/19 04:00 Eos # (Auto) 0.0 x10^3/uL (0.0-0.2) 06/22/19 04:00 Baso # (Auto) 0.0 X10^3/uL (0.0-0.1) 06/22/19 04:00 Absolute Nucleated RBC 0.0 /100WBC 06/22/19 04:00 Total Counted 100 06/22/19 04:00 Neutrophils % (Manual) 89 % (39-76) H 06/22/19 04:00 Lymphocytes % (Manual) 9 % (13-43) L 06/22/19 04:00 Monocytes % (Manual) 2 % (4-9) L 06/22/19 04:00 Plt Morphology Comment Normal (NORMAL) 06/22/19 04:00 RBC Morphology Normal (NORMAL) 06/22/19 04:00 Sample Site Left brachial 06/21/19 08:58 ABG pH 7.400 (7.35-7.45) 06/21/19 08:58 ABG pCO2 46.0 mmHg (35.0-45.0) H 06/21/19 08:58 ABG pO2 74.0 mmHg (80.0-100.0) L 06/21/19 08:58 ABG HCO3 28.5 mmol/L (22-26) H 06/21/19 08:58 ABG O2 Saturation 95.0 % (90-100) 06/21/19 08:58 ABG Base Excess 3.1 mmol/L (-2.0-2.0) H 06/21/19 08:58 Mian Test Na 06/21/19 08:58 A-a Gradient 68.0 mmHg 06/21/19 08:58 FiO2 28.0 06/21/19 08:58 Blood Gas Comments Kim well aw 06/21/19 08:58 Sodium 140 mmol/L (136-145) 06/22/19 04:00 Corrected Sodium 142 mmol/L (136-145) 06/22/19 04:00 Potassium 4.5 mmol/L (3.5-5.1) 06/22/19 04:00 Chloride 105 mmol/L (98-107) 06/22/19 04:00 Carbon Dioxide 26.0 mmol/L (21-32) 06/22/19 04:00 BUN 16 mg/dL (7-18) 06/22/19 04:00 Creatinine 1.05 mg/dL (0.70-1.30) 06/22/19 04:00 Est GFR (MDRD) Af Amer > 60 (>60) 06/22/19 04:00 Est GFR (MDRD) Non-Af > 60 (>60) 06/22/19 04:00 Glucose 168 mg/dL (65-99) H 06/22/19 04:00 Calcium 8.7 mg/dL (8.5-10.1) 06/22/19 04:00 Corrected Calcium TNP 06/22/19 04:00 Total Bilirubin 0.40 mg/dL (0.2-1.0) 06/22/19 04:00 AST 11 Units/L (15-37) L 06/22/19 04:00 ALT 16 Units/L (12-78) 06/22/19 04:00 Alkaline Phosphatase 69 Units/L (46-116) 06/22/19 04:00 Total Protein 6.6 g/dL (6.4-8.2) 06/22/19 04:00 Albumin 3.5 g/dL (3.4-5.0) 06/22/19 04:00 Globulin 3.1 g/dL (2.5-4.5) 06/22/19 04:00 Albumin/Globulin Ratio 1.1 Ratio (1.1-2.1) 06/22/19 04:00 Specimen Type Random urine 06/21/19 16:28 Urine Color Yellow (YELLOW) 06/21/19 16:28 Urine Appearance Clear (CLEAR) 06/21/19 16:28 Urine pH 5.0 (5.0 - 8.0) 06/21/19 16:28 Ur Specific [place] 1.015 (1.000-1.030) 06/21/19 16:28 Urine Protein Negative (NEGATIVE) 06/21/19 16:28 Urine Glucose (UA) 3+ (NEGATIVE) 06/21/19 16:28 Urine Ketones Negative (NEGATIVE) 06/21/19 16:28 Urine Occult Blood Negative (NEGATIVE) 06/21/19 16:28 Urine Nitrite Negative (NEGATIVE) 06/21/19 16:28 Urine Bilirubin Negative (NEGATIVE) 06/21/19 16:28 Urine Urobilinogen Normal (NORMAL) 06/21/19 16:28 Ur Leukocyte Esterase Negative (NEGATIVE) 06/21/19 16:28 - Plan (1) Asthmatic bronchitis Status: Acute Plan: , SUPPLEMENTAL O2. RESP THERAPY, DUO NEBS, BUDESONIDE. IV ATBD THERAPY, IV SOLU MEDROL. CXR THIS AM, AM LABS, SPUTUM CULTURE (2) Asthma exacerbation Status: Acute (3) Hypertension Status: Acute Qualifiers: Hypertension type: essential hypertension Qualified Code(s): I10 - Essential (primary) hypertension (4) AWA (generalized anxiety disorder) Status: Acute Plan: ATIVAN PRN
[2019-06-22] MEDS ORDERED: ROBITUSSIN DM ONE (13:24)
[2019-06-22] MEDS: ROBITUSSIN DM PO SCH ×3 (13:27→22:00)
[2019-06-22] MEDS ORDERED: ATIVAN TAB 1 MG ONE (13:30)
[2019-06-22] MEDS: ATIVAN TAB 1 MG PO PRN (13:31)
[2019-06-22] MEDS: MUCOMYST 20% 200 MG/ML NEB SCH ×3 (14:00→21:50)
[2019-06-22] MEDS: MORPHINE SULFATE INJ 2 MG INJ IVP PRN (14:22)
[2019-06-22] MEDS: TYLENOL 500 MG TAB EXTRA STRENGTH PO PRN (17:54)
[2019-06-23] MEDS: DUONEB 0.5 MG/3 MG NEB SCH ×6 (03:17→20:03)
[2019-06-23] MEDS: PROVENTIL NEB TX 0.083% 2.5MG/ 3ML NEB PRN ×2 (03:45→13:08)
[2019-06-23 05:39] LABS: BASOPHILS % (AUTO) 0.1 % (0.2-1.0); HEMATOCRIT 46.2 % (42.0-54.0); HEMOGLOBIN 15.7 g/dL (13.5-18.0); LYMPHOCYTES # (AUTO) 0.8 X10^3/uL (1.3-2.9); LYMPHOCYTES % (AUTO) 3.7 % (21.0-51.0); MEAN CORPUSCULAR HEMOGLOBIN 29.1 pg (27.0-34.0); MEAN CORPUSCULAR VOLUME 85.5 fL (80.0-100.0); MEAN PLATELET VOLUME 8.2 fL (7.4-11.0); MONOCYTES # (AUTO) 0.8 x10^3/uL (0.3-0.8); NEUTROPHILS # (AUTO) 18.7 x10^3/uL (2.2-4.8); NEUTROPHILS % (AUTO) 92.2 % (42.0-75.0); PLATELET COUNT 291 X10^3/uL (150.0-450.0); RED CELL DISTRIBUTION WIDTH 14.3 % (11.6-16.5); WHITE BLOOD COUNT 20.3 X10^3/uL (3.6-10.0)
[2019-06-23 05:43] LABS: ALANINE AMINOTRANSFERASE 22 Units/L (12-78); ALBUMIN 3.7 g/dL (3.4-5.0); ALKALINE PHOSPHATASE 72 Units/L (46-116); ASPARTATE AMINO TRANSFERASE 18 Units/L (15-37); BLOOD UREA NITROGEN 15 mg/dL (7-18); CALCIUM 8.9 mg/dL (8.5-10.1); CARBON DIOXIDE 29.8 mmol/L (21-32); CHLORIDE 104 mmol/L (98-107); COR NA(FOR HYPERGLY) 143 mmol/L (136-145); CREATININE 1.03 mg/dL (0.70-1.30); SODIUM 142 mmol/L (136-145); TOTAL PROTEIN 6.8 g/dL (6.4-8.2); eGFR NON BLACK RACES > 60 (>60)
[2019-06-23] MEDS: NS 1000 ML 1,000 ML IV SCH ×3 (05:54→20:12)
[2019-06-23] MEDS: SOLU-Medrol 125 MG VIAL IVP SCH (05:54)
[2019-06-23 05:56] LABS: BAND NEUTROPHILS % 1 % (0-10); PLATELET MORPHOLOGY COMMENT NORMAL (NORMAL)
[2019-06-23] MEDS: PULMICORT NEB TX 0.5 MG NEB SCH ×2 (08:52→20:02)
[2019-06-23] MEDS: BROVANA IN SCH ×2 (08:52→20:15)
[2019-06-23] MEDS: MUCOMYST 20% 200 MG/ML NEB SCH ×4 (08:53→20:02)
[2019-06-23] MEDS: ROCEPHIN VIAL 1 GRAM IVP SCH (09:12)
[2019-06-23] MEDS: NORVASC TAB 5 MG PO SCH (09:12)
[2019-06-23] MEDS: ZITHROMAX INJ 500 MG VIAL 500 MG in NS 250 ML IV 250 ML IV SCH (09:12)
[2019-06-23] MEDS: ATIVAN TAB 1 MG PO PRN ×2 (09:12→21:00)
[2019-06-23] MEDS: ROBITUSSIN DM PO SCH ×4 (09:12→20:12)
[2019-06-23] MEDS: MORPHINE SULFATE INJ 2 MG INJ IVP PRN ×2 (09:56→17:21)
[2019-06-24] MEDS: DUONEB 0.5 MG/3 MG NEB SCH ×7 (00:22→20:30)
[2019-06-24] MEDS: MORPHINE SULFATE INJ 2 MG INJ IVP PRN ×4 (03:53→20:40)
[2019-06-24 05:22] LABS: BASOPHILS % (AUTO) 0.2 % (0.2-1.0); EOSINOPHILS # (AUTO) 0.1 x10^3/uL (0.0-0.2); EOSINOPHILS % (AUTO) 0.3 % (0.9-2.9); HEMATOCRIT 43.1 % (42.0-54.0); HEMOGLOBIN 14.7 g/dL (13.5-18.0); LYMPHOCYTES # (AUTO) 2.9 X10^3/uL (1.3-2.9); LYMPHOCYTES % (AUTO) 17.5 % (21.0-51.0); MEAN CORPUSCULAR HEMOGLOBIN 29.5 pg (27.0-34.0); MEAN CORPUSCULAR VOLUME 86.5 fL (80.0-100.0); MEAN PLATELET VOLUME 8.3 fL (7.4-11.0); MONOCYTES # (AUTO) 1.2 x10^3/uL (0.3-0.8); MONOCYTES % (AUTO) 7.5 % (0.0-13.0); NEUTROPHILS # (AUTO) 12.2 x10^3/uL (2.2-4.8); NEUTROPHILS % (AUTO) 74.5 % (42.0-75.0); PLATELET COUNT 264 X10^3/uL (150.0-450.0); RED BLOOD COUNT 4.97 X10^6/uL (4.7-6.0); RED CELL DISTRIBUTION WIDTH 14.3 % (11.6-16.5); WHITE BLOOD COUNT 16.4 X10^3/uL (3.6-10.0)
[2019-06-24 05:36] LABS: ALANINE AMINOTRANSFERASE 27 Units/L (12-78); ALBUMIN 3.3 g/dL (3.4-5.0); ALKALINE PHOSPHATASE 65 Units/L (46-116); ASPARTATE AMINO TRANSFERASE 19 Units/L (15-37); BLOOD UREA NITROGEN 18 mg/dL (7-18); CALCIUM 8.3 mg/dL (8.5-10.1); CARBON DIOXIDE 32.4 mmol/L (21-32); CHLORIDE 105 mmol/L (98-107); COR CA(FOR HYPOALB) 8.9 mg/dL (8.5-10.1); COR NA(FOR HYPERGLY) 144 mmol/L (136-145); CREATININE 1.14 mg/dL (0.70-1.30); SODIUM 143 mmol/L (136-145); TOTAL PROTEIN 6.1 g/dL (6.4-8.2); eGFR NON BLACK RACES > 60 (>60)
[2019-06-24] MEDS: BROVANA IN SCH ×2 (08:24→20:30)
[2019-06-24] MEDS: MUCOMYST 20% 200 MG/ML NEB SCH ×4 (08:25→20:30)
[2019-06-24] MEDS: PULMICORT NEB TX 0.5 MG NEB SCH ×2 (08:25→20:30)
[2019-06-24] MEDS: ZITHROMAX INJ 500 MG VIAL 500 MG in NS 250 ML IV 250 ML IV SCH (09:05)
[2019-06-24] MEDS: NORVASC TAB 5 MG PO SCH (09:05)
[2019-06-24] MEDS: ROBITUSSIN DM PO SCH ×4 (09:05→20:40)
[2019-06-24] MEDS: ROCEPHIN VIAL 1 GRAM IVP SCH (09:05)
[2019-06-24] MEDS: ATIVAN TAB 1 MG PO PRN (09:06)
[2019-06-24] MEDS: NS 1000 ML 1,000 ML IV SCH ×2 (11:10→23:09)
[2019-06-24] MEDS: SOLU-Medrol 40 MG VIAL IVP SCH ×2 (14:49→20:40)
[2019-06-24] MEDS: PROVENTIL NEB TX 0.083% 2.5MG/ 3ML NEB PRN (18:45)
[2019-06-24] MEDS: COLACE CAP 100 MG PO SCH (20:40)
[2019-06-24] MEDS: MILK OF MAGNESIA PO SCH (20:40)
[2019-06-25] MEDS: DUONEB 0.5 MG/3 MG NEB SCH ×6 (00:47→20:58)
[2019-06-25 05:24] LABS: BASOPHILS % (AUTO) 0 % (0.2-1.0); HEMATOCRIT 44.8 % (42.0-54.0); HEMOGLOBIN 15.4 g/dL (13.5-18.0); LYMPHOCYTES # (AUTO) 0.8 X10^3/uL (1.3-2.9); LYMPHOCYTES % (AUTO) 7.7 % (21.0-51.0); MEAN CORPUSCULAR HEMOGLOBIN 29.5 pg (27.0-34.0); MEAN CORPUSCULAR HGB CONC 34.4 g/dL (33.0-35.0); MEAN CORPUSCULAR VOLUME 85.7 fL (80.0-100.0); MEAN PLATELET VOLUME 8.4 fL (7.4-11.0); MONOCYTES # (AUTO) 0.4 x10^3/uL (0.3-0.8); MONOCYTES % (AUTO) 3.9 % (0.0-13.0); NEUTROPHILS # (AUTO) 9.3 x10^3/uL (2.2-4.8); NEUTROPHILS % (AUTO) 88.4 % (42.0-75.0); PLATELET COUNT 264 X10^3/uL (150.0-450.0); RED BLOOD COUNT 5.22 X10^6/uL (4.7-6.0); RED CELL DISTRIBUTION WIDTH 14.1 % (11.6-16.5); WHITE BLOOD COUNT 10.5 X10^3/uL (3.6-10.0)
[2019-06-25] MEDS: SOLU-Medrol 40 MG VIAL IVP SCH ×5 (05:34→21:31)
[2019-06-25 05:37] LABS: ALANINE AMINOTRANSFERASE 30 Units/L (12-78); ALBUMIN 3.4 g/dL (3.4-5.0); ALKALINE PHOSPHATASE 73 Units/L (46-116); ASPARTATE AMINO TRANSFERASE 15 Units/L (15-37); BLOOD UREA NITROGEN 15 mg/dL (7-18); CALCIUM 8.4 mg/dL (8.5-10.1); CARBON DIOXIDE 30.6 mmol/L (21-32); CHLORIDE 101 mmol/L (98-107); COR NA(FOR HYPERGLY) 139 mmol/L (136-145); SODIUM 138 mmol/L (136-145); TOTAL PROTEIN 6.5 g/dL (6.4-8.2); eGFR NON BLACK RACES > 60 (>60)
[2019-06-25] MEDS: ATIVAN TAB 1 MG PO PRN ×2 (06:08→22:20)
--- NOTE | 2019-06-25 06:17 | RAD ---
HISTORY: COPD Study: Chest AP portable Comparison: 06/22/2019 Findings: The heart is within normal limits in size. The chuy are normal. The lungs are hyperinflated but free of acute infiltrates. No pleural effusions are identified. The bony thorax is unremarkable. IMPRESSION: Lungs hyperinflated but clear, consistent with COPD in the appropriate clinical setting Reported By:
[2019-06-25] MEDS: BROVANA IN SCH ×2 (08:44→20:57)
[2019-06-25] MEDS: MUCOMYST 20% 200 MG/ML NEB SCH (08:49)
[2019-06-25] MEDS: PULMICORT NEB TX 0.5 MG NEB SCH ×2 (08:49→20:57)
[2019-06-25] MEDS: ROBITUSSIN DM PO SCH ×4 (09:26→21:31)
[2019-06-25] MEDS: NORVASC TAB 5 MG PO SCH (09:26)
[2019-06-25] MEDS: ROCEPHIN VIAL 1 GRAM IVP SCH (09:26)
[2019-06-25] MEDS: ZITHROMAX INJ 500 MG VIAL 500 MG in NS 250 ML IV 250 ML IV SCH (09:26)
[2019-06-25] MEDS: MORPHINE SULFATE INJ 2 MG INJ IVP PRN ×2 (11:01→19:22)
[2019-06-25] MEDS: ZOSYN VIAL 4.5 GRAMS 4.5 G in NS 100 ML IV + SPIKE MINIBAG* 100 ML IV SCH ×3 (11:01→21:30)
[2019-06-25] MEDS: NS 1000 ML 1,000 ML IV SCH (14:09)
[2019-06-25] MEDS: MILK OF MAGNESIA PO SCH (21:31)
[2019-06-25] MEDS: COLACE CAP 100 MG PO SCH (21:31)
[2019-06-25] MEDS: PROVENTIL NEB TX 0.083% 2.5MG/ 3ML NEB PRN (22:20)
[2019-06-26] MEDS: DUONEB 0.5 MG/3 MG NEB SCH ×6 (00:52→20:47)
[2019-06-26] MEDS: MORPHINE SULFATE INJ 2 MG INJ IVP PRN ×2 (02:39→09:09)
[2019-06-26] MEDS: NS 1000 ML 1,000 ML IV SCH ×2 (02:39→17:20)
[2019-06-26] MEDS: ATIVAN TAB 1 MG PO PRN (03:58)
[2019-06-26] MEDS: SOLU-Medrol 40 MG VIAL IVP SCH ×3 (05:08→21:07)
[2019-06-26] MEDS: ZOSYN VIAL 4.5 GRAMS 4.5 G in NS 100 ML IV + SPIKE MINIBAG* 100 ML IV SCH ×3 (05:08→21:07)
[2019-06-26 05:18] LABS: BASOPHILS % (AUTO) 0 % (0.2-1.0); HEMATOCRIT 45.4 % (42.0-54.0); HEMOGLOBIN 15.1 g/dL (13.5-18.0); LYMPHOCYTES # (AUTO) 1.1 X10^3/uL (1.3-2.9); LYMPHOCYTES % (AUTO) 8.1 % (21.0-51.0); MEAN CORPUSCULAR HEMOGLOBIN 28.8 pg (27.0-34.0); MEAN CORPUSCULAR HGB CONC 33.4 g/dL (33.0-35.0); MEAN CORPUSCULAR VOLUME 86.3 fL (80.0-100.0); MEAN PLATELET VOLUME 8.3 fL (7.4-11.0); MONOCYTES % (AUTO) 7.7 % (0.0-13.0); NEUTROPHILS # (AUTO) 11.3 x10^3/uL (2.2-4.8); NEUTROPHILS % (AUTO) 84.2 % (42.0-75.0); PLATELET COUNT 268 X10^3/uL (150.0-450.0); RED BLOOD COUNT 5.26 X10^6/uL (4.7-6.0); RED CELL DISTRIBUTION WIDTH 13.8 % (11.6-16.5); WHITE BLOOD COUNT 13.5 X10^3/uL (3.6-10.0)
[2019-06-26 05:35] LABS: ALANINE AMINOTRANSFERASE 29 Units/L (12-78); ALBUMIN 3.4 g/dL (3.4-5.0); ALKALINE PHOSPHATASE 68 Units/L (46-116); ASPARTATE AMINO TRANSFERASE 15 Units/L (15-37); BLOOD UREA NITROGEN 15 mg/dL (7-18); CALCIUM 8.5 mg/dL (8.5-10.1); CARBON DIOXIDE 31.3 mmol/L (21-32); CHLORIDE 104 mmol/L (98-107); COR NA(FOR HYPERGLY) 143 mmol/L (136-145); CREATININE 0.98 mg/dL (0.70-1.30); SODIUM 142 mmol/L (136-145); TOTAL PROTEIN 6.4 g/dL (6.4-8.2); eGFR NON BLACK RACES > 60 (>60)
--- NOTE | 2019-06-26 05:37 | RAD ---
Chest, one view Indication: Shortness of breath Comparison: 06/25/19 Findings: Heart is normal in size. Lungs are hyperinflated but clear. No pleural effusion. No pneumothorax. Impression: Lungs hyperinflated but clear. Reported By:
[2019-06-26] MEDS ORDERED: ATIVAN TAB 1 MG PO PRN (08:17)
[2019-06-26] MEDS: BROVANA IN SCH ×2 (08:51→20:47)
[2019-06-26] MEDS: PULMICORT NEB TX 0.5 MG NEB SCH ×2 (08:58→20:47)
[2019-06-26] MEDS: NORVASC TAB 5 MG PO SCH (09:09)
[2019-06-26] MEDS: ROBITUSSIN DM PO SCH (09:09)
[2019-06-26] MEDS ORDERED: MUCINEX DM PO SCH (10:00)
--- NOTE | 2019-06-26 10:49 | PCM.PROG ---
Progress Note - Progress Note for Day of Date of Exam: 06/25/19 - Subjective Subjective: WAS ADMITTED FOR COPD EXACERBATION WITH ACUTE BRONCHITIS. TODAY, HE IS ALERT AND ORIENTED, LYING IN BED ON MORNING ROUNDS. HE REPORTS INCREASED SHORTNESS OF BREATH AND COUGH TODAY. ON EXAMINATION, HE IS NOTED WITH DIFFUSE EXPIRATORY WHEEZING AND RHONCHI. HIS VITALS THIS MORNING ARE: 97.5-119-22-90%NC-119/90. LABS WERE OBTIANED. ABNORMAL LAB VALUES INCLUDE THE FOLLOWING: WBC 10.5, GLUCOSE 158, CALCIUM 8.4. A CHEST XRAY WAS OBTAINED AND REVEALED: Lungs hyperinflated but clear, consistent with COPD in the appropriate clinical setting. HE IS CURRENTLY RECEIVING IV ROCEPHIN, ZITHROMAX, AND SOLU-MEDROL 40MG IV Q8H. TODAY, WE WILL DISCONTINUE THE ROCEPHIN AND ZITHROMAX AND START IV ZOSYN.WE WILL INCREASE THE SOLU-MEDROL TO 80MG IV Q8H. OTHERWISE, WE PLAN TO FOLLOW UP WITH AM LABS AND CONTINUE TO MONITOR. - Past Medical Family Social History Past Med/Fam/Surg Hx: No changes since H&P Allergies: Allergies No Known Drug Allergies Allergy (Verified 09/05/18 04:36) - Review of Systems ROS: No change since H&P - Vital Signs and I&O's Vital Signs: Temperature 98.0 F Pulse Rate [Left Brachial] 108 Pulse Rate 118 Respiratory Rate 20 Blood Pressure [Right Arm] 145/81 Blood Pressure [Left Arm] 144/78 Blood Pressure 133/79 O2 Sat by Pulse Oximetry 94 Intake and Output: Intake & Output 06/23/19 06/24/19 06/25/19 06/26/19 11:59 11:59 11:59 11:59 Intake Total 1690 / 1690 2200 / 2200 2825 / 2825 4510 / 4510 Output Total 1600 / 1600 900 / 900 975 / 975 2150 / 2150 Balance 90 / 90 1300 / 1300 1850 / 1850 2360 / 2360 - Physical Exam Oriented: Normal Eyes: Normal Ear: Normal Nose: Normal Throat: Dry Respiratory: Diminished, Wheezes, Rhonchi Cardiovascular: Tachycardia : Normal Auscultation: Bowel Sounds: Normal Palpation: Normal Tenderness: Normal Skin: Normal Musculoskeletal: Normal Psychiatric: Normal Mood Description: Calm Speech Pattern: Clear, Appropriate - Laboratory and Diagnostics Result Diagrams: 06/26/19 04:10 06/26/19 04:10 Labs: 06/23/19 20:48 Sputum - Expectorated Sputum Sputum Culture - Final Stenotrophomonas Maltophilia 06/23/19 20:48 Sputum - Expectorated Sputum - Final Laboratory WBC 13.5 X10^3/uL (3.6-10.0) H 06/26/19 04:10 RBC 5.26 X10^6/uL (4.7-6.0) 06/26/19 04:10 Hgb 15.1 g/dL (13.5-18.0) 06/26/19 04:10 Hct 45.4 % (42.0-54.0) 06/26/19 04:10 MCV 86.3 fL (80.0-100.0) 06/26/19 04:10 MCH 28.8 pg (27.0-34.0) 06/26/19 04:10 MCHC 33.4 g/dL (33.0-35.0) 06/26/19 04:10 RDW 13.8 % (11.6-16.5) 06/26/19 04:10 Plt Count 268 X10^3/uL (150.0-450.0) 06/26/19 04:10 Plt Count Comment Adequate (ADEQUATE) 06/23/19 04:18 MPV 8.3 fL (7.4-11.0) 06/26/19 04:10 Neut % (Auto) 84.2 % (42.0-75.0) H 06/26/19 04:10 Lymph % (Auto) 8.1 % (21.0-51.0) L 06/26/19 04:10 [place] % (Auto) 7.7 % (0.0-13.0) 06/26/19 04:10 Eos % (Auto) 0.0 % (0.9-2.9) L 06/26/19 04:10 Baso % (Auto) 0 % (0.2-1.0) L 06/26/19 04:10 Neut # (Auto) 11.3 x10^3/uL (2.2-4.8) H 06/26/19 04:10 Lymph # (Auto) 1.1 X10^3/uL (1.3-2.9) L 06/26/19 04:10 [place] # (Auto) 1.0 x10^3/uL (0.3-0.8) H 06/26/19 04:10 Eos # (Auto) 0.0 x10^3/uL (0.0-0.2) 06/26/19 04:10 Baso # (Auto) 0.0 X10^3/uL (0.0-0.1) 06/26/19 04:10 Absolute Nucleated RBC 0.0 /100WBC 06/26/19 04:10 Total Counted 100 06/23/19 04:18 Neutrophils % (Manual) 91 % (39-76) H 06/23/19 04:18 Band Neutrophils % 1 % (0-10) 06/23/19 04:18 Lymphocytes % (Manual) 3 % (13-43) L 06/23/19 04:18 Monocytes % (Manual) 5 % (4-9) 06/23/19 04:18 Plt Morphology Comment Normal (NORMAL) 06/23/19 04:18 RBC Morphology Normal (NORMAL) 06/23/19 04:18 Sample Site Left brachial 06/21/19 08:58 ABG pH 7.400 (7.35-7.45) 06/21/19 08:58 ABG pCO2 46.0 mmHg (35.0-45.0) H 06/21/19 08:58 ABG pO2 74.0 mmHg (80.0-100.0) L 06/21/19 08:58 ABG HCO3 28.5 mmol/L (22-26) H 06/21/19 08:58 ABG O2 Saturation 95.0 % (90-100) 06/21/19 08:58 ABG Base Excess 3.1 mmol/L (-2.0-2.0) H 06/21/19 08:58 Mian Test Na 06/21/19 08:58 A-a Gradient 68.0 mmHg 06/21/19 08:58 FiO2 28.0 06/21/19 08:58 Blood Gas Comments Kim well aw 06/21/19 08:58 Sodium 142 mmol/L (136-145) 06/26/19 04:10 Corrected Sodium 143 mmol/L (136-145) 06/26/19 04:10 Potassium 4.4 mmol/L (3.5-5.1) 06/26/19 04:10 Chloride 104 mmol/L (98-107) 06/26/19 04:10 Carbon Dioxide 31.3 mmol/L (21-32) 06/26/19 04:10 BUN 15 mg/dL (7-18) 06/26/19 04:10 Creatinine 0.98 mg/dL (0.70-1.30) 06/26/19 04:10 Est GFR (MDRD) Af Amer > 60 (>60) 06/26/19 04:10 Est GFR (MDRD) Non-Af > 60 (>60) 06/26/19 04:10 Glucose 148 mg/dL (65-99) H 06/26/19 04:10 Hemoglobin A1c 6.1 % 06/22/19 05:02 Calcium 8.5 mg/dL (8.5-10.1) 06/26/19 04:10 Corrected Calcium TNP 06/26/19 04:10 Total Bilirubin 0.30 mg/dL (0.2-1.0) 06/26/19 04:10 AST 15 Units/L (15-37) 06/26/19 04:10 ALT 29 Units/L (12-78) 06/26/19 04:10 Alkaline Phosphatase 68 Units/L (46-116) 06/26/19 04:10 Total Protein 6.4 g/dL (6.4-8.2) 06/26/19 04:10 Albumin 3.4 g/dL (3.4-5.0) 06/26/19 04:10 Globulin 3.0 g/dL (2.5-4.5) 06/26/19 04:10 Albumin/Globulin Ratio 1.1 Ratio (1.1-2.1) 06/26/19 04:10 Specimen Type Random urine 06/21/19 16:28 Urine Color Yellow (YELLOW) 06/21/19 16:28 Urine Appearance Clear (CLEAR) 06/21/19 16:28 Urine pH 5.0 (5.0 - 8.0) 06/21/19 16:28 Ur Specific [place] 1.015 (1.000-1.030) 06/21/19 16:28 Urine Protein Negative (NEGATIVE) 06/21/19 16:28 Urine Glucose (UA) 3+ (NEGATIVE) 06/21/19 16:28 Urine Ketones Negative (NEGATIVE) 06/21/19 16:28 Urine Occult Blood Negative (NEGATIVE) 06/21/19 16:28 Urine Nitrite Negative (NEGATIVE) 06/21/19 16:28 Urine Bilirubin Negative (NEGATIVE) 06/21/19 16:28 Urine Urobilinogen Normal (NORMAL) 06/21/19 16:28 Ur Leukocyte Esterase Negative (NEGATIVE) 06/21/19 16:28 - Plan (1) COPD with acute bronchitis Status: Acute Plan: ZOSYN IV TID, RESPIRATORY TX, SOLU-MEDROL 80MG IV Q8H, CONTINUE TO MONITOR
[2019-06-26] MEDS: MUCOMYST 20% 200 MG/ML NEB SCH ×3 (13:34→20:47)
[2019-06-26] MEDS: MUCINEX DM PO SCH (20:55)
[2019-06-26] MEDS: COLACE CAP 100 MG PO SCH (21:07)
[2019-06-26] MEDS: MILK OF MAGNESIA PO SCH (21:07)
--- NOTE | 2019-06-26 21:24 | PCM.PROG ---
Progress Note - Progress Note for Day of Date of Exam: 06/26/19 - Subjective Subjective: WAS ADMITTED FOR COPD EXACERBATION WITH ACUTE BRONCHITIS. TODAY, HE IS ALERT AND ORIENTED, LYING IN BED ON MORNING ROUNDS. HE CONTINUES WITH SHORTNESS OF BREATH AND COUGH TODAY WITH NO SIGNIFICANT IMPROVEMENT SINCE YESTERDAY. ON EXAMINATION, HE IS NOTED WITH DIFFUSE EXPIRATORY WHEEZING AND RHONCHI. HIS VITALS THIS MORNING ARE: 98.0-108-18-98%-144/78. LABS WERE OBTIANED. ABNORMAL LAB VALUES INCLUDE THE FOLLOWING: WBC 13.5, GLUCOSE 148. A CHEST XRAY WAS OBTAINED AND REVEALED: Lungs hyperinflated but clear. HE IS CURRENTLY RECEIVING IV ZOSYN AND SOLU-MEDROL 80MG IV Q8H. TODAY, WE WILL ADD MUCINEX 2 TABS PO BID AND CONTINUE WITH MUCOMYST IN [facility]. OTHERWISE, WE PLAN TO FOLLOW UP WITH AM LABS AND CONTINUE TO MONITOR. - Past Medical Family Social History Past Med/Fam/Surg Hx: No changes since H&P Allergies: Allergies No Known Drug Allergies Allergy (Verified 09/05/18 04:36) - Review of Systems ROS: No change since H&P - Vital Signs and I&O's Vital Signs: Temperature 98.8 F Pulse Rate [Left Brachial] 121 Pulse Rate 113 Respiratory Rate 18 Blood Pressure [Right Arm] 139/89 Blood Pressure [Left Arm] 144/78 Blood Pressure 133/79 O2 Sat by Pulse Oximetry 98 Intake and Output: Intake & Output 06/24/19 06/25/19 06/26/19 06/27/19 11:59 11:59 11:59 11:59 Intake Total 2200 / 2200 2825 / 2825 4510 / 4510 2020 Output Total 900 / 900 975 / 975 2150 / 2150 1100 / 1100 Balance 1300 / 1300 1850 / 1850 2360 / 2360 921 / 921 - Physical Exam Oriented: Normal Eyes: Normal Ear: Normal Nose: Normal Throat: Dry Respiratory: Diminished, Wheezes, Rhonchi Cardiovascular: Tachycardia : Normal Auscultation: Bowel Sounds: Normal Palpation: Normal Tenderness: Normal Skin: Normal Musculoskeletal: Normal Psychiatric: Normal Mood Description: Calm, Fearful Speech Pattern: Clear, Appropriate - Laboratory and Diagnostics Result Diagrams: 06/26/19 04:10 06/26/19 04:10 Labs: 06/23/19 20:48 Sputum - Expectorated Sputum Sputum Culture - Final Stenotrophomonas Maltophilia 06/23/19 20:48 Sputum - Expectorated Sputum - Final Laboratory WBC 13.5 X10^3/uL (3.6-10.0) H 06/26/19 04:10 RBC 5.26 X10^6/uL (4.7-6.0) 06/26/19 04:10 Hgb 15.1 g/dL (13.5-18.0) 06/26/19 04:10 Hct 45.4 % (42.0-54.0) 06/26/19 04:10 MCV 86.3 fL (80.0-100.0) 06/26/19 04:10 MCH 28.8 pg (27.0-34.0) 06/26/19 04:10 MCHC 33.4 g/dL (33.0-35.0) 06/26/19 04:10 RDW 13.8 % (11.6-16.5) 06/26/19 04:10 Plt Count 268 X10^3/uL (150.0-450.0) 06/26/19 04:10 Plt Count Comment Adequate (ADEQUATE) 06/23/19 04:18 MPV 8.3 fL (7.4-11.0) 06/26/19 04:10 Neut % (Auto) 84.2 % (42.0-75.0) H 06/26/19 04:10 Lymph % (Auto) 8.1 % (21.0-51.0) L 06/26/19 04:10 [place]upe % (Auto) 7.7 % (0.0-13.0) 06/26/19 04:10 Eos % (Auto) 0.0 % (0.9-2.9) L 06/26/19 04:10 Baso % (Auto) 0 % (0.2-1.0) L 06/26/19 04:10 Neut # (Auto) 11.3 x10^3/uL (2.2-4.8) H 06/26/19 04:10 Lymph # (Auto) 1.1 X10^3/uL (1.3-2.9) L 06/26/19 04:10 [place] # (Auto) 1.0 x10^3/uL (0.3-0.8) H 06/26/19 04:10 Eos # (Auto) 0.0 x10^3/uL (0.0-0.2) 06/26/19 04:10 Baso # (Auto) 0.0 X10^3/uL (0.0-0.1) 06/26/19 04:10 Absolute Nucleated RBC 0.0 /100WBC 06/26/19 04:10 Total Counted 100 06/23/19 04:18 Neutrophils % (Manual) 91 % (39-76) H 06/23/19 04:18 Band Neutrophils % 1 % (0-10) 06/23/19 04:18 Lymphocytes % (Manual) 3 % (13-43) L 06/23/19 04:18 Monocytes % (Manual) 5 % (4-9) 06/23/19 04:18 Plt Morphology Comment Normal (NORMAL) 06/23/19 04:18 RBC Morphology Normal (NORMAL) 06/23/19 04:18 Sample Site Left brachial 06/21/19 08:58 ABG pH 7.400 (7.35-7.45) 06/21/19 08:58 ABG pCO2 46.0 mmHg (35.0-45.0) H 06/21/19 08:58 ABG pO2 74.0 mmHg (80.0-100.0) L 06/21/19 08:58 ABG HCO3 28.5 mmol/L (22-26) H 06/21/19 08:58 ABG O2 Saturation 95.0 % (90-100) 06/21/19 08:58 ABG Base Excess 3.1 mmol/L (-2.0-2.0) H 06/21/19 08:58 Mian Test Na 06/21/19 08:58 A-a Gradient 68.0 mmHg 06/21/19 08:58 FiO2 28.0 06/21/19 08:58 Blood Gas Comments Kim well aw 06/21/19 08:58 Sodium 142 mmol/L (136-145) 06/26/19 04:10 Corrected Sodium 143 mmol/L (136-145) 06/26/19 04:10 Potassium 4.4 mmol/L (3.5-5.1) 06/26/19 04:10 Chloride 104 mmol/L (98-107) 06/26/19 04:10 Carbon Dioxide 31.3 mmol/L (21-32) 06/26/19 04:10 BUN 15 mg/dL (7-18) 06/26/19 04:10 Creatinine 0.98 mg/dL (0.70-1.30) 06/26/19 04:10 Est GFR (MDRD) Af Amer > 60 (>60) 06/26/19 04:10 Est GFR (MDRD) Non-Af > 60 (>60) 06/26/19 04:10 Glucose 148 mg/dL (65-99) H 06/26/19 04:10 Hemoglobin A1c 6.1 % 06/22/19 05:02 Calcium 8.5 mg/dL (8.5-10.1) 06/26/19 04:10 Corrected Calcium TNP 06/26/19 04:10 Total Bilirubin 0.30 mg/dL (0.2-1.0) 06/26/19 04:10 AST 15 Units/L (15-37) 06/26/19 04:10 ALT 29 Units/L (12-78) 06/26/19 04:10 Alkaline Phosphatase 68 Units/L (46-116) 06/26/19 04:10 Total Protein 6.4 g/dL (6.4-8.2) 06/26/19 04:10 Albumin 3.4 g/dL (3.4-5.0) 06/26/19 04:10 Globulin 3.0 g/dL (2.5-4.5) 06/26/19 04:10 Albumin/Globulin Ratio 1.1 Ratio (1.1-2.1) 06/26/19 04:10 Specimen Type Random urine 06/21/19 16:28 Urine Color Yellow (YELLOW) 06/21/19 16:28 Urine Appearance Clear (CLEAR) 06/21/19 16:28 Urine pH 5.0 (5.0 - 8.0) 06/21/19 16:28 Ur Specific [place] 1.015 (1.000-1.030) 06/21/19 16:28 Urine Protein Negative (NEGATIVE) 06/21/19 16:28 Urine Glucose (UA) 3+ (NEGATIVE) 06/21/19 16:28 Urine Ketones Negative (NEGATIVE) 06/21/19 16:28 Urine Occult Blood Negative (NEGATIVE) 06/21/19 16:28 Urine Nitrite Negative (NEGATIVE) 06/21/19 16:28 Urine Bilirubin Negative (NEGATIVE) 06/21/19 16:28 Urine Urobilinogen Normal (NORMAL) 06/21/19 16:28 Ur Leukocyte Esterase Negative (NEGATIVE) 06/21/19 16:28 - Plan (1) COPD with acute bronchitis Status: Acute Plan: ZOSYN IV TID, RESPIRATORY TX, SOLU-MEDROL 80MG IV Q8H, MUCINEX, MUCOMYST I N NEB TX, CONTINUE TO MONITOR
[2019-06-27] MEDS: DUONEB 0.5 MG/3 MG NEB SCH ×3 (01:40→09:03)
[2019-06-27] MEDS: NS 1000 ML 1,000 ML IV SCH ×2 (02:03→07:17)
--- NOTE | 2019-06-27 05:07 | RAD ---
Chest, one-view Indication: Shortness of breath Comparison: 06/26/2018 Findings: Heart is normal in size. Lungs are hyperinflated but clear. No significant pleural effusion is identified. No pneumothorax. Impression: Lungs hyperinflated but clear of acute infiltrates. Reported By:
[2019-06-27] MEDS: SOLU-Medrol 40 MG VIAL IVP SCH (05:15)
[2019-06-27] MEDS: ZOSYN VIAL 4.5 GRAMS 4.5 G in NS 100 ML IV + SPIKE MINIBAG* 100 ML IV SCH (05:15)
[2019-06-27 05:31] LABS: ALANINE AMINOTRANSFERASE 29 Units/L (12-78); ALKALINE PHOSPHATASE 60 Units/L (46-116); ASPARTATE AMINO TRANSFERASE 13 Units/L (15-37); BLOOD UREA NITROGEN 16 mg/dL (7-18); CALCIUM 8.4 mg/dL (8.5-10.1); CARBON DIOXIDE 28.8 mmol/L (21-32); CHLORIDE 102 mmol/L (98-107); COR CA(FOR HYPOALB) 9.2 mg/dL (8.5-10.1); COR NA(FOR HYPERGLY) 142 mmol/L (136-145); CREATININE 0.93 mg/dL (0.70-1.30); SODIUM 140 mmol/L (136-145); TOTAL PROTEIN 5.7 g/dL (6.4-8.2); eGFR NON BLACK RACES > 60 (>60)
[2019-06-27 05:34] LABS: BASOPHILS % (AUTO) 0 % (0.2-1.0); HEMATOCRIT 42.1 % (42.0-54.0); HEMOGLOBIN 14.3 g/dL (13.5-18.0); LYMPHOCYTES # (AUTO) 0.8 X10^3/uL (1.3-2.9); LYMPHOCYTES % (AUTO) 6.7 % (21.0-51.0); MEAN CORPUSCULAR VOLUME 85.4 fL (80.0-100.0); MEAN PLATELET VOLUME 8.3 fL (7.4-11.0); MONOCYTES # (AUTO) 0.6 x10^3/uL (0.3-0.8); MONOCYTES % (AUTO) 4.5 % (0.0-13.0); NEUTROPHILS % (AUTO) 88.8 % (42.0-75.0); PLATELET COUNT 244 X10^3/uL (150.0-450.0); RED BLOOD COUNT 4.93 X10^6/uL (4.7-6.0); WHITE BLOOD COUNT 12.4 X10^3/uL (3.6-10.0)
[2019-06-27] MEDS: MUCINEX DM PO SCH (08:12)
[2019-06-27] MEDS: NORVASC TAB 5 MG PO SCH (08:12)
[2019-06-27] MEDS: PULMICORT NEB TX 0.5 MG NEB SCH (09:03)
[2019-06-27] MEDS: MUCOMYST 20% 200 MG/ML NEB SCH (09:03)
[2019-06-27] MEDS: BROVANA IN SCH (09:13)
[2019-06-27 13:13] VITALS: BP 136/91
== END 2019-06-27 13:40 | disposition home or self-care (01) | DRG 202 ==
LOC: MED/SURG 04:03 → ER 04:03 → MED/SURG 08:42
PROVIDERS: ADMIT Internal Medicine; ATTEND Internal Medicine
DX: I10 Essential (primary) hypertension; J44.1 Chronic obstructive pulmonary disease with (acute) exacerbation; R06.02 Shortness of breath; J45.901 Unspecified asthma with (acute) exacerbation; F41.8 Other specified anxiety disorders
CPT/HCPCS: 36415; 36600; 71010; 71020; 71045; 71046; 80053; 81003; 82803; 83036; 85025; 87070; 87077; 87186; 87205; 94640; 94669; 94760; 96365; 96374; 96375; 99217; 99221; 99231; 99284; A4222; G0378; J0456; J0696; J2060; J2270; J2543; J2920; J2930; J7030; J7050; J7613; J7620; J7626

== ENCOUNTER 2019-09-30 04:28 | Inpatient (IN) ==
[2019-09-30] MEDS ORDERED: PROVENTIL NEB TX 0.083% 2.5MG/ 3ML NEB ONE (04:32)
[2019-09-30] MEDS ORDERED: SOLU-Medrol 40 MG VIAL IVP ONE (04:49)
[2019-09-30] MEDS ORDERED: NS 1000 ML 1,000 ML IV ONE (04:49)
[2019-09-30] MEDS ORDERED: ROCEPHIN VIAL 1 GRAM 1 G in NS 100 ML IV + SPIKE MINIBAG* 100 ML IV ONE (04:52)
[2019-09-30] MEDS ORDERED: SOLU-Medrol 40 MG VIAL ONE (04:53)
[2019-09-30] MEDS ORDERED: NS 1000 ML 1,000 ML ONE (04:53)
--- NOTE | 2019-09-30 04:56 | DR.SOBA ---
HPI Time Seen Time Seen by Provider: 09/30/19 04:37 Primary Care Physician Primary Care Physician: GÓMEZ Complaints Chief Complaint Doctors Comments: He was treated for same yesterday and released. He never the rx. filled as he says he has no money. He has had SOB and wheezing x few days and coughing as well. He has no fever or chest pain. He has used his rescue inhaler (Albuterol) more and symptoms got worse again by late evening. Chief Complaint:: PATIENT STATES " I WOKE UP SHORT OF BREATH JUST COULDNT CATCH MY BREATH AND IT FELT LIKE IT WAS CRUSHING MY CHEST. I HAVE USED MY INHALER BUT IT JUST AINT HELPING" Reviewed Nurses Notes Reviewed: Yes Source History Provided: Patient Mode of Arrival Mode of Arrival: Ambulatory Timing Onset of Chief Complaint: 09/30/19 Context Onset:: At Rest PE Risk Factors:: None History of:: Asthma Currently on:: Inhaled Bronchodilators Prehospital Care:: Inhaled B2 Modifying Factors Worsens:: Nothing Improves:: Nothing Associated Signs and Symptoms Associated Signs and Symptoms: Wheeze and Cough PMH PMH Past Medical History: Yes Past Medical History: Asthma, COPD and Hypertension Past Surgical History: No Surgical History: No History Family History History of Family Medical Conditions: Yes Family Medical History: [place], Coronary Artery Disease and Hypertension Social History Alcohol Use: None Do you use any recreational Drugs:: No infectious screening Have you traveled outside the country in the last 6 months?: No Isolation: Standard ROS Review of Systems Constitutional: No Symptoms Reported Eyes: No Symptoms Reported ENTM: No Symptoms Reported Respiratoy: Non-Productive Cough, Short of Breath and Wheezing Cardiovascular: No Symptoms Reported Gastrointestinal/Abdominal: No Symptoms Reported Genitourinary: No Symptoms Reported Neurological: No Symptoms Reported Musculoskeletal: No Symptoms Reported Integumentary: No Symptoms Reported Hematologic/Lymphatic: No Symptoms Reported Endocrine: No Symptoms Reported Psychiatric: No Symptoms Reported PE Vital Signs Vitals: Temperature 98.7 F Pulse Rate 109 Respiratory Rate 22 Blood Pressure [Right Arm] 136/91 Blood Pressure [Left Arm] 144/78 Blood Pressure 131/82 O2 Sat by Pulse Oximetry 95 General Limitations: No Limitations General Appearance: Alert, Anxious and In Distress Head Head Exam: Normal Inspection, Atraumatic and Normocephalic Eyes Eye exam: Normal Appearance and EOMI ENT ENT Exam: Normal Exam, Normal Oropharynx and Mucous Membranes Moist Neck Neck Exam: Normal Inspection, Full ROM and Trachea Midline Chest Chest Inspection: Normal Inspection and Symmetric Chest Wall Rise Respiratory Respiratory Exam: Normal Lung Sounds Bilat and Accessory Muscle Use Respiratory Exam: Bilateral: Wheezing, Bilateral: Rhonchi and Bilateral: Decreased Breath Sounds Cardiovascular Cardiovascular Exam: Normal Rhythm, Tachycardia, +S1 and +S2 Abdominal Exam Abdominal Exam: Normal Inspection, Normal Bowel Sounds and Soft Extremities Extremities Exam: Normal Inspection and Full ROM Back Back Exam: Normal Inspection and Full ROM Neurologic Neurological Exam: Alert and Oriented X3 Psychiatric Psychiatric Exam: Normal Affect and Normal Mood Skin Skin Exam: Dry and Normal Color COURSE Reevaluation 1st: Improved 2nd: Improved (with dosing of Mag. sulfate. ) Consultation Consultation Comments: His home maintenance meds were not optimized due to his being uninsured and inability to afford prescribed medications. Education/Counseling Education/Counseling: Patient, Education and Counseling Educated On: Treatment, Diagnosis, Prognosis and Needs for Follow Up Opioid Opioid Risk Tool Personal Hx of Substance Abuse: Illegal Drugs Age (Marshal box if 16-45): No History of Preadolescent Sexual Abuse: No Total: 0 Total Score Risk Category: Low Risk Copyright: Corona LARRY predicting aberrant behaviors Diagnosis Discharge Problem: Asthma exacerbation Qualifiers: Asthma severity: severe Asthma persistence: unspecified Qualified Code(s): J45.901 - Unspecified asthma with (acute) exacerbation Respiratory failure with hypoxia Qualifiers: Chronicity: acute Qualified Code(s): J96.01 - Acute respiratory failure with hypoxia HTN (hypertension) Qualifiers: Hypertension type: essential hypertension Qualified Code(s): I10 - Essential (primary) hypertension
[2019-09-30] MEDS ORDERED: MAGNESIUM SULFATE 1 GRAM/100 mL PREMIX 1 G/100 ML BAG IV ONE ×2 (05:28→05:41)
[2019-09-30] MEDS ORDERED: MAGNESIUM SULFATE 50% INJ VIAL ONE ×2 (05:36→05:43)
[2019-09-30] MEDS ORDERED: NS 100 ML IV 100 ML IV ONE ×2 (05:36→05:43)
[2019-09-30] MEDS ORDERED: NS 100 ML IV + SPIKE MINIBAG* 100 ML IV ONE (05:43)
[2019-09-30] MEDS ORDERED: ROCEPHIN VIAL 1 GRAM ONE (05:44)
[2019-09-30] MEDS: ROCEPHIN VIAL 1 GRAM 1 G in NS 100 ML IV + SPIKE MINIBAG* 100 ML IV SCH ×2 (06:24→11:30)
[2019-09-30 06:54] LABS: BASOPHILS % (AUTO) 0.2 % (0.2-1.0); EOSINOPHILS % (AUTO) 0.1 % (0.9-2.9); HEMATOCRIT 44.2 % (42.0-54.0); LYMPHOCYTES # (AUTO) 0.6 X10^3/uL (1.3-2.9); LYMPHOCYTES % (AUTO) 4.4 % (21.0-51.0); MEAN CORPUSCULAR HEMOGLOBIN 29.7 pg (27.0-34.0); MEAN CORPUSCULAR HGB CONC 33.9 g/dL (33.0-35.0); MEAN CORPUSCULAR VOLUME 87.7 fL (80.0-100.0); MEAN PLATELET VOLUME 7.7 fL (7.4-11.0); MONOCYTES # (AUTO) 0.5 x10^3/uL (0.3-0.8); MONOCYTES % (AUTO) 3.4 % (0.0-13.0); NEUTROPHILS # (AUTO) 13.4 x10^3/uL (2.2-4.8); NEUTROPHILS % (AUTO) 91.9 % (42.0-75.0); PLATELET COUNT 333 X10^3/uL (150.0-450.0); RED BLOOD COUNT 5.04 X10^6/uL (4.7-6.0); RED CELL DISTRIBUTION WIDTH 13.8 % (11.6-16.5); WHITE BLOOD COUNT 14.6 X10^3/uL (3.6-10.0)
[2019-09-30 06:55] LABS: ALANINE AMINOTRANSFERASE 25 Units/L (12-78); ALBUMIN 3.5 g/dL (3.4-5.0); ALKALINE PHOSPHATASE 81 Units/L (46-116); ASPARTATE AMINO TRANSFERASE 17 Units/L (15-37); BLOOD UREA NITROGEN 18 mg/dL (7-18); CALCIUM 8.5 mg/dL (8.5-10.1); CHLORIDE 105 mmol/L (98-107); COR NA(FOR HYPERGLY) 142 mmol/L (136-145); CREATININE 1.18 mg/dL (0.70-1.30); SODIUM 140 mmol/L (136-145); TOTAL PROTEIN 6.6 g/dL (6.4-8.2); eGFR NON BLACK RACES > 60 (>60)
[2019-09-30] MEDS ORDERED: DUONEB 0.5 MG/3 MG (3 mL) NEB ONE (07:30)
[2019-09-30 07:33] LABS: PLATELET MORPHOLOGY COMMENT NORMAL (NORMAL)
[2019-09-30] MEDS: PULMICORT NEB TX 0.5 MG NEB SCH ×2 (08:35→20:10)
[2019-09-30] MEDS: PROVENTIL NEB TX 0.083% 2.5MG/ 3ML NEB SCH ×4 (08:35→20:10)
[2019-09-30] MEDS: NS 1000 ML 1,000 ML IV SCH ×2 (09:02→16:18)
[2019-09-30] MEDS: PEPCID TAB 20 MG PO SCH ×2 (09:03→20:50)
[2019-09-30 09:19] VITALS: BMI 20.3
[2019-09-30] MEDS ORDERED: AFLURIA II4 or FLUARIX II4 IM ONE (09:19)
[2019-09-30] MEDS ORDERED: PREVNAR 13 IM ONE (09:19)
[2019-09-30] MEDS: ROBITUSSIN DM PO PRN ×2 (10:20→17:27)
[2019-09-30] MEDS ORDERED: XANAX ONE (12:25)
[2019-09-30] MEDS: XANAX PO PRN (12:38)
[2019-09-30] MEDS: SOLU-Medrol 40 MG VIAL IVP SCH ×2 (14:15→21:05)
[2019-09-30] MEDS: SINGULAIR TAB 10 MG PO SCH (20:50)
[2019-10-01] MEDS: PROVENTIL NEB TX 0.083% 2.5MG/ 3ML NEB SCH ×6 (00:53→20:55)
[2019-10-01] MEDS: NS 1000 ML 1,000 ML IV SCH ×3 (01:22→16:40)
[2019-10-01] MEDS: SOLU-Medrol 40 MG VIAL IVP SCH ×3 (05:45→22:46)
[2019-10-01 05:50] LABS: BASOPHILS % (AUTO) 0.1 % (0.2-1.0); HEMOGLOBIN 14.1 g/dL (13.5-18.0); LYMPHOCYTES # (AUTO) 1.1 X10^3/uL (1.3-2.9); LYMPHOCYTES % (AUTO) 5.8 % (21.0-51.0); MEAN CORPUSCULAR HEMOGLOBIN 29.9 pg (27.0-34.0); MEAN CORPUSCULAR HGB CONC 33.5 g/dL (33.0-35.0); MEAN CORPUSCULAR VOLUME 89.2 fL (80.0-100.0); MEAN PLATELET VOLUME 8.1 fL (7.4-11.0); MONOCYTES % (AUTO) 5.2 % (0.0-13.0); NEUTROPHILS # (AUTO) 16.9 x10^3/uL (2.2-4.8); NEUTROPHILS % (AUTO) 88.9 % (42.0-75.0); PLATELET COUNT 279 X10^3/uL (150.0-450.0); RED BLOOD COUNT 4.71 X10^6/uL (4.7-6.0); RED CELL DISTRIBUTION WIDTH 13.6 % (11.6-16.5); WHITE BLOOD COUNT 19.1 X10^3/uL (3.6-10.0)
[2019-10-01 06:03] LABS: ALANINE AMINOTRANSFERASE 26 Units/L (12-78); ALBUMIN 3.2 g/dL (3.4-5.0); ALKALINE PHOSPHATASE 74 Units/L (46-116); ASPARTATE AMINO TRANSFERASE 15 Units/L (15-37); BLOOD UREA NITROGEN 17 mg/dL (7-18); CALCIUM 8.2 mg/dL (8.5-10.1); CARBON DIOXIDE 29.5 mmol/L (21-32); CHLORIDE 106 mmol/L (98-107); COR CA(FOR HYPOALB) 8.8 mg/dL (8.5-10.1); COR NA(FOR HYPERGLY) 143 mmol/L (136-145); CREATININE 0.95 mg/dL (0.70-1.30); SODIUM 142 mmol/L (136-145); eGFR NON BLACK RACES > 60 (>60)
--- NOTE | 2019-10-01 06:39 | RAD ---
HISTORY: Shortness of breathStudy: Chest AP portableComparison: 09/29/2019Findings:The heart is within normal limits in size. The chuy are normal. The lungs remain hyperinflated but free of acute infiltrates. No pleural effusions are identified. The bony thorax is unremarkable.IMPRESSION: Lungs remain hyperinflated but clearReported By:
[2019-10-01] MEDS: PEPCID TAB 20 MG PO SCH ×2 (09:07→21:30)
[2019-10-01] MEDS: ROCEPHIN VIAL 1 GRAM 1 G in NS 100 ML IV + SPIKE MINIBAG* 100 ML IV SCH (09:08)
[2019-10-01] MEDS: PULMICORT NEB TX 0.5 MG NEB SCH ×2 (09:10→20:50)
--- NOTE | 2019-10-01 10:48 | DR.H&P ---
H&P - History & Physical for Day of: H&P Date: 09/30/19 - Chief Complaint Chief Complaint: SOB, COUGH - History of Present Illness History of Present Illness: IS A 48 YEAR OLD PATIENT OF OURS WHO PRESENTED TO THE EMERGENCY ROOM WITH COMPLAINTS OF SHORTNESS OF BREATH AND COUGH. HE REPORTS A HISTORY OF ASTHMA AND COPD AT HOME. HE IS NOT COMPLIANT WITH MEDICATIONS ON A NORMAL BASIS, HOWEVER, HE DID REPORT USING HIS INHALER AT HOME PRIOR TO ARRIVAL WITHOUT IMPROVEMENT IN SYMTOMS. ON EXAMINATION, HE IS NOTED WITH SCA TTERED WHEEZING. ON ARRIVAL, VITALS WERE 98.7-125-22-88%RA-127/92. LABS WERE OBTAINED. ABNORMAL LAB VALUES INCLUDE THE FOLLOWING: WBC 14.6, GLUCOSE 188. ABG WAS OBTAINED AND REVEALED: PH 7.410, PC02 43.0, P02 74.0, HC03 27.3, 02 SATURATION 95.0, BASE EXCESS 2.3. HE WAS GIVEN A NORMAL SALINE BOLUS, SOLU- MEDROL 60MG IV X 1, ROCEPHIN 1G IV X 1, AND A RESPIRATORY TX IN THE ER. HE WAS ADMITTED FOR FURTHER EVALUATION AND TREATMENT OF AN ASTHMA EXACERBATION AND RESPIRATORY FAILURE. HE WAS STARTED ON ALBUTEROL Q4H, PULMICORT TX BID, ROCEPHIN 1G IV DAILY, SOLU-MEDROL 40MG IV Q8H, AND NORMAL SALINE AT 125ML/HR. WE PLAN TO FOLLOW-UP WITH AM LABS AND CHEST XRAY AND CONTINUE TO MONITOR. - Past Medical History Past Medical History: Hypertension, COPD, Asthma - Past Surgical History Surgical History: No History - Family History Family Medical History: [place], Coronary Artery Disease, Hypertension - Social History Does patient currently use any type of tobacco product: Yes Have you used tobacco products in the last 12 months: Yes Type of Tobacco Use: Smokeless Alcohol Use: None Drug Use: None Prescription drug monitoring program results: PDMP was not reviewed - Medications Home Medications: No Known Drug Allergies Allergy (Verified 09/29/19 15:46) CONTINUE taking the following medications prednisone 10 mg PO DAILY 09/30/19 [History] - Review of Systems Constitutional: No Symptoms Reported Eyes: No Symptoms Reported ENT: No Symptoms Reported Respiratory: Cough, Shortness of Breath, SOB with Excertion, Wheezing Cardiovascular: No Symptoms Reported Gastrointestinal: No Symptoms Reported Genitourinary: No Symptoms Reported Musculoskeletal: No Symptoms Reported Skin: No Symptoms Reported Neurological: No Symptoms Reported - Physical Exam Vital Signs: Temperature 98.0 F Pulse Rate [Left Brachial] 94 Pulse Rate 112 Respiratory Rate 16 Blood Pressure [Right Arm] 136/91 Blood Pressure [Left Arm] 145/90 Blood Pressure 175/96 O2 Sat by Pulse Oximetry 95 Oriented: Normal Eyes: Normal Ear: Normal Nose: Normal Throat: Normal Respiratory: Wheezes Throughout Cardiovascular: Tachycardia : Normal Auscultation: Bowel Sounds: Normal Palpation: Normal Tenderness: Normal Skin: Normal Musculoskeletal: Normal Psychiatric: Normal Mood Description: Calm Affect: Normal Speech Pattern: Clear - Assessment/Plan (1) Asthma exacerbation Qualifiers: Asthma severity: severe Asthma persistence: unspecified Qualified Code(s): J45.901 - Unspecified asthma with (acute) exacerbation Status: Acute Plan: ADMIT, RESPIRATORY TX, SUPPLEMENTAL OXYGEN, SOLU-MEDROL, ROCEPHIN, CONTINUE TO MONITOR (2) Respiratory failure with hypoxia Qualifiers: Chronicity: acute on chronic Qualified Code(s): J96.21 - Acute and chronic respiratory failure with hypoxia Status: Acute - Allergies Allergies/Adverse Reactions: Allergies Allergy/AdvReac Type Severity Reaction Status Date / Time No Known Drug Allergies Allergy Verified 09/29/19 15:46
[2019-10-01] MEDS: LOVENOX INJ 40 MG SYR SC SCH (11:13)
[2019-10-01] MEDS: XANAX PO PRN (16:40)
[2019-10-01] MEDS: ROBITUSSIN DM PO PRN (16:40)
[2019-10-01] MEDS: SINGULAIR TAB 10 MG PO SCH (21:30)
[2019-10-02] MEDS: XOPENEX 1.25 MG/3 ML NEBULE NEB SCH ×2 (01:30→05:56)
[2019-10-02] MEDS: PROVENTIL NEB TX 0.083% 2.5MG/ 3ML NEB SCH ×5 (01:35→20:30)
[2019-10-02] MEDS: NS 1000 ML 1,000 ML IV SCH ×3 (04:41→18:28)
[2019-10-02 05:27] LABS: BASOPHILS % (AUTO) 0.1 % (0.2-1.0); HEMATOCRIT 44.1 % (42.0-54.0); HEMOGLOBIN 14.9 g/dL (13.5-18.0); LYMPHOCYTES # (AUTO) 0.9 X10^3/uL (1.3-2.9); LYMPHOCYTES % (AUTO) 6.1 % (21.0-51.0); MEAN CORPUSCULAR HEMOGLOBIN 29.9 pg (27.0-34.0); MEAN CORPUSCULAR HGB CONC 33.8 g/dL (33.0-35.0); MEAN CORPUSCULAR VOLUME 88.6 fL (80.0-100.0); MEAN PLATELET VOLUME 8.2 fL (7.4-11.0); MONOCYTES # (AUTO) 0.7 x10^3/uL (0.3-0.8); MONOCYTES % (AUTO) 4.9 % (0.0-13.0); NEUTROPHILS # (AUTO) 13.7 x10^3/uL (2.2-4.8); NEUTROPHILS % (AUTO) 88.9 % (42.0-75.0); PLATELET COUNT 287 X10^3/uL (150.0-450.0); RED BLOOD COUNT 4.98 X10^6/uL (4.7-6.0); RED CELL DISTRIBUTION WIDTH 13.7 % (11.6-16.5); WHITE BLOOD COUNT 15.4 X10^3/uL (3.6-10.0)
[2019-10-02 05:37] LABS: ALANINE AMINOTRANSFERASE 33 Units/L (12-78); ALBUMIN 3.4 g/dL (3.4-5.0); ALKALINE PHOSPHATASE 81 Units/L (46-116); ASPARTATE AMINO TRANSFERASE 12 Units/L (15-37); BLOOD UREA NITROGEN 16 mg/dL (7-18); CALCIUM 8.4 mg/dL (8.5-10.1); CARBON DIOXIDE 30.5 mmol/L (21-32); CHLORIDE 103 mmol/L (98-107); COR NA(FOR HYPERGLY) 141 mmol/L (136-145); CREATININE 0.95 mg/dL (0.70-1.30); SODIUM 140 mmol/L (136-145); TOTAL PROTEIN 6.4 g/dL (6.4-8.2); eGFR NON BLACK RACES > 60 (>60)
[2019-10-02] MEDS: SOLU-Medrol 40 MG VIAL IVP SCH ×3 (05:39→21:46)
--- NOTE | 2019-10-02 06:09 | RAD ---
HISTORY: Shortness of breathStudy: Chest AP portableComparison: 10/01/2019 Findings:The heart is within normal limits in size. The chuy are normal. The lungs remain hyperinflated but free of acute infiltrates. No pleural effusions are identified. The bony thorax is unremarkable.IMPRESSION: Lungs hyperinflated but clearReported By:
[2019-10-02] MEDS: PULMICORT NEB TX 0.5 MG NEB SCH ×2 (09:00→20:30)
[2019-10-02] MEDS: ROCEPHIN VIAL 1 GRAM 1 G in NS 100 ML IV + SPIKE MINIBAG* 100 ML IV SCH (09:05)
[2019-10-02] MEDS: LOVENOX INJ 40 MG SYR SC SCH (09:06)
[2019-10-02] MEDS: PEPCID TAB 20 MG PO SCH ×2 (09:06→21:46)
[2019-10-02] MEDS: XANAX PO PRN ×2 (09:15→21:47)
[2019-10-02] MEDS: ROBITUSSIN DM PO PRN ×2 (09:19→18:28)
--- NOTE | 2019-10-02 13:23 | PCM.PROG ---
Progress Note - Progress Note for Day of Date of Exam: 10/01/19 - Subjective Subjective: WAS ADMITTED FOR COPD/ASTHMA EXACERBATION. TODAY, HE IS ALERT AND ORIENTED, LYING IN BED ON MORNING ROUNDS. HE CONTINUES WITH COMPLAINTS OF SHORTNESS OF BREATH AND A NON-PRODUCTIVE COUGH. ON EXAMINATION, HEART IS REGULAR IN RATE AND RHYTHM. BILATERAL LUNGS ARE NOTED WITH SCATTERED WHEEZING THROUGHOUT. ABDOMEN IS ROUND, SOFT, AND NON-TENDER WITH NORMAL BOWEL SOUNDS NOTED IN ALL QUADRANTS. HIS VITALS THIS MORNING ARE 97.8-110-20-94%-163/96. LABS WERE OBTAINED. ABNORMAL LAB VALUES INCLUDE THE FOLLOWING: WBC INCREASED TO 19.1, GLUCOSE 149, CALCIUM 8.2, TOTAL PROTEIN 6.0, ALBUMIN 3.2. SPUTUM CULTURE PENDING. A CHEST XRAY WAS OBTAINED TODAY AND REVEALED: LUNGS REMAIN HYPERINFLA LISETTE BUT CLEAR. HE IS CURRENTLY RECEIVING IV ROCEPHIN, IV STEROIDS, RESPIRATORY TREATMENTS, AND SUPPLEMENTAL OXYGEN. TODAY, WE WILL CONTINUE WITH CURRENT PLAN OF CARE. OTHERWISE, WE WILL FOLLOW-UP WITH AM LABS AND CHEST XRAY AND CONTINUE TO MONITOR. - Past Medical Family Social History Past Med/Fam/Surg Hx: No changes since H&P Allergies: Allergies No Known Drug Allergies Allergy (Verified 09/29/19 15:46) - Review of Systems ROS: No change since H&P - Vital Signs and I&O's Vital Signs: Temperature 98.2 F Pulse Rate [Left Brachial] 108 Pulse Rate 114 Respiratory Rate 20 Blood Pressure [Right Arm] 136/91 Blood Pressure [Left Arm] 164/94 Blood Pressure 175/96 O2 Sat by Pulse Oximetry 100 Intake and Output: Intake & Output 09/30/19 10/01/19 10/02/19 10/03/19 11:59 11:59 11:59 11:59 Intake Total 3050 / 3050 2520 / 2520 Output Total 950 / 950 Balance 3050 / 3050 1570 / 1570 - Physical Exam Oriented: Normal Eyes: Normal Ear: Normal Nose: Normal Throat: Normal Respiratory: Generalized, Wheezes Cardiovascular: Tachycardia : Normal Auscultation: Bowel Sounds: Normal Palpation: Normal Tenderness: Normal Skin: Normal Musculoskeletal: Normal Psychiatric: Normal Mood Description: Calm Affect: Normal Speech Pattern: Clear, Appropriate - Laboratory and Diagnostics Result Diagrams: 10/02/19 04:15 10/02/19 04:15 Labs: 10/01/19 09:28 Sputum - Expectorated Sputum Sputum Culture - Preliminary 10/01/19 09:28 Sputum - Expectorated Sputum - Final Laboratory WBC 15.4 X10^3/uL (3.6-10.0) H 10/02/19 04:15 RBC 4.98 X10^6/uL (4.7-6.0) 10/02/19 04:15 Hgb 14.9 g/dL (13.5-18.0) 10/02/19 04:15 Hct 44.1 % (42.0-54.0) 10/02/19 04:15 MCV 88.6 fL (80.0-100.0) 10/02/19 04:15 MCH 29.9 pg (27.0-34.0) 10/02/19 04:15 MCHC 33.8 g/dL (33.0-35.0) 10/02/19 04:15 RDW 13.7 % (11.6-16.5) 10/02/19 04:15 Plt Count 287 X10^3/uL (150.0-450.0) 10/02/19 04:15 Plt Count Comment Adequate (ADEQUATE) 09/30/19 06:33 MPV 8.2 fL (7.4-11.0) 10/02/19 04:15 Neut % (Auto) 88.9 % (42.0-75.0) H 10/02/19 04:15 Lymph % (Auto) 6.1 % (21.0-51.0) L 10/02/19 04:15 [place]berg % (Auto) 4.9 % (0.0-13.0) 10/02/19 04:15 Eos % (Auto) 0.0 % (0.9-2.9) L 10/02/19 04:15 Baso % (Auto) 0.1 % (0.2-1.0) L 10/02/19 04:15 Neut # (Auto) 13.7 x10^3/uL (2.2-4.8) H 10/02/19 04:15 Lymph # (Auto) 0.9 X10^3/uL (1.3-2.9) L 10/02/19 04:15 [place] # (Auto) 0.7 x10^3/uL (0.3-0.8) 10/02/19 04:15 Eos # (Auto) 0.0 x10^3/uL (0.0-0.2) 10/02/19 04:15 Baso # (Auto) 0.0 X10^3/uL (0.0-0.1) 10/02/19 04:15 Absolute Nucleated RBC 0.0 /100WBC 10/02/19 04:15 Total Counted 100 09/30/19 06:33 Neutrophils % (Manual) 97 % (39-76) H 09/30/19 06:33 Lymphocytes % (Manual) % (13-43) 09/30/19 06:33 Monocytes % (Manual) 2 % (4-9) L 09/30/19 06:33 Eosinophils % (Manual) [employer] 09/30/19 06:33 Plt Morphology Comment Normal (NORMAL) 09/30/19 06:33 RBC Morphology Normal (NORMAL) 09/30/19 06:33 Sodium 140 mmol/L (136-145) 10/02/19 04:15 Corrected Sodium 141 mmol/L (136-145) 10/02/19 04:15 Potassium 4.2 mmol/L (3.5-5.1) 10/02/19 04:15 Chloride 103 mmol/L (98-107) 10/02/19 04:15 Carbon Dioxide 30.5 mmol/L (21-32) 10/02/19 04:15 BUN 16 mg/dL (7-18) 10/02/19 04:15 Creatinine 0.95 mg/dL (0.70-1.30) 10/02/19 04:15 Est GFR (MDRD) Af Amer > 60 (>60) 10/02/19 04:15 Est GFR (MDRD) Non-Af > 60 (>60) 10/02/19 04:15 Glucose 155 mg/dL (65-99) H 10/02/19 04:15 Calcium 8.4 mg/dL (8.5-10.1) L 10/02/19 04:15 Corrected Calcium TNP 10/02/19 04:15 Total Bilirubin 0.40 mg/dL (0.2-1.0) 10/02/19 04:15 AST 12 Units/L (15-37) L 10/02/19 04:15 ALT 33 Units/L (12-78) 10/02/19 04:15 Alkaline Phosphatase 81 Units/L (46-116) 10/02/19 04:15 Total Protein 6.4 g/dL (6.4-8.2) 10/02/19 04:15 Albumin 3.4 g/dL (3.4-5.0) 10/02/19 04:15 Globulin 3.0 g/dL (2.5-4.5) 10/02/19 04:15 Albumin/Globulin Ratio 1.1 Ratio (1.1-2.1) 10/02/19 04:15 - Plan (1) Asthma exacerbation Status: Acute Qualifiers: Asthma severity: severe Asthma persistence: unspecified Qualified Code(s): J45.901 - Unspecified asthma with (acute) exacerbation Plan: RESPIRATORY TX, SUPPLEMENTAL OXYGEN, SOLU-MEDROL, ROCEPHIN, CONTINUE TO MONITOR (2) Respiratory failure with hypoxia Status: Acute Qualifiers: Chronicity: acute on chronic Qualified Code(s): J96.21 - Acute and chronic respiratory failure with hypoxia
--- NOTE | 2019-10-02 14:20 | PCM.PROG ---
Progress Note - Progress Note for Day of Date of Exam: 10/02/19 - Subjective Subjective: WAS ADMITTED FOR COPD/ASTHMA EXACERBATION. TODAY, HE IS ALERT AND ORIENTED, LYING IN BED ON MORNING ROUNDS. HE CONTINUES WITH COMPLAINTS OF SHORTNESS OF BREATH AND A NON-PRODUCTIVE COUGH. ON EXAMINATION, HEART IS REGULAR IN RATE AND RHYTHM. BILATERAL LUNGS ARE NOTED WITH SCATTERED WHEEZING THROUGHOUT. ABDOMEN IS ROUND, SOFT, AND NON-TENDER WITH NORMAL BOWEL SOUNDS NOTED IN ALL QUADRANTS. HIS VITALS THIS MORNING ARE 97.9-108-20-95%-RA-176/84. LABS WERE OBTAINED. ABNORMAL LAB VALUES INCLUDE THE FOLLOWING: WBC 15.4, GLUCOSE 155, CALCIUM 8.4, AST 12. SPUTUM CULTURE PENDING. A CHEST XRAY WAS OBTAINED TODAY AND REVEALED: LUNGS REMAIN HYPERINFLATED BUT CLEAR. HE IS CURRENTLY REC EIVING IV ROCEPHIN, IV STEROIDS, RESPIRATORY TREATMENTS, AND SUPPLEMENTAL OXYGEN. TODAY, WE WILL CONTINUE WITH CURRENT PLAN OF CARE. OTHERWISE, WE WILL FOLLOW-UP WITH AM LABS AND CHEST XRAY AND CONTINUE TO MONITOR. - Past Medical Family Social History Past Med/Fam/Surg Hx: No changes since H&P Allergies: Allergies No Known Drug Allergies Allergy (Verified 09/29/19 15:46) - Review of Systems ROS: No change since H&P - Vital Signs and I&O's Vital Signs: Temperature 98.2 F Pulse Rate [Left Brachial] 108 Pulse Rate 103 Respiratory Rate 20 Blood Pressure [Right Arm] 136/91 Blood Pressure [Left Arm] 164/94 Blood Pressure 175/96 O2 Sat by Pulse Oximetry 94 Intake and Output: Intake & Output 09/30/19 10/01/19 10/02/19 10/03/19 11:59 11:59 11:59 11:59 Intake Total 3050 / 3050 2520 / 2520 Output Total 950 / 950 Balance 3050 / 3050 1570 / 1570 - Physical Exam Oriented: Normal Eyes: Normal Ear: Normal Nose: Normal Throat: Normal Respiratory: Generalized, Wheezes Cardiovascular: Tachycardia : Normal Auscultation: Bowel Sounds: Normal Tenderness: Normal Skin: Normal Musculoskeletal: Normal Psychiatric: Normal Mood Description: Calm Affect: Normal Speech Pattern: Clear, Appropriate - Laboratory and Diagnostics Result Diagrams: 10/02/19 04:15 10/02/19 04:15 Labs: 10/01/19 09:28 Sputum - Expectorated Sputum Sputum Culture - Preliminary 10/01/19 09:28 Sputum - Expectorated Sputum - Final Laboratory WBC 15.4 X10^3/uL (3.6-10.0) H 10/02/19 04:15 RBC 4.98 X10^6/uL (4.7-6.0) 10/02/19 04:15 Hgb 14.9 g/dL (13.5-18.0) 10/02/19 04:15 Hct 44.1 % (42.0-54.0) 10/02/19 04:15 MCV 88.6 fL (80.0-100.0) 10/02/19 04:15 MCH 29.9 pg (27.0-34.0) 10/02/19 04:15 MCHC 33.8 g/dL (33.0-35.0) 10/02/19 04:15 RDW 13.7 % (11.6-16.5) 10/02/19 04:15 Plt Count 287 X10^3/uL (150.0-450.0) 10/02/19 04:15 Plt Count Comment Adequate (ADEQUATE) 09/30/19 06:33 MPV 8.2 fL (7.4-11.0) 10/02/19 04:15 Neut % (Auto) 88.9 % (42.0-75.0) H 10/02/19 04:15 Lymph % (Auto) 6.1 % (21.0-51.0) L 10/02/19 04:15 [place] % (Auto) 4.9 % (0.0-13.0) 10/02/19 04:15 Eos % (Auto) 0.0 % (0.9-2.9) L 10/02/19 04:15 Baso % (Auto) 0.1 % (0.2-1.0) L 10/02/19 04:15 Neut # (Auto) 13.7 x10^3/uL (2.2-4.8) H 10/02/19 04:15 Lymph # (Auto) 0.9 X10^3/uL (1.3-2.9) L 10/02/19 04:15 [place] # (Auto) 0.7 x10^3/uL (0.3-0.8) 10/02/19 04:15 Eos # (Auto) 0.0 x10^3/uL (0.0-0.2) 10/02/19 04:15 Baso # (Auto) 0.0 X10^3/uL (0.0-0.1) 10/02/19 04:15 Absolute Nucleated RBC 0.0 /100WBC 10/02/19 04:15 Total Counted 100 09/30/19 06:33 Neutrophils % (Manual) 97 % (39-76) H 09/30/19 06:33 Lymphocytes % (Manual) % (13-43) 09/30/19 06:33 Monocytes % (Manual) 2 % (4-9) L 09/30/19 06:33 Eosinophils % (Manual) Shade Cutter 09/30/19 06:33 Plt Morphology Comment Normal (NORMAL) 09/30/19 06:33 RBC Morphology Normal (NORMAL) 09/30/19 06:33 Sodium 140 mmol/L (136-145) 10/02/19 04:15 Corrected Sodium 141 mmol/L (136-145) 10/02/19 04:15 Potassium 4.2 mmol/L (3.5-5.1) 10/02/19 04:15 Chloride 103 mmol/L (98-107) 10/02/19 04:15 Carbon Dioxide 30.5 mmol/L (21-32) 10/02/19 04:15 BUN 16 mg/dL (7-18) 10/02/19 04:15 Creatinine 0.95 mg/dL (0.70-1.30) 10/02/19 04:15 Est GFR (MDRD) Af Amer > 60 (>60) 10/02/19 04:15 Est GFR (MDRD) Non-Af > 60 (>60) 10/02/19 04:15 Glucose 155 mg/dL (65-99) H 10/02/19 04:15 Calcium 8.4 mg/dL (8.5-10.1) L 10/02/19 04:15 Corrected Calcium TNP 10/02/19 04:15 Total Bilirubin 0.40 mg/dL (0.2-1.0) 10/02/19 04:15 AST 12 Units/L (15-37) L 10/02/19 04:15 ALT 33 Units/L (12-78) 10/02/19 04:15 Alkaline Phosphatase 81 Units/L (46-116) 10/02/19 04:15 Total Protein 6.4 g/dL (6.4-8.2) 10/02/19 04:15 Albumin 3.4 g/dL (3.4-5.0) 10/02/19 04:15 Globulin 3.0 g/dL (2.5-4.5) 10/02/19 04:15 Albumin/Globulin Ratio 1.1 Ratio (1.1-2.1) 10/02/19 04:15 - Plan (1) Asthma exacerbation Status: Acute Qualifiers: Asthma severity: severe Asthma persistence: unspecified Qualified Code(s): J45.901 - Unspecified asthma with (acute) exacerbation Plan: RESPIRATORY TX, SUPPLEMENTAL OXYGEN, SOLU-MEDROL, ROCEPHIN, CONTINUE TO MONITOR (2) Respiratory failure with hypoxia Status: Acute Qualifiers: Chronicity: acute on chronic Qualified Code(s): J96.21 - Acute and chronic respiratory failure with hypoxia
[2019-10-02] MEDS: SINGULAIR TAB 10 MG PO SCH (21:46)
[2019-10-03] MEDS: PROVENTIL NEB TX 0.083% 2.5MG/ 3ML NEB SCH ×8 (00:22→20:50)
[2019-10-03] MEDS: NS 1000 ML 1,000 ML IV SCH ×3 (04:39→16:30)
[2019-10-03] MEDS: SOLU-Medrol 40 MG VIAL IVP SCH ×4 (05:36→20:59)
[2019-10-03 05:44] LABS: BASOPHILS % (AUTO) 0 % (0.2-1.0); HEMATOCRIT 43.2 % (42.0-54.0); HEMOGLOBIN 14.9 g/dL (13.5-18.0); LYMPHOCYTES # (AUTO) 0.8 X10^3/uL (1.3-2.9); LYMPHOCYTES % (AUTO) 6.7 % (21.0-51.0); MEAN CORPUSCULAR HEMOGLOBIN 30.5 pg (27.0-34.0); MEAN CORPUSCULAR HGB CONC 34.4 g/dL (33.0-35.0); MEAN CORPUSCULAR VOLUME 88.9 fL (80.0-100.0); MEAN PLATELET VOLUME 8.2 fL (7.4-11.0); MONOCYTES # (AUTO) 0.8 x10^3/uL (0.3-0.8); MONOCYTES % (AUTO) 6.2 % (0.0-13.0); NEUTROPHILS # (AUTO) 10.7 x10^3/uL (2.2-4.8); NEUTROPHILS % (AUTO) 87.1 % (42.0-75.0); PLATELET COUNT 269 X10^3/uL (150.0-450.0); RED BLOOD COUNT 4.87 X10^6/uL (4.7-6.0); RED CELL DISTRIBUTION WIDTH 13.6 % (11.6-16.5); WHITE BLOOD COUNT 12.3 X10^3/uL (3.6-10.0)
[2019-10-03 05:56] LABS: ALANINE AMINOTRANSFERASE 32 Units/L (12-78); ALBUMIN 3.1 g/dL (3.4-5.0); ALKALINE PHOSPHATASE 75 Units/L (46-116); ASPARTATE AMINO TRANSFERASE 15 Units/L (15-37); BLOOD UREA NITROGEN 15 mg/dL (7-18); CALCIUM 8.3 mg/dL (8.5-10.1); CARBON DIOXIDE 31.4 mmol/L (21-32); CHLORIDE 104 mmol/L (98-107); COR NA(FOR HYPERGLY) 140 mmol/L (136-145); SODIUM 139 mmol/L (136-145); eGFR NON BLACK RACES > 60 (>60)
--- NOTE | 2019-10-03 06:25 | RAD ---
HISTORY: Shortness of breathStudy: Chest AP portableComparison: 10/02/2019Findings:The heart is within normal limits in size. The chuy are normal. The lungs are hyperinflated but free of acute alveolar infiltrates. No pleural effusions are identified. The bony thorax is unremarkable.IMPRESSION: Lungs remain hyperinflated but clearReported By:
[2019-10-03] MEDS: LOVENOX INJ 40 MG SYR SC SCH (08:34)
[2019-10-03] MEDS: PEPCID TAB 20 MG PO SCH ×2 (08:34→20:50)
[2019-10-03] MEDS: ROCEPHIN VIAL 1 GRAM 1 G in NS 100 ML IV + SPIKE MINIBAG* 100 ML IV SCH (08:34)
[2019-10-03] MEDS: XANAX PO PRN ×2 (08:40→20:58)
[2019-10-03] MEDS: ROBITUSSIN DM PO PRN (08:40)
[2019-10-03] MEDS: PULMICORT NEB TX 0.5 MG NEB SCH ×2 (09:10→20:56)
[2019-10-03] MEDS: NORVASC TAB 5 MG PO SCH (10:48)
[2019-10-03] MEDS: LEVAQUIN PREMIX IV 750 MG 750 MG/150 ML BAG IV SCH (10:48)
[2019-10-03] MEDS ORDERED: FORTAZ or TAZICEF VIAL INJ 1 G in NS 100 ML IV + SPIKE MINIBAG* 100 ML IV SCH (11:00)
--- NOTE | 2019-10-03 12:31 | PCM.PROG ---
Progress Note - Progress Note for Day of Date of Exam: 10/03/19 - Subjective Subjective: WAS ADMITTED FOR COPD/ASTHMA EXACERBATION. TODAY, HE IS ALERT AND ORIENTED, LYING IN BED ON MORNING ROUNDS. HE CONTINUES WITH COMPLAINTS OF SHORTNESS OF BREATH AND A NON-PRODUCTIVE COUGH. ON EXAMINATION, HEART IS REGULAR IN RATE AND RHYTHM. BILATERAL LUNGS ARE NOTED WITH SCATTERED WHEEZING THROUGHOUT. ABDOMEN IS ROUND, SOFT, AND NON-TENDER WITH NORMAL BOWEL SOUNDS NOTED IN ALL QUADRANTS. HIS VITALS THIS MORNING ARE 97.5-118-20-90%-162/91. LABS WERE OBTAINED. ABNORMAL LAB VALUES INCLUDE THE FOLLOWING: WBC 12.3, GLUCOSE 161, CALCIUM 8.3, TOTAL PROTEIN 6.0, ALBUMIN 3.1. SPUTUM CULTURE REPORTED GROWTH OF ACINETOBACTER BAUMANII/HAEMOLY. A CHEST XRAY WAS OBTAINED TODAY AND REVEALED: LUNGS REMAIN HYPERINFLATED BUT CLEAR. HE IS CURRENTLY RECEIVING IV ROCEPHIN, IV STEROIDS, RESPIRATORY TREATMENTS, AND SUPPLEMENTAL OXYGEN. TODAY, WE WILL DISCONTINUE THE ROCEPHIN AND START IV FORTAZ AND IV LEVAQUIN. WE WILL INCREASE HIS SOLU-MEDROL TO 80MG IV Q8H. WE WILL START AMLODIPINE 5MG PO DAILY DUE TO INCREASED BLOOD PRESSURE. OTHERWISE, WE WILL FOLLOW-UP WITH AM LABS AND CHEST XRAY AND CONTINUE TO MONITOR. - Past Medical Family Social History Past Med/Fam/Surg Hx: No changes since H&P Allergies: Allergies No Known Drug Allergies Allergy (Verified 09/29/19 15:46) - Review of Systems ROS: No change since H&P - Vital Signs and I&O's Vital Signs: Temperature 97.5 F Pulse Rate [Left Brachial] 104 Pulse Rate 117 Respiratory Rate 20 Blood Pressure [Right Arm] 136/91 Blood Pressure [Left Arm] 161/91 Blood Pressure 175/96 O2 Sat by Pulse Oximetry 93 Intake and Output: Intake & Output 10/01/19 10/02/19 10/03/19 10/04/19 11:59 11:59 11:59 11:59 Intake Total 3050 / 3050 2520 / 2520 3750 / 3750 Output Total 950 / 950 4400 / 4400 Balance 3050 / 3050 1570 / 1570 -650 / -650 - Physical Exam Oriented: Normal Eyes: Normal Ear: Normal Nose: Normal Throat: Normal Respiratory: Generalized, Wheezes Cardiovascular: Tachycardia : Normal Auscultation: Bowel Sounds: Normal Palpation: Normal Tenderness: Normal Skin: Normal Musculoskeletal: Normal Psychiatric: Normal Mood Description: Calm Affect: Normal Speech Pattern: Clear, Appropriate - Laboratory and Diagnostics Result Diagrams: 10/03/19 04:33 10/03/19 04:33 Labs: 10/01/19 09:28 Sputum - Expectorated Sputum Sputum Culture - Final Acinetobacter Baumanii/Haemoly 10/01/19 09:28 Sputum - Expectorated Sputum - Final Laboratory WBC 12.3 X10^3/uL (3.6-10.0) H 10/03/19 04:33 RBC 4.87 X10^6/uL (4.7-6.0) 10/03/19 04:33 Hgb 14.9 g/dL (13.5-18.0) 10/03/19 04:33 Hct 43.2 % (42.0-54.0) 10/03/19 04:33 MCV 88.9 fL (80.0-100.0) 10/03/19 04:33 MCH 30.5 pg (27.0-34.0) 10/03/19 04:33 MCHC 34.4 g/dL (33.0-35.0) 10/03/19 04:33 RDW 13.6 % (11.6-16.5) 10/03/19 04:33 Plt Count 269 X10^3/uL (150.0-450.0) 10/03/19 04:33 Plt Count Comment Adequate (ADEQUATE) 09/30/19 06:33 MPV 8.2 fL (7.4-11.0) 10/03/19 04:33 Neut % (Auto) 87.1 % (42.0-75.0) H 10/03/19 04:33 Lymph % (Auto) 6.7 % (21.0-51.0) L 10/03/19 04:33 [place] % (Auto) 6.2 % (0.0-13.0) 10/03/19 04:33 Eos % (Auto) 0.0 % (0.9-2.9) L 10/03/19 04:33 Baso % (Auto) 0 % (0.2-1.0) L 10/03/19 04:33 Neut # (Auto) 10.7 x10^3/uL (2.2-4.8) H 10/03/19 04:33 Lymph # (Auto) 0.8 X10^3/uL (1.3-2.9) L 10/03/19 04:33 [place] # (Auto) 0.8 x10^3/uL (0.3-0.8) 10/03/19 04:33 Eos # (Auto) 0.0 x10^3/uL (0.0-0.2) 10/03/19 04:33 Baso # (Auto) 0.0 X10^3/uL (0.0-0.1) 10/03/19 04:33 Absolute Nucleated RBC 0.0 /100WBC 10/03/19 04:33 Total Counted 100 09/30/19 06:33 Neutrophils % (Manual) 97 % (39-76) H 09/30/19 06:33 Lymphocytes % (Manual) % (13-43) 09/30/19 06:33 Monocytes % (Manual) 2 % (4-9) L 09/30/19 06:33 Eosinophils % (Manual) Fire Extinguisher Repairer Inspector 09/30/19 06:33 Plt Morphology Comment Normal (NORMAL) 09/30/19 06:33 RBC Morphology Normal (NORMAL) 09/30/19 06:33 Sodium 139 mmol/L (136-145) 10/03/19 04:33 Corrected Sodium 140 mmol/L (136-145) 10/03/19 04:33 Potassium 4.0 mmol/L (3.5-5.1) 10/03/19 04:33 Chloride 104 mmol/L (98-107) 10/03/19 04:33 Carbon Dioxide 31.4 mmol/L (21-32) 10/03/19 04:33 BUN 15 mg/dL (7-18) 10/03/19 04:33 Creatinine 0.90 mg/dL (0.70-1.30) 10/03/19 04:33 Est GFR (MDRD) Af Amer > 60 (>60) 10/03/19 04:33 Est GFR (MDRD) Non-Af > 60 (>60) 10/03/19 04:33 Glucose 161 mg/dL (65-99) H 10/03/19 04:33 Calcium 8.3 mg/dL (8.5-10.1) L 10/03/19 04:33 Corrected Calcium 9.0 mg/dL (8.5-10.1) 10/03/19 04:33 Total Bilirubin 0.40 mg/dL (0.2-1.0) 10/03/19 04:33 AST 15 Units/L (15-37) 10/03/19 04:33 ALT 32 Units/L (12-78) 10/03/19 04:33 Alkaline Phosphatase 75 Units/L (46-116) 10/03/19 04:33 Total Protein 6.0 g/dL (6.4-8.2) L 10/03/19 04:33 Albumin 3.1 g/dL (3.4-5.0) L 10/03/19 04:33 Globulin 2.9 g/dL (2.5-4.5) 10/03/19 04:33 Albumin/Globulin Ratio 1.1 Ratio (1.1-2.1) 10/03/19 04:33 - Plan (1) Pneumonia Status: Acute Qualifiers: Pneumonia type: due to other aerobic Gram-negative bacteria Laterality: unspecified laterality Lung location: unspecified part of lung Qualified Code(s): J15.6 - Pneumonia due to other Gram-negative bacteria Plan: IV LEVAQUIN, IV FORTAZ, SOLU-MEDROL, RESPIRATORY TX, SUPPLEMENTAL OXYGEN, CONTINUE TO MONITOR (2) Asthma exacerbation Status: Acute Qualifiers: Asthma severity: severe Asthma persistence: unspecified Qualified Code(s): J45.901 - Unspecified asthma with (acute) exacerbation Plan: RESPIRATORY TX, SUPPLEMENTAL OXYGEN, SOLU-MEDROL, IV FORTAZ AND LEVAQUIN, CONTINUE TO MONITOR (3) Respiratory failure with hypoxia Status: Acute Qualifiers: Chronicity: acute on chronic Qualified Code(s): J96.21 - Acute and chronic respiratory failure with hypoxia
[2019-10-03] MEDS: MERREM VIAL 1 G in NS 100 ML IV + SPIKE MINIBAG* 100 ML IV SCH ×2 (13:35→20:59)
[2019-10-03] MEDS: SINGULAIR TAB 10 MG PO SCH (20:50)
[2019-10-04] MEDS: PROVENTIL NEB TX 0.083% 2.5MG/ 3ML NEB SCH ×6 (00:55→20:40)
[2019-10-04] MEDS: MERREM VIAL 1 G in NS 100 ML IV + SPIKE MINIBAG* 100 ML IV SCH ×3 (05:23→21:24)
[2019-10-04] MEDS: SOLU-Medrol 40 MG VIAL IVP SCH ×3 (05:23→21:24)
[2019-10-04] MEDS: NS 1000 ML 1,000 ML IV SCH ×3 (05:23→18:05)
[2019-10-04 06:14] LABS: BASOPHILS % (AUTO) 0.3 % (0.2-1.0); LYMPHOCYTES # (AUTO) 0.9 X10^3/uL (1.3-2.9); LYMPHOCYTES % (AUTO) 7.1 % (21.0-51.0); MEAN CORPUSCULAR HEMOGLOBIN 29.7 pg (27.0-34.0); MEAN CORPUSCULAR HGB CONC 34.1 g/dL (33.0-35.0); MEAN CORPUSCULAR VOLUME 87.1 fL (80.0-100.0); MEAN PLATELET VOLUME 7.8 fL (7.4-11.0); MONOCYTES # (AUTO) 0.7 x10^3/uL (0.3-0.8); MONOCYTES % (AUTO) 5.3 % (0.0-13.0); NEUTROPHILS # (AUTO) 11.3 x10^3/uL (2.2-4.8); NEUTROPHILS % (AUTO) 87.3 % (42.0-75.0); PLATELET COUNT 267 X10^3/uL (150.0-450.0); RED BLOOD COUNT 5.05 X10^6/uL (4.7-6.0); WHITE BLOOD COUNT 12.9 X10^3/uL (3.6-10.0)
[2019-10-04 06:31] LABS: ALANINE AMINOTRANSFERASE 26 Units/L (12-78); ALBUMIN 2.9 g/dL (3.4-5.0); ALKALINE PHOSPHATASE 72 Units/L (46-116); ASPARTATE AMINO TRANSFERASE 11 Units/L (15-37); BLOOD UREA NITROGEN 19 mg/dL (7-18); CALCIUM 8.4 mg/dL (8.5-10.1); CARBON DIOXIDE 30.1 mmol/L (21-32); CHLORIDE 104 mmol/L (98-107); COR CA(FOR HYPOALB) 9.3 mg/dL (8.5-10.1); COR NA(FOR HYPERGLY) 139 mmol/L (136-145); CREATININE 0.83 mg/dL (0.70-1.30); SODIUM 137 mmol/L (136-145); TOTAL PROTEIN 5.8 g/dL (6.4-8.2); eGFR NON BLACK RACES > 60 (>60)
--- NOTE | 2019-10-04 06:36 | RAD ---
HISTORY: Shortness of breathStudy: Chest AP portableComparison: 10/03/2019Findings:The heart is within normal limits in size. The chuy are normal. The lungs are hyperinflated but free of acute infiltrates. No pleural effusions are identified. The bony thorax is unremarkable.IMPRESSION: Lungs remain hyperinflated but clearReported By:
[2019-10-04] MEDS: LOVENOX INJ 40 MG SYR SC SCH (08:48)
[2019-10-04] MEDS: LEVAQUIN PREMIX IV 750 MG 750 MG/150 ML BAG IV SCH (08:48)
[2019-10-04] MEDS: NORVASC TAB 5 MG PO SCH (08:49)
[2019-10-04] MEDS: PEPCID TAB 20 MG PO SCH ×2 (08:49→20:23)
[2019-10-04] MEDS: ROBITUSSIN DM PO PRN (08:49)
[2019-10-04] MEDS: PULMICORT NEB TX 0.5 MG NEB SCH ×2 (09:08→20:40)
[2019-10-04] MEDS: ROBITUSSIN DM PO SCH ×4 (10:30→20:23)
[2019-10-04] MEDS: MUCINEX DM PO SCH ×2 (10:50→20:23)
[2019-10-04] MEDS: MUCOMYST 20% 200 MG/ML NEB SCH ×4 (13:17→20:40)
[2019-10-04] MEDS: SINGULAIR TAB 10 MG PO SCH (20:23)
[2019-10-05] MEDS ORDERED: PROVENTIL NEB TX 0.083% 2.5MG/ 3ML ONE (00:08)
[2019-10-05] MEDS: PROVENTIL NEB TX 0.083% 2.5MG/ 3ML NEB SCH ×4 (00:15→12:09)
[2019-10-05] MEDS: NS 1000 ML 1,000 ML IV SCH ×2 (00:38→06:02)
[2019-10-05] MEDS: XANAX PO PRN (00:39)
[2019-10-05] MEDS: MERREM VIAL 1 G in NS 100 ML IV + SPIKE MINIBAG* 100 ML IV SCH (05:02)
[2019-10-05] MEDS: SOLU-Medrol 40 MG VIAL IVP SCH (05:02)
[2019-10-05 06:18] LABS: BASOPHILS % (AUTO) 0.1 % (0.2-1.0); HEMATOCRIT 42.2 % (42.0-54.0); HEMOGLOBIN 14.5 g/dL (13.5-18.0); LYMPHOCYTES # (AUTO) 0.7 X10^3/uL (1.3-2.9); LYMPHOCYTES % (AUTO) 4.1 % (21.0-51.0); MEAN CORPUSCULAR HEMOGLOBIN 29.8 pg (27.0-34.0); MEAN CORPUSCULAR HGB CONC 34.5 g/dL (33.0-35.0); MEAN CORPUSCULAR VOLUME 86.6 fL (80.0-100.0); MEAN PLATELET VOLUME 7.9 fL (7.4-11.0); MONOCYTES % (AUTO) 6.2 % (0.0-13.0); NEUTROPHILS # (AUTO) 14.8 x10^3/uL (2.2-4.8); NEUTROPHILS % (AUTO) 89.6 % (42.0-75.0); PLATELET COUNT 264 X10^3/uL (150.0-450.0); RED BLOOD COUNT 4.88 X10^6/uL (4.7-6.0); RED CELL DISTRIBUTION WIDTH 13.3 % (11.6-16.5); WHITE BLOOD COUNT 16.5 X10^3/uL (3.6-10.0)
[2019-10-05 06:31] LABS: ALANINE AMINOTRANSFERASE 28 Units/L (12-78); ALBUMIN 2.7 g/dL (3.4-5.0); ALKALINE PHOSPHATASE 64 Units/L (46-116); ASPARTATE AMINO TRANSFERASE 11 Units/L (15-37); BLOOD UREA NITROGEN 19 mg/dL (7-18); CALCIUM 8.1 mg/dL (8.5-10.1); CARBON DIOXIDE 27.5 mmol/L (21-32); CHLORIDE 105 mmol/L (98-107); COR CA(FOR HYPOALB) 9.1 mg/dL (8.5-10.1); COR NA(FOR HYPERGLY) 141 mmol/L (136-145); CREATININE 0.87 mg/dL (0.70-1.30); SODIUM 138 mmol/L (136-145); TOTAL PROTEIN 5.3 g/dL (6.4-8.2); eGFR NON BLACK RACES > 60 (>60)
[2019-10-05] MEDS: ROBITUSSIN DM PO SCH ×2 (08:01→13:46)
[2019-10-05] MEDS: NORVASC TAB 5 MG PO SCH (08:02)
[2019-10-05] MEDS: MUCINEX DM PO SCH (08:03)
[2019-10-05] MEDS: PEPCID TAB 20 MG PO SCH (08:04)
[2019-10-05] MEDS: LOVENOX INJ 40 MG SYR SC SCH (08:04)
[2019-10-05] MEDS: LEVAQUIN PREMIX IV 750 MG 750 MG/150 ML BAG IV SCH (08:07)
[2019-10-05] MEDS: PULMICORT NEB TX 0.5 MG NEB SCH (09:05)
[2019-10-05] MEDS: MUCOMYST 20% 200 MG/ML NEB SCH ×2 (09:05→12:09)
[2019-10-05 10:46] VITALS: BP 145/87
--- NOTE | 2019-10-05 14:46 | RAD ---
HISTORY: Shortness of breathStudy: Chest AP portableComparison: 10/04/2019Findings:The heart is within normal limits in size. The chuy are normal. The lungs are hyperinflated but free of acute alveolar infiltrates. No pleural effusions are identified. The bony thorax is unremarkable.IMPRESSION: Lungs remain hyperinflated but clearReported By:
--- NOTE | 2019-10-06 21:39 | PCM.PROG ---
Progress Note - Progress Note for Day of Date of Exam: 10/04/19 - Subjective Subjective: IS BEING TREATED FOR COPD, ASTHMA EXACERBATION, AND PNEUMONIA. TODAY, HE IS ALERT AND ORIENTED, LYING IN BED ON MORNING ROUNDS. HE CONTINUES WITH COMPLAINTS OF SHORTNESS OF BREATH AND A NON-PRODUCTIVE COUGH. ON EXAMINATION, HEART IS REGULAR IN RATE AND RHYTHM. BILATERAL LUNGS ARE NOTED WITH SCATTERED WHEEZING THROUGHOUT. ABDOMEN IS ROUND, SOFT, AND NON-TENDER WITH NORMAL BOWEL SOUNDS NOTED IN ALL QUADRANTS. HIS VITALS THIS MORNING ARE 97.8-106-20-91%-120/95. LABS WERE OBTAINED. ABNORMAL LAB VALUES INCLUDE THE FOLLOWING: WBC 12.9, BUN 19, GLUCOSE 173, CALCIUM 8.4, AST 11, TOTAL PROTEIN 5.8, ALBUMIN 2.9. SPUTUM CULTURE REPORTED GROWTH OF ACINETOBACTER BAUMANII/HAEMOLY. A CHEST XRAY WAS OBTAINED TODAY AND REVEALED: LUNGS REMAIN CLEAR. HE IS CURRENTLY RECEIVING IV FORTAZ, IV LEVAQUIN, IV STEROIDS, RESPIRATORY TREATMENTS, AMLODIPINE, AND SUPPLEMENTAL OXYGEN. TODAY, WE WILL ADD MUCINEX BID AND MUCOMYST TO NEB TX. OTHERWISE, WE WILL FOLLOW-UP WITH AM LABS AND CHEST XRAY AND CONTINUE TO MONITOR. - Past Medical Family Social History Past Med/Fam/Surg Hx: No changes since H&P Allergies: Allergies No Known Drug Allergies Allergy (Verified 09/29/19 15:46) - Review of Systems ROS: No change since H&P - Vital Signs and I&O's Vital Signs: Temperature 98.3 F Pulse Rate [Left Brachial] 98 Pulse Rate 100 Respiratory Rate 18 Blood Pressure [Right Arm] 141/91 Blood Pressure [Left Arm] 145/87 Blood Pressure 175/96 O2 Sat by Pulse Oximetry 94 Intake and Output: Intake & Output 10/04/19 10/05/19 10/06/19 10/07/19 11:59 11:59 11:59 11:59 Intake Total 2800 / 2800 4120 / 4120 Output Total 3875 / 3875 2475 / 2475 Balance -1075 / -1075 1645 / 1645 - Physical Exam Oriented: Normal Eyes: Normal Ear: Normal Nose: Normal Throat: Normal Respiratory: Generalized, Wheezes Cardiovascular: Tachycardia : Normal Auscultation: Bowel Sounds: Normal Tenderness: Normal Skin: Normal Musculoskeletal: Normal Psychiatric: Normal Mood Description: Calm Affect: Normal Speech Pattern: Clear, Appropriate - Laboratory and Diagnostics Result Diagrams: 10/05/19 05:17 10/05/19 05:17 Labs: 10/03/19 12:55 Blood Blood Culture - Preliminary 10/03/19 12:50 Blood Blood Culture - Preliminary 10/01/19 09:28 Sputum - Expectorated Sputum Sputum Culture - Final Acinetobacter Baumanii/Haemoly 10/01/19 09:28 Sputum - Expectorated Sputum - Final Laboratory WBC 16.5 X10^3/uL (3.6-10.0) H 10/05/19 05:17 RBC 4.88 X10^6/uL (4.7-6.0) 10/05/19 05:17 Hgb 14.5 g/dL (13.5-18.0) 10/05/19 05:17 Hct 42.2 % (42.0-54.0) 10/05/19 05:17 MCV 86.6 fL (80.0-100.0) 10/05/19 05:17 MCH 29.8 pg (27.0-34.0) 10/05/19 05:17 MCHC 34.5 g/dL (33.0-35.0) 10/05/19 05:17 RDW 13.3 % (11.6-16.5) 10/05/19 05:17 Plt Count 264 X10^3/uL (150.0-450.0) 10/05/19 05:17 Plt Count Comment Adequate (ADEQUATE) 09/30/19 06:33 MPV 7.9 fL (7.4-11.0) 10/05/19 05:17 Neut % (Auto) 89.6 % (42.0-75.0) H 10/05/19 05:17 Lymph % (Auto) 4.1 % (21.0-51.0) L 10/05/19 05:17 [place] % (Auto) 6.2 % (0.0-13.0) 10/05/19 05:17 Eos % (Auto) 0.0 % (0.9-2.9) L 10/05/19 05:17 Baso % (Auto) 0.1 % (0.2-1.0) L 10/05/19 05:17 Neut # (Auto) 14.8 x10^3/uL (2.2-4.8) H 10/05/19 05:17 Lymph # (Auto) 0.7 X10^3/uL (1.3-2.9) L 10/05/19 05:17 [place] # (Auto) 1.0 x10^3/uL (0.3-0.8) H 10/05/19 05:17 Eos # (Auto) 0.0 x10^3/uL (0.0-0.2) 10/05/19 05:17 Baso # (Auto) 0.0 X10^3/uL (0.0-0.1) 10/05/19 05:17 Absolute Nucleated RBC 0.0 /100WBC 10/05/19 05:17 Total Counted 100 09/30/19 06:33 Neutrophils % (Manual) 97 % (39-76) H 09/30/19 06:33 Lymphocytes % (Manual) % (13-43) 09/30/19 06:33 Monocytes % (Manual) 2 % (4-9) L 09/30/19 06:33 Eosinophils % (Manual) Adhesion Tester 09/30/19 06:33 Plt Morphology Comment Normal (NORMAL) 09/30/19 06:33 RBC Morphology Normal (NORMAL) 09/30/19 06:33 Sodium 138 mmol/L (136-145) 10/05/19 05:17 Corrected Sodium 141 mmol/L (136-145) 10/05/19 05:17 Potassium 3.3 mmol/L (3.5-5.1) L 10/05/19 05:17 Chloride 105 mmol/L (98-107) 10/05/19 05:17 Carbon Dioxide 27.5 mmol/L (21-32) 10/05/19 05:17 BUN 19 mg/dL (7-18) H 10/05/19 05:17 Creatinine 0.87 mg/dL (0.70-1.30) 10/05/19 05:17 Est GFR (MDRD) Af Amer > 60 (>60) 10/05/19 05:17 Est GFR (MDRD) Non-Af > 60 (>60) 10/05/19 05:17 Glucose 209 mg/dL (65-99) H 10/05/19 05:17 Calcium 8.1 mg/dL (8.5-10.1) L 10/05/19 05:17 Corrected Calcium 9.1 mg/dL (8.5-10.1) 10/05/19 05:17 Total Bilirubin 0.30 mg/dL (0.2-1.0) 10/05/19 05:17 AST 11 Units/L (15-37) L 10/05/19 05:17 ALT 28 Units/L (12-78) 10/05/19 05:17 Alkaline Phosphatase 64 Units/L (46-116) 10/05/19 05:17 Total Protein 5.3 g/dL (6.4-8.2) L 10/05/19 05:17 Albumin 2.7 g/dL (3.4-5.0) L 10/05/19 05:17 Globulin 2.6 g/dL (2.5-4.5) 10/05/19 05:17 Albumin/Globulin Ratio 1.0 Ratio (1.1-2.1) L 10/05/19 05:17 - Plan (1) Pneumonia Status: Acute Qualifiers: Pneumonia type: due to other aerobic Gram-negative bacteria Laterality: unspecified laterality Lung location: unspecified part of lung Qualified Code(s): J15.6 - Pneumonia due to other Gram-negative bacteria Plan: IV LEVAQUIN, IV FORTAZ, SOLU-MEDROL, RESPIRATORY TX, SUPPLEMENTAL OXYGEN, CONTINUE TO MONITOR (2) Asthma exacerbation Status: Acute Qualifiers: Asthma severity: severe Asthma persistence: unspecified Qualified Code(s): J45.901 - Unspecified asthma with (acute) exacerbation Plan: RESPIRATORY TX, SUPPLEMENTAL OXYGEN, SOLU-MEDROL, IV FORTAZ AND LEVAQUIN, CONTINUE TO MONITOR (3) Respiratory failure with hypoxia Status: Acute Qualifiers: Chronicity: acute on chronic Qualified Code(s): J96.21 - Acute and chronic respiratory failure with hypoxia
== END 2019-10-05 12:45 | disposition home or self-care (01) | DRG 177 ==
LOC: ER 04:28 → MED/SURG 04:28
PROVIDERS: ADMIT Family Medicine; ATTEND Internal Medicine
DX: J44.9 Chronic obstructive pulmonary disease, unspecified; I10 Essential (primary) hypertension; J15.6 Pneumonia due to other Gram-negative bacteria; J96.01 Acute respiratory failure with hypoxia; J45.901 Unspecified asthma with (acute) exacerbation
CPT/HCPCS: 36415; 71010; 71045; 80053; 85025; 87040; 87070; 87077; 87186; 87205; 90670; 90674; 90686; 94640; 94760; 96365; 96367; 96374; 96375; 99284; A4222; G0378; J0696; J1650; J1956; J2185; J2920; J3475; J7030; J7050; J7608; J7613; J7620; J7626

== ENCOUNTER 2022-08-24 18:11 | Inpatient (IN) ==
[2022-08-24] MEDS ORDERED: DUONEB 0.5 MG/3 MG (3 mL) NEB ONE ×4 (18:27→20:55)
[2022-08-24] MEDS ORDERED: SOLU-Medrol 40 MG VIAL IVP ONE (18:27)
--- NOTE | 2022-08-24 18:35 | DR.GENAD ---
HPI Time Seen Time Seen by Provider: 08/24/22 18:26 PCP Primary Care Physician: GÓMEZ HPI Comment HPI Comment: A 52 y/o male presents with worsening Asthma symptoms/wheezing since 6 days ago. He has no fever. He has been using his inhaler, oral steroids and antibiotics with no relief. Complaint/Symptoms Chief Complaint:: PT STATES HE HAS BEEN HAVING AN ASTHMA ATTACK X3 DAYS; HE HAS GOTTEN PREDNISONE AND ATB FROM PHARMACY "A COUPLE DAYS AGO" WITH NO RELIEF. DID NOT CALL PCP OFFICE. PRESENTS WITH LABORED BREATHING, O2 SAT 92%. PT STATES " I CAN'T GET ANY AIR TO MOVE IN OR OUT" AND IS C/O CP W/ HEAVY BREATHING. DRY COUGH Self Treatment fo Chief Complaint: INHALER, PREDNISONE, ANTIBIOTIC WITH NO RELIEF COVID-19 Coronavirus risk:travel/contact w/high risk person: No Has patient experienced Coronavirus symptoms: Yes Coronavirus symptoms experienced: Coughing and Shortness of Breath Nurses notes reviewed Nurses Notes Review: Yes Source History Provided: Patient Mode of Arrival Mode of Arrival: Ambulatory Timing Onset of Chief Complaint: 08/21/22 PMH PMH Past Medical History: Yes Past Medical History: Asthma, COPD and Hypertension Past Surgical History: No Surgical History: No History Family History History of Family Medical Conditions: Yes Family Medical History: [place], Coronary Artery Disease and Hypertension Social History Does any household member use tobacco: No Alcohol Use: None Do you use any recreational Drugs:: No Lives With: Alone Lives Where: Home Travel Risk Coronavirus risk:travel/contact w/high risk person: No Has patient experienced Coronavirus symptoms: Yes Coronavirus symptoms experienced: Coughing and Shortness of Breath Infectious screening In the last 2 months have you had wt loss of >10#?: NO Have you had fever, night sweats or hemotysis?: No Have you traveled outside the country in the last 6 months?: No Isolation: Standard ROS Review of Systems Constitutional: No Symptoms Reported Eyes: No Symptoms Reported ENTM: No Symptoms Reported Respiratoy: Non-Productive Cough, Short of Breath and Wheezing Cardiovascular: No Symptoms Reported Gastrointestinal/Abdominal: No Symptoms Reported Genitourinary: No Symptoms Reported Neurological: No Symptoms Reported Musculoskeletal: No Symptoms Reported Integumentary: No Symptoms Reported Hematologic/Lymphatic: No Symptoms Reported Endocrine: No Symptoms Reported Psychiatric: No Symptoms Reported All Other Systems: Reviewed and Negative PE Vital Signs Vitals: Temperature 97.9 F Pulse Rate 121 Respiratory Rate 28 Blood Pressure [Right Arm] 141/91 Blood Pressure [Left Arm] 145/87 Blood Pressure 174/108 O2 Sat by Pulse Oximetry 93 General Limitations: No Limitations General Appearance: Alert and In Distress Head Head Exam: Normal Inspection, Atraumatic and Normocephalic Eyes Eye exam: Normal Appearance and EOMI ENT ENT Exam: Normal Exam, Normal Oropharynx, Normal External Ear Exam and Mucous Membranes Moist Neck Neck Exam: Normal Inspection, Full ROM and Trachea Midline Chest Chest Inspection: Normal Inspection and Symmetric Chest Wall Rise Respiratory Respiratory Exam: Accessory Muscle Use, Respiratory Distress and Other (tachypneic) Respiratory Exam: Bilateral: Wheezing Cardiovascular Cardiovascular Exam: Regular Rate, Normal Rhythm, Normal Heart Sounds, +S1 and +S2 Abdominal Exam Abdominal Exam: Normal Inspection, Normal Bowel Sounds and Soft Extremities Extremities Exam: Normal Inspection and Full ROM Back Back Exam: Normal Inspection and Full ROM Neurologic Neurological Exam: Alert and Oriented X3 Psychiatric Psychiatric Exam: Normal Affect and Normal Mood Skin Skin Exam: Dry, Intact and Normal Color COURSE Treatment Treatment: Clinical impression and diagnostic test results were discussed with him. He had a dose of Duoneb with significant imrovement in his respiratory status but he was still with residual wheezing. A 2nd dose has been ordered for him. His presentation and findings were discussed with occupational safety specialist provider (Dr. Woody), who agrees to the admission recommendation. Cultures have been oredered. He had a dose of IV Solumedrrol in the ED. Abx. was oredered and admit orders have been completed. Reevaluation 1st: Improved Education/Counseling Education/Counseling: Patient, Education and Counseling Educated On: Treatment, Diagnosis and Prognosis ROR Labs Reviewed Result Diagrams: 08/24/22 18:40 08/24/22 18:40 Laboratory: 08/24/22 18:35 Sputum - Expectorated Sputum - Final WBC 15.3 X10^3/uL (3.6-10.0) H 08/24/22 18:40 RBC 6.06 X10^6/uL (4.7-6.0) H 08/24/22 18:40 Hgb 17.7 g/dL (13.5-18.0) 08/24/22 18:40 Hct 51.1 % (42.0-54.0) 08/24/22 18:40 MCV 84.2 fL (80.0-100.0) 08/24/22 18:40 MCH 29.2 pg (27.0-34.0) 08/24/22 18:40 MCHC 34.6 g/dL (33.0-35.0) 08/24/22 18:40 RDW 13.3 % (11.6-16.5) 08/24/22 18:40 Plt Count 348 X10^3/uL (150.0-450.0) 08/24/22 18:40 MPV 7.7 fL (7.4-11.0) 08/24/22 18:40 Neut % (Auto) 62.7 % (42.0-75.0) 08/24/22 18:40 Lymph % (Auto) 22.3 % (21.0-51.0) 08/24/22 18:40 [place] % (Auto) 8.4 % (0.0-13.0) 08/24/22 18:40 Eos % (Auto) 5.9 % (0.9-2.9) H 08/24/22 18:40 Baso % (Auto) 0.7 % (0.2-1.0) 08/24/22 18:40 Neut # (Auto) 9.6 x10^3/uL (2.2-4.8) H 08/24/22 18:40 Lymph # (Auto) 3.4 X10^3/uL (1.3-2.9) H 08/24/22 18:40 [place]inson # (Auto) 1.3 x10^3/uL (0.3-0.8) H 08/24/22 18:40 Eos # (Auto) 0.9 x10^3/uL (0.0-0.2) H 08/24/22 18:40 Baso # (Auto) 0.1 X10^3/uL (0.0-0.1) 08/24/22 18:40 Absolute Nucleated RBC 0.1 /100WBC 08/24/22 18:40 Sample Site Rrad 08/24/22 18:31 ABG pH 7.390 (7.35-7.45) 08/24/22 18:31 ABG pCO2 45.0 mmHg (35.0-45.0) 08/24/22 18:31 ABG pO2 52.0 mmHg (80.0-100.0) L 08/24/22 18:31 ABG HCO3 27.2 mmol/L (22-26) H 08/24/22 18:31 ABG O2 Saturation 86.0 % (90-100) L 08/24/22 18:31 ABG Base Excess 1.8 mmol/L (-2.0-2.0) 08/24/22 18:31 Mian Test Pos 08/24/22 18:31 A-a Gradient 41.0 mmHg 08/24/22 18:31 FiO2 21.0 08/24/22 18:31 Blood Gas Comments Pt demetria well elj 08/24/22 18:31 Sodium 146 mmol/L (136-145) H 08/24/22 18:40 Corrected Sodium 148 mmol/L (136-145) H 08/24/22 18:40 Potassium 3.7 mmol/L (3.5-5.1) 08/24/22 18:40 Chloride 105 mmol/L (98-107) 08/24/22 18:40 Carbon Dioxide 29.7 mmol/L (21-32) 08/24/22 18:40 BUN 22 mg/dL (7-18) H 08/24/22 18:40 Creatinine 1.16 mg/dL (0.70-1.30) 08/24/22 18:40 Est GFR (MDRD) Af Amer > 60 (>60) 08/24/22 18:40 Est GFR (MDRD) Non-Af > 60 (>60) 08/24/22 18:40 Glucose 171 mg/dL (65-99) H 08/24/22 18:40 Calcium 8.7 mg/dL (8.5-10.1) 08/24/22 18:40 Corrected Calcium TNP 08/24/22 18:40 Total Bilirubin 0.50 mg/dL (0.2-1.0) 08/24/22 18:40 AST 14 Units/L (15-37) L 08/24/22 18:40 ALT 30 Units/L (12-78) 08/24/22 18:40 Alkaline Phosphatase 84 Units/L (46-116) 08/24/22 18:40 Total Protein 4.2 g/dL (6.4-8.2) L 08/24/22 18:40 Albumin 3.6 g/dL (3.4-5.0) 08/24/22 18:40 Globulin 0.6 g/dL (2.5-4.5) L 08/24/22 18:40 Albumin/Globulin Ratio 6.0 Ratio (1.1-2.1) H 08/24/22 18:40 Opioid Opioid Risk Tool Personal Hx of Substance Abuse: Illegal Drugs Age (Marshal box if 16-45): No History of Preadolescent Sexual Abuse: No Total: 0 Total Score Risk Category: Low Risk Copyright: Corona LARRY predicting aberrant behaviors Discharge Plan Diagnosis Discharge Problem: COPD exacerbation, Acute bronchospasm, Hypertension, uncontrolled Discharge Plan Patient Disposition: ADMITTED INPATIENT Condition: Stable Prescriptions: No Action methylprednisolone [Medrol (Lonny)] 4 mg Tablets,Dose Pack See Rx Instructions .ROUTE .COMPLEX Rx Instructions: started Monday08/19/22 Health Concerns: Post Hospitalization: new medications and changes needed to prevent readmission or further decline. Pt educated and given instructions on all concerns. Plan of Treatment: Continue with present treatment and follow up plan. Pt is to keep follow up appointment as instructed and take medications as ordered. Orders to Discharge Patient Discharge Orders: Transfer (Routine); Ordered 08/24/22 Ordered By: SRAVANI KELLEY Follow ups/Referrals Follow ups/Referrals: Crispin Woody [Primary Care Provider] - 3 days Instructions Stand Alone Forms: Precautions for COVID19, [facility], Patient Portal, Social Distancing
[2022-08-24] MEDS ORDERED: SOLU-Medrol 40 MG VIAL ONE (18:36)
[2022-08-24 18:38] LABS: ABG ALLEN TEST POS; ABG BASE EXCESS 1.8 mmol/L (-2.0-2.0); ABG HCO3 27.2 mmol/L (22-26)
[2022-08-24 18:51] LABS: BASOPHILS # (AUTO) 0.1 X10^3/uL (0.0-0.1); BASOPHILS % (AUTO) 0.7 % (0.2-1.0); EOSINOPHILS # (AUTO) 0.9 x10^3/uL (0.0-0.2); EOSINOPHILS % (AUTO) 5.9 % (0.9-2.9); HEMATOCRIT 51.1 % (42.0-54.0); HEMOGLOBIN 17.7 g/dL (13.5-18.0); LYMPHOCYTES # (AUTO) 3.4 X10^3/uL (1.3-2.9); LYMPHOCYTES % (AUTO) 22.3 % (21.0-51.0); MEAN CORPUSCULAR HEMOGLOBIN 29.2 pg (27.0-34.0); MEAN CORPUSCULAR HGB CONC 34.6 g/dL (33.0-35.0); MEAN CORPUSCULAR VOLUME 84.2 fL (80.0-100.0); MEAN PLATELET VOLUME 7.7 fL (7.4-11.0); MONOCYTES # (AUTO) 1.3 x10^3/uL (0.3-0.8); MONOCYTES % (AUTO) 8.4 % (0.0-13.0); NEUTROPHILS # (AUTO) 9.6 x10^3/uL (2.2-4.8); NEUTROPHILS % (AUTO) 62.7 % (42.0-75.0); RED BLOOD COUNT 6.06 X10^6/uL (4.7-6.0); RED CELL DISTRIBUTION WIDTH 13.3 % (11.6-16.5); WHITE BLOOD COUNT 15.3 X10^3/uL (3.6-10.0)
[2022-08-24 19:02] LABS: ALANINE AMINOTRANSFERASE 30 Units/L (12-78); ALBUMIN 3.6 g/dL (3.4-5.0); ALKALINE PHOSPHATASE 84 Units/L (46-116); ASPARTATE AMINO TRANSFERASE 14 Units/L (15-37); BLOOD UREA NITROGEN 22 mg/dL (7-18); CALCIUM 8.7 mg/dL (8.5-10.1); CARBON DIOXIDE 29.7 mmol/L (21-32); CHLORIDE 105 mmol/L (98-107); COR NA(FOR HYPERGLY) 148 mmol/L (136-145); CREATININE 1.16 mg/dL (0.70-1.30); SODIUM 146 mmol/L (136-145); TOTAL PROTEIN 4.2 g/dL (6.4-8.2); eGFR NON BLACK RACES > 60 (>60)
[2022-08-24] MEDS ORDERED: CATAPRES TAB 0.1 MG PO ONE ×2 (20:09→20:51)
[2022-08-24] MEDS ORDERED: CATAPRES TAB 0.1 MG ONE ×2 (20:12→20:51)
[2022-08-24] MEDS ORDERED: NS 1,000 ML IV 1,000 ML ONE (20:29)
[2022-08-24] MEDS ORDERED: LEVAQUIN PREMIX IV 500 MG 500 MG/100 ML BAG IV ONE (20:29)
[2022-08-24] MEDS ORDERED: LEVAQUIN PREMIX IV 500 MG 500 MG/100 ML BAG IV SCH (20:30)
[2022-08-24] MEDS ORDERED: NS 1,000 ML IV 1,000 ML IV SCH (21:00)
[2022-08-24] MEDS: DUONEB 0.5 MG/3 MG (3 mL) NEB SCH (21:11)
[2022-08-24] MEDS: NS 1,000 ML IV 1,000 ML IV SCH (21:28)
[2022-08-24] MEDS ORDERED: NORVASC TAB 5 MG ONE (21:31)
[2022-08-24] MEDS: NORVASC TAB 10 MG PO SCH (21:33)
[2022-08-24] MEDS ORDERED: APRESOLINE INJ 20 MG VIAL ONE (21:46)
[2022-08-24] MEDS ORDERED: APRESOLINE INJ 20 MG VIAL IVP ONE (21:46)
[2022-08-24 22:26] VITALS: BMI 20.6
[2022-08-24] MEDS ORDERED: TYLENOL 325 MG TAB PO PRN (23:14)
--- NOTE | 2022-08-24 23:51 | RAD ---
HISTORYASTHMA ATTACK.br Relevant Clinical InformationSTUDYCHEST, 1 [id number]/24/2021.FINDINGSThe trachea is midline. The cardiac silhouette is unremarkable. The lungs are clear without focal infiltrate or effusion. The bony thorax is unremarkable.IMPRESSIONNo acute cardiopulmonary findings .Electronically signed by: Adan Vega (Aug 24, 2022 23:50:37)
[2022-08-25] MEDS: DUONEB 0.5 MG/3 MG (3 mL) NEB SCH ×6 (00:52→20:30)
[2022-08-25] MEDS: NS 1,000 ML IV 1,000 ML IV SCH ×3 (04:21→21:47)
[2022-08-25 06:04] LABS: BASOPHILS % (AUTO) 0.4 % (0.2-1.0); EOSINOPHILS % (AUTO) 0.1 % (0.9-2.9); HEMATOCRIT 48.5 % (42.0-54.0); HEMOGLOBIN 16.9 g/dL (13.5-18.0); LYMPHOCYTES # (AUTO) 0.9 X10^3/uL (1.3-2.9); LYMPHOCYTES % (AUTO) 8.1 % (21.0-51.0); MEAN CORPUSCULAR HEMOGLOBIN 29.2 pg (27.0-34.0); MEAN CORPUSCULAR HGB CONC 34.9 g/dL (33.0-35.0); MEAN CORPUSCULAR VOLUME 83.6 fL (80.0-100.0); MEAN PLATELET VOLUME 8.1 fL (7.4-11.0); MONOCYTES # (AUTO) 0.2 x10^3/uL (0.3-0.8); MONOCYTES % (AUTO) 2.3 % (0.0-13.0); NEUTROPHILS # (AUTO) 9.5 x10^3/uL (2.2-4.8); NEUTROPHILS % (AUTO) 89.1 % (42.0-75.0); RED BLOOD COUNT 5.79 X10^6/uL (4.7-6.0); RED CELL DISTRIBUTION WIDTH 13.6 % (11.6-16.5); WHITE BLOOD COUNT 10.7 X10^3/uL (3.6-10.0)
[2022-08-25 06:05] LABS: BLOOD UREA NITROGEN 16 mg/dL (7-18); CALCIUM 8.5 mg/dL (8.5-10.1); CARBON DIOXIDE 23.6 mmol/L (21-32); CHLORIDE 105 mmol/L (98-107); COR NA(FOR HYPERGLY) 142 mmol/L (136-145); SODIUM 141 mmol/L (136-145); eGFR NON BLACK RACES > 60 (>60)
[2022-08-25] MEDS: PULMICORT NEB TX 0.5 MG NEB SCH ×2 (08:15→20:30)
[2022-08-25] MEDS: NORVASC TAB 10 MG PO SCH (09:05)
[2022-08-25] MEDS: SOLU-Medrol 40 MG VIAL IVP SCH ×3 (09:05→21:51)
--- NOTE | 2022-08-25 12:00 | DR.H&P ---
H&P - History & Physical for Day of: H&P Date: 08/24/22 - Chief Complaint Chief Complaint: SOB, COUGH, WHEEZING - History of Present Illness History of Present Illness: IS A 52 YEAR OLD PATIENT OF OURS WHO PRESENTED TO THE EMERGENCY ROOM WITH COMPLAINTS OF SHORTNESS OF BREATH, COUGH, AND WHEEZING X 6 DAYS. HE REPORTS A HISTORY OF ASTHMA AND COPD AT HOME. HE IS NOT COMPLIANT WITH MEDICATIONS ON A NORMAL BASIS, HOWEVER, HE DID REPORT USING HIS INHALER AT HOME PRIOR TO ARRIVAL WITHOUT IMPROVEMENT IN SYMTOMS. HE ALSO REPORTS THAT HE RECEIVED PREDNISONE AND AN ANTIBIOTIC FROM HIS PHARMACY 2 DAYS AGO. ON EXAMINATION, HE IS NOTED WITH SCATTERED WHEEZING. ON ARRIVAL, VITALS WERE 97.9-115-28-92%-149/96. LABS WERE OBTAINED. WBC 15.3, RBC 6.06, HGB 17.7, HCT 51.1, SODIUM 146, POTASSIUM 3.7, CHLORIDE 105, CARBON DIOXIDE 29.7, BUN 22, CREATININE 1.16, GLUCOSE 171, CALCIUM 8.7, AST 14, ALT 30, ALK PHOS 84, TOTAL PROTEIN 4.2, ALBUMIN 3.6. ABG OBTAINED AND REVEALED: PH 7.390, PC02 45, P02 52, HC03 27.2, 02 SAT 86, A-A GRADIENT 41, FI02 21.0. CHEST XRAY WAS OBTAINED AND REVEALED: The trachea is midline. The cardiac silhouette is unremarkable. The lungs are clear without focal infiltrate or effusion. The bony thorax is unremarkable. WHILE IN THE ER, BLOOD PRESSURE INCREASED TO 184/107. HE WAS GIVEN CATAPRES 0.1MG PO X 1. BLOOD PRESSURE ONLY DECREASED TO 171/101. HE WAS GIVEN AN ADDITIONAL CATAPRES 0.1MG. BLOOD PRESSURE REMAINED ELEVATED AT 155/101. HE WAS THEN GIVEN APRESOLINE 10MG IV X 1. ADDITIONALLY, HE WAS GIVEN A DUONEB X 1, SOLU-MEDROL 80MG IV X 1 DOSE, LEVAQUIN 500MG IV X 1 IN THE ER. HE WAS ADMITTED TO THE HOSPITAL FOR FURTHER EVALUATION AND TREATMENT OF AN ASTHMA BRONCHOSPASM, COPD EXACERBATION, AND HTN. HE WAS STARTED ON LEVAQUIN 500MG IV DAILY, DUONEBS Q4H, PULMICORT TX BID, SOLU-MEDROL 80MG IV Q8H, NORVASC 10MG PO DAILY, AND NORMAL SALINE AT 125ML/HR. OTHERWISE, WE PLAN TO FOLLOW-UP WITH AM LABS AND CHEST XRAY AND CONTINUE TO MONITOR. TIME SPENT ON CLINICAL ASSESSMENT, REVIWING LABS AND IMAGING, DECISION MAKING, AND DOCUMENTATION GREATER THAN 75 MINUTES. - Past Medical History Past Medical History: Hypertension, COPD, Asthma - Past Surgical History Surgical History: No History - Family History Family Medical History: Heart Failure, Sudden Cardiac , Hypertension - Social History Does any household member use tobacco: No Alcohol Use: None Drug Use: None - Medications Home Medications: No Known Drug Allergies Allergy (Verified 06/15/21 14:23) CONTINUE taking the following medications methylprednisolone 4 mg tablets in a dose pack (Medrol (Lonny)) See Rx Instructions .Route .COMPLEX 08/24/22 [History] - Review of Systems Constitutional: Weakness Eyes: No Symptoms Reported ENT: No Symptoms Reported Respiratory: Cough, Shortness of Breath, SOB with Excertion, Sputum, Wheezing Cardiovascular: No Symptoms Reported Gastrointestinal: No Symptoms Reported Genitourinary: No Symptoms Reported Musculoskeletal: No Symptoms Reported Skin: No Symptoms Reported Neurological: Weakness - Physical Exam Vital Signs: Temperature 98.0 F Pulse Rate [Left Brachial] 95 Pulse Rate 70 Respiratory Rate 19 Blood Pressure [Right Arm] 134/96 Blood Pressure [Left Arm] 155/101 Blood Pressure 171/107 O2 Sat by Pulse Oximetry 96 Oriented: Normal Eyes: Normal Ear: Normal Nose: Normal Throat: Normal Respiratory: Wheezes Throughout Cardiovascular: Tachycardia : Normal Auscultation: Bowel Sounds: Normal Palpation: Normal Tenderness: Normal Skin: Normal Musculoskeletal: Normal Psychiatric: Normal Mood Description: Calm Affect: Normal Speech Pattern: Clear - Assessment/Plan (1) COPD with acute bronchitis Status: Acute Plan: ADMIT, SUPPLEMENTAL OXYGEN, LEVAQUIN 500MG IV DAILY, DUONEBS Q4H, PULMICORT TX BID, SOLU-MEDROL 80MG IV Q8H, NORVASC 10MG PO DAILY, AND NORMAL SALINE AT 125ML/HR. (2) Acute bronchospasm Status: Acute (3) Hypertension, uncontrolled Status: Acute - Allergies Allergies/Adverse Reactions: Allergies Allergy/AdvReac Type Severity Reaction Status Date / Time No Known Drug Allergies Allergy Verified 06/15/21 14:23
[2022-08-25] MEDS: ROBITUSSIN DM PO PRN (21:50)
[2022-08-25] MEDS ORDERED: LEVAQUIN PREMIX IV 500 MG 500 MG/100 ML BAG IV SCH (22:00)
[2022-08-26] MEDS: DUONEB 0.5 MG/3 MG (3 mL) NEB SCH ×3 (00:35→08:23)
[2022-08-26] MEDS: NS 1,000 ML IV 1,000 ML IV SCH (05:04)
[2022-08-26] MEDS: SOLU-Medrol 40 MG VIAL IVP SCH (05:05)
--- NOTE | 2022-08-26 05:13 | RAD ---
HISTORYSOB HX: HTN, ASTHMA, COPDSTUDYCHEST, 1 [id number]/02/2022FINDINGSThe trachea is midline. The cardiac silhouette is unremarkable. The lungs are clear without focal infiltrate or effusion. The bony thorax is unremarkable.IMPRESSIONNo acute cardiopulmonary findings .Electronically signed by: Arthur Darden (Aug 26, 2022 05:11:55)
[2022-08-26 06:28] LABS: BASOPHILS # (AUTO) 0.1 X10^3/uL (0.0-0.1); BASOPHILS % (AUTO) 0.5 % (0.2-1.0); EOSINOPHILS % (AUTO) 0.1 % (0.9-2.9); HEMOGLOBIN 15.4 g/dL (13.5-18.0); LYMPHOCYTES # (AUTO) 0.9 X10^3/uL (1.3-2.9); LYMPHOCYTES % (AUTO) 4.1 % (21.0-51.0); MEAN CORPUSCULAR HEMOGLOBIN 29.3 pg (27.0-34.0); MEAN CORPUSCULAR VOLUME 83.8 fL (80.0-100.0); MEAN PLATELET VOLUME 8.2 fL (7.4-11.0); MONOCYTES # (AUTO) 0.4 x10^3/uL (0.3-0.8); MONOCYTES % (AUTO) 1.8 % (0.0-13.0); NEUTROPHILS # (AUTO) 21.6 x10^3/uL (2.2-4.8); NEUTROPHILS % (AUTO) 93.5 % (42.0-75.0); RED BLOOD COUNT 5.25 X10^6/uL (4.7-6.0); RED CELL DISTRIBUTION WIDTH 13.2 % (11.6-16.5); WHITE BLOOD COUNT 23.1 X10^3/uL (3.6-10.0)
[2022-08-26 06:40] LABS: ALANINE AMINOTRANSFERASE 23 Units/L (12-78); ALBUMIN 3.1 g/dL (3.4-5.0); ALKALINE PHOSPHATASE 73 Units/L (46-116); ASPARTATE AMINO TRANSFERASE 8 Units/L (15-37); BLOOD UREA NITROGEN 14 mg/dL (7-18); CALCIUM 8.2 mg/dL (8.5-10.1); CARBON DIOXIDE 26.7 mmol/L (21-32); CHLORIDE 108 mmol/L (98-107); COR CA(FOR HYPOALB) 8.9 mg/dL (8.5-10.1); COR NA(FOR HYPERGLY) 146 mmol/L (136-145); CREATININE 0.93 mg/dL (0.70-1.30); SODIUM 144 mmol/L (136-145); TOTAL PROTEIN 5.8 g/dL (6.4-8.2); eGFR NON BLACK RACES > 60 (>60)
[2022-08-26 07:14] LABS: PLATELET MORPHOLOGY COMMENT NORMAL (NORMAL)
[2022-08-26] MEDS: PULMICORT NEB TX 0.5 MG NEB SCH (08:23)
[2022-08-26] MEDS: ROBITUSSIN DM PO PRN (09:25)
[2022-08-26] MEDS: NORVASC TAB 10 MG PO SCH (09:25)
[2022-08-26 10:43] VITALS: BP 142/78
== END 2022-08-26 12:38 | disposition home or self-care (01) | DRG 191 ==
LOC: ER 18:11 → MED/SURG 20:42
PROVIDERS: ADMIT Internal Medicine; ATTEND Internal Medicine
DX: R06.02 Shortness of breath; J98.01 Acute bronchospasm; E87.1 Hypo-osmolality and hyponatremia; I10 Essential (primary) hypertension; J44.1 Chronic obstructive pulmonary disease with (acute) exacerbation

== ENCOUNTER 2022-11-16 09:01 | Observation (INO) ==
[2022-11-16] MEDS ORDERED: XOPENEX 1.25 MG/3 ML NEBULE NEB ONE ×2 (09:06→09:13)
[2022-11-16 09:08] VITALS: BMI 23.6
[2022-11-16] MEDS ORDERED: SOLU-Medrol 125 MG VIAL ONE (09:12)
[2022-11-16] MEDS ORDERED: NS 1,000 ML IV 1,000 ML ONE (09:12)
[2022-11-16] MEDS ORDERED: NS 500 ML IV 500 ML IV ONE (09:13)
[2022-11-16] MEDS ORDERED: SOLU-Medrol 125 MG VIAL IVP ONE (09:13)
--- NOTE | 2022-11-16 09:15 | DR.SOBA ---
HPI Time Seen Time Seen by Provider: 11/16/22 09:13 Primary Care Physician Primary Care Physician: GÓMEZ RAUSCH HPI Comment HPI Comment: Pt. is a 52 y/o male presenting to the ED with c/o SOB x 3 days. He has a mixed cough and denies fever. He was seen in the ED here for same yesterday. He had ran out of his inhaler for home use. COVID, FLU, RSV and CXR were negative. He was sent home with rx. for Z-Lonny, steroids and MDI. He denies hx. of Nicotine use. Complaints Chief Complaint:: PT SEEN IN ER ON 11/15/22 FOR SOB ,PT REPORT THIS AM WAKING UP WITH SOB COUGHING UP CLEAR SPUTUM EXP WHEEZES NOTED PT IS VERY ANXIOUS ,,BR Self Treatment fo Chief Complaint: ALBUTEROL HHN COVID-19 Coronavirus risk:travel/contact w/high risk person: No Has patient experienced Coronavirus symptoms: No Source History Provided: Patient Mode of Arrival Mode of Arrival: Ambulatory Timing Onset of Chief Complaint: 11/16/22 Context Onset:: At Rest and With Light Exertion PE Risk Factors:: None History of:: COPD Currently on:: Inhaled Bronchodilators Modifying Factors Worsens:: Exertion Improves:: Nothing Associated Signs and Symptoms Associated Signs and Symptoms: Wheeze and Cough If Cough Cough: Nonproductive and Productive PMH PMH Past Medical History: Yes Past Medical History: Asthma, COPD and Hypertension Past Surgical History: Yes Surgical History: No History Family History History of Family Medical Conditions: Yes Family Medical History: Heart Failure, Sudden Cardiac and Hypertension Social History Does patient currently use any type of tobacco product: No Have you used tobacco products in the last 12 months: No Type of Tobacco Use: None Does any household member use tobacco: No Alcohol Use: None Do you use any recreational Drugs:: No Lives With: Family Lives Where: Home Travel Risk Coronavirus risk:travel/contact w/high risk person: No Has patient experienced Coronavirus symptoms: No Infectious screening In the last 2 months have you had wt loss of >10#?: NO Have you had fever, night sweats or hemotysis?: No Have you traveled outside the country in the last 6 months?: No Isolation: Respiratory ROS Review of Systems Constitutional: No Symptoms Reported Eyes: No Symptoms Reported ENTM: No Symptoms Reported Respiratoy: Productive Cough, Non-Productive Cough, Short of Breath and Wheezing Cardiovascular: No Symptoms Reported Gastrointestinal/Abdominal: No Symptoms Reported Genitourinary: No Symptoms Reported Neurological: No Symptoms Reported Musculoskeletal: No Symptoms Reported Integumentary: No Symptoms Reported Hematologic/Lymphatic: No Symptoms Reported Endocrine: No Symptoms Reported Psychiatric: No Symptoms Reported All Other Systems: Reviewed and Negative PE Vital Signs Vitals: Temperature 98.6 F Pulse Rate 107 Respiratory Rate 24 Blood Pressure [Right Arm] 142/78 Blood Pressure [Left Arm] 155/101 Blood Pressure 145/102 O2 Sat by Pulse Oximetry 95 General Limitations: No Limitations General Appearance: Alert and In No Apparent Distress Head Head Exam: Normal Inspection, Atraumatic and Normocephalic Eyes Eye exam: Normal Appearance and EOMI ENT ENT Exam: Normal Exam, Normal Oropharynx and Normal External Ear Exam Neck Neck Exam: Normal Inspection, Full ROM and Trachea Midline Chest Chest Inspection: Normal Inspection and Symmetric Chest Wall Rise Respiratory Respiratory Exam: Normal Lung Sounds Bilat and Accessory Muscle Use Respiratory Exam: Bilateral: Wheezing and Bilateral: Rhonchi Cardiovascular Cardiovascular Exam: Normal Rhythm, Tachycardia, Normal Heart Sounds, +S1 and +S2 Abdominal Exam Abdominal Exam: Normal Inspection, Normal Bowel Sounds and Soft Extremities Extremities Exam: Normal Inspection and Full ROM Back Back Exam: Normal Inspection and Full ROM Neurologic Neurological Exam: Alert and Oriented X3 Psychiatric Psychiatric Exam: Normal Affect and Normal Mood Skin Skin Exam: Dry, Intact and Normal Color MDM Additional Information Obtained Additional Information Obtained From: Old Records Differential Diagnosis Differential Diagnosis: COPD and Panic Attack COURSE Treatment Treatment: His labs. from this visit were reviewed with him. I spoke with his PCP about this visit (3rd visit ths month) and it was agreed to place him in house for treatment. The pt. was so informed and admit orders were written. Reevaluation 1st: Improved ROR Labs Reviewed Laboratory Results Reviewed?: Yes Result Diagrams: 11/16/22 09:23 11/16/22 09:23 Laboratory: WBC 13.4 X10^3/uL (3.6-10.0) H 11/16/22 09:23 RBC 5.93 X10^6/uL (4.7-6.0) 11/16/22 09:23 Hgb 17.0 g/dL (13.5-18.0) 11/16/22 09:23 Hct 49.8 % (42.0-54.0) 11/16/22 09: MCV 84.0 fL (80.0-100.0) 11/16/22 09: MCH 28.7 pg (27.0-34.0) 11/16/22: MCHC 34.2 g/dL (33.0-35.0) 11/16/22: RDW 13.3 % (11.6-16.5) 11/16/22: Plt Count 294 X10^3/uL (150.0-450.0) 11/16/22 09: MPV 7.8 fL (7.4-11.0) 11/16/22 09: Neut % (Auto) 69.1 % (42.0-75.0) 11/16/22 09: Lymph % (Auto) 21.7 % (21.0-51.0) 11/16/22 09: Eddy % (Auto) 6.1 % (0.0-13.0) 11/16/22 09: Eos % (Auto) 1.6 % (0.9-2.9) 11/16/22 09: Baso % (Auto) 1.5 % (0.2-1.0) H 11/16/22: Neut # (Auto) 9.3 x10^3/uL (2.2-4.8) H 11/16/22 09:23 Lymph # (Auto) 2.9 X10^3/uL (1.3-2.9) 11/16/22 09: Eddy # (Auto) 0.8 x10^3/uL (0.3-0.8) 11/16/22 09: Eos # (Auto) 0.2 x10^3/uL (0.0-0.2) 11/16/22 09: Baso # (Auto) 0.2 X10^3/uL (0.0-0.1) H 11/16/22 09: Absolute Nucleated RBC 0.1 /100WBC 11/16/22 09: Sodium 140 mmol/L (136-145) 11/16/22 09: Corrected Sodium 142 mmol/L (136-145) 11/16/22 09:23 Potassium 3.4 mmol/L (3.5-5.1) L 11/16/22 09:23 Chloride 104 mmol/L (98-107) 11/16/22 09:23 Carbon Dioxide 29.7 mmol/L (21-32) 11/16/22 09:23 BUN 14 mg/dL (7-18) 11/16/22 09:23 Creatinine 1.30 mg/dL (0.70-1.30) 11/16/22 09:23 Est GFR (MDRD) Af Amer > 60 (>60) 11/16/22 09:23 Est GFR (MDRD) Non-Af > 60 (>60) 11/16/22 09:23 Glucose 164 mg/dL (65-99) H 11/16/22 09:23 Calcium 8.8 mg/dL (8.5-10.1) 11/16/22 09:23 Corrected Calcium TNP 11/16/22 09:23 Total Bilirubin 0.50 mg/dL (0.2-1.0) 11/16/22 09:23 AST 17 Units/L (15-37) 11/16/22 09:23 ALT 22 Units/L (12-78) 11/16/22 09:23 Alkaline Phosphatase 77 Units/L (46-116) 11/16/22 09:23 Total Protein 6.7 g/dL (6.4-8.2) 11/16/22 09:23 Albumin 3.6 g/dL (3.4-5.0) 11/16/22 09:23 Globulin 3.1 g/dL (2.5-4.5) 11/16/22 09:23 Albumin/Globulin Ratio 1.2 Ratio (1.1-2.1) 11/16/22 09:23 EKG [place]: Normal Rhythm: NSR Block: None Hypertrophy: None ST: Normal Opioid Opioid Risk Tool Personal Hx of Substance Abuse: Illegal Drugs Age (Marshal box if 16-45): No History of Preadolescent Sexual Abuse: No Total: 0 Total Score Risk Category: Low Risk Copyright: Corona LARRY predicting aberrant behaviors Discharge Plan Diagnosis Discharge Problem: COPD exacerbation Discharge Plan Patient Disposition: 09 ADMITTED INPATIENT Condition: Stable Prescriptions: No Action albuterol sulfate 90 mcg/actuation HFA aerosol inhaler 2 puff inhalation Q6H PRNQty: 6.7 0RF azithromycin [Zithromax Z-Lonny] 250 mg tablet See Rx Instructions .ROUTE .COMPLEX Qty: 6 0RF Rx Instructions: For 250 mg dose pack: take 500 mg today (day 1), then 250 mg for 4 days (days 2-5) prednisone 5 mg tablets,dose pack See Rx Instructions .ROUTE .COMPLEX Qty: 21 0RF Rx Instructions: orally per package directions Health Concerns: Post Hospitalization: new medications and changes needed to prevent readmission or further decline. Pt educated and given instructions on all concerns. Plan of Treatment: Continue with present treatment and follow up plan. Pt is to keep follow up appointment as instructed and take medications as ordered. Orders to Discharge Patient Discharge Orders: Transfer (Routine); Ordered 11/16/22 Ordered By: SRAVANI KELLEY Follow ups/Referrals Follow ups/Referrals: Crispin Woody [Primary Care Provider] - 3 days
[2022-11-16 09:32] LABS: BASOPHILS # (AUTO) 0.2 X10^3/uL (0.0-0.1); BASOPHILS % (AUTO) 1.5 % (0.2-1.0); EOSINOPHILS # (AUTO) 0.2 x10^3/uL (0.0-0.2); EOSINOPHILS % (AUTO) 1.6 % (0.9-2.9); HEMATOCRIT 49.8 % (42.0-54.0); LYMPHOCYTES # (AUTO) 2.9 X10^3/uL (1.3-2.9); LYMPHOCYTES % (AUTO) 21.7 % (21.0-51.0); MEAN CORPUSCULAR HEMOGLOBIN 28.7 pg (27.0-34.0); MEAN CORPUSCULAR HGB CONC 34.2 g/dL (33.0-35.0); MEAN PLATELET VOLUME 7.8 fL (7.4-11.0); MONOCYTES # (AUTO) 0.8 x10^3/uL (0.3-0.8); MONOCYTES % (AUTO) 6.1 % (0.0-13.0); NEUTROPHILS # (AUTO) 9.3 x10^3/uL (2.2-4.8); NEUTROPHILS % (AUTO) 69.1 % (42.0-75.0); RED BLOOD COUNT 5.93 X10^6/uL (4.7-6.0); RED CELL DISTRIBUTION WIDTH 13.3 % (11.6-16.5); WHITE BLOOD COUNT 13.4 X10^3/uL (3.6-10.0)
[2022-11-16 09:45] LABS: ALANINE AMINOTRANSFERASE 22 Units/L (12-78); ALBUMIN 3.6 g/dL (3.4-5.0); ALKALINE PHOSPHATASE 77 Units/L (46-116); ASPARTATE AMINO TRANSFERASE 17 Units/L (15-37); BLOOD UREA NITROGEN 14 mg/dL (7-18); CALCIUM 8.8 mg/dL (8.5-10.1); CARBON DIOXIDE 29.7 mmol/L (21-32); CHLORIDE 104 mmol/L (98-107); COR NA(FOR HYPERGLY) 142 mmol/L (136-145); SODIUM 140 mmol/L (136-145); TOTAL PROTEIN 6.7 g/dL (6.4-8.2); eGFR NON BLACK RACES > 60 (>60)
[2022-11-16] MEDS ORDERED: LEVAQUIN PREMIX IV 750 MG 750 MG/150 ML BAG IV ONE ×2 (09:47→09:49)
[2022-11-16] MEDS ORDERED: XOPENEX 1.25 MG/3 ML NEBULE NEB SCH ×2 (10:15→11:00)
[2022-11-16] MEDS: NS 1,000 ML IV 1,000 ML IV SCH ×2 (10:45→17:47)
[2022-11-16 11:13] LABS: ABG BASE EXCESS 0.7 mmol/L (-2.0-2.0); ABG HCO3 25.4 mmol/L (22-26)
[2022-11-16] MEDS: XOPENEX 1.25 MG/3 ML NEBULE NEB SCH ×2 (13:33→17:00)
[2022-11-16] MEDS: FORTAZ or TAZICEF VIAL INJ 1 G in NS 100 ML IV 100 ML IV SCH ×2 (14:39→21:41)
[2022-11-16] MEDS ORDERED: MICRO K EXTEN CAP 10 MEQ PO PRN (15:19)
[2022-11-16] MEDS ORDERED: POTASSIUM CHLORIDE LIQ 20 MEQ UDC PO PRN (15:19)
[2022-11-16] MEDS ORDERED: K-RIDER 10 MEQ/NS 100 ML 10 MEQ/100 ML BAG IV PRN (15:19)
[2022-11-16] MEDS ORDERED: KLOR-CON PO PRN (15:19)
[2022-11-16] MEDS ORDERED: POTASSIUM CHL 40 MEQ/NS 0.45% 500 ML IV PRN (15:19)
[2022-11-16] MEDS ORDERED: POTASSIUM CHL 60 MEQ/NS 0.45% 500 ML IV PRN (15:19)
[2022-11-16] MEDS ORDERED: PULMICORT NEB TX 0.5 MG NEB ONE (19:56)
[2022-11-16] MEDS ORDERED: CATAPRES TAB 0.1 MG PO ONE (20:31)
[2022-11-16] MEDS: PULMICORT NEB TX 0.5 MG NEB SCH (21:02)
[2022-11-16] MEDS: APRESOLINE INJ 20 MG VIAL IVP ONE (21:30)
[2022-11-16] MEDS: NORVASC TAB 10 MG PO SCH (21:41)
[2022-11-17] MEDS: XOPENEX 1.25 MG/3 ML NEBULE NEB SCH ×4 (00:05→17:47)
[2022-11-17] MEDS: APRESOLINE INJ 20 MG VIAL IVP ONE (03:17)
[2022-11-17] MEDS: FORTAZ or TAZICEF VIAL INJ 1 G in NS 100 ML IV 100 ML IV SCH ×3 (05:05→21:36)
[2022-11-17 06:04] LABS: BASOPHILS # (AUTO) 0.1 X10^3/uL (0.0-0.1); BASOPHILS % (AUTO) 0.5 % (0.2-1.0); EOSINOPHILS % (AUTO) 0.3 % (0.9-2.9); HEMATOCRIT 44.9 % (42.0-54.0); LYMPHOCYTES # (AUTO) 2.2 X10^3/uL (1.3-2.9); LYMPHOCYTES % (AUTO) 14.4 % (21.0-51.0); MEAN CORPUSCULAR HEMOGLOBIN 28.1 pg (27.0-34.0); MEAN CORPUSCULAR HGB CONC 33.3 g/dL (33.0-35.0); MEAN CORPUSCULAR VOLUME 84.3 fL (80.0-100.0); MEAN PLATELET VOLUME 8.1 fL (7.4-11.0); MONOCYTES # (AUTO) 1.1 x10^3/uL (0.3-0.8); MONOCYTES % (AUTO) 7.3 % (0.0-13.0); NEUTROPHILS # (AUTO) 11.9 x10^3/uL (2.2-4.8); NEUTROPHILS % (AUTO) 77.5 % (42.0-75.0); RED BLOOD COUNT 5.32 X10^6/uL (4.7-6.0); RED CELL DISTRIBUTION WIDTH 13.2 % (11.6-16.5); WHITE BLOOD COUNT 15.4 X10^3/uL (3.6-10.0)
[2022-11-17 06:24] LABS: ALANINE AMINOTRANSFERASE 17 Units/L (12-78); ALBUMIN 3.1 g/dL (3.4-5.0); ALKALINE PHOSPHATASE 63 Units/L (46-116); ASPARTATE AMINO TRANSFERASE 11 Units/L (15-37); BLOOD UREA NITROGEN 15 mg/dL (7-18); CALCIUM 8.2 mg/dL (8.5-10.1); CARBON DIOXIDE 26.5 mmol/L (21-32); CHLORIDE 107 mmol/L (98-107); COR CA(FOR HYPOALB) 8.9 mg/dL (8.5-10.1); COR NA(FOR HYPERGLY) 141 mmol/L (136-145); CREATININE 1.06 mg/dL (0.70-1.30); SODIUM 140 mmol/L (136-145); TOTAL PROTEIN 5.8 g/dL (6.4-8.2); eGFR NON BLACK RACES > 60 (>60)
--- NOTE | 2022-11-17 07:12 | RAD ---
HISTORYCOPD EXACERBATIONSTUDRICHARD KHALIL/LAT [id number]/24/2023.TECHNIQUETwo-v iew chest.FINDINGSCardiac and mediastinal contours are within normal limits. Lungs are hyperexpanded. No consolidation or segmental lung collapse. No definite pleural effusion or pneumothorax. Left costophrenic sulcus not completely imaged.IMPRESSIONNo significant change compared to prior radiograph. Hyperexpanded consistent with COPD.Electronically signed by: Kaden Silveira (Nov 17, 2022 07:11:38)
[2022-11-17] MEDS: SOLU-Medrol 40 MG VIAL IVP SCH ×3 (08:54→21:36)
[2022-11-17] MEDS: LEVAQUIN PREMIX IV 750 MG 750 MG/150 ML BAG IV SCH (08:54)
[2022-11-17] MEDS: NORVASC TAB 10 MG PO SCH (08:54)
[2022-11-17] MEDS: LOVENOX INJ 40 MG SYR SC SCH (08:54)
[2022-11-17] MEDS: VSL#3 PO SCH (08:55)
[2022-11-17] MEDS: NS 1,000 ML IV 1,000 ML IV SCH ×2 (08:55→10:05)
[2022-11-17] MEDS: PULMICORT NEB TX 0.5 MG NEB SCH ×2 (09:45→21:00)
--- NOTE | 2022-11-17 10:26 | DR.H&P ---
H&P - History & Physical for Day of: H&P Date: 11/16/22 - Chief Complaint Chief Complaint: SOB, COUGH, WHEEZING - History of Present Illness History of Present Illness: IS A 52 YEAR OLD PATIENT OF OURS WHO PRESENTED TO THE EMERGENCY ROOM WITH COMPLAINTS OF SHORTNESS OF BREATH, COUGH, AND WHEEZING X 3 DAYS. HE REPORTS A HISTORY OF ASTHMA AND COPD AT HOME. HE REPORTS USE OF AN INHALER AT HOME, HOWEVER, REPORTS THAT HE RECENTLY RAN OUT OF IT. HE WAS SEEN IN THE EMERGENCY ROOM ONE DAY PRIOR AND WAS PRESCRIBED A MEDROL DOSEPACK, Z-JOSE, AND AN INHALER. ON EXAMINATION, HE IS NOTED WITH SCATTERED WHEEZING. ON ARRIVAL, VITALS WERE 98.6-107-24-95%-145/102. LABS WERE OBTAINED. WBC 13.4, RBC 5.93, HGB 17.0, HCT 49.8, PLT COUNT 294, SODIUM 140, POTASSIUM 3.4, CHLORIDE 104, CARBON DIOXIDE 29.7, BUN 14, CREATININE 1.30, GLUCOSE 164, CALCIUM 8.8, AST 17, ALT 22, ALK PHOS 77, TOTAL PROTEIN 6.7, ALBUMIN 3.6. ABG OBTAINED AND REVEALED: PH 7.410, PC02 40, P02 54, HC03 25.4, 02 ST 88.0, BASE EXCESS 0.7, A-A GRAIDNET 46, FI02 21.0. BLOOD AND SPUTUM CULTURES WERE SET UP. CHEST XRAY WAS OBTAINED AND REVEALED: Cardiac and mediastinal contours are within normal limits. Lungs are hyperexpanded. No consolidation or segmental lung collapse. No definite pleural effusion or pneumothorax. Left costophrenic sulcus not completely imaged. WHILE IN THE ER, HE WAS GIVEN A NORMAL SALINE BOLUS, SOLU-MEDROL 125MG IV X 1, XOPENEX NEB TX X 1, LEVAQUIN 750MG IV X 1, AND CATAPRES 0.1MG PO X 1. BLOOD PRESSURE DECREASED TO 180/94. HE WAS ADMITTED TO THE HOSPITAL FOR FURTHER EVALUATION AND TREATMENT OF COPD EXACERBATION WITH ACUTE BRONCHITIS, HYPOXIA, AND HTN. HE WAS STARTED ON LEVAQUIN 750MG IV DAILY, FORTAZ 1G IV Q8H, XOPENEX NEBS Q6H, PULMICORT TX BID, SOLU-MEDROL 80MG IV Q8H, NORVASC 10MG PO DAILY, AND NORMAL SALINE AT 80ML/HR, PROBIOTICS DAILY, LOVENOX 40MG SC DAILY, AND THE POTASSIUM PROTOCOLS. OTHERWISE, WE PLAN TO FOLLOW-UP WITH AM LABS AND CHEST XRAY AND CONTINUE TO MONITOR. TIME SPENT ON CLINICAL ASSESSMENT, REVIWING LABS AND IMAGING, DECISION MAKING, AND DOCUMENTATION GREATER THAN 75 MINUTES. - Past Medical History Past Medical History: Hypertension, COPD, Asthma - Past Surgical History Surgical History: No History - Family History Family Medical History: Heart Failure, Sudden Cardiac , Hypertension - Social History Does patient currently use any type of tobacco product: No Have you used tobacco products in the last 12 months: No Type of Tobacco Use: None Does any household member use tobacco: No Alcohol Use: None Drug Use: None - Medications Home Medications: No Known Drug Allergies Allergy (Verified 06/15/21 14:23) CONTINUE taking the following medications NK 11/16/22 [History] - Review of Systems Constitutional: Weakness Eyes: No Symptoms Reported ENT: No Symptoms Reported Respiratory: Cough, Shortness of Breath, SOB with Excertion, Wheezing Cardiovascular: No Symptoms Reported Gastrointestinal: No Symptoms Reported Genitourinary: No Symptoms Reported Musculoskeletal: No Symptoms Reported Skin: No Symptoms Reported Neurological: No Symptoms Reported - Physical Exam Vital Signs: Temperature 98.1 F Pulse Rate [Left Radial] 105 Pulse Rate 115 Respiratory Rate 20 Blood Pressure [Right Arm] 137/87 Blood Pressure [Left Arm] 155/101 Blood Pressure 176/109 O2 Sat by Pulse Oximetry 95 Oriented: Normal Eyes: Normal Ear: Normal Nose: Normal Throat: Normal Respiratory: Wheezes Throughout Cardiovascular: Tachycardia : Normal Auscultation: Bowel Sounds: Normal Palpation: Normal Tenderness: Normal Skin: Normal Musculoskeletal: Normal Psychiatric: Normal Mood Description: Anxious Affect: Anxious Speech Pattern: Clear - Assessment/Plan (1) COPD with acute exacerbation Status: Acute Plan: ADMIT, SUPPLEMENTAL OXYGEN, LEVAQUIN 750MG IV DAILY, FORTAZ 1G IV Q8H, XOPENEX NEBS Q6H, PULMICORT TX BID, SOLU-MEDROL 80MG IV Q8H, NORVASC 10MG PO DAILY, AND NORMAL SALINE AT 80ML/HR, PROBIOTICS DAILY, LOVENOX 40MG SC DAILY, AND THE POTASSIUM PROTOCOLS. (2) Acute bronchitis Qualifiers: Bronchitis organism: unspecified organism Qualified Code(s): J20.9 - Acute bronchitis, unspecified Status: Acute (3) Hypoxia Status: Acute (4) Hypokalemia Status: Active (5) Hypertension Qualifiers: Hypertension type: primary hypertension Qualified Code(s): I10 - Essential (primary) hypertension Status: Acute - Allergies Allergies/Adverse Reactions: Allergies Allergy/AdvReac Type Severity Reaction Status Date / Time No Known Drug Allergies Allergy Verified 06/15/21 14:23
[2022-11-18] MEDS: XOPENEX 1.25 MG/3 ML NEBULE NEB SCH ×4 (00:01→17:17)
[2022-11-18] MEDS: NS 1,000 ML IV 1,000 ML IV SCH ×3 (02:05→20:47)
[2022-11-18] MEDS: SOLU-Medrol 40 MG VIAL IVP SCH ×3 (05:25→21:08)
[2022-11-18] MEDS: FORTAZ or TAZICEF VIAL INJ 1 G in NS 100 ML IV 100 ML IV SCH ×3 (05:25→21:08)
[2022-11-18 06:14] LABS: BASOPHILS % (AUTO) 0.1 % (0.2-1.0); HEMATOCRIT 43.6 % (42.0-54.0); HEMOGLOBIN 14.6 g/dL (13.5-18.0); LYMPHOCYTES # (AUTO) 0.7 X10^3/uL (1.3-2.9); LYMPHOCYTES % (AUTO) 4.5 % (21.0-51.0); MEAN CORPUSCULAR HEMOGLOBIN 28.3 pg (27.0-34.0); MEAN CORPUSCULAR HGB CONC 33.4 g/dL (33.0-35.0); MEAN CORPUSCULAR VOLUME 84.6 fL (80.0-100.0); MEAN PLATELET VOLUME 8.4 fL (7.4-11.0); MONOCYTES # (AUTO) 0.4 x10^3/uL (0.3-0.8); MONOCYTES % (AUTO) 2.4 % (0.0-13.0); NEUTROPHILS # (AUTO) 15.5 x10^3/uL (2.2-4.8); RED BLOOD COUNT 5.15 X10^6/uL (4.7-6.0); RED CELL DISTRIBUTION WIDTH 13.5 % (11.6-16.5); WHITE BLOOD COUNT 16.7 X10^3/uL (3.6-10.0)
[2022-11-18 06:22] LABS: ALANINE AMINOTRANSFERASE 18 Units/L (12-78); ALBUMIN 3.2 g/dL (3.4-5.0); ALKALINE PHOSPHATASE 66 Units/L (46-116); ASPARTATE AMINO TRANSFERASE 10 Units/L (15-37); BLOOD UREA NITROGEN 13 mg/dL (7-18); CALCIUM 8.6 mg/dL (8.5-10.1); CARBON DIOXIDE 25.4 mmol/L (21-32); CHLORIDE 107 mmol/L (98-107); COR CA(FOR HYPOALB) 9.2 mg/dL (8.5-10.1); COR NA(FOR HYPERGLY) 143 mmol/L (136-145); CREATININE 1.09 mg/dL (0.70-1.30); MAGNESIUM 1.8 mg/dL (2.0-2.9); SODIUM 141 mmol/L (136-145); TOTAL PROTEIN 6.1 g/dL (6.4-8.2); eGFR NON BLACK RACES > 60 (>60)
[2022-11-18 06:52] LABS: BAND NEUTROPHILS % 3 % (0-10); PLATELET MORPHOLOGY COMMENT NORMAL (NORMAL)
--- NOTE | 2022-11-18 07:47 | RAD ---
HISTORYShortness of breath, COPD exacerbationSTUDYChest AP [id number]/2023FINDINGSHear t size is normal. Lisa are normal. Lungs are hyperinflated. No acute alveolar infiltrates, pleural effusions, or pneumothoraces identified. Bony thorax is unremarkable.IMPRESSIONLungs hyperinflated but clear, consistent with COPD in the appropriate clinical settingElectronically signed by: AMANDA GARCIA (Nov 18, 2022 07:45:45)
[2022-11-18] MEDS: PULMICORT NEB TX 0.5 MG NEB SCH ×2 (09:15→21:00)
[2022-11-18] MEDS: K-DUR TAB 20 MEQ PO PRN (09:35)
[2022-11-18] MEDS: NORVASC TAB 10 MG PO SCH (09:35)
[2022-11-18] MEDS: LEVAQUIN PREMIX IV 750 MG 750 MG/150 ML BAG IV SCH (09:35)
[2022-11-18] MEDS: LOVENOX INJ 40 MG SYR SC SCH (09:35)
[2022-11-18] MEDS: VSL#3 PO SCH (09:37)
[2022-11-18] MEDS: MAGNESIUM SULFATE 1 GRAM/100 mL PREMIX 1 G/100 ML BAG IV PRN ×2 (09:44→14:13)
--- NOTE | 2022-11-18 11:32 | PCM.PROG ---
Progress Note - Progress Note for Day of Date of Exam: 11/17/22 - Subjective Subjective: WAS ADMITTED OBSERVATION STATUS FOR TREATMENT OF COPD WITH ACUTE EXACERBATION, ACUTE BRONCHITIS, HYPOXIA, HYPOKALEMIA, AND HTN. TODAY, HE IS ALERT AND ORIENTED, SITTING UP IN BED ON MORNING ROUNDS. HE CONTINUES TO COMPLAIN OF SHORTNESS OF BREATH AND COUGH THIS MORNING. HE DOES ADMIT TO SLIGHT IMPROVEMENT IN SYMPTOMS SINCE ADMISSION. ON EXAMINATION, HE IS SLIGHTLY TACHYCARDIC WITH HR 110-110 BPM. BILATERAL LUNGS ARE NOTED WITH SCATTERED WHEEZING. ABDOMEN IS FLAT, SOFT, AND NON-TENDER WITH NORMAL BOWEL SOUNDS NOTED IN ALL QUADRANTS. NO UPPER OR LOWER EXTREMITY EDEMA NOTED. HIS VITALS THIS MORNING ARE: 98.1-105-20-95%-137/87. HE IS CURRENTLY UTILIZING OXYGEN VIA NASAL CANNULA AT 2 LITERS/MINUTE. LABS WERE OBTAINED. WBC 15.4, RBC 5.32, HGB 15.0, HCT 44.9, PLT COUNT 277, SODIUM 140, POTASSIUM 3.5, CHLORIDE 107, BUN 15, CREATININE 1.06, GLUCOSE 149, CALCIUM 8.2, AST 11, ALT 11, ALK PHOS 63, TOTAL PROTEIN 5.8, ALBUMIN 3.1. BLOOD AND SPUTUM CULTURES ARE PENDING. A CHEST XRAY WAS OBTAINED AND REVEALED: No significant change compared to prior radiograph. Hyperexpanded consistent with COPD. HE IS CURRENTLY RECEIVING LEVAQUIN 750MG IV DAILY, FORTAZ 1G IV Q8H, XOPENEX NEBS Q6H, PULMICORT TX BID, SOLU-MEDROL 80MG IV Q8H, NORVASC 10MG PO DAILY, AND NORMAL SALINE AT 80ML/HR, PROBIOTICS DAILY, LOVENOX 40MG SC DAILY, AND THE POTASSIUM PROTOCOLS. WE WILL CONTINUE WITH CURRENT PLAN OF CARE TODAY. OTHERWISE, WE WILL FOLLOW-UP WITH AM LABS AND CHEST XRAY AND CONTINUE TO MONITOR. TIME SPENT ON CLINICAL ASSESSMENT, REVIWING LABS AND IMAGING, DECISION MAKING, AND DOCUMENTATION GREATER THAN 45 MINUTES. - Past Medical Family Social History Past Med/Fam/Surg Hx: No changes since H&P Allergies: Allergies No Known Drug Allergies Allergy (Verified 06/15/21 14:23) - Review of Systems ROS: No change since H&P - Vital Signs and I&O's Vital Signs: Temperature 98.0 F Pulse Rate [Left Radial] 112 Pulse Rate 106 Respiratory Rate 20 Blood Pressure [Right Arm] 140/95 Blood Pressure [Left Arm] 155/101 Blood Pressure 176/109 O2 Sat by Pulse Oximetry 94 Intake and Output: Intake & Output 11/15/22 11/16/22 11/17/22 11/18/22 11:59 11:59 11:59 11:59 Intake Total 1800 / 1800 3239 / 3239 Output Total 800 / 800 1500 / 1500 Balance 1000 / 1000 1739 / 1739 - Physical Exam Oriented: Normal Eyes: Normal Ear: Normal Nose: Normal Throat: Normal Respiratory: Generalized, Wheezes Cardiovascular: Tachycardia : Normal Auscultation: Bowel Sounds: Normal Palpation: Normal Tenderness: Normal Skin: Normal Musculoskeletal: Normal Psychiatric: Normal Mood Description: Anxious Affect: Anxious Speech Pattern: Clear, Appropriate - Laboratory and Diagnostics Result Diagrams: 11/18/22 05:16 11/18/22 05:16 Labs: 11/16/22 10:08 Blood Blood Culture - Preliminary 11/16/22 10:00 Blood Blood Culture - Preliminary 11/16/22 13:33 Sputum - Expectorated Sputum Sputum Culture - Final 11/16/22 13:33 Sputum - Expectorated Sputum - Final Laboratory WBC 16.7 X10^3/uL (3.6-10.0) H 11/18/22 05:16 RBC 5.15 X10^6/uL (4.7-6.0) 11/18/22 05:16 Hgb 14.6 g/dL (13.5-18.0) 11/18/22 05:16 Hct 43.6 % (42.0-54.0) 11/18/22 05:16 MCV 84.6 fL (80.0-100.0) 11/18/22 05:16 MCH 28.3 pg (27.0-34.0) 11/18/22 05:16 MCHC 33.4 g/dL (33.0-35.0) 11/18/22 05:16 RDW 13.5 % (11.6-16.5) 11/18/22 05:16 Plt Count 256 X10^3/uL (150.0-450.0) 11/18/22 05:16 Plt Count Comment Adequate (ADEQUATE) 11/18/22 05:16 MPV 8.4 fL (7.4-11.0) 11/18/22 05:16 Neut % (Auto) 93.0 % (42.0-75.0) H 11/18/22 05:16 Lymph % (Auto) 4.5 % (21.0-51.0) L 11/18/22 05:16 [place] % (Auto) 2.4 % (0.0-13.0) 11/18/22 05:16 Eos % (Auto) 0.0 % (0.9-2.9) L 11/18/22 05:16 Baso % (Auto) 0.1 % (0.2-1.0) L 11/18/22 05:16 Neut # (Auto) 15.5 x10^3/uL (2.2-4.8) H 11/18/22 05:16 Lymph # (Auto) 0.7 X10^3/uL (1.3-2.9) L 11/18/22 05:16 [place] # (Auto) 0.4 x10^3/uL (0.3-0.8) 11/18/22 05:16 Eos # (Auto) 0.0 x10^3/uL (0.0-0.2) 11/18/22 05:16 Baso # (Auto) 0.0 X10^3/uL (0.0-0.1) 11/18/22 05:16 Absolute Nucleated RBC 0.0 /100WBC 11/18/22 05:16 Total Counted 100 11/18/22 05:16 Neutrophils % (Manual) 92 % (39-76) H 11/18/22 05:16 Band Neutrophils % 3 % (0-10) 11/18/22 05:16 Lymphocytes % (Manual) 5 % (13-43) L 11/18/22 05:16 Plt Morphology Comment Normal (NORMAL) 11/18/22 05:16 RBC Morphology Normal (NORMAL) 11/18/22 05:16 Sample Site Rrad 11/16/22 11:05 ABG pH 7.410 (7.35-7.45) 11/16/22 11:05 ABG pCO2 40.0 mmHg (35.0-45.0) 11/16/22 11:05 ABG pO2 54.0 mmHg (80.0-100.0) L 11/16/22 11:05 ABG HCO3 25.4 mmol/L (22-26) 11/16/22 11:05 ABG O2 Saturation 88.0 % (90-100) L 11/16/22 11:05 ABG Base Excess 0.7 mmol/L (-2.0-2.0) 11/16/22 11:05 Mian Test N/a 11/16/22 11:05 A-a Gradient 46.0 mmHg 11/16/22 11:05 FiO2 21.0 11/16/22 11:05 Blood Gas Comments Pt demetria well elj 11/16/22 11:05 Sodium 141 mmol/L (136-145) 11/18/22 05:16 Corrected Sodium 143 mmol/L (136-145) 11/18/22 05:16 Potassium 3.8 mmol/L (3.5-5.1) 11/18/22 05:16 Chloride 107 mmol/L (98-107) 11/18/22 05:16 Carbon Dioxide 25.4 mmol/L (21-32) 11/18/22 05:16 BUN 13 mg/dL (7-18) 11/18/22 05:16 Creatinine 1.09 mg/dL (0.70-1.30) 11/18/22 05:16 Est GFR (MDRD) Af Amer > 60 (>60) 11/18/22 05:16 Est GFR (MDRD) Non-Af > 60 (>60) 11/18/22 05:16 Glucose 184 mg/dL (65-99) H 11/18/22 05:16 Lactic Acid 1.7 mmol/L (0.4-2.0) 11/16/22 10:25 Calcium 8.6 mg/dL (8.5-10.1) 11/18/22 05:16 Corrected Calcium 9.2 mg/dL (8.5-10.1) 11/18/22 05:16 Magnesium 1.8 mg/dL (2.0-2.9) L 11/18/22 05:16 Total Bilirubin 0.30 mg/dL (0.2-1.0) 11/18/22 05:16 AST 10 Units/L (15-37) L 11/18/22 05:16 ALT 18 Units/L (12-78) 11/18/22 05:16 Alkaline Phosphatase 66 Units/L (46-116) 11/18/22 05:16 Total Protein 6.1 g/dL (6.4-8.2) L 11/18/22 05:16 Albumin 3.2 g/dL (3.4-5.0) L 11/18/22 05:16 Globulin 2.9 g/dL (2.5-4.5) 11/18/22 05:16 Albumin/Globulin Ratio 1.1 Ratio (1.1-2.1) 11/18/22 05:16 - Plan (1) COPD with acute exacerbation Status: Acute Plan: SUPPLEMENTAL OXYGEN, LEVAQUIN 750MG IV DAILY, FORTAZ 1G IV Q8H, XOPENEX NEBS Q6H, PULMICORT TX BID, SOLU-MEDROL 80MG IV Q8H, NORVASC 10MG PO DAILY, AND NORMAL SALINE AT 80ML/HR, PROBIOTICS DAILY, LOVENOX 40MG SC DAILY, AND THE POTASSIUM PROTOCOLS. (2) Acute bronchitis Status: Acute Qualifiers: Bronchitis organism: unspecified organism Qualified Code(s): J20.9 - Acute bronchitis, unspecified (3) Hypoxia Status: Acute (4) Hypokalemia Status: Active (5) Hypertension Status: Acute Qualifiers: Hypertension type: primary hypertension Qualified Code(s): I10 - Essential (primary) hypertension
--- NOTE | 2022-11-18 12:19 | PCM.PROG ---
Progress Note - Progress Note for Day of Date of Exam: 11/18/22 - Subjective Subjective: WAS ADMITTED OBSERVATION STATUS FOR TREATMENT OF COPD WITH ACUTE EXACERBATION, ACUTE BRONCHITIS, HYPOXIA, HYPOKALEMIA, AND HTN. TODAY, HE IS ALERT AND ORIENTED, SITTING ON THE SIDE OF THE BED ON MORNING ROUNDS. HE CONTINUES TO COMPLAIN OF SHORTNESS OF BREATH AND COUGH THIS MORNING. HE DOES ADMIT TO SLIGHT IMPROVEMENT IN SYMPTOMS YESTERDAY. ON EXAMINATION, HE IS SLIGHTLY TACHYCARDIC WITH HR 110-110 BPM. BILATERAL LUNGS ARE NOTED WITH SCATTERED WHEEZING. ABDOMEN IS FLAT, SOFT, AND NON-TENDER WITH NORMAL BOWEL SOUNDS NOTED IN ALL QUADRANTS. NO UPPER OR LOWER EXTREMITY EDEMA NOTED. HIS VITALS THIS MORNING ARE: 98.0-112-20-94%-140/95. HE IS CURRENTLY UTILIZING OXYGEN VIA NASAL CANNULA AT 2 LITERS/MINUTE. LABS WERE OBTAINED. WBC 16.7, RBC 5.15, HGB 14.6, HCT 43.6, PLT COUNT 256, SODIUM 141, POTASSIUM 3.8, CHLORIDE 107, CARBON DIOXIDE 25.4, BUN 13, CREATININE 1.09, GLUCOSE 184, CALCIUM 8.6, MAGNESIUM 1.8, AST 10, ALT 18, ALK PHOS 66, TOTAL PROTEIN 6.1, ALBUMIN 3.2. BLOO D AND SPUTUM CULTURES ARE PENDING. A CHEST XRAY WAS OBTAINED AND REVEALED: Lungs hyperinflated but clear, consistent with COPD in the appropriate clinical setting. HE IS CURRENTLY RECEIVING LEVAQUIN 750MG IV DAILY, FORTAZ 1G IV Q8H, XOPENEX NEBS Q6H, PULMICORT TX BID, SOLU-MEDROL 80MG IV Q8H, NORVASC 10MG PO DAILY, AND NORMAL SALINE AT 80ML/HR, PROBIOTICS DAILY, LOVENOX 40MG SC DAILY, AND THE POTASSIUM PROTOCOLS. WE WILL CONTINUE WITH CURRENT PLAN OF CARE TODAY. OTHERWISE, WE WILL FOLLOW-UP WITH AM LABS AND CHEST XRAY AND CONTINUE TO MONITOR. TIME SPENT ON CLINICAL ASSESSMENT, REVIWING LABS AND IMAGING, DECISION MAKING, AND DOCUMENTATION GREATER THAN 45 MINUTES. - Past Medical Family Social History Past Med/Fam/Surg Hx: No changes since H&P Allergies: Allergies No Known Drug Allergies Allergy (Verified 06/15/21 14:23) - Review of Systems ROS: No change since H&P - Vital Signs and I&O's Vital Signs: Temperature 98.0 F Pulse Rate [Left Radial] 112 Pulse Rate 106 Respiratory Rate 20 Blood Pressure [Right Arm] 140/95 Blood Pressure [Left Arm] 155/101 Blood Pressure 176/109 O2 Sat by Pulse Oximetry 94 Intake and Output: Intake & Output 11/16/22 11/17/22 11/18/22 11/19/22 11:59 11:59 11:59 11:59 Intake Total 1800 / 1800 3239 / 3239 Output Total 800 / 800 1500 / 1500 Balance 1000 / 1000 1739 / 1739 - Physical Exam Oriented: Normal Eyes: Normal Ear: Normal Nose: Normal Throat: Normal Respiratory: Generalized, Wheezes Cardiovascular: Tachycardia : Normal Auscultation: Bowel Sounds: Normal Palpation: Normal Tenderness: Normal Skin: Normal Musculoskeletal: Normal Psychiatric: Normal Mood Description: Anxious Affect: Anxious Speech Pattern: Clear, Appropriate - Laboratory and Diagnostics Result Diagrams: 11/18/22 05:16 11/18/22 05:16 Labs: 11/16/22 10:08 Blood Blood Culture - Preliminary 11/16/22 10:00 Blood Blood Culture - Preliminary 11/16/22 13:33 Sputum - Expectorated Sputum Sputum Culture - Final 11/16/22 13:33 Sputum - Expectorated Sputum - Final Laboratory WBC 16.7 X10^3/uL (3.6-10.0) H 11/18/22 05:16 RBC 5.15 X10^6/uL (4.7-6.0) 11/18/22 05:16 Hgb 14.6 g/dL (13.5-18.0) 11/18/22 05:16 Hct 43.6 % (42.0-54.0) 11/18/22 05:16 MCV 84.6 fL (80.0-100.0) 11/18/22 05:16 MCH 28.3 pg (27.0-34.0) 11/18/22 05:16 MCHC 33.4 g/dL (33.0-35.0) 11/18/22 05:16 RDW 13.5 % (11.6-16.5) 11/18/22 05:16 Plt Count 256 X10^3/uL (150.0-450.0) 11/18/22 05:16 Plt Count Comment Adequate (ADEQUATE) 11/18/22 05:16 MPV 8.4 fL (7.4-11.0) 11/18/22 05:16 Neut % (Auto) 93.0 % (42.0-75.0) H 11/18/22 05:16 Lymph % (Auto) 4.5 % (21.0-51.0) L 11/18/22 05:16 [place] % (Auto) 2.4 % (0.0-13.0) 11/18/22 05:16 Eos % (Auto) 0.0 % (0.9-2.9) L 11/18/22 05:16 Baso % (Auto) 0.1 % (0.2-1.0) L 11/18/22 05:16 Neut # (Auto) 15.5 x10^3/uL (2.2-4.8) H 11/18/22 05:16 Lymph # (Auto) 0.7 X10^3/uL (1.3-2.9) L 11/18/22 05:16 [place] # (Auto) 0.4 x10^3/uL (0.3-0.8) 11/18/22 05:16 Eos # (Auto) 0.0 x10^3/uL (0.0-0.2) 11/18/22 05:16 Baso # (Auto) 0.0 X10^3/uL (0.0-0.1) 11/18/22 05:16 Absolute Nucleated RBC 0.0 /100WBC 11/18/22 05:16 Total Counted 100 11/18/22 05:16 Neutrophils % (Manual) 92 % (39-76) H 11/18/22 05:16 Band Neutrophils % 3 % (0-10) 11/18/22 05:16 Lymphocytes % (Manual) 5 % (13-43) L 11/18/22 05:16 Plt Morphology Comment Normal (NORMAL) 11/18/22 05:16 RBC Morphology Normal (NORMAL) 11/18/22 05:16 Sample Site Rrad 11/16/22 11:05 ABG pH 7.410 (7.35-7.45) 11/16/22 11:05 ABG pCO2 40.0 mmHg (35.0-45.0) 11/16/22 11:05 ABG pO2 54.0 mmHg (80.0-100.0) L 11/16/22 11:05 ABG HCO3 25.4 mmol/L (22-26) 11/16/22 11:05 ABG O2 Saturation 88.0 % (90-100) L 11/16/22 11:05 ABG Base Excess 0.7 mmol/L (-2.0-2.0) 11/16/22 11:05 Mian Test N/a 11/16/22 11:05 A-a Gradient 46.0 mmHg 11/16/22 11:05 FiO2 21.0 11/16/22 11:05 Blood Gas Comments Pt demetria well elj 11/16/22 11:05 Sodium 141 mmol/L (136-145) 11/18/22 05:16 Corrected Sodium 143 mmol/L (136-145) 11/18/22 05:16 Potassium 3.8 mmol/L (3.5-5.1) 11/18/22 05:16 Chloride 107 mmol/L (98-107) 11/18/22 05:16 Carbon Dioxide 25.4 mmol/L (21-32) 11/18/22 05:16 BUN 13 mg/dL (7-18) 11/18/22 05:16 Creatinine 1.09 mg/dL (0.70-1.30) 11/18/22 05:16 Est GFR (MDRD) Af Amer > 60 (>60) 11/18/22 05:16 Est GFR (MDRD) Non-Af > 60 (>60) 11/18/22 05:16 Glucose 184 mg/dL (65-99) H 11/18/22 05:16 Lactic Acid 1.7 mmol/L (0.4-2.0) 11/16/22 10:25 Calcium 8.6 mg/dL (8.5-10.1) 11/18/22 05:16 Corrected Calcium 9.2 mg/dL (8.5-10.1) 11/18/22 05:16 Magnesium 1.8 mg/dL (2.0-2.9) L 11/18/22 05:16 Total Bilirubin 0.30 mg/dL (0.2-1.0) 11/18/22 05:16 AST 10 Units/L (15-37) L 11/18/22 05:16 ALT 18 Units/L (12-78) 11/18/22 05:16 Alkaline Phosphatase 66 Units/L (46-116) 11/18/22 05:16 Total Protein 6.1 g/dL (6.4-8.2) L 11/18/22 05:16 Albumin 3.2 g/dL (3.4-5.0) L 11/18/22 05:16 Globulin 2.9 g/dL (2.5-4.5) 11/18/22 05:16 Albumin/Globulin Ratio 1.1 Ratio (1.1-2.1) 11/18/22 05:16 - Plan (1) COPD with acute exacerbation Status: Acute Plan: SUPPLEMENTAL OXYGEN, LEVAQUIN 750MG IV DAILY, FORTAZ 1G IV Q8H, XOPENEX NEBS Q6H, PULMICORT TX BID, SOLU-MEDROL 80MG IV Q8H, NORVASC 10MG PO DAILY, AND NORMAL SALINE AT 80ML/HR, PROBIOTICS DAILY, LOVENOX 40MG SC DAILY, AND THE POTASSIUM PROTOCOLS. (2) Acute bronchitis Status: Acute Qualifiers: Bronchitis organism: unspecified organism Qualified Code(s): J20.9 - Acute bronchitis, unspecified (3) Hypoxia Status: Acute (4) Hypokalemia Status: Active (5) Hypertension Status: Acute Qualifiers: Hypertension type: primary hypertension Qualified Code(s): I10 - Essential (primary) hypertension
[2022-11-19] MEDS ORDERED: TYLENOL 325 MG TAB PO PRN (00:58)
[2022-11-19] MEDS ORDERED: TYLENOL 325 MG TAB PO ONE (01:00)
[2022-11-19] MEDS: FORTAZ or TAZICEF VIAL INJ 1 G in NS 100 ML IV 100 ML IV SCH (05:16)
[2022-11-19] MEDS: SOLU-Medrol 40 MG VIAL IVP SCH (05:16)
[2022-11-19] MEDS: XOPENEX 1.25 MG/3 ML NEBULE NEB SCH ×2 (06:00)
[2022-11-19 06:29] LABS: BASOPHILS % (AUTO) 0 % (0.2-1.0); HEMATOCRIT 41.8 % (42.0-54.0); HEMOGLOBIN 14.1 g/dL (13.5-18.0); LYMPHOCYTES # (AUTO) 0.6 X10^3/uL (1.3-2.9); LYMPHOCYTES % (AUTO) 3.3 % (21.0-51.0); MEAN CORPUSCULAR HEMOGLOBIN 28.7 pg (27.0-34.0); MEAN CORPUSCULAR HGB CONC 33.8 g/dL (33.0-35.0); MEAN CORPUSCULAR VOLUME 84.8 fL (80.0-100.0); MEAN PLATELET VOLUME 8.4 fL (7.4-11.0); MONOCYTES # (AUTO) 0.6 x10^3/uL (0.3-0.8); MONOCYTES % (AUTO) 3.3 % (0.0-13.0); NEUTROPHILS # (AUTO) 16.7 x10^3/uL (2.2-4.8); NEUTROPHILS % (AUTO) 93.4 % (42.0-75.0); RED BLOOD COUNT 4.93 X10^6/uL (4.7-6.0); RED CELL DISTRIBUTION WIDTH 13.4 % (11.6-16.5); WHITE BLOOD COUNT 17.9 X10^3/uL (3.6-10.0)
[2022-11-19 06:38] LABS: ALANINE AMINOTRANSFERASE 19 Units/L (12-78); ALKALINE PHOSPHATASE 79 Units/L (46-116); ASPARTATE AMINO TRANSFERASE 9 Units/L (15-37); BLOOD UREA NITROGEN 12 mg/dL (7-18); CALCIUM 8.1 mg/dL (8.5-10.1); CARBON DIOXIDE 27.8 mmol/L (21-32); CHLORIDE 108 mmol/L (98-107); COR CA(FOR HYPOALB) 8.9 mg/dL (8.5-10.1); COR NA(FOR HYPERGLY) 144 mmol/L (136-145); CREATININE 0.94 mg/dL (0.70-1.30); MAGNESIUM 2.3 mg/dL (2.0-2.9); SODIUM 142 mmol/L (136-145); TOTAL PROTEIN 5.7 g/dL (6.4-8.2); eGFR NON BLACK RACES > 60 (>60)
[2022-11-19 06:48] LABS: BAND NEUTROPHILS % 11 % (0-10)
[2022-11-19 06:49] LABS: PLATELET MORPHOLOGY COMMENT NORMAL (NORMAL)
--- NOTE | 2022-11-19 07:33 | RAD ---
HISTORYSOB asthma COPDSTUDYAP chestCOMPARISONJanuary 2022FINDINGSContinued normal heart size and contour with clear lungs. There is no evidence for developing infiltrate, vascular congestion or pleural effusion.IMPRESSIONNo change; no acute findings.Electronically signed by: ROBERT LAUREN (Nov 19, 2022 07:32:18)
[2022-11-19] MEDS: LEVAQUIN PREMIX IV 750 MG 750 MG/150 ML BAG IV SCH (08:43)
[2022-11-19] MEDS: LOVENOX INJ 40 MG SYR SC SCH (08:43)
[2022-11-19] MEDS: K-DUR TAB 20 MEQ PO PRN (08:43)
[2022-11-19] MEDS: NORVASC TAB 10 MG PO SCH (08:44)
[2022-11-19] MEDS: VSL#3 PO SCH (08:44)
[2022-11-19] MEDS: PULMICORT NEB TX 0.5 MG NEB SCH (08:52)
[2022-11-19] MEDS: NS 1,000 ML IV 1,000 ML IV SCH (10:10)
[2022-11-19 12:11] VITALS: BP 144/80
== END 2022-11-19 13:45 | disposition home or self-care (01) ==
LOC: U 09:01 → ER 09:01 → U 11:16 → MED/SURG 11:37
PROVIDERS: ADMIT Internal Medicine; ATTEND Internal Medicine
DX: J44.0 Chronic obstructive pulmonary disease with (acute) lower respiratory infection; R06.02 Shortness of breath; R09.02 Hypoxemia; E87.6 Hypokalemia; J44.1 Chronic obstructive pulmonary disease with (acute) exacerbation; E11.65 Type 2 diabetes mellitus with hyperglycemia; R00.0 Tachycardia, unspecified; I10 Essential (primary) hypertension; Z72.0 Tobacco use; Z20.822 Contact with and (suspected) exposure to COVID-19; J20.8 Acute bronchitis due to other specified organisms

== ENCOUNTER 2023-01-03 20:40 | Observation (INO) ==
--- NOTE | 2023-01-03 21:18 | DR.SOBA ---
HPI Time Seen Time Seen by Provider: 01/03/23 21:17 Primary Care Physician Primary Care Physician: GÓMEZ HPI Comment HPI Comment: 52 y/o nonsmoking asthmatic with cough and wheezing x one day; feeling very sob today and reports that he is usually admitted when he gets this bad; no fever, chills, abd pain, n/v/d. Complaints Chief Complaint:: PT AMBULATORY IN ED WITH C/O SHORTNESS OF BREATH AND COUGHING SINCE YESTERDAY. COVID-19 Coronavirus risk:travel/contact w/high risk person: No Has patient experienced Coronavirus symptoms: Yes Coronavirus symptoms experienced: Coughing and Shortness of Breath Source History Provided: Patient Mode of Arrival Mode of Arrival: Ambulatory Timing Onset of Chief Complaint: 01/03/23 PMH PMH Past Medical History: Yes Past Medical History: Asthma, COPD and Hypertension Past Surgical History: No Surgical History: No History Family History History of Family Medical Conditions: Yes Family Medical History: [place], Coronary Artery Disease, Heart Failure, Sudden Cardiac and Hypertension Social History Does patient currently use any type of tobacco product: No Have you used tobacco products in the last 12 months: No Type of Tobacco Use: None Does any household member use tobacco: No Alcohol Use: None Do you use any recreational Drugs:: No Lives With: Friend Lives Where: Home Travel Risk Coronavirus risk:travel/contact w/high risk person: No Has patient experienced Coronavirus symptoms: Yes Coronavirus symptoms experienced: Coughing and Shortness of Breath Infectious screening In the last 2 months have you had wt loss of >10#?: NO Have you had fever, night sweats or hemotysis?: No Have you traveled outside the country in the last 6 months?: No Isolation: Droplet ROS Review of Systems Constitutional: No Symptoms Reported Eyes: No Symptoms Reported ENTM: No Symptoms Reported Cardiovascular: No Symptoms Reported Gastrointestinal/Abdominal: No Symptoms Reported Genitourinary: No Symptoms Reported Neurological: No Symptoms Reported Musculoskeletal: No Symptoms Reported Integumentary: No Symptoms Reported Hematologic/Lymphatic: No Symptoms Reported Endocrine: No Symptoms Reported Psychiatric: No Symptoms Reported PE Vital Signs Vitals: Temperature 97.7 F Pulse Rate 92 Respiratory Rate 15 Blood Pressure [Right Arm] 144/80 Blood Pressure 144/100 O2 Sat by Pulse Oximetry 98 General Limitations: No Limitations General Appearance: Alert and In No Apparent Distress Head Head Exam: Normal Inspection Eyes Eye exam: Normal Appearance ENT ENT Exam: Normal Exam Neck Neck Exam: Normal Inspection Chest Chest Inspection: Normal Inspection Respiratory Respiratory Exam: Bilateral: Wheezing Cardiovascular Cardiovascular Exam: Regular Rate and Normal Rhythm Abdominal Exam Abdominal Exam: Normal Inspection, Normal Bowel Sounds and Soft Extremities Extremities Exam: Normal Inspection Back Back Exam: Normal Inspection Neurologic Neurological Exam: Alert and Oriented X3 Psychiatric Psychiatric Exam: Normal Affect and Normal Mood Skin Skin Exam: Warm, Dry, Intact and Normal Color COURSE Reevaluation 1st: Improved (feels "better" but headache persists) 2nd: Improved (feels "better" but still tight and wheezing) ROR Labs Reviewed Laboratory Results Reviewed?: Yes Result Diagrams: 01/04/23 06:26 01/04/23 06:26 Laboratory: Sample Site R rad 01/03/23 23:09 ABG pH 7.420 (7.35-7.45) 01/03/23 23:09 ABG pCO2 42.0 mmHg (35.0-45.0) 01/03/23 23:09 ABG pO2 62.0 mmHg (80.0-100.0) L 01/03/23 23:09 ABG HCO3 27.2 mmol/L (22-26) H 01/03/23 23:09 ABG O2 Saturation 92.0 % (90-100) 01/03/23 23:09 ABG Base Excess 2.4 mmol/L (-2.0-2.0) H 01/03/23 23:09 Mian Test Pos 01/03/23 23:09 A-a Gradient 35.0 mmHg 01/03/23 23:09 FiO2 21.0 01/03/23 23:09 Blood Gas Comments Kim well mf 01/03/23 23:09 SARS-CoV-2 (PCR) Negative (NEGATIVE) 01/03/23 21:24 Influenza Type A (PCR) Negative (NEGATIVE) 01/03/23 21:24 Influenza Type B (PCR) Negative (NEGATIVE) 01/03/23 21:24 RSV (PCR) Negative (NEGATIVE) 01/03/23 21:24 Other Results Comments: Persistent wheezing after nebs; admit. XRAY XRAY Interpreted by: Radiologist X-ray Results: pcxr: No acute cardiopulmonary disease. Opioid Opioid Risk Tool Personal Hx of Substance Abuse: Illegal Drugs Age (Marshal box if 16-45): No History of Preadolescent Sexual Abuse: No Total: 0 Total Score Risk Category: Low Risk Copyright: Corona LARRY predicting aberrant behaviors Discharge Plan Diagnosis Discharge Problem: Asthma exacerbation Discharge Plan Patient Disposition: 09 ADMITTED INPATIENT Condition: Stable
--- NOTE | 2023-01-03 21:33 | RAD ---
HISTORYPT AMBULATORY IN ED WITH C/O SHORTNESS OF BREATH AND COUGHING SINCE YESTERDAY.STUDYCHEST, 1 [id number]/28/2023FINDINGSThe cardiomediastinal silhouette is stable. No acute airspace disease. No pneumothorax or effusion. The bony thorax appears intact.IMPRESSIONNo acute cardiopulmonary disease.Electronically signed by: AMANDA GARCIA (Jan 03, 2023 21:32:06)
[2023-01-03] MEDS ORDERED: SOLU-Medrol 125 MG VIAL IM ONE (22:34)
[2023-01-03] MEDS ORDERED: ROCEPHIN VIAL 1 GRAM IM ONE (22:34)
[2023-01-03] MEDS ORDERED: DUONEB 0.5 MG/3 MG (3 mL) NEB ONE ×2 (22:34→22:55)
[2023-01-03] MEDS ORDERED: ROCEPHIN VIAL 1 GRAM ONE (22:39)
[2023-01-03] MEDS ORDERED: SOLU-Medrol 125 MG VIAL ONE (22:39)
[2023-01-03] MEDS ORDERED: SOLU-Medrol 125 MG VIAL IVP ONE (22:41)
[2023-01-03] MEDS ORDERED: ROCEPHIN VIAL 1 GRAM 1 G in NS 100 ML IV 100 ML IV ONE (22:42)
[2023-01-03 23:15] LABS: ABG ALLEN TEST POS; ABG BASE EXCESS 2.4 mmol/L (-2.0-2.0); ABG HCO3 27.2 mmol/L (22-26)
[2023-01-04] MEDS ORDERED: TYLENOL #3 TAB (W/CODEINE) PO STA (00:15)
[2023-01-04] MEDS ORDERED: DUONEB 0.5 MG/3 MG (3 mL) NEB ONE ×3 (00:15→05:12)
[2023-01-04] MEDS ORDERED: TYLENOL #3 TAB (W/CODEINE) PO ONE (00:20)
[2023-01-04] MEDS ORDERED: SOLU-Medrol 125 MG VIAL IVP ONE (02:46)
[2023-01-04] MEDS ORDERED: ZOFRAN INJ 4 MG VIAL IVP PRN (02:47)
[2023-01-04] MEDS ORDERED: TYLENOL #3 TAB (W/CODEINE) PO PRN (02:47)
[2023-01-04] MEDS: ROCEPHIN VIAL 1 GRAM 1 G in NS 100 ML IV 100 ML IV SCH ×2 (03:00→08:33)
[2023-01-04] MEDS ORDERED: ZITHROMAX INJ 500 MG VIAL IV ONE (03:07)
[2023-01-04] MEDS ORDERED: NS 1,000 ML IV 1,000 ML ONE (03:07)
[2023-01-04] MEDS ORDERED: NS 250 ML IV 250 ML IV ONE (03:08)
[2023-01-04] MEDS: NS 1,000 ML IV 1,000 ML IV SCH ×3 (03:12→20:58)
[2023-01-04] MEDS: ZITHROMAX INJ 500 MG VIAL 500 MG in NS 250 ML IV 250 ML IV SCH ×2 (03:13→09:36)
[2023-01-04] MEDS ORDERED: DUONEB 0.5 MG/3 MG (3 mL) NEB SCH (05:00)
[2023-01-04 06:03] VITALS: BMI 21.2
[2023-01-04 06:45] LABS: BASOPHILS % (AUTO) 0.2 % (0.2-1.0); EOSINOPHILS % (AUTO) 0.1 % (0.9-2.9); HEMATOCRIT 45.5 % (42.0-54.0); HEMOGLOBIN 15.8 g/dL (13.5-18.0); LYMPHOCYTES # (AUTO) 0.5 X10^3/uL (1.3-2.9); LYMPHOCYTES % (AUTO) 4.4 % (21.0-51.0); MEAN CORPUSCULAR HEMOGLOBIN 28.7 pg (27.0-34.0); MEAN CORPUSCULAR HGB CONC 34.7 g/dL (33.0-35.0); MEAN CORPUSCULAR VOLUME 82.7 fL (80.0-100.0); MEAN PLATELET VOLUME 8.2 fL (7.4-11.0); MONOCYTES # (AUTO) 0 x10^3/uL (0.3-0.8); MONOCYTES % (AUTO) 0.4 % (0.0-13.0); NEUTROPHILS % (AUTO) 94.9 % (42.0-75.0); RED CELL DISTRIBUTION WIDTH 13.2 % (11.6-16.5); WHITE BLOOD COUNT 10.6 X10^3/uL (3.6-10.0)
[2023-01-04 07:09] LABS: ALANINE AMINOTRANSFERASE 16 Units/L (12-78); ALKALINE PHOSPHATASE 79 Units/L (46-116); ASPARTATE AMINO TRANSFERASE 13 Units/L (15-37); BLOOD UREA NITROGEN 17 mg/dL (7-18); CALCIUM 8.3 mg/dL (8.5-10.1); CARBON DIOXIDE 24.5 mmol/L (21-32); CHLORIDE 100 mmol/L (98-107); COR CA(FOR HYPOALB) 9.1 mg/dL (8.5-10.1); COR NA(FOR HYPERGLY) 140 mmol/L (136-145); CREATININE 1.09 mg/dL (0.70-1.30); SODIUM 135 mmol/L (136-145); eGFR NON BLACK RACES > 60 (>60)
[2023-01-04 07:12] LABS: BAND NEUTROPHILS % 5 % (0-10); PLATELET MORPHOLOGY COMMENT NORMAL (NORMAL)
[2023-01-04] MEDS: Atrovent NEB TX 0.02% NEB SCH ×4 (09:15→21:00)
[2023-01-04] MEDS: SOLU-Medrol 40 MG VIAL IVP SCH ×3 (10:36→21:00)
[2023-01-04] MEDS: XOPENEX 1.25 MG/3 ML NEBULE NEB SCH ×3 (13:17→21:00)
[2023-01-04] MEDS ORDERED: XOPENEX 1.25 MG/3 ML NEBULE NEB SCH (14:00)
[2023-01-05] MEDS: SOLU-Medrol 40 MG VIAL IVP SCH ×3 (05:24→21:00)
[2023-01-05] MEDS: NS 1,000 ML IV 1,000 ML IV SCH ×3 (05:49→22:37)
[2023-01-05 06:03] LABS: BASOPHILS % (AUTO) 0.1 % (0.2-1.0); HEMATOCRIT 39.3 % (42.0-54.0); HEMOGLOBIN 13.6 g/dL (13.5-18.0); LYMPHOCYTES # (AUTO) 0.8 X10^3/uL (1.3-2.9); LYMPHOCYTES % (AUTO) 3.6 % (21.0-51.0); MEAN CORPUSCULAR HEMOGLOBIN 28.9 pg (27.0-34.0); MEAN CORPUSCULAR HGB CONC 34.7 g/dL (33.0-35.0); MEAN CORPUSCULAR VOLUME 83.3 fL (80.0-100.0); MEAN PLATELET VOLUME 8.4 fL (7.4-11.0); MONOCYTES # (AUTO) 0.6 x10^3/uL (0.3-0.8); MONOCYTES % (AUTO) 2.8 % (0.0-13.0); NEUTROPHILS # (AUTO) 20.4 x10^3/uL (2.2-4.8); NEUTROPHILS % (AUTO) 93.5 % (42.0-75.0); RED BLOOD COUNT 4.72 X10^6/uL (4.7-6.0); RED CELL DISTRIBUTION WIDTH 13.4 % (11.6-16.5); WHITE BLOOD COUNT 21.8 X10^3/uL (3.6-10.0)
[2023-01-05 06:07] LABS: ALANINE AMINOTRANSFERASE 15 Units/L (12-78); ALBUMIN 2.9 g/dL (3.4-5.0); ALKALINE PHOSPHATASE 66 Units/L (46-116); ASPARTATE AMINO TRANSFERASE 7 Units/L (15-37); BLOOD UREA NITROGEN 15 mg/dL (7-18); CALCIUM 8.4 mg/dL (8.5-10.1); CARBON DIOXIDE 26.7 mmol/L (21-32); CHLORIDE 106 mmol/L (98-107); COR CA(FOR HYPOALB) 9.3 mg/dL (8.5-10.1); COR NA(FOR HYPERGLY) 143 mmol/L (136-145); CREATININE 1.01 mg/dL (0.70-1.30); SODIUM 141 mmol/L (136-145); TOTAL PROTEIN 5.5 g/dL (6.4-8.2); eGFR NON BLACK RACES > 60 (>60)
[2023-01-05 06:39] LABS: BAND NEUTROPHILS % 3 % (0-10)
[2023-01-05 06:40] LABS: PLATELET MORPHOLOGY COMMENT NORMAL (NORMAL)
--- NOTE | 2023-01-05 07:21 | RAD ---
HISTORYSOB, CHEST PAIN, ASTHMATIC BRONCHITISSTUDYCHEST, 1 VIEWCOMPARISONThe [id number].TECHNIQUEPA or AP view of the chestFINDINGSThe cardiac and mediastinal contours are within normal limits. The lungs are hyperexpanded but clear without focal consolidation or segmental collapse. No pleural effusion or pneumothorax.IMPRESSIONHyperexpanded lungs can be seen with COPD and asthma. If there is need to evaluate for pulmonary nodules, CT chest is recommended.Electronically signed by: Kaden Silveira (Jan 05, 2023 07:20:15)
[2023-01-05] MEDS: ZITHROMAX INJ 500 MG VIAL 500 MG in NS 250 ML IV 250 ML IV SCH (08:05)
[2023-01-05] MEDS: ROCEPHIN VIAL 1 GRAM 1 G in NS 100 ML IV 100 ML IV SCH (08:05)
[2023-01-05] MEDS: Atrovent NEB TX 0.02% NEB SCH ×4 (08:40→20:37)
[2023-01-05] MEDS: XOPENEX 1.25 MG/3 ML NEBULE NEB SCH ×5 (08:41→20:36)
[2023-01-06] MEDS: SOLU-Medrol 40 MG VIAL IVP SCH (05:07)
[2023-01-06 05:56] LABS: BASOPHILS % (AUTO) 0.1 % (0.2-1.0); HEMATOCRIT 39.8 % (42.0-54.0); HEMOGLOBIN 13.4 g/dL (13.5-18.0); LYMPHOCYTES % (AUTO) 4.2 % (21.0-51.0); MEAN CORPUSCULAR HGB CONC 33.7 g/dL (33.0-35.0); MEAN CORPUSCULAR VOLUME 83.2 fL (80.0-100.0); MEAN PLATELET VOLUME 8.2 fL (7.4-11.0); MONOCYTES # (AUTO) 0.8 x10^3/uL (0.3-0.8); MONOCYTES % (AUTO) 3.2 % (0.0-13.0); NEUTROPHILS # (AUTO) 22.4 x10^3/uL (2.2-4.8); NEUTROPHILS % (AUTO) 92.5 % (42.0-75.0); RED BLOOD COUNT 4.79 X10^6/uL (4.7-6.0); RED CELL DISTRIBUTION WIDTH 13.6 % (11.6-16.5); WHITE BLOOD COUNT 24.2 X10^3/uL (3.6-10.0)
[2023-01-06 06:11] LABS: ALANINE AMINOTRANSFERASE 16 Units/L (12-78); ALKALINE PHOSPHATASE 63 Units/L (46-116); ASPARTATE AMINO TRANSFERASE 8 Units/L (15-37); BLOOD UREA NITROGEN 15 mg/dL (7-18); CALCIUM 8.3 mg/dL (8.5-10.1); CARBON DIOXIDE 26.5 mmol/L (21-32); CHLORIDE 106 mmol/L (98-107); COR CA(FOR HYPOALB) 9.1 mg/dL (8.5-10.1); COR NA(FOR HYPERGLY) 143 mmol/L (136-145); CREATININE 0.97 mg/dL (0.70-1.30); SODIUM 141 mmol/L (136-145); TOTAL PROTEIN 5.5 g/dL (6.4-8.2); eGFR NON BLACK RACES > 60 (>60)
[2023-01-06 06:20] LABS: PLATELET MORPHOLOGY COMMENT NORMAL (NORMAL)
[2023-01-06] MEDS: ROCEPHIN VIAL 1 GRAM 1 G in NS 100 ML IV 100 ML IV SCH (08:26)
[2023-01-06] MEDS: ZITHROMAX INJ 500 MG VIAL 500 MG in NS 250 ML IV 250 ML IV SCH (08:27)
[2023-01-06] MEDS: Atrovent NEB TX 0.02% NEB SCH (08:48)
[2023-01-06] MEDS: XOPENEX 1.25 MG/3 ML NEBULE NEB SCH (08:48)
--- NOTE | 2023-01-06 09:05 | DR.H&P ---
H&P - History & Physical for Day of: H&P Date: 01/04/23 - Chief Complaint Chief Complaint: COUGH, SHORTNESS OF BREATH, WHEEZING - History of Present Illness History of Present Illness: IS A 52 YEAR OLD PATIENT OF OURS WHO PRESENTED TO THE EMERGENCY ROOM WITH COMPLAINTS OF SHORTNESS OF BREATH, COUGH, AND WHEEZING X 1 DAYS. HE REPORTS A HISTORY OF ASTHMA AND COPD AT HOME. HE REPORTS USE OF AN INHALER AT HOME. ON EXAMINATION, HE IS NOTED WITH SCATTERED WHEEZING. ON ARRIVAL, VITALS WERE 97.7-126-28-95%-136/94. LABS WERE OBTAINED. WBC 10.6, RBC 5.50, 15.8, HCT 45.5, PLT COUNT 244, SODIUM 135, POTASSIUM 4.1, CHLORIDE 100, CARBON DIOXIDE 24.5, BUN 17, CREATININE 1.09, GLUCOSE 306, CALCIUM 8.3, TOTAL BILI 0.40, AST 13, ALT 16, ALK PHOS 79, TOTAL PROTEIN 6.0, ALBUMIN 3.0. ABG OBTAINED AND REVEALED: PH 7.420, PC02 42, P02 62, HC03 27.2, 02 SAT 92, BASE EXCESS 2.4, A-A GRADIENT 35, FI02 21.0. BLOOD AND SPUTUM CULTURES WERE SET UP. CHEST XRAY WAS OBTAINED AND REVEALED: The cardiomediastinal silhouette is stable. No acute airspace disease. No pneumothorax or effusion. The bony thorax appears intact. WHILE IN THE ER, HE WAS GIVEN A DUONEB X 2, ATROVENT NEB X 1, TYLENOL WITH CODEINE. HE WAS PLACED ON OXYGEN VIA NASAL CANNULA AT 2 LPM. HE WAS ADMITTED TO THE HOSPITAL OBSERVATION STATUS FOR FURTHER EVALUATION AND TREATMENT OF ACUTE BRONCHITIS, ASTHMA EXACERBATION. HE WAS STARTED ON NORMAL SALINE AT 80 ML/HR, CEFTRIAXONE 1G IV DAILY, AZITHROMYCIN 500MG IV DAILY, XOPENEX NEBS QID, ATROVENT NEBS QID, SOLU-MEDROL 80MG IV Q8H, ZOFRAN 4MG IV Q8H PRN, AND TYLENOL WITH CODEINE Q6H PRN. OTHERWISE, WE PLAN TO FOLLOW-UP WITH AM LABS AND CHEST XRAY AND CONTINUE TO MONITOR. TIME SPENT ON CLINICAL ASSESSMENT, REVIWING LABS AND IMAGING, DECISION MAKING, AND DOCUMENTATION GREATER THAN 75 MINUTES. - Past Medical History Past Medical History: Hypertension, COPD, Asthma - Past Surgical History Surgical History: No History - Family History Family Medical History: Diabetes Mellitus, [place], Coronary Artery Disease, Heart Failure, Sudden Cardiac , Hypertension - Social History Does patient currently use any type of tobacco product: No Have you used tobacco products in the last 12 months: No Type of Tobacco Use: None Does any household member use tobacco: No Alcohol Use: None Drug Use: None - Medications Home Medications: No Known Drug Allergies Allergy (Verified 06/15/21 14:23) CONTINUE taking the following medications NK 01/03/23 [History] - Review of Systems Constitutional: Weakness Eyes: No Symptoms Reported ENT: No Symptoms Reported Respiratory: See HPI, Cough, Shortness of Breath, SOB with Excertion, Wheezing Cardiovascular: No Symptoms Reported Gastrointestinal: No Symptoms Reported Genitourinary: No Symptoms Reported Musculoskeletal: No Symptoms Reported Skin: No Symptoms Reported Neurological: No Symptoms Reported - Physical Exam Vital Signs: Temperature 98.4 F Pulse Rate [Left Radial] 114 Pulse Rate 122 Respiratory Rate 18 Blood Pressure [Left Arm] 141/85 Blood Pressure [Right Arm] 133/96 Blood Pressure 133/96 O2 Sat by Pulse Oximetry 93 Oriented: Normal Eyes: Normal Ear: Normal Nose: Normal Throat: Normal Respiratory: Wheezes Throughout Cardiovascular: Tachycardia : Normal Auscultation: Bowel Sounds: Normal Palpation: Normal Tenderness: Normal Skin: Normal Musculoskeletal: Normal Psychiatric: Normal Mood Description: Calm Affect: Normal Speech Pattern: Clear - Assessment/Plan (1) Acute bronchitis Qualifiers: Bronchitis organism: unspecified organism Qualified Code(s): J20.9 - Acute bronchitis, unspecified Status: Acute Plan: ADMIT, SUPPLEMENTAL OXYGEN, NORMAL SALINE AT 80 ML/HR, CEFTRIAXONE 1G IV DAILY, AZITHROMYCIN 500MG IV DAILY, XOPENEX NEBS QID, ATROVENT NEBS QID, SOLU- MEDROL 80MG IV Q8H, ZOFRAN 4MG IV Q8H PRN, AND TYLENOL WITH CODEINE Q6H PRN. (2) Asthma exacerbation Qualifiers: Asthma severity: moderate Status: Acute - Allergies Allergies/Adverse Reactions: Allergies Allergy/AdvReac Type Severity Reaction Status Date / Time No Known Drug Allergies Allergy Verified 06/15/21 14:23
[2023-01-06 12:51] VITALS: BP 156/83
[2023-01-06] MEDS: NS 1,000 ML IV 1,000 ML IV SCH (12:54)
== END 2023-01-06 13:00 | disposition home or self-care (01) ==
LOC: MED/SURG 20:40 → ER 20:40 → MED/SURG 01-04 05:21
PROVIDERS: ADMIT Internal Medicine; ATTEND Internal Medicine
DX: R73.09 Other abnormal glucose; R06.02 Shortness of breath; Z99.81 Dependence on supplemental oxygen; I10 Essential (primary) hypertension; J45.41 Moderate persistent asthma with (acute) exacerbation; J44.0 Chronic obstructive pulmonary disease with (acute) lower respiratory infection; J20.8 Acute bronchitis due to other specified organisms; Z20.822 Contact with and (suspected) exposure to COVID-19

== ENCOUNTER 2023-08-10 17:15 | Observation (INO) ==
[2023-08-10] MEDS ORDERED: DUONEB 0.5 MG/3 MG (3 mL) NEB ONE ×4 (17:25→19:05)
[2023-08-10] MEDS ORDERED: SOLU-Medrol 125 MG VIAL IVP ONE (17:28)
--- NOTE | 2023-08-10 17:28 | DR.SOBA ---
HPI Time Seen Time Seen by Provider: 08/10/23 17:27 Complaints Chief Complaint Doctors Comments: 53-year-old male, history of asthma/COPD, presents with shortness of breath. Has been feeling poorly over the past few days. Has a cough, productive yellow sputum, with wheezing and shortness of breath. Denies chest pain, fevers, bowel or bladder issues. Patient does have a nebulizer and inhalers at home. He does not smoke. COVID-19 Coronavirus risk:travel/contact w/high risk person: No Has patient experienced Coronavirus symptoms: No Reviewed Nurses Notes Reviewed: Yes Source History Provided: Patient Mode of Arrival Mode of Arrival: Ambulatory PMH PMH Past Medical History: Asthma, COPD and Hypertension Past Surgical History: No Surgical History: No History Family History Family Medical History: Diabetes Mellitus, [place], Coronary Artery Disease, Heart Failure, Sudden Cardiac and Hypertension Social History Does patient currently use any type of tobacco product: No Alcohol Use: None Do you use any recreational Drugs:: No Travel Risk Coronavirus risk:travel/contact w/high risk person: No Has patient experienced Coronavirus symptoms: No ROS Review of Systems Constitutional: No Symptoms Reported Eyes: No Symptoms Reported ENTM: No Symptoms Reported Respiratoy: See HPI Cardiovascular: No Symptoms Reported Gastrointestinal/Abdominal: No Symptoms Reported Genitourinary: No Symptoms Reported Neurological: No Symptoms Reported Musculoskeletal: No Symptoms Reported Integumentary: No Symptoms Reported All Other Systems: Reviewed and Negative PE Vital Signs Vitals: Vital Signs Temperature 97.9 F Pulse Rate 105 Pulse Rate 104 Pulse Rate 110 Pulse Rate 102 Pulse Rate 103 Pulse Rate 96 Pulse Rate 92 Pulse Rate 90 Pulse Rate 85 Pulse Rate 91 Pulse Rate 98 Pulse Rate 110 Pulse Rate 102 Pulse Rate 115 Pulse Rate 124 Respiratory Rate 29 Blood Pressure 133/74 O2 Sat by Pulse Oximetry 94 O2 Sat by Pulse Oximetry 93 O2 Sat by Pulse Oximetry 96 O2 Sat by Pulse Oximetry 99 O2 Sat by Pulse Oximetry 97 O2 Sat by Pulse Oximetry 97 O2 Sat by Pulse Oximetry 98 O2 Sat by Pulse Oximetry 97 O2 Sat by Pulse Oximetry 96 O2 Sat by Pulse Oximetry 97 O2 Sat by Pulse Oximetry 94 O2 Sat by Pulse Oximetry 100 O2 Sat by Pulse Oximetry 93 O2 Sat by Pulse Oximetry 93 General General Appearance: Alert and In No Apparent Distress Eyes Eye exam: PERRL and EOMI ENT ENT Exam: Normal Oropharynx and Mucous Membranes Moist Neck Neck Exam: Normal Inspection Respiratory Respiratory Exam: Normal Lung Sounds Bilat; negative Accessory Muscle Use or Respiratory Distress Cardiovascular Cardiovascular Exam: Regular Rate, Normal Rhythm and Normal Heart Sounds Extremities Extremities Exam: Normal Inspection and Full ROM; negative Edema Neurologic Neurological Exam: Alert, Oriented X3 and CN II-XII Intact; negative Motor Sensory Deficit Skin Skin Exam: Warm and Dry COURSE Treatment Treatment: 53-year-old male with a history of asthma/COPD, presents with exacerbation. Work-up initiated. Patient given IV fluids, IV Solu-Medrol, and a DuoNeb breathing treatment. Labs overall acceptable. Does have a high amount of eosinophils on his CBC. Chest x-ray with COPD changes, has some scattered o pacifications on the right upper lobe, possible early pneumonia. 0 - resting, doing better, on O2. Still with bilateral expiratory wheezing. Patient given dose of IV Rocephin now to cover for possible developing pneumonia. Patient given second breathing treatment. Will observe to see if we can send home, or possibly admit for observation. 2013 -patient oxygenating 93% on 2 L of nasal cannula. Breast exam shows persistent rhonchi and expiratory wheezing bilateral. Discussed with Dr. Cardenas, accepts the admission for Dr. Woody. ROR Labs Reviewed Laboratory Results Reviewed?: Yes 08/13/23 05:31 08/13/23 05:31 Laboratory: WBC 11.8 X10^3/uL (3.6-10.0) H 08/10/23 17:30 RBC 5.16 X10^6/uL (4.7-6.0) 08/10/23 17:30 Hgb 15.2 g/dL (13.5-18.0) 08/10/23 17:30 Hct 44.4 % (42.0-54.0) 08/10/23 17:30 MCV 85.9 fL (80.0-100.0) 08/10/23 17:30 MCH 29.5 pg (27.0-34.0) 08/10/23 17:30 MCHC 34.3 g/dL (33.0-35.0) 08/10/23 17:30 RDW 13.5 % (11.6-16.5) 08/10/23 17:30 Plt Count 334 X10^3/uL (150.0-450.0) 08/10/23 17:30 MPV 7.5 fL (7.4-11.0) 08/10/23 17:30 Neut % (Auto) 62.9 % (42.0-75.0) 08/10/23 17:30 Lymph % (Auto) 16.7 % (21.0-51.0) L 08/10/23 17:30 [place] % (Auto) 8.3 % (0.0-13.0) 08/10/23 17:30 Eos % (Auto) 11.1 % (0.9-2.9) H 08/10/23 17:30 Baso % (Auto) 1.0 % (0.2-1.0) 08/10/23 17:30 Neut # (Auto) 7.4 x10^3/uL (2.2-4.8) H 08/10/23 17:30 Lymph # (Auto) 2.0 X10^3/uL (1.3-2.9) 08/10/23 17:30 [place] # (Auto) 1.0 x10^3/uL (0.3-0.8) H 08/10/23 17:30 Eos # (Auto) 1.3 x10^3/uL (0.0-0.2) H 08/10/23 17:30 Baso # (Auto) 0.1 X10^3/uL (0.0-0.1) 08/10/23 17:30 Absolute Nucleated RBC 0.0 /100WBC 08/10/23 17:30 Sodium 139 mmol/L (136-145) 08/10/23 17:30 Corrected Sodium 139 mmol/L (136-145) 08/10/23 17:30 Potassium 4.1 mmol/L (3.5-5.1) 08/10/23 17:30 Chloride 102 mmol/L (98-107) 08/10/23 17:30 Carbon Dioxide 28.6 mmol/L (21-32) 08/10/23 17:30 BUN 7 mg/dL (7-18) 08/10/23 17:30 Creatinine 1.17 mg/dL (0.70-1.30) 08/10/23 17:30 Est GFR (MDRD) Af Amer > 60 (>60) 08/10/23 17:30 Est GFR (MDRD) Non-Af > 60 (>60) 08/10/23 17:30 Glucose 117 mg/dL (65-99) H 08/10/23 17:30 Calcium 8.7 mg/dL (8.5-10.1) 08/10/23 17:30 Corrected Calcium 9.3 mg/dL (8.5-10.1) 08/10/23 17:30 Total Bilirubin 0.60 mg/dL (0.2-1.0) 08/10/23 17:30 AST 15 Units/L (15-37) 08/10/23 17:30 ALT 20 Units/L (12-78) 08/10/23 17:30 Alkaline Phosphatase 103 Units/L (46-116) 08/10/23 17:30 Troponin I High Sens 4.6 ng/L (4.0-60.0) 08/10/23 17:30 Total Protein 6.9 g/dL (6.4-8.2) 08/10/23 17:30 Albumin 3.2 g/dL (3.4-5.0) L 08/10/23 17:30 Globulin 3.7 g/dL (2.5-4.5) 08/10/23 17:30 Albumin/Globulin Ratio 0.9 Ratio (1.1-2.1) L 08/10/23 17:30 Labs acceptable XRAY XRAY Interpreted by: Self X-ray Results: CXR - + COPD changes, + few scattered right upp lobe opacifications. EXAM: CHEST, 1 VIEW HISTORY: Pt states he is having an asthma attack that is not relieved by MDI or neb tx. Pt audibly wheezing, tachypneic, diaphoretic, using accessory muscles, pursed lip breathing; COMPARISON: January 06 TECHNIQUE: Portable chest radiograph FINDINGS: The lungs hyperinflated with flattened diaphragms. The heart size is normal. T here is coarsening of the interstitium with mild peribronchial thickening. Patchy reticulonodular infiltrates are seen within the right upper lobe. The pleural spaces are clear. There is no radiographic evidence of pneumothorax or free air below the diaphragm. No acute osseous abnormalities. Please note that the lung apices are clipped with this exam. IMPRESSION: Pulmonary hyperinflation in keeping with stated clinical history of asthmatic exacerbation Clustered reticulonodular opacities of the right upper lobe in keeping with bronchiolitis/peribronchial pneumonitis. This may be related to small airways inflammation or atypical organism infection in the appropriate clinical setting Routine radiographic follow-up is suggested to ensure clearance. THIS IS AN ELECTRONICALLY VERIFIED FINAL REPORT 08/10/2023 6:10 PM - Electronically signed by Ryan Lindsey MD Opioid Opioid Risk Tool Personal Hx of Substance Abuse: Illegal Drugs Age (Marshal box if 16-45): No History of Preadolescent Sexual Abuse: No Total: 0 Total Score Risk Category: Low Risk Copyright: Corona LARRY predicting aberrant behaviors Discharge Plan Diagnosis Discharge Problem: Exacerbation of asthma Qualifiers: Asthma severity: moderate Discharge Plan Patient Disposition: ADMITTED INPATIENT Condition: Stable
[2023-08-10] MEDS ORDERED: SOLU-Medrol 125 MG VIAL ONE (17:30)
[2023-08-10 17:39] LABS: BASOPHILS # (AUTO) 0.1 X10^3/uL (0.0-0.1); EOSINOPHILS # (AUTO) 1.3 x10^3/uL (0.0-0.2); EOSINOPHILS % (AUTO) 11.1 % (0.9-2.9); HEMATOCRIT 44.4 % (42.0-54.0); HEMOGLOBIN 15.2 g/dL (13.5-18.0); LYMPHOCYTES % (AUTO) 16.7 % (21.0-51.0); MEAN CORPUSCULAR HEMOGLOBIN 29.5 pg (27.0-34.0); MEAN CORPUSCULAR HGB CONC 34.3 g/dL (33.0-35.0); MEAN CORPUSCULAR VOLUME 85.9 fL (80.0-100.0); MEAN PLATELET VOLUME 7.5 fL (7.4-11.0); MONOCYTES % (AUTO) 8.3 % (0.0-13.0); NEUTROPHILS # (AUTO) 7.4 x10^3/uL (2.2-4.8); NEUTROPHILS % (AUTO) 62.9 % (42.0-75.0); PLATELET COUNT 334 X10^3/uL (150.0-450.0); RED BLOOD COUNT 5.16 X10^6/uL (4.7-6.0); RED CELL DISTRIBUTION WIDTH 13.5 % (11.6-16.5); WHITE BLOOD COUNT 11.8 X10^3/uL (3.6-10.0)
[2023-08-10 17:54] LABS: ALANINE AMINOTRANSFERASE 20 Units/L (12-78); ALBUMIN 3.2 g/dL (3.4-5.0); ALKALINE PHOSPHATASE 103 Units/L (46-116); ASPARTATE AMINO TRANSFERASE 15 Units/L (15-37); BLOOD UREA NITROGEN 7 mg/dL (7-18); CALCIUM 8.7 mg/dL (8.5-10.1); CARBON DIOXIDE 28.6 mmol/L (21-32); CHLORIDE 102 mmol/L (98-107); COR CA(FOR HYPOALB) 9.3 mg/dL (8.5-10.1); COR NA(FOR HYPERGLY) 139 mmol/L (136-145); CREATININE 1.17 mg/dL (0.70-1.30); GLUCOSE 117 mg/dL (65-99); POTASSIUM 4.1 mmol/L (3.5-5.1); SODIUM 139 mmol/L (136-145); TOTAL PROTEIN 6.9 g/dL (6.4-8.2); eGFR NON BLACK RACES > 60 (>60)
--- NOTE | 2023-08-10 18:14 | RAD ---
EXAM:CHEST, 1 VIEWHISTORY:Pt states he is having an asthma attack that is not relieved by MDI or neb tx. Pt audibly wheezing, tachypneic, diaphoretic, using accessory muscles, pursed lip breathing;COMPARISON:January 06TECHNIQUE:Portable chest radiographFINDINGS:The lungs hyperinflated with flattened diaphragms. The heart size is normal. There is coarsening of the interstitium with mild peribronchial thickening. Patchy reticulonodular infiltrates are seen within the right upper lobe. The pleural spaces are clear. There is no radiographic evidence of pneumothorax or free air below the diaphragm. No acute osseous abnormalities. Please note that the lung apices are clipped with this exam.IMPRESSION:Pulmonary hyperinflation in keeping with stated clinical history of asthmatic exacerbationClustered reticulonodular opacities of the right upper lobe in keeping with bronchiolitis/peribronchial pneumonitis. This may be related to small airways inflammation or atypical organism infection in the appropriate clinical settingRoutine radiographic follow-up is suggested to ensure clearance.THIS IS AN ELECTRONICALLY VERIFIED FINAL [id number]/10/2023 6:10 PM - Electronically signed by Ryan Lindsey MD
[2023-08-10] MEDS ORDERED: ROCEPHIN VIAL 1 GRAM IVP STA (19:00)
[2023-08-10] MEDS ORDERED: ROCEPHIN VIAL 1 GRAM ONE (19:05)
[2023-08-10] MEDS ORDERED: CONSULT PHARMACY - POTASSIUM & MAGNESIUM XX SCH (21:17)
[2023-08-10] MEDS: D5 1/2 NS 1,000 ML 1,000 ML IV SCH (21:46)
[2023-08-10 21:57] VITALS: BMI 31.8
[2023-08-10] MEDS: DUONEB 0.5 MG/3 MG (3 mL) NEB SCH (22:40)
[2023-08-11 05:24] LABS: BASOPHILS % (AUTO) 0.2 % (0.2-1.0); HEMATOCRIT 42.5 % (42.0-54.0); HEMOGLOBIN 14.6 g/dL (13.5-18.0); LYMPHOCYTES # (AUTO) 0.6 X10^3/uL (1.3-2.9); LYMPHOCYTES % (AUTO) 6.3 % (21.0-51.0); MEAN CORPUSCULAR HEMOGLOBIN 29.2 pg (27.0-34.0); MEAN CORPUSCULAR HGB CONC 34.3 g/dL (33.0-35.0); MEAN CORPUSCULAR VOLUME 85.1 fL (80.0-100.0); MONOCYTES # (AUTO) 0.2 x10^3/uL (0.3-0.8); MONOCYTES % (AUTO) 1.7 % (0.0-13.0); NEUTROPHILS # (AUTO) 8.2 x10^3/uL (2.2-4.8); NEUTROPHILS % (AUTO) 91.8 % (42.0-75.0); PLATELET COUNT 340 X10^3/uL (150.0-450.0); RED CELL DISTRIBUTION WIDTH 13.2 % (11.6-16.5); WHITE BLOOD COUNT 8.9 X10^3/uL (3.6-10.0)
[2023-08-11 05:38] LABS: ALANINE AMINOTRANSFERASE 19 Units/L (12-78); ALBUMIN 2.9 g/dL (3.4-5.0); ALKALINE PHOSPHATASE 95 Units/L (46-116); ASPARTATE AMINO TRANSFERASE 10 Units/L (15-37); BLOOD UREA NITROGEN 12 mg/dL (7-18); CALCIUM 8.6 mg/dL (8.5-10.1); CARBON DIOXIDE 26.1 mmol/L (21-32); CHLORIDE 103 mmol/L (98-107); COR CA(FOR HYPOALB) 9.5 mg/dL (8.5-10.1); COR NA(FOR HYPERGLY) 142 mmol/L (136-145); CREATININE 1.07 mg/dL (0.70-1.30); GLUCOSE 263 mg/dL (65-99); POTASSIUM 4.4 mmol/L (3.5-5.1); SODIUM 138 mmol/L (136-145); TOTAL PROTEIN 6.7 g/dL (6.4-8.2); eGFR NON BLACK RACES > 60 (>60)
[2023-08-11 06:04] LABS: PLATELET MORPHOLOGY COMMENT NORMAL (NORMAL)
[2023-08-11] MEDS: SOLU-Medrol 40 MG VIAL IVP SCH ×3 (06:17→21:18)
[2023-08-11] MEDS: DUONEB 0.5 MG/3 MG (3 mL) NEB SCH ×4 (06:21→21:45)
--- NOTE | 2023-08-11 06:37 | RAD ---
EXAM:One-view chestHISTORY:Shortness of breathCOMPARISON:08/10/2023FINDINGS:Hear t size is normal. Lisa are normal. Lungs are hyperinflated. Patchy area of increased density in the right upper lobe is unchanged. Continued follow-up until complete resolution is recommended. If this does not resolve with therapy, chest CT will be required. No other infiltrates. No pleural effusions. Bony thorax is unremarkable.IMPRESSION:No significant change from the prior examinationTHIS IS AN ELECTRONICALLY VERIFIED FINAL [id number]/11/2023 6:34 AM - Electronically signed by Benito Campos MD
[2023-08-11] MEDS: D5 1/2 NS 1,000 ML 1,000 ML IV SCH (10:39)
--- NOTE | 2023-08-11 11:56 | DR.H&P ---
H&P - History & Physical for Day of: H&P Date: 08/10/23 - Chief Complaint Chief Complaint: SOB, COUGH - History of Present Illness History of Present Illness: IS A 53 YEAR OLD PATIENT OF OURS WHO PRESENTED TO THE EMERGENCY ROOM WITH COMPLAINTS OF SHORTNESS OF BREATH, COUGH, AND WHEEZING X 2-3 DAYS. HE REPORTS A HISTORY OF ASTHMA AND COPD AT HOME. HE REPORTS USE OF AN INHALER AT HOME. ON EXAMINATION, HE IS NOTED WITH SCATTERED WHEEZING. ON ARRIVAL, VITALS WERE 97.9-124-29-93%-133/74. LABS WERE OBTAINED. WBC 11.8, RBC 5.16, HGB 15.2, HCT 44.4, PLT COUNT 334, SODIUM 139, POTASSIUM 4.1, CHLORIDE 102, CARBON DIOXIDE 28.6, BUN 7, CREATININE 1.17, GLUCOSE 117, CALCIUM 8.7, AST 15, ALT 20, ALK PHOS 103, TROPONIN 4.6, TOTAL PROTEIN 6.9, ALBUMIN 3.2. CHEST XRAY WAS OBTAINED AND REVEALED: Pulmonary hyperinflation in keeping with stated clinical history of asthmatic exacerbation. Clustered reticulonodular opacities of the right upper lobe in keeping with bronchiolitis/peribronchial pneumonitis. This may be related to small airways inflammation or atypical organism infection in the appropriate clinical setting. Routine radiographic follow-up is suggested to ensure clearance. WHILE IN THE ER, HE WAS GIVEN A DUONEB X 2, SOLU-MEDROL 125MG IV X 1, AND ROCEPHIN 1G IV X 1 DOSE. HE WAS PLACED ON OXYGEN VIA NASAL CANNULA AT 2 LPM. HE WAS ADMITTED TO THE HOSPITAL OBSERVATION STATUS FOR FURTHER EVALUATION AND TREATMENT OF ACUTE BRONCHITIS, ASTHMA EXACERBATION. HE WAS STARTED ON NORMAL SALINE AT 80 ML/HR, CEFTRIAXONE 1G IV DAILY, SOLU-MEDROL 40MG IV Q8H, DUONEBS QID, AND PULMICORT NEBS BID. OTHERWISE, WE PLAN TO FOLLOW-UP WITH AM LABS AND CHEST XRAY AND CONTINUE TO MONITOR. TIME SPENT ON CLINICAL ASSESSMENT, REVIWING LABS AND IMAGING, DECISION MAKING, AND DOCUMENTATION GREATER THAN 75 MINUTES. - Past Medical History Past Medical History: Hypertension, COPD, Asthma - Past Surgical History Surgical History: No History - Family History Family Medical History: Diabetes Mellitus, [place], Coronary Artery Disease, Heart Failure, Sudden Cardiac - Social History Does patient currently use any type of tobacco product: Yes (Dip) Have you used tobacco products in the last 12 months: Yes Type of Tobacco Use: Dip How many years tobacco product used: 10 Does any household member use tobacco: No Alcohol Use: None - Review of Systems Constitutional: Weakness Eyes: No Symptoms Reported ENT: No Symptoms Reported Respiratory: Cough, Shortness of Breath, SOB with Excertion, Wheezing Cardiovascular: No Symptoms Reported Gastrointestinal: No Symptoms Reported Genitourinary: No Symptoms Reported Musculoskeletal: No Symptoms Reported Skin: No Symptoms Reported Neurological: Weakness - Physical Exam Vital Signs: Vital Signs Temperature 97.7 F Temperature 97.9 F Pulse Rate [Left] 98 Pulse Rate [Left] 95 Respiratory Rate 20 Respiratory Rate 20 Blood Pressure [Left Arm] 142/83 Blood Pressure [Left Arm] 139/76 O2 Sat by Pulse Oximetry 93 O2 Sat by Pulse Oximetry 95 Oriented: Normal Eyes: Normal Ear: Normal Nose: Normal Throat: Normal Respiratory: Wheezes Throughout Cardiovascular: Tachycardia : Normal Auscultation: Bowel Sounds: Normal Palpation: Normal Tenderness: Normal Skin: Normal Musculoskeletal: Normal Psychiatric: Normal Mood Description: Calm Affect: Normal Speech Pattern: Clear - Assessment/Plan (1) Exacerbation of asthma Qualifiers: Asthma severity: moderate Status: Acute (2) Acute bronchitis Qualifiers: Bronchitis organism: unspecified organism Qualified Code(s): J20.9 - Acute bronchitis, unspecified Status: Acute - Allergies Allergies/Adverse Reactions: Allergies Allergy/AdvReac Type Severity Reaction Status Date / Time No Known Drug Allergies Allergy Verified 08/10/23 20:00 - Medications Home Medications: Home Medications Medication Instructions Recorded Confirmed NK 08/10/23 08/10/23
[2023-08-11] MEDS: NS 1/2 1,000 ML IV 1,000 ML IV SCH ×4 (14:10→22:30)
[2023-08-11] MEDS ORDERED: NS 1/2 1,000 ML IV 1,000 ML IV ONE ×2 (14:20→20:15)
[2023-08-11] MEDS: ROBITUSSIN DM PO PRN (20:54)
[2023-08-11] MEDS: ROCEPHIN VIAL 1 GRAM 1 G in NS 100 ML IV 100 ML IV SCH (21:19)
[2023-08-11] MEDS: PULMICORT NEB TX 0.5 MG NEB SCH (21:45)
[2023-08-12] MEDS: NS 1/2 1,000 ML IV 1,000 ML IV SCH ×3 (03:34→21:15)
--- NOTE | 2023-08-12 04:48 | RAD ---
HISTORYSOB Relevant Clinical InformationSTUDYCHEST, 1 [id number]/20/2023FINDINGSThe trachea is midline. The cardiac silhouette is unremarkable. The lungs are clear without focal infiltrate or effusion. The bony thorax is unremarkable.IMPRESSIONNo acute cardiopulmonary findings .Electronically signed by: Arthur Darden (Aug 12, 2023 04:47:25)
[2023-08-12] MEDS: SOLU-Medrol 40 MG VIAL IVP SCH (05:14)
[2023-08-12 05:18] LABS: BASOPHILS % (AUTO) 0.1 % (0.2-1.0); HEMATOCRIT 38.9 % (42.0-54.0); HEMOGLOBIN 13.2 g/dL (13.5-18.0); LYMPHOCYTES % (AUTO) 4.2 % (21.0-51.0); MEAN CORPUSCULAR HEMOGLOBIN 28.9 pg (27.0-34.0); MEAN CORPUSCULAR HGB CONC 33.9 g/dL (33.0-35.0); MEAN CORPUSCULAR VOLUME 85.3 fL (80.0-100.0); MONOCYTES # (AUTO) 0.9 x10^3/uL (0.3-0.8); MONOCYTES % (AUTO) 3.9 % (0.0-13.0); NEUTROPHILS # (AUTO) 20.9 x10^3/uL (2.2-4.8); NEUTROPHILS % (AUTO) 91.8 % (42.0-75.0); PLATELET COUNT 345 X10^3/uL (150.0-450.0); RED BLOOD COUNT 4.56 X10^6/uL (4.7-6.0); RED CELL DISTRIBUTION WIDTH 13.2 % (11.6-16.5)
[2023-08-12 05:27] LABS: ALANINE AMINOTRANSFERASE 27 Units/L (12-78); ALBUMIN 2.9 g/dL (3.4-5.0); ALKALINE PHOSPHATASE 89 Units/L (46-116); ASPARTATE AMINO TRANSFERASE 19 Units/L (15-37); BLOOD UREA NITROGEN 15 mg/dL (7-18); CALCIUM 8.7 mg/dL (8.5-10.1); CARBON DIOXIDE 26.1 mmol/L (21-32); CHLORIDE 105 mmol/L (98-107); COR CA(FOR HYPOALB) 9.6 mg/dL (8.5-10.1); COR NA(FOR HYPERGLY) 143 mmol/L (136-145); CREATININE 1.03 mg/dL (0.70-1.30); GLUCOSE 236 mg/dL (65-99); POTASSIUM 4.3 mmol/L (3.5-5.1); SODIUM 140 mmol/L (136-145); TOTAL PROTEIN 6.4 g/dL (6.4-8.2); eGFR NON BLACK RACES > 60 (>60)
[2023-08-12 05:39] LABS: WHITE BLOOD COUNT 22.8 X10^3/uL (3.6-10.0)
[2023-08-12 05:40] LABS: PLATELET MORPHOLOGY COMMENT NORMAL (NORMAL)
[2023-08-12] MEDS: PULMICORT NEB TX 0.5 MG NEB SCH ×2 (08:49→21:20)
[2023-08-12] MEDS: DUONEB 0.5 MG/3 MG (3 mL) NEB SCH ×4 (08:49→21:20)
[2023-08-12] MEDS: ACTOS PO SCH (12:16)
[2023-08-12] MEDS: PREDNISONE TAB 10 MG PO SCH (12:16)
[2023-08-12] MEDS: GLUCOPHAGE XR 24-HR PO SCH ×2 (12:16→20:36)
[2023-08-12] MEDS ORDERED: TYLENOL 325 MG TAB PO PRN (20:24)
[2023-08-12] MEDS: ROBITUSSIN DM PO PRN (20:36)
[2023-08-12] MEDS: ROCEPHIN VIAL 1 GRAM 1 G in NS 100 ML IV 100 ML IV SCH (20:39)
[2023-08-12] MEDS ORDERED: NS 1/2 1,000 ML IV 1,000 ML IV ONE (21:09)
[2023-08-13 00:11] VITALS: RESP 20
--- NOTE | 2023-08-13 03:20 | RAD ---
HISTORYSOB Relevant Clinical InformationSTUDYCHEST, 1 [id number]/21/2023FINDINGSThe trachea is midline. The cardiac silhouette is unremarkable. The lungs are clear without focal infiltrate or effusion. The bony thorax is unremarkable.IMPRESSIONNo acute cardiopulmonary findings .Electronically signed by: Arthur Darden (Aug 13, 2023 03:17:55)
[2023-08-13] MEDS ORDERED: DUONEB 0.5 MG/3 MG (3 mL) NEB ONE (04:58)
[2023-08-13] MEDS ORDERED: NS 1/2 1,000 ML IV 1,000 ML IV ONE (05:00)
[2023-08-13] MEDS: DUONEB 0.5 MG/3 MG (3 mL) NEB SCH ×2 (05:00→08:47)
[2023-08-13] MEDS: NS 1/2 1,000 ML IV 1,000 ML IV SCH (05:43)
[2023-08-13 05:55] LABS: BASOPHILS % (AUTO) 0.3 % (0.2-1.0); EOSINOPHILS # (AUTO) 0.1 x10^3/uL (0.0-0.2); EOSINOPHILS % (AUTO) 0.4 % (0.9-2.9); HEMATOCRIT 39.9 % (42.0-54.0); HEMOGLOBIN 13.4 g/dL (13.5-18.0); LYMPHOCYTES # (AUTO) 2.9 X10^3/uL (1.3-2.9); LYMPHOCYTES % (AUTO) 17.5 % (21.0-51.0); MEAN CORPUSCULAR HEMOGLOBIN 28.8 pg (27.0-34.0); MEAN CORPUSCULAR HGB CONC 33.6 g/dL (33.0-35.0); MEAN CORPUSCULAR VOLUME 85.9 fL (80.0-100.0); MEAN PLATELET VOLUME 7.6 fL (7.4-11.0); MONOCYTES # (AUTO) 1.2 x10^3/uL (0.3-0.8); MONOCYTES % (AUTO) 7.1 % (0.0-13.0); NEUTROPHILS # (AUTO) 12.5 x10^3/uL (2.2-4.8); NEUTROPHILS % (AUTO) 74.7 % (42.0-75.0); PLATELET COUNT 332 X10^3/uL (150.0-450.0); RED BLOOD COUNT 4.64 X10^6/uL (4.7-6.0); RED CELL DISTRIBUTION WIDTH 13.4 % (11.6-16.5); WHITE BLOOD COUNT 16.8 X10^3/uL (3.6-10.0)
[2023-08-13 06:07] LABS: ALANINE AMINOTRANSFERASE 36 Units/L (12-78); ALBUMIN 2.7 g/dL (3.4-5.0); ALKALINE PHOSPHATASE 83 Units/L (46-116); ASPARTATE AMINO TRANSFERASE 20 Units/L (15-37); BLOOD UREA NITROGEN 15 mg/dL (7-18); CALCIUM 8.3 mg/dL (8.5-10.1); CARBON DIOXIDE 28.6 mmol/L (21-32); CHLORIDE 104 mmol/L (98-107); COR CA(FOR HYPOALB) 9.3 mg/dL (8.5-10.1); CREATININE 0.99 mg/dL (0.70-1.30); GLUCOSE 103 mg/dL (65-99); POTASSIUM 3.6 mmol/L (3.5-5.1); SODIUM 140 mmol/L (136-145); TOTAL PROTEIN 5.8 g/dL (6.4-8.2); eGFR NON BLACK RACES > 60 (>60)
[2023-08-13] MEDS ORDERED: CONSULT PHARMACY - POTASSIUM & MAGNESIUM XX SCH (07:00)
[2023-08-13] MEDS ORDERED: POTASSIUM CHLORIDE LIQ PO SCH (08:00)
[2023-08-13 08:04] VITALS: BP 157/94; TEMP 97.9
[2023-08-13] MEDS: PREDNISONE TAB 10 MG PO SCH (08:19)
[2023-08-13] MEDS: ACTOS PO SCH (08:19)
[2023-08-13] MEDS: GLUCOPHAGE XR 24-HR PO SCH (08:19)
[2023-08-13] MEDS: PULMICORT NEB TX 0.5 MG NEB SCH (08:47)
[2023-08-13 09:07] VITALS: PULSE 126; O2SAT 92
== END 2023-08-13 12:55 | disposition home or self-care (01) ==
LOC: ER 17:15 → MED/SURG 17:15
PROVIDERS: ADMIT Family Medicine; ATTEND Internal Medicine
DX: J45.901 Unspecified asthma with (acute) exacerbation

== ENCOUNTER 2023-08-13 22:59 | Inpatient (IN) ==
[2023-08-13] MEDS ORDERED: DECADRON INJ IVP ONE (23:26)
[2023-08-13] MEDS ORDERED: DUONEB 0.5 MG/3 MG (3 mL) NEB ONE ×2 (23:27→23:33)
[2023-08-13] MEDS ORDERED: DECADRON INJ ONE (23:29)
[2023-08-13 23:40] LABS: ABG ALLEN TEST POS; ABG BASE EXCESS 4.4 mmol/L (-2.0-2.0); ABG HCO3 28.4 mmol/L (22-26)
[2023-08-13 23:51] LABS: RED CELL DISTRIBUTION WIDTH 13.4 % (11.6-16.5)
--- NOTE | 2023-08-13 23:52 | RAD ---
EXAM:CHEST, 1 VIEWHISTORY:sob; copd, asthmaCOMPARISON:August 13, 2023 at 2:31 a.m.TECHNIQUE:Chest radiographic imaging, AP portable projection, 1 imageFINDINGS:No cardiomegaly.No focal airspace disease.No pleural effusion.No pneumothorax.No acute osseous abnormality.IMPRESSION:No imaging findings of acute cardiopulmonary disease or significant changes.THIS IS AN ELECTRONICALLY VERIFIED FINAL [id number]/13/2023 11:49 PM - Electronically signed by Asher Cline MD
[2023-08-13 23:56] LABS: ALANINE AMINOTRANSFERASE 40 Units/L (12-78); ALBUMIN 3.4 g/dL (3.4-5.0); ALKALINE PHOSPHATASE 99 Units/L (46-116); ASPARTATE AMINO TRANSFERASE 23 Units/L (15-37); BLOOD UREA NITROGEN 20 mg/dL (7-18); CALCIUM 8.6 mg/dL (8.5-10.1); CARBON DIOXIDE 31.9 mmol/L (21-32); CHLORIDE 100 mmol/L (98-107); COR NA(FOR HYPERGLY) 138 mmol/L (136-145); CREATININE 1.26 mg/dL (0.70-1.30); GLUCOSE 113 mg/dL (65-99); POTASSIUM 3.8 mmol/L (3.5-5.1); SODIUM 138 mmol/L (136-145); TOTAL PROTEIN 6.9 g/dL (6.4-8.2); eGFR NON BLACK RACES > 60 (>60)
[2023-08-13 23:57] LABS: BASOPHILS # (AUTO) 0.1 X10^3/uL (0.0-0.1); BASOPHILS % (AUTO) 0.8 % (0.2-1.0); EOSINOPHILS # (AUTO) 0.3 x10^3/uL (0.0-0.2); EOSINOPHILS % (AUTO) 1.8 % (0.9-2.9); HEMATOCRIT 44.9 % (42.0-54.0); LYMPHOCYTES # (AUTO) 3.1 X10^3/uL (1.3-2.9); LYMPHOCYTES % (AUTO) 18.2 % (21.0-51.0); MEAN CORPUSCULAR HEMOGLOBIN 28.7 pg (27.0-34.0); MEAN CORPUSCULAR HGB CONC 33.3 g/dL (33.0-35.0); MEAN CORPUSCULAR VOLUME 86.1 fL (80.0-100.0); MEAN PLATELET VOLUME 7.9 fL (7.4-11.0); MONOCYTES # (AUTO) 1.5 x10^3/uL (0.3-0.8); NEUTROPHILS # (AUTO) 11.9 x10^3/uL (2.2-4.8); NEUTROPHILS % (AUTO) 70.2 % (42.0-75.0); PLATELET COUNT 403 X10^3/uL (150.0-450.0); RED BLOOD COUNT 5.21 X10^6/uL (4.7-6.0)
--- NOTE | 2023-08-14 00:31 | DR.SOBA ---
HPI Time Seen Time Seen by Provider: 08/13/23 23:26 Primary Care Physician Primary Care Physician: GÓMEZ Snow Chief Complaint:: PATIENT TO ED C/O SOB AFTER BEING DC FROM HOSPITAL TODAY. PT STATES DOING BREATHING TX 2 HOURS AGO WITH NO RELIEF AND WAS NOT ABLE TO GET MEDICATIONS FILLED TODAY DUE TO PHARMACY BEING CLOSED. Self Treatment fo Chief Complaint: BREATHING TREATMENT COVID-19 Coronavirus risk:travel/contact w/high risk person: No Has patient experienced Coronavirus symptoms: No Reviewed Nurses Notes Reviewed: Yes Source History Provided: Patient Mode of Arrival Mode of Arrival: Ambulatory Timing Onset of Chief Complaint: 08/13/23 Duration Duration: Hours Context Onset:: At Rest PE Risk Factors:: None History of:: Asthma and COPD Prehospital Care:: Inhaled B2 Associated Signs and Symptoms Associated Signs and Symptoms: None If Cough Cough: None PMH PMH Past Medical History: Yes Past Medical History: Asthma, COPD and Hypertension Past Surgical History: No Surgical History: No History Family History History of Family Medical Conditions: Yes Family Medical History: Diabetes Mellitus, MD, Coronary Artery Disease, Heart Failure and Sudden Cardiac Social History Do you use any recreational Drugs:: No Travel Risk Coronavirus risk:travel/contact w/high risk person: No Has patient experienced Coronavirus symptoms: No Infectious screening Have you traveled outside the country in the last 6 months?: No Isolation: Standard ROS Review of Systems Respiratoy: See HPI and Short of Breath PE Vital Signs Vitals: Vital Signs Temperature 98.1 F Pulse Rate 104 Pulse Rate 108 Pulse Rate 106 Pulse Rate 112 Pulse Rate 112 Pulse Rate 105 Pulse Rate 117 Pulse Rate 113 Pulse Rate 120 Respiratory Rate 22 Respiratory Rate 17 Respiratory Rate 20 Respiratory Rate 16 Respiratory Rate 15 Respiratory Rate 25 Respiratory Rate 17 Respiratory Rate 25 Blood Pressure 152/110 Blood Pressure 136/88 Blood Pressure 136/88 Blood Pressure 135/88 O2 Sat by Pulse Oximetry 94 O2 Sat by Pulse Oximetry 92 O2 Sat by Pulse Oximetry 90 O2 Sat by Pulse Oximetry 96 O2 Sat by Pulse Oximetry 91 O2 Sat by Pulse Oximetry 91 O2 Sat by Pulse Oximetry 90 O2 Sat by Pulse Oximetry 89 O2 Sat by Pulse Oximetry 88 General Limitations: No Limitations General Appearance: Alert and In No Apparent Distress Head Head Exam: Normal Inspection, Atraumatic and Normocephalic Eyes Eye exam: Normal Appearance, PERRL and EOMI ENT ENT Exam: Normal Exam Neck Neck Exam: Normal Inspection Chest Chest Inspection: Normal Inspection Respiratory Respiratory Exam: Bilateral: Wheezing Cardiovascular Cardiovascular Exam: Tachycardia Abdominal Exam Abdominal Exam: Normal Inspection Extremities Extremities Exam: Normal Inspection Back Back Exam: Normal Inspection Neurologic Neurological Exam: Alert, Oriented X3, CN II-XII Intact, Normal Gait and Reflexes Normal Psychiatric Psychiatric Exam: Normal Affect and Normal Mood Skin Skin Exam: Warm, Dry and Intact COURSE Treatment Treatment: Duoneb, Decadron, labs, x-rays Reevaluation 1st: Improved ROR Labs Reviewed Laboratory Results Reviewed?: Yes 08/13/23 23:30 08/13/23 23:30 Laboratory: WBC 17.0 X10^3/uL (3.6-10.0) H 08/13/23 23:30 RBC 5.21 X10^6/uL (4.7-6.0) 08/13/23 23:30 Hgb 15.0 g/dL (13.5-18.0) 08/13/23 23:30 Hct 44.9 % (42.0-54.0) 08/13/23 23:30 MCV 86.1 fL (80.0-100.0) 08/13/23 23:30 MCH 28.7 pg (27.0-34.0) 08/13/23 23:30 MCHC 33.3 g/dL (33.0-35.0) 08/13/23 23:30 RDW 13.4 % (11.6-16.5) 08/13/23 23:30 Plt Count 403 X10^3/uL (150.0-450.0) 08/13/23 23:30 MPV 7.9 fL (7.4-11.0) 08/13/23 23:30 Neut % (Auto) 70.2 % (42.0-75.0) 08/13/23 23:30 Lymph % (Auto) 18.2 % (21.0-51.0) L 08/13/23 23:30 [place]arton % (Auto) 9.0 % (0.0-13.0) 08/13/23 23:30 Eos % (Auto) 1.8 % (0.9-2.9) 08/13/23 23:30 Baso % (Auto) 0.8 % (0.2-1.0) 08/13/23 23:30 Neut # (Auto) 11.9 x10^3/uL (2.2-4.8) H 08/13/23 23:30 Lymph # (Auto) 3.1 X10^3/uL (1.3-2.9) H 08/13/23 23:30 [place] # (Auto) 1.5 x10^3/uL (0.3-0.8) H 08/13/23 23:30 Eos # (Auto) 0.3 x10^3/uL (0.0-0.2) H 08/13/23 23:30 Baso # (Auto) 0.1 X10^3/uL (0.0-0.1) 08/13/23 23:30 Absolute Nucleated RBC 0.1 /100WBC 08/13/23 23:30 D-Dimer 0.34 ug/ml (0.0-0.57) 08/13/23 23:30 Sample Site Lr 08/13/23 23:15 ABG pH 7.470 (7.35-7.45) H 08/13/23 23:15 ABG pCO2 39.0 mmHg (35.0-45.0) 08/13/23 23:15 ABG pO2 54.0 mmHg (80.0-100.0) L 08/13/23 23:15 ABG HCO3 28.4 mmol/L (22-26) H 08/13/23 23:15 ABG O2 Saturation 90.0 % (90-100) 08/13/23 23:15 ABG Base Excess 4.4 mmol/L (-2.0-2.0) H 08/13/23 23:15 Mian Test Pos 08/13/23 23:15 A-a Gradient 47.0 mmHg 08/13/23 23:15 FiO2 21.0 08/13/23 23:15 Blood Gas Comments Kim well sw 08/13/23 23:15 Sodium 138 mmol/L (136-145) 08/13/23 23:30 Corrected Sodium 138 mmol/L (136-145) 08/13/23 23:30 Potassium 3.8 mmol/L (3.5-5.1) 08/13/23 23:30 Chloride 100 mmol/L (98-107) 08/13/23 23:30 Carbon Dioxide 31.9 mmol/L (21-32) 08/13/23 23:30 BUN 20 mg/dL (7-18) H 08/13/23 23:30 Creatinine 1.26 mg/dL (0.70-1.30) 08/13/23 23:30 Est GFR (MDRD) Af Amer > 60 (>60) 08/13/23 23:30 Est GFR (MDRD) Non-Af > 60 (>60) 08/13/23 23:30 Glucose 113 mg/dL (65-99) H 08/13/23 23:30 Calcium 8.6 mg/dL (8.5-10.1) 08/13/23 23:30 Corrected Calcium TNP 08/13/23 23:30 Total Bilirubin 0.30 mg/dL (0.2-1.0) 08/13/23 23:30 AST 23 Units/L (15-37) 08/13/23 23:30 ALT 40 Units/L (12-78) 08/13/23 23:30 Alkaline Phosphatase 99 Units/L (46-116) 08/13/23 23:30 B-Natriuretic Peptide 30.5 pg/mL (0-79) 08/13/23 23:30 Total Protein 6.9 g/dL (6.4-8.2) 08/13/23 23:30 Albumin 3.4 g/dL (3.4-5.0) 08/13/23 23:30 Globulin 3.5 g/dL (2.5-4.5) 08/13/23 23:30 Albumin/Globulin Ratio 1.0 Ratio (1.1-2.1) L 08/13/23 23:30 Urine Opiates Screen Negative (NEG=<300) 08/14/23 00:08 Urine Methadone Screen Negative (NEG=<300) 08/14/23 00:08 Ur Barbiturates Screen Negative (NEG=<200) 08/14/23 00:08 Ur Phencyclidine Scrn Negative (NEG=<25) 08/14/23 00:08 Ur Amphetamines Screen Positive (NEG=<1000) 08/14/23 00:08 U Benzodiazepines Scrn Negative (NEG=<200) 08/14/23 00:08 Urine Cocaine Screen Negative (NEG=<300) 08/14/23 00:08 U Marijuana (THC) Screen Negative (NEG=<50) 08/14/23 00:08 XRAY XRAY Interpreted by: Radiologist Opioid Opioid Risk Tool Personal Hx of Substance Abuse: Illegal Drugs Age (Marshal box if 16-45): No History of Preadolescent Sexual Abuse: No Total: 0 Total Score Risk Category: Low Risk Copyright: Jeter predicting aberrant behaviors Discharge Plan Diagnosis Discharge Problem: Methamphetamine abuse Discharge Plan Patient Disposition: HOME, SELF-CARE Condition: Stable Prescriptions: No Action pioglitazone 30 mg Tablet 30 mg PO DAILY Qty: 30 0RF metformin 500 mg Tablet Extended Release 24 Hr 500 mg PO BID Qty: 60 0RF budesonide-formoterol [Breyna] 160-4.5 mcg/actuation HFA aerosol inhaler 2 puff inhalation Q12H Qty: 10.2 3RF albuterol sulfate [Ventolin HFA] 90 mcg/actuation HFA aerosol inhaler 2 puff inhalation Q6H PRNQty: 8.5 3RF Health Concerns: Post Hospitalization: new medications and changes needed to prevent readmission or further decline. Pt educated and given instructions on all concerns. Plan of Treatment: Continue with present treatment and follow up plan. Pt is to keep follow up appointment as instructed and take medications as ordered. Orders to Discharge Patient Discharge Orders: Discharge (Routine); Ordered 08/14/23 Ordered By: Faheem Grady Follow ups/Referrals Follow ups/Referrals: Crispin Woody [Primary Care Provider] - 3 days Instructions Stand Alone Forms: Post Hospital Follow Up Care
[2023-08-14] MEDS ORDERED: DUONEB 0.5 MG/3 MG (3 mL) NEB ONE ×2 (01:50→01:52)
[2023-08-14] MEDS: DUONEB 0.5 MG/3 MG (3 mL) NEB SCH ×6 (04:42→20:24)
[2023-08-14 04:45] VITALS: BMI 21.5
[2023-08-14] MEDS ORDERED: DUONEB 0.5 MG/3 MG (3 mL) NEB SCH ×2 (05:00)
[2023-08-14 05:23] LABS: BASOPHILS % (AUTO) 0.2 % (0.2-1.0); EOSINOPHILS % (AUTO) 0.2 % (0.9-2.9); HEMATOCRIT 41.9 % (42.0-54.0); HEMOGLOBIN 14.2 g/dL (13.5-18.0); LYMPHOCYTES # (AUTO) 1.1 X10^3/uL (1.3-2.9); LYMPHOCYTES % (AUTO) 8.3 % (21.0-51.0); MEAN CORPUSCULAR HEMOGLOBIN 28.9 pg (27.0-34.0); MEAN CORPUSCULAR HGB CONC 33.8 g/dL (33.0-35.0); MEAN CORPUSCULAR VOLUME 85.6 fL (80.0-100.0); MEAN PLATELET VOLUME 7.7 fL (7.4-11.0); MONOCYTES # (AUTO) 0.5 x10^3/uL (0.3-0.8); MONOCYTES % (AUTO) 3.9 % (0.0-13.0); NEUTROPHILS # (AUTO) 11.6 x10^3/uL (2.2-4.8); NEUTROPHILS % (AUTO) 87.4 % (42.0-75.0); PLATELET COUNT 371 X10^3/uL (150.0-450.0); RED CELL DISTRIBUTION WIDTH 13.6 % (11.6-16.5); WHITE BLOOD COUNT 13.3 X10^3/uL (3.6-10.0)
[2023-08-14 05:47] LABS: ALANINE AMINOTRANSFERASE 40 Units/L (12-78); ALBUMIN 3.2 g/dL (3.4-5.0); ALKALINE PHOSPHATASE 96 Units/L (46-116); ASPARTATE AMINO TRANSFERASE 19 Units/L (15-37); BLOOD UREA NITROGEN 21 mg/dL (7-18); CALCIUM 8.5 mg/dL (8.5-10.1); CHLORIDE 100 mmol/L (98-107); COR CA(FOR HYPOALB) 9.1 mg/dL (8.5-10.1); COR NA(FOR HYPERGLY) 138 mmol/L (136-145); CREATININE 1.21 mg/dL (0.70-1.30); GLUCOSE 171 mg/dL (65-99); POTASSIUM 4.1 mmol/L (3.5-5.1); SODIUM 136 mmol/L (136-145); TOTAL PROTEIN 6.5 g/dL (6.4-8.2); eGFR NON BLACK RACES > 60 (>60)
[2023-08-14] MEDS: NovoLIN R (or HumuLIN R) SUBCUT PRN ×4 (05:58→20:29)
[2023-08-14] MEDS: PULMICORT NEB TX 0.5 MG NEB SCH ×2 (08:52→20:24)
[2023-08-14] MEDS ORDERED: PULMICORT NEB TX 0.5 MG NEB SCH ×2 (09:00)
[2023-08-14] MEDS ORDERED: SOLU-Medrol 125 MG VIAL IVP SCH ×2 (09:00)
--- NOTE | 2023-08-14 12:41 | DR.UPDATE ---
H&P Update Prescription drug monitoring program results: PDMP reviewed and no concerns identified H&P Reviewed: Yes Any changes to H&P?: Yes Changes noted:: WAS ADMITTED FOR TREATMENT OF ASTHMA EXACERBATION AND ACUTE BRONCHITIS FROM 08/10/23 UNTIL 08/13/23. HE RETURNED TO THE ER DURING THE EVENING HOURS ON THE SAME DAY THAT HE WAS DISCHARGED. HE REPORTS PERSISTENT SHORTNESS OF BREATH SINCE DISCHARGE FROM THE HOSPITAL. PATIENT REPORTS THAT HE HAD TAKEN NEBULIZER TREATMENTS SINCE DISCHARGE AND HAS NOT BEEN ABLE TO GET ANY RELIEF. ON ARRIVAL TO THE HOSPITAL, HIS VITALS WERE: 98.1-120-25-88%-135/88. WHEN OXYGEN WAS APPLIED AT 2LPM, HIS SATURATIONS INCREASED TO 95%. LABS WERE OBTAINED. WBC 17.0, RBC 5.21, HGB 15.0, HCT 44.9, PLT COUNT 403, D-DIMER 0.34, SODIUM 138, POTASSIUM 3.8, CHLORIDE 100, CARBON DIOXIDE 31.9, BUN 20, CREATININE 1.26, GLUCOSE 113, CALCIUM 8.6, TOTAL BILI 0.30, AST 23, ALT 40, ALK PHOS 99, BNP 30.5, TOTAL PROTEIN 6.9, ALBUMIN 3.4. URINE DRUG SCREEN WAS POSITIVE FOR AMPHETAMINES. ABG WAS OBTAINED AND REVEALED: PH 7.470, PC02 39, P02 54, HC03 28.4, 02 SAT 90, BASE EXCESS 4.4, A-A GRADIENT 47, FI02 21.0. A CHEST XRAY WAS OBTAINED AND REVEALED: No imaging findings of acute cardiopulmonary disease or significant changes. IN THE ER, HE WAS GIVEN DECADRON 4MG IV X 1, DUONEB X 2 TREATMENTS. HE WAS READMITTED TO THE HOSPITAL FOR FURTHER EVALUATION AND TREATMENT OF ASTHMA EXACERBATION. HE WAS STARTED ON SOLU-MEDROL 40MG IV Q8H, DU ONEBS Q4H, PULMICORT NEBS BID, OTBS ACHS, HUMULIN R SLIDING SCALE, METFORMIN 500MG BID, AND ACTOS 30MG DAILY. OTHERWISE, WE WILL FOLLOW UP WITH AM LABS AND CONTINUE TO MONITOR. TIME SPENT ON CLINICAL ASSESSMENT, REVIEWING LABS AND IMAGING, DECISION MAKING, AND DOCUMENTATION GREATER THAN 75 MINUTES. Patient was examined?: Yes Vital Signs: Temp Pulse Pulse Resp BP BP Pulse Ox 08/14/23 08:52 08/14/23 08:00 98.1 F 119 H 20 137/93 94 L 08/14/23 07:33 98.1 F 119 H 20 137/93 94 L 08/14/23 07:00 08/14/23 04:00 97.9 F 105 H 20 153/92 94 L 08/14/23 04:43 112 H 95 08/14/23 04:00 08/14/23 03:33 08/14/23 04:15 107 H 19 93 L 08/14/23 04:00 149/89 08/14/23 04:00 110 H 16 93 L 08/14/23 03:45 109 H 17 93 L 08/14/23 03:30 152/93 08/14/23 03:30 109 H 20 92 L 08/14/23 04:00 106 H 14 149/89 93 L 08/14/23 03:30 108 H 16 152/93 93 L 08/14/23 03:15 65 16 140/85 94 L 08/14/23 03:15 109 H 22 91 L 08/14/23 03:00 148/92 08/14/23 03:00 109 H 20 90 L 08/14/23 02:52 109 H 16 89 L 08/14/23 02:31 111 H 19 86 L 08/14/23 02:30 149/86 08/14/23 02:30 149/86 08/14/23 02:24 118 H 24 85 L 08/14/23 02:15 115 H 17 89 L 08/14/23 02:00 122 H 27 H 98 08/14/23 02:00 156/94 08/14/23 01:45 108 H 15 89 L 08/14/23 01:30 107 H 17 92 L 08/14/23 01:30 144/88 08/14/23 01:15 108 H 17 93 L 08/14/23 01:00 143/85 08/14/23 01:00 109 H 19 94 L 08/14/23 00:45 105 H 19 94 L 08/14/23 00:30 142/82 08/14/23 00:30 104 H 15 95 08/14/23 02:00 104 H 89 L 08/14/23 00:15 104 H 22 94 L 08/14/23 00:00 108 H 17 92 L 08/14/23 00:00 152/110 08/13/23 23:45 112 H 20 96 08/13/23 23:37 112 H 16 91 L 08/13/23 23:37 136/88 08/13/23 23:30 117 H 25 H 90 L 08/13/23 23:35 105 H 15 136/88 91 L 08/13/23 23:48 106 H 90 L 08/13/23 23:19 113 H 17 89 L 08/13/23 23:14 98.1 F 120 H 25 H 135/88 88 L 08/13/23 08:47 08/13/23 08:00 157/94 O2 Del Method O2 Flow Rate FiO2 08/14/23 08:52 Nasal Cannula 2 28 08/14/23 08:00 Nasal Cannula 2 08/14/23 07:33 Nasal Cannula 2 08/14/23 07:00 Room Air 08/14/23 04:00 Nasal Cannula 2 08/14/23 04:43 08/14/23 04:00 Nasal Cannula 2 28 08/14/23 03:33 Nasal Cannula 2 08/14/23 04:15 08/14/23 04:00 08/14/23 04:00 08/14/23 03:45 08/14/23 03:30 08/14/23 03:30 08/14/23 04:00 2 08/14/23 03:30 08/14/23 03:15 Room Air 08/14/23 03:15 08/14/23 03:00 08/14/23 03:00 08/14/23 02:52 08/14/23 02:31 08/14/23 02:30 08/14/23 02:30 08/14/23 02:24 08/14/23 02:15 08/14/23 02:00 08/14/23 02:00 08/14/23 01:45 08/14/23 01:30 08/14/23 01:30 08/14/23 01:15 08/14/23 01:00 08/14/23 01:00 08/14/23 00:45 08/14/23 00:30 08/14/23 00:30 08/14/23 02:00 08/14/23 00:15 08/14/23 00:00 08/14/23 00:00 08/13/23 23:45 08/13/23 23:37 08/13/23 23:37 08/13/23 23:30 08/13/23 23:35 Nasal Cannula 3 08/13/23 23:48 08/13/23 23:19 08/13/23 23:14 08/13/23 08:47 28 08/13/23 08:00
[2023-08-14] MEDS: ACTOS PO SCH (13:40)
[2023-08-14] MEDS: SOLU-Medrol 40 MG VIAL IVP SCH ×2 (13:40→21:09)
[2023-08-14] MEDS: GLUCOPHAGE XR 24-HR PO SCH ×2 (13:40→20:24)
[2023-08-14] MEDS: SNACK - Diabetic Appropriate PO SCH (20:29)
[2023-08-15] MEDS: DUONEB 0.5 MG/3 MG (3 mL) NEB SCH ×6 (01:00→21:00)
[2023-08-15] MEDS ORDERED: DUONEB 0.5 MG/3 MG (3 mL) NEB ONE (04:11)
[2023-08-15 05:17] LABS: BASOPHILS % (AUTO) 0.1 % (0.2-1.0); HEMOGLOBIN 14.4 g/dL (13.5-18.0); LYMPHOCYTES # (AUTO) 1.3 X10^3/uL (1.3-2.9); LYMPHOCYTES % (AUTO) 7.8 % (21.0-51.0); MEAN CORPUSCULAR HEMOGLOBIN 28.7 pg (27.0-34.0); MEAN CORPUSCULAR HGB CONC 33.6 g/dL (33.0-35.0); MEAN CORPUSCULAR VOLUME 85.3 fL (80.0-100.0); MEAN PLATELET VOLUME 7.7 fL (7.4-11.0); MONOCYTES # (AUTO) 0.9 x10^3/uL (0.3-0.8); MONOCYTES % (AUTO) 5.3 % (0.0-13.0); NEUTROPHILS # (AUTO) 14.6 x10^3/uL (2.2-4.8); NEUTROPHILS % (AUTO) 86.8 % (42.0-75.0); PLATELET COUNT 412 X10^3/uL (150.0-450.0); RED BLOOD COUNT 5.04 X10^6/uL (4.7-6.0); RED CELL DISTRIBUTION WIDTH 13.3 % (11.6-16.5); WHITE BLOOD COUNT 16.9 X10^3/uL (3.6-10.0)
[2023-08-15 05:23] LABS: ALANINE AMINOTRANSFERASE 28 Units/L (12-78); ALKALINE PHOSPHATASE 89 Units/L (46-116); ASPARTATE AMINO TRANSFERASE 9 Units/L (15-37); BLOOD UREA NITROGEN 22 mg/dL (7-18); CALCIUM 8.7 mg/dL (8.5-10.1); CARBON DIOXIDE 27.2 mmol/L (21-32); CHLORIDE 102 mmol/L (98-107); COR CA(FOR HYPOALB) 9.5 mg/dL (8.5-10.1); COR NA(FOR HYPERGLY) 139 mmol/L (136-145); GLUCOSE 162 mg/dL (65-99); POTASSIUM 4.2 mmol/L (3.5-5.1); SODIUM 138 mmol/L (136-145); TOTAL PROTEIN 6.3 g/dL (6.4-8.2); eGFR NON BLACK RACES > 60 (>60)
[2023-08-15] MEDS: SOLU-Medrol 40 MG VIAL IVP SCH ×3 (05:45→21:08)
[2023-08-15] MEDS ORDERED: NS 100 ML IV 100 ML ONE (08:35)
[2023-08-15] MEDS ORDERED: OMNIPAQUE 350 mg/mL 100 mL BTL 100 ML ONE (08:35)
[2023-08-15] MEDS: ACTOS PO SCH (09:12)
[2023-08-15] MEDS: PULMICORT NEB TX 0.5 MG NEB SCH ×2 (09:40→21:00)
--- NOTE | 2023-08-15 11:22 | CT ---
EXAM:CHEST WITH CONTRASTHISTORY:COPD, ASTHMA, HYPOXIA, SOB;COMPARISON:Chest radiograph 08/13/2023TECHNIQUE:Multiple CT axial images of the chest were obtained with IV contrast. Coronal and sagittal images were reconstructed. Dose reduction techniques included Automated Exposure Control (AEC) and adjustment of mA and kV.FINDINGS:The heart is normal in size. The pulmonary artery and aorta have a normal caliber. No mediastinal mass or significant lymphadenopathy.The thyroid has a normal size and configuration. No axillary mass or significant axillary lymphadenopathy is identified.The lungs are well inflated with no consolidation or pleural effusion.Small focal areas of bilateral opacity are present. These have an interstitial and ground-glass appearance. For example see image 30 series 5. In the acute setting this may represent bronchopneumonia. In the chronic setting it is likely postinflammatory focal fibrosis.There is no large mass or significant nodule.Limited images of the upper abdomen show no significant abnormality.There is no significant bone abnormalityIMPRESSION:1. Possible bronchopneumonia; differential diagnosis includes chronic postinflammatory focal fibrosisTHIS IS AN ELECTRONICALLY VERIFIED FINAL [id number]/2023 11:08 AM - Electronically signed by Stefano Gutiérrez MD
--- NOTE | 2023-08-15 13:02 | PCM.PROG ---
Progress Note - Progress Note for Day of Date of Exam: 08/15/23 - Subjective Subjective: IS CURRENTLY INPATIENT STATUS FOR TREATMENT OF ACUTE ASTHMA EXACERBATION AND HYPOXIA. HE HAS A PMH OF COPD, HTN, AND HAS RECENTLY BEEN DIAGNOSED WITH TYPE 2 DIABETES MELLITUS. TODAY, HE IS ALERT AND ORIENTED, SITTING UP IN BED ON MORNING ROUNDS. HE CONTINUES TO COMPLAIN OF SHORTNESS OF BREATH AND COUGH THIS MORNING. HE DOES ADMIT TO SLIGHT IMPROVEMENT IN SYMPTOMS SINCE ADMISSION. ON EXAMINATION, HE IS SLIGHTLY TACHYCARDIC WITH HR 100-110 BPM. BILATERAL LUNGS ARE NOTED WITH SCATTERED WHEEZING. ABDOMEN IS FLAT, SOFT, AND NON-TENDER WITH NORMAL BOWEL SOUNDS NOTED IN ALL QUADRANTS. NO UPPER OR LOWER EXTREMITY EDEMA NOTED. HIS VITALS THIS MORNING ARE: 97.2-107-20-97%-132/77. HE IS CURRENTLY UTILIZING OXYGEN VIA NASAL CANNULA AT 2 LITERS/MINUTE. LABS WERE OBTAINED. WBC 16.9, RBC 5.04, HGB 14.4, HCT 43.0, PLT COUNT 412, SODIUM 138, POTASSIUM 4.2, CHLORIDE 102, CARBON DIOXIDE 27.2, BUN 22, CREATININE 1.10, GLUCOSE 162, CALCIUM 8.7, TOTAL BILI 0.30, AST 9, ALT 28, ALK PHOS 89, TOTAL PROTEIN 6.3, ALBUMIN 3.0. A CHEST CT WITH CONTRAST WAS OBTAINED THIS MORNING AND REVEALED: 1. 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 HE IS CURRENTLY RECEIVING SOLU-MEDROL 40MG IV Q8H, DUONEBS Q4H, PULMICORT NEBS BID, OTBS ACHS, HUMULIN R SLIDING SCALE, METFORMIN 500MG BID, AND ACTOS 30MG DAILY. TODAY, WE WILL ADD LEVAQUIN 500MG IV DAILY. OTHERWISE, WE PLAN TO FOLLOW-UP WITH AM LABS AND CHEST XRAY AND CONTINUE TO MONITOR. TIME SPENT ON CLINICAL ASSESSMENT, REVIWING LABS AND IMAGING, DECISION MAKING, AND DOCUMENTATION GREATER THAN 45 MINUTES. - Past Medical Family Social History Past Med/Fam/Surg Hx: No changes since H&P Allergies: Allergies No Known Drug Allergies Allergy (Verified 08/10/23 20:00) - Review of Systems ROS: No change since H&P - Vital Signs and I&O's Vital Signs: Vital Signs Temperature 97.2 F Temperature 97.6 F Pulse Rate [Left Radial] 107 Pulse Rate [Left Radial] 113 Pulse Rate 107 Respiratory Rate 20 Respiratory Rate 20 Blood Pressure [Left Arm] 132/77 Blood Pressure [Left Arm] 148/79 O2 Sat by Pulse Oximetry 97 O2 Sat by Pulse Oximetry 95 O2 Sat by Pulse Oximetry 94 Intake and Output: Intake & Output 08/13/23 08/14/23 08/15/23 08/16/23 11:59 11:59 11:59 11:59 Intake Total 320 / 320 1320 / 1320 Balance 320 / 320 1320 / 1320 - Physical Exam Oriented: Normal Eyes: Normal Ear: Normal Nose: Normal Throat: Normal Respiratory: Generalized, Wheezes Cardiovascular: Tachycardia : Normal Auscultation: Bowel Sounds: Normal Palpation: Normal Tenderness: Normal Skin: Normal Musculoskeletal: Normal Psychiatric: Normal Mood Description: Calm Affect: Normal Speech Pattern: Clear, Appropriate - Laboratory and Diagnostics Result Diagrams: 08/15/23 04:36 08/15/23 04:36 Labs: Laboratory WBC 16.9 X10^3/uL (3.6-10.0) H 08/15/23 04:36 RBC 5.04 X10^6/uL (4.7-6.0) 08/15/23 04:36 Hgb 14.4 g/dL (13.5-18.0) 08/15/23 04:36 Hct 43.0 % (42.0-54.0) 08/15/23 04:36 MCV 85.3 fL (80.0-100.0) 08/15/23 04:36 MCH 28.7 pg (27.0-34.0) 08/15/23 04:36 MCHC 33.6 g/dL (33.0-35.0) 08/15/23 04:36 RDW 13.3 % (11.6-16.5) 08/15/23 04:36 Plt Count 412 X10^3/uL (150.0-450.0) 08/15/23 04:36 MPV 7.7 fL (7.4-11.0) 08/15/23 04:36 Neut % (Auto) 86.8 % (42.0-75.0) H 08/15/23 04:36 Lymph % (Auto) 7.8 % (21.0-51.0) L 08/15/23 04:36 [place] % (Auto) 5.3 % (0.0-13.0) 08/15/23 04:36 Eos % (Auto) 0.0 % (0.9-2.9) L 08/15/23 04:36 Baso % (Auto) 0.1 % (0.2-1.0) L 08/15/23 04:36 Neut # (Auto) 14.6 x10^3/uL (2.2-4.8) H 08/15/23 04:36 Lymph # (Auto) 1.3 X10^3/uL (1.3-2.9) 08/15/23 04:36 [place] # (Auto) 0.9 x10^3/uL (0.3-0.8) H 08/15/23 04:36 Eos # (Auto) 0.0 x10^3/uL (0.0-0.2) 08/15/23 04:36 Baso # (Auto) 0.0 X10^3/uL (0.0-0.1) 08/15/23 04:36 Absolute Nucleated RBC 0.0 /100WBC 08/15/23 04:36 D-Dimer 0.34 ug/ml (0.0-0.57) 08/13/23 23:30 Sample Site Lr 08/13/23 23:15 ABG pH 7.470 (7.35-7.45) H 08/13/23 23:15 ABG pCO2 39.0 mmHg (35.0-45.0) 08/13/23 23:15 ABG pO2 54.0 mmHg (80.0-100.0) L 08/13/23 23:15 ABG HCO3 28.4 mmol/L (22-26) H 08/13/23 23:15 ABG O2 Saturation 90.0 % (90-100) 08/13/23 23:15 ABG Base Excess 4.4 mmol/L (-2.0-2.0) H 08/13/23 23:15 Mian Test Pos 08/13/23 23:15 A-a Gradient 47.0 mmHg 08/13/23 23:15 FiO2 21.0 08/13/23 23:15 Blood Gas Comments Kim well sw 08/13/23 23:15 Sodium 138 mmol/L (136-145) 08/15/23 04:36 Corrected Sodium 139 mmol/L (136-145) 08/15/23 04:36 Potassium 4.2 mmol/L (3.5-5.1) 08/15/23 04:36 Chloride 102 mmol/L (98-107) 08/15/23 04:36 Carbon Dioxide 27.2 mmol/L (21-32) 08/15/23 04:36 BUN 22 mg/dL (7-18) H 08/15/23 04:36 Creatinine 1.10 mg/dL (0.70-1.30) 08/15/23 04:36 Est GFR (MDRD) Af Amer > 60 (>60) 08/15/23 04:36 Est GFR (MDRD) Non-Af > 60 (>60) 08/15/23 04:36 Glucose 162 mg/dL (65-99) H 08/15/23 04:36 POC Glucose (mg/dL) 168 mg/dL (65-99) H 08/15/23 11:26 Calcium 8.7 mg/dL (8.5-10.1) 08/15/23 04:36 Corrected Calcium 9.5 mg/dL (8.5-10.1) 08/15/23 04:36 Magnesium 2.0 mg/dL (2.0-2.9) 08/14/23 04:46 Total Bilirubin 0.30 mg/dL (0.2-1.0) 08/15/23 04:36 AST 9 Units/L (15-37) L 08/15/23 04:36 ALT 28 Units/L (12-78) 08/15/23 04:36 Alkaline Phosphatase 89 Units/L (46-116) 08/15/23 04:36 B-Natriuretic Peptide 30.5 pg/mL (0-79) 08/13/23 23:30 Total Protein 6.3 g/dL (6.4-8.2) L 08/15/23 04:36 Albumin 3.0 g/dL (3.4-5.0) L 08/15/23 04:36 Globulin 3.3 g/dL (2.5-4.5) 08/15/23 04:36 Albumin/Globulin Ratio 0.9 Ratio (1.1-2.1) L 08/15/23 04:36 Urine Opiates Screen Negative (NEG=<300) 08/14/23 00:08 Urine Methadone Screen Negative (NEG=<300) 08/14/23 00:08 Ur Barbiturates Screen Negative (NEG=<200) 08/14/23 00:08 Ur Phencyclidine Scrn Negative (NEG=<25) 08/14/23 00:08 Ur Amphetamines Screen Positive (NEG=<1000) 08/14/23 00:08 U Benzodiazepines Scrn Negative (NEG=<200) 08/14/23 00:08 Urine Cocaine Screen Negative (NEG=<300) 08/14/23 00:08 U Marijuana (THC) Screen Negative (NEG=<50) 08/14/23 00:08 - Plan (1) Bronchopneumonia Status: Acute Plan: SUPPLEMENTAL OXYGEN, RESPIRATORY THERAPY, LEVAQUIN 500MG IV DAILY, SOLU- MEDROL 40MG IV Q8H, DUONEBS Q4H, PULMICORT NEBS BID, OTBS ACHS, HUMULIN R SLIDING SCALE, METFORMIN 500MG BID, AND ACTOS 30MG DAILY. (2) Asthma exacerbation Status: Acute Qualifiers: Asthma severity: unspecified severity Asthma persistence: unspecified Qualified Code(s): J45.901 - Unspecified asthma with (acute) exacerbation (3) Hypoxia Status: Acute (4) COPD (chronic obstructive pulmonary disease) Status: Chronic Qualifiers: COPD type: COPD with acute lower respiratory infection Qualified Code(s): J44.0 - Chronic obstructive pulmonary disease with (acute) lower respiratory infection (5) Diabetes mellitus Status: Acute Qualifiers: Diabetes mellitus type: type 2 Diabetes mellitus long lines operator insulin use: without fci use Diabetes mellitus complication status: with hyperglycemia Qualified Code(s): E11.65 - Type 2 diabetes mellitus with hyperglycemia Plan: RESUME METFORMIN AND ACTOS
[2023-08-15] MEDS: LEVAQUIN PREMIX IV 500 MG 500 MG/100 ML BAG IV SCH (14:12)
[2023-08-15] MEDS: NovoLIN R (or HumuLIN R) SUBCUT PRN ×2 (18:00→20:29)
[2023-08-15] MEDS: SNACK - Diabetic Appropriate PO SCH (20:29)
[2023-08-16] MEDS: DUONEB 0.5 MG/3 MG (3 mL) NEB SCH ×6 (00:10→21:00)
--- NOTE | 2023-08-16 05:34 | RAD ---
HISTORYBRONCHOPNEUMONIA Relevant Clinical InformationSTUDYCHEST, PA/LAT [id number]/2023FINDINGSThe trachea is midline. The cardiac silhouette is unremarkable. The lungs are clear without focal infiltrate or effusion. The bony thorax is unremarkable.IMPRESSIONNormal chest.Electronically signed by: Arthur Darden (Aug 16, 2023 05:33:26)
[2023-08-16] MEDS: SOLU-Medrol 40 MG VIAL IVP SCH ×3 (05:47→21:45)
[2023-08-16 06:04] LABS: BASOPHILS % (AUTO) 0.1 % (0.2-1.0); HEMOGLOBIN 13.9 g/dL (13.5-18.0); LYMPHOCYTES # (AUTO) 1.4 X10^3/uL (1.3-2.9); LYMPHOCYTES % (AUTO) 6.7 % (21.0-51.0); MEAN CORPUSCULAR HEMOGLOBIN 28.5 pg (27.0-34.0); MEAN CORPUSCULAR VOLUME 86.2 fL (80.0-100.0); MEAN PLATELET VOLUME 7.4 fL (7.4-11.0); MONOCYTES # (AUTO) 1.2 x10^3/uL (0.3-0.8); NEUTROPHILS # (AUTO) 17.7 x10^3/uL (2.2-4.8); NEUTROPHILS % (AUTO) 87.2 % (42.0-75.0); PLATELET COUNT 389 X10^3/uL (150.0-450.0); RED BLOOD COUNT 4.87 X10^6/uL (4.7-6.0); RED CELL DISTRIBUTION WIDTH 13.2 % (11.6-16.5); WHITE BLOOD COUNT 20.3 X10^3/uL (3.6-10.0)
[2023-08-16 06:18] LABS: ALANINE AMINOTRANSFERASE 25 Units/L (12-78); ALBUMIN 2.9 g/dL (3.4-5.0); ALKALINE PHOSPHATASE 80 Units/L (46-116); ASPARTATE AMINO TRANSFERASE 11 Units/L (15-37); BLOOD UREA NITROGEN 26 mg/dL (7-18); CALCIUM 8.3 mg/dL (8.5-10.1); CARBON DIOXIDE 27.1 mmol/L (21-32); CHLORIDE 103 mmol/L (98-107); COR CA(FOR HYPOALB) 9.2 mg/dL (8.5-10.1); COR NA(FOR HYPERGLY) 137 mmol/L (136-145); CREATININE 1.12 mg/dL (0.70-1.30); GLUCOSE 148 mg/dL (65-99); POTASSIUM 4.3 mmol/L (3.5-5.1); SODIUM 136 mmol/L (136-145); eGFR NON BLACK RACES > 60 (>60)
[2023-08-16] MEDS: LEVAQUIN PREMIX IV 500 MG 500 MG/100 ML BAG IV SCH (08:46)
[2023-08-16] MEDS: ACTOS PO SCH (08:47)
[2023-08-16] MEDS: PULMICORT NEB TX 0.5 MG NEB SCH ×2 (08:50→21:00)
[2023-08-16] MEDS: NovoLIN R (or HumuLIN R) SUBCUT PRN (16:43)
--- NOTE | 2023-08-16 17:23 | PCM.PROG ---
Progress Note - Progress Note for Day of Date of Exam: 08/16/23 - Subjective Subjective: IS CURRENTLY INPATIENT STATUS FOR TREATMENT OF ACUTE ASTHMA EXACERBATION AND HYPOXIA. HE HAS A PMH OF COPD, HTN, AND HAS RECENTLY BEEN DIAGNOSED WITH TYPE 2 DIABETES MELLITUS. TODAY, HE IS ALERT AND ORIENTED, SITTING UP IN BED ON MORNING ROUNDS. HE CONTINUES TO COMPLAIN OF SHORTNESS OF BREATH AND COUGH THIS MORNING. HE DOES ADMIT TO SLIGHT IMPROVEMENT IN SYMPTOMS SINCE ADMISSION. ON EXAMINATION, HE IS SLIGHTLY TACHYCARDIC WITH HR 100-110 BPM. BILATERAL LUNGS ARE NOTED WITH SCATTERED WHEEZING. ABDOMEN IS FLAT, SOFT, AND NON-TENDER WITH NORMAL BOWEL SOUNDS NOTED IN ALL QUADRANTS. NO UPPER OR LOWER EXTREMITY EDEMA NOTED. HIS VITALS THIS MORNING ARE: 97.3-105-18-97%-137/80. HE IS CURRENTLY UTILIZING OXYGEN VIA NASAL CANNULA AT 2 LITERS/MINUTE. LABS WERE OBTAINED. WBC 20.3, RBC 4.87, HGB 13.9, HCT 42.0, PLT COUNT 389, SODIUM 136, POTASSIUM 4.3, CHLORIDE 103, CARBON DIOXIDE 27.1, BUN 26, CREATININE 1.12, GLUCOSE 148, CALCIUM 8.3, TOTAL PROTEIN 6.0, ALBUMIN 2.9. A CHEST CT WITH CONTRAST WAS OBTAINED YESTERDAY AND REVEALED: 1. 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 AN ECHOCARDIOGRAM WAS OBTAINED YESTERDAY. IT REVEALED AN EJECTION FRACTION OF 69%. RVSP 12mmHg. HE IS CURRENTLY RECEIVING LEVAQUIN 500MG IV DAILY, SOLU-MEDROL 40MG IV Q8H, DUONEBS Q4H, PULMICORT NEBS BID, OTBS ACHS, HUMULIN R SLIDING SCALE, METFORMIN 500MG BID, AND ACTOS 30MG DAILY. WE WILL CONTINUE WITH CURRENT PLAN OF CARE TODAY. OTHERWISE, WE PLAN TO FOLLOW-UP WITH AM LABS AND CHEST XRAY AND CONTINUE TO MONITOR. TIME SPENT ON CLINICAL ASSESSMENT, REVIWING LABS AND IMAGING, DECISION MAKING, AND DOCUMENTATION GREATER THAN 45 MINUTES. - Past Medical Family Social History Past Med/Fam/Surg Hx: No changes since H&P Allergies: Allergies No Known Drug Allergies Allergy (Verified 08/10/23 20:00) - Review of Systems ROS: No change since H&P - Vital Signs and I&O's Vital Signs: Vital Signs Temperature 98.6 F Temperature 98.4 F Pulse Rate [Left Radial] 109 Pulse Rate [Left Radial] 104 Respiratory Rate 20 Respiratory Rate 18 Blood Pressure [Left Arm] 159/82 Blood Pressure [Left Arm] 145/87 O2 Sat by Pulse Oximetry 94 O2 Sat by Pulse Oximetry 94 Intake and Output: Intake & Output 08/14/23 08/15/23 08/16/23 08/17/23 11:59 11:59 11:59 11:59 Intake Total 320 / 320 1320 / 1320 2444 / 2444 780 / 780 Balance 320 / 320 1320 / 1320 2444 / 2444 780 / 780 - Physical Exam Oriented: Normal Eyes: Normal Ear: Normal Nose: Normal Throat: Normal Respiratory: Generalized, Wheezes Cardiovascular: Tachycardia : Normal Auscultation: Bowel Sounds: Normal Tenderness: Normal Skin: Normal Musculoskeletal: Normal Psychiatric: Normal Mood Description: Calm Affect: Normal Speech Pattern: Clear, Appropriate - Laboratory and Diagnostics Result Diagrams: 08/16/23 05:41 08/16/23 05:41 Labs: Laboratory WBC 20.3 X10^3/uL (3.6-10.0) H 08/16/23 05:41 RBC 4.87 X10^6/uL (4.7-6.0) 08/16/23 05:41 Hgb 13.9 g/dL (13.5-18.0) 08/16/23 05:41 Hct 42.0 % (42.0-54.0) 08/16/23 05:41 MCV 86.2 fL (80.0-100.0) 08/16/23 05:41 MCH 28.5 pg (27.0-34.0) 08/16/23 05:41 MCHC 33.0 g/dL (33.0-35.0) 08/16/23 05:41 RDW 13.2 % (11.6-16.5) 08/16/23 05:41 Plt Count 389 X10^3/uL (150.0-450.0) 08/16/23 05:41 MPV 7.4 fL (7.4-11.0) 08/16/23 05:41 Neut % (Auto) 87.2 % (42.0-75.0) H 08/16/23 05:41 Lymph % (Auto) 6.7 % (21.0-51.0) L 08/16/23 05:41 [place] % (Auto) 6.0 % (0.0-13.0) 08/16/23 05:41 Eos % (Auto) 0.0 % (0.9-2.9) L 08/16/23 05:41 Baso % (Auto) 0.1 % (0.2-1.0) L 08/16/23 05:41 Neut # (Auto) 17.7 x10^3/uL (2.2-4.8) H 08/16/23 05:41 Lymph # (Auto) 1.4 X10^3/uL (1.3-2.9) 08/16/23 05:41 [place] # (Auto) 1.2 x10^3/uL (0.3-0.8) H 08/16/23 05:41 Eos # (Auto) 0.0 x10^3/uL (0.0-0.2) 08/16/23 05:41 Baso # (Auto) 0.0 X10^3/uL (0.0-0.1) 08/16/23 05:41 Absolute Nucleated RBC 0.0 /100WBC 08/16/23 05:41 D-Dimer 0.34 ug/ml (0.0-0.57) 08/13/23 23:30 Sample Site Lr 08/13/23 23:15 ABG pH 7.470 (7.35-7.45) H 08/13/23 23:15 ABG pCO2 39.0 mmHg (35.0-45.0) 08/13/23 23:15 ABG pO2 54.0 mmHg (80.0-100.0) L 08/13/23 23:15 ABG HCO3 28.4 mmol/L (22-26) H 08/13/23 23:15 ABG O2 Saturation 90.0 % (90-100) 08/13/23 23:15 ABG Base Excess 4.4 mmol/L (-2.0-2.0) H 08/13/23 23:15 Mian Test Pos 08/13/23 23:15 A-a Gradient 47.0 mmHg 08/13/23 23:15 FiO2 21.0 08/13/23 23:15 Blood Gas Comments Kim well sw 08/13/23 23:15 Sodium 136 mmol/L (136-145) 08/16/23 05:41 Corrected Sodium 137 mmol/L (136-145) 08/16/23 05:41 Potassium 4.3 mmol/L (3.5-5.1) 08/16/23 05:41 Chloride 103 mmol/L (98-107) 08/16/23 05:41 Carbon Dioxide 27.1 mmol/L (21-32) 08/16/23 05:41 BUN 26 mg/dL (7-18) H 08/16/23 05:41 Creatinine 1.12 mg/dL (0.70-1.30) 08/16/23 05:41 Est GFR (MDRD) Af Amer > 60 (>60) 08/16/23 05:41 Est GFR (MDRD) Non-Af > 60 (>60) 08/16/23 05:41 Glucose 148 mg/dL (65-99) H 08/16/23 05:41 POC Glucose (mg/dL) 197 mg/dL (65-99) H 08/16/23 16:22 Calcium 8.3 mg/dL (8.5-10.1) L 08/16/23 05:41 Corrected Calcium 9.2 mg/dL (8.5-10.1) 08/16/23 05:41 Magnesium 2.0 mg/dL (2.0-2.9) 08/14/23 04:46 Total Bilirubin 0.30 mg/dL (0.2-1.0) 08/16/23 05:41 AST 11 Units/L (15-37) L 08/16/23 05:41 ALT 25 Units/L (12-78) 08/16/23 05:41 Alkaline Phosphatase 80 Units/L (46-116) 08/16/23 05:41 B-Natriuretic Peptide 30.5 pg/mL (0-79) 08/13/23 23:30 Total Protein 6.0 g/dL (6.4-8.2) L 08/16/23 05:41 Albumin 2.9 g/dL (3.4-5.0) L 08/16/23 05:41 Globulin 3.1 g/dL (2.5-4.5) 08/16/23 05:41 Albumin/Globulin Ratio 0.9 Ratio (1.1-2.1) L 08/16/23 05:41 Urine Opiates Screen Negative (NEG=<300) 08/14/23 00:08 Urine Methadone Screen Negative (NEG=<300) 08/14/23 00:08 Ur Barbiturates Screen Negative (NEG=<200) 08/14/23 00:08 Ur Phencyclidine Scrn Negative (NEG=<25) 08/14/23 00:08 Ur Amphetamines Screen Positive (NEG=<1000) 08/14/23 00:08 U Benzodiazepines Scrn Negative (NEG=<200) 08/14/23 00:08 Urine Cocaine Screen Negative (NEG=<300) 08/14/23 00:08 U Marijuana (THC) Screen Negative (NEG=<50) 08/14/23 00:08 - Plan (1) Bronchopneumonia Status: Acute Plan: SUPPLEMENTAL OXYGEN, RESPIRATORY THERAPY, LEVAQUIN 500MG IV DAILY, SOLU- MEDROL 40MG IV Q8H, DUONEBS Q4H, PULMICORT NEBS BID, OTBS ACHS, HUMULIN R SLIDING SCALE, METFORMIN 500MG BID, AND ACTOS 30MG DAILY. (2) Asthma exacerbation Status: Acute Qualifiers: Asthma severity: unspecified severity Asthma persistence: unspecified Qualified Code(s): J45.901 - Unspecified asthma with (acute) exacerbation (3) Hypoxia Status: Acute (4) COPD (chronic obstructive pulmonary disease) Status: Chronic Qualifiers: COPD type: COPD with acute lower respiratory infection Qualified Code(s): J44.0 - Chronic obstructive pulmonary disease with (acute) lower respiratory infection (5) Diabetes mellitus Status: Acute Qualifiers: Diabetes mellitus type: type 2 Diabetes mellitus residential insulin use: without extermination supervisor use Diabetes mellitus complication status: with hyperglycemia Qualified Code(s): E11.65 - Type 2 diabetes mellitus with hyperglycemia Plan: RESUME METFORMIN AND ACTOS
[2023-08-16] MEDS: SNACK - Diabetic Appropriate PO SCH (21:45)
[2023-08-17] MEDS: DUONEB 0.5 MG/3 MG (3 mL) NEB SCH ×6 (00:30→20:03)
[2023-08-17] MEDS: SOLU-Medrol 40 MG VIAL IVP SCH ×3 (05:30→21:03)
--- NOTE | 2023-08-17 05:38 | RAD ---
HISTORYSOB, ASTHMA EXACERBATION Relevant Clinical InformationSTUDYCHEST, 1 [id number] trachea is midline. The cardiac silhouette is unremarkable. The lungs are clear without focal infiltrate or effusion. The bony thorax is unremarkable.IMPRESSIONNo acute cardiopulmonary findings .Electronically signed by: Arthur Darden (Aug 17, 2023 05:36:44)
[2023-08-17 06:11] LABS: BASOPHILS % (AUTO) 0 % (0.2-1.0); EOSINOPHILS % (AUTO) 0.1 % (0.9-2.9); HEMOGLOBIN 14.1 g/dL (13.5-18.0); LYMPHOCYTES # (AUTO) 1.1 X10^3/uL (1.3-2.9); LYMPHOCYTES % (AUTO) 5.2 % (21.0-51.0); MEAN CORPUSCULAR HEMOGLOBIN 28.6 pg (27.0-34.0); MEAN CORPUSCULAR HGB CONC 33.5 g/dL (33.0-35.0); MEAN CORPUSCULAR VOLUME 85.3 fL (80.0-100.0); MEAN PLATELET VOLUME 7.5 fL (7.4-11.0); MONOCYTES % (AUTO) 4.8 % (0.0-13.0); NEUTROPHILS # (AUTO) 18.6 x10^3/uL (2.2-4.8); NEUTROPHILS % (AUTO) 89.9 % (42.0-75.0); PLATELET COUNT 386 X10^3/uL (150.0-450.0); RED BLOOD COUNT 4.92 X10^6/uL (4.7-6.0); RED CELL DISTRIBUTION WIDTH 13.7 % (11.6-16.5); WHITE BLOOD COUNT 20.7 X10^3/uL (3.6-10.0)
[2023-08-17 06:21] LABS: ALANINE AMINOTRANSFERASE 24 Units/L (12-78); ALBUMIN 2.9 g/dL (3.4-5.0); ALKALINE PHOSPHATASE 82 Units/L (46-116); ASPARTATE AMINO TRANSFERASE 9 Units/L (15-37); BLOOD UREA NITROGEN 23 mg/dL (7-18); CALCIUM 8.3 mg/dL (8.5-10.1); CARBON DIOXIDE 31.4 mmol/L (21-32); CHLORIDE 100 mmol/L (98-107); COR CA(FOR HYPOALB) 9.2 mg/dL (8.5-10.1); COR NA(FOR HYPERGLY) 138 mmol/L (136-145); CREATININE 0.98 mg/dL (0.70-1.30); GLUCOSE 157 mg/dL (65-99); POTASSIUM 4.4 mmol/L (3.5-5.1); SODIUM 137 mmol/L (136-145); eGFR NON BLACK RACES > 60 (>60)
[2023-08-17] MEDS: ACTOS PO SCH (08:56)
[2023-08-17] MEDS: LEVAQUIN PREMIX IV 500 MG 500 MG/100 ML BAG IV SCH (08:57)
[2023-08-17] MEDS: PULMICORT NEB TX 0.5 MG NEB SCH ×2 (09:27→20:03)
[2023-08-17] MEDS: GLUCOPHAGE XR 24-HR PO SCH ×2 (10:13→20:40)
[2023-08-17] MEDS: NovoLIN R (or HumuLIN R) SUBCUT PRN ×2 (17:09→17:29)
[2023-08-17] MEDS: SNACK - Diabetic Appropriate PO SCH (20:40)
[2023-08-18] MEDS: DUONEB 0.5 MG/3 MG (3 mL) NEB SCH ×3 (00:04→08:57)
[2023-08-18] MEDS: SOLU-Medrol 40 MG VIAL IVP SCH (05:23)
[2023-08-18] MEDS: NovoLIN R (or HumuLIN R) SUBCUT PRN (05:42)
--- NOTE | 2023-08-18 05:55 | RAD ---
HISTORYSOB Relevant Clinical InformationSTUDYCHEST, 1 [id number]/2023FINDINGSThe trachea is midline. The cardiac silhouette is unremarkable. The lungs are clear without focal infiltrate or effusion. The bony thorax is unremarkable.IMPRESSIONNo acute cardiopulmonary findings .Electronically signed by: Arthur Darden (Aug 18, 2023 05:54:24)
[2023-08-18 06:06] LABS: BASOPHILS % (AUTO) 0.2 % (0.2-1.0); LYMPHOCYTES # (AUTO) 1.2 X10^3/uL (1.3-2.9); LYMPHOCYTES % (AUTO) 5.9 % (21.0-51.0); MEAN CORPUSCULAR HEMOGLOBIN 28.8 pg (27.0-34.0); MEAN CORPUSCULAR HGB CONC 33.3 g/dL (33.0-35.0); MEAN CORPUSCULAR VOLUME 86.3 fL (80.0-100.0); MEAN PLATELET VOLUME 7.8 fL (7.4-11.0); MONOCYTES # (AUTO) 1.4 x10^3/uL (0.3-0.8); MONOCYTES % (AUTO) 6.8 % (0.0-13.0); NEUTROPHILS # (AUTO) 17.6 x10^3/uL (2.2-4.8); NEUTROPHILS % (AUTO) 87.1 % (42.0-75.0); PLATELET COUNT 392 X10^3/uL (150.0-450.0); RED BLOOD COUNT 4.87 X10^6/uL (4.7-6.0); RED CELL DISTRIBUTION WIDTH 13.8 % (11.6-16.5); WHITE BLOOD COUNT 20.3 X10^3/uL (3.6-10.0)
[2023-08-18 06:23] LABS: ALANINE AMINOTRANSFERASE 27 Units/L (12-78); ALBUMIN 2.7 g/dL (3.4-5.0); ALKALINE PHOSPHATASE 75 Units/L (46-116); ASPARTATE AMINO TRANSFERASE 12 Units/L (15-37); BLOOD UREA NITROGEN 26 mg/dL (7-18); CALCIUM 7.8 mg/dL (8.5-10.1); CARBON DIOXIDE 27.6 mmol/L (21-32); CHLORIDE 101 mmol/L (98-107); COR CA(FOR HYPOALB) 8.8 mg/dL (8.5-10.1); COR NA(FOR HYPERGLY) 138 mmol/L (136-145); CREATININE 0.93 mg/dL (0.70-1.30); GLUCOSE 189 mg/dL (65-99); POTASSIUM 4.1 mmol/L (3.5-5.1); SODIUM 136 mmol/L (136-145); TOTAL PROTEIN 5.7 g/dL (6.4-8.2); eGFR NON BLACK RACES > 60 (>60)
[2023-08-18 06:34] LABS: BAND NEUTROPHILS % 1 % (0-10); PLATELET MORPHOLOGY COMMENT NORMAL (NORMAL)
[2023-08-18] MEDS: PULMICORT NEB TX 0.5 MG NEB SCH (08:56)
[2023-08-18] MEDS: GLUCOPHAGE XR 24-HR PO SCH (08:56)
[2023-08-18] MEDS: LEVAQUIN PREMIX IV 500 MG 500 MG/100 ML BAG IV SCH (08:57)
[2023-08-18] MEDS: ACTOS PO SCH (08:57)
[2023-08-18 10:36] VITALS: O2SAT 92
[2023-08-18 11:18] VITALS: BP 141/92; PULSE 110; RESP 18; TEMP 97.5
== END 2023-08-18 11:45 | disposition home or self-care (01) | DRG 202 ==
LOC: MED/SURG 23:02 → ER 23:02 → OBSVTOIN 08-14 03:20 → MED/SURG 08-14 04:21
PROVIDERS: ADMIT Obstetrics & Gynecology Obstetrics; ATTEND Internal Medicine
DX: J45.901 Unspecified asthma with (acute) exacerbation; R00.0 Tachycardia, unspecified; J44.0 Chronic obstructive pulmonary disease with (acute) lower respiratory infection; R06.02 Shortness of breath; R09.02 Hypoxemia; F15.10 Other stimulant abuse, uncomplicated; J20.8 Acute bronchitis due to other specified organisms; J44.9 Chronic obstructive pulmonary disease, unspecified; E11.65 Type 2 diabetes mellitus with hyperglycemia; I10 Essential (primary) hypertension